=== PATIENT | male | born 1950 | race American Indian/Alaskan Native ===

== ENCOUNTER 2019-05-16 12:41 | Inpatient (IN) | payer OTHER ==
[2019-05-16] MEDS ORDERED: NACL 0.9% 500 ML 500 ML IV ONE (12:58)
--- NOTE | 2019-05-16 13:00 | Emergency Department Report ---
ED Neuro Deficit HPI - General Chief Complaint: Neuro Symptoms/Deficit Stated Complaint: LT SIDE PAIN Time Seen by Provider: 05/16/19 12:48 Source: patient, RN notes reviewed Mode of arrival: Wheelchair Limitations: Physical Limitation, Other (the patient is a poor historian) - History of Present Illness Initial Comments: This is a 69-year-old gentleman. The patient is not known to this provider previously. The patient is a rather poor historian. The patient states he has hypertension. He does not know what medication he takes for his hypertension. He does not know who his primary care doctor is. He presents to the ER with a complaint of feeling like his left leg is not working correctly. He indicates he woke up feeling like this. He indicates his last normal well time was sometime last night, before going to sleep. He denies physical pain at this time. He indicates symptoms are constant, did not radiate anywhere, he is having difficulty describing worsening or relieving factors. He indicates that he is anxious. The patient specifically denied headache, neck pain, chest pain, abdominal pain, shortness of breath, urinary symptoms, joint pain on his review of systems -: hour(s) Location: left leg Presenting Symptoms: Absent: Sudden, Severe Headache, Blurred/Loss of Vision, Facial Droop/Numbness, Unable to Speak Clearly, Altered Mental Status History of same: No Place: home Quality: weak Improves With: other Worsens With: other - Related Data Home Medications: Home Medications Medication Instructions Recorded Confirmed Last Taken amLODIPine [Norvasc] 10 mg PO DAILY 05/17/19 05/17/19 Unknown Allergies/Adverse Reactions: Allergies Allergy/AdvReac Type Severity Reaction Status Date / Time No Known Allergies Allergy Unverified 05/16/19 12:45 ED Review of Systems ROS: Stated complaint: LT SIDE PAIN Other details as noted in HPI Constitutional: denies: fever Eyes: denies: eye discharge ENT: denies: epistaxis Respiratory: denies: cough Cardiovascular: denies: chest pain Gastrointestinal: denies: abdominal pain Genitourinary: denies: dysuria Musculoskeletal: denies: back pain Skin: denies: lesions Neurological: weakness Psychiatric: anxiety ED Past Medical Hx - Past Medical History Previous Medical History?: Yes Hx Hypertension: Yes - Surgical History Past Surgical History?: No - Medications Home Medications: Home Medications Medication Instructions Recorded Confirmed Last Taken Type amLODIPine [Norvasc] 10 mg PO DAILY 05/17/19 05/17/19 Unknown History ED Neuro Physical Exam - General Limitations: Physical Limitation General appearance: alert, anxious, in distress Suspected Stroke: Yes - Head Head exam: Present: atraumatic, normocephalic - Eye Eye exam: Present: normal appearance, EOMI, other (b/l arcus senilis noted,). Absent: nystagmus - ENT ENT exam: Present: normal exam, normal orophraynx, mucous membranes moist, normal external ear exam - Neck Neck exam: Present: normal inspection, full ROM. Absent: tenderness, meningismus - Respiratory Respiratory exam: Present: normal lung sounds bilaterally. Absent: respiratory distress - Cardiovascular Cardiovascular Exam: Present: regular rate, normal rhythm, normal heart sounds. Absent: bradycardia, tachycardia, irregular rhythm, systolic murmur, diastolic murmur, rubs, gallop - GI/Abdominal GI/Abdominal exam: Present: soft. Absent: distended, tenderness, guarding, rebound, rigid, pulsatile mass - Rectal Rectal exam: Present: deferred - Extremities Exam Extremities exam: Present: normal inspection, other (2+ pulses noted in the bilateral upper, lower extremities. Compartments soft. No long bony tenderness. The pelvis is stable.). Absent: pedal edema, calf tenderness - Back Exam Back exam: Present: normal inspection. Absent: CVA tenderness (R), CVA tenderness (L), paraspinal tenderness, vertebral tenderness - Neurological Exam Neurological exam: Present: alert, oriented X3, motor sensory deficit (there is 4 out of 5 strength left leg. There is decreased sensation to light touch left leg.), other (there is no facial droop. The tongue is midline. Extraocular movements are intact bilaterally.) - NIHSS Assessment Interval: Baseline 1a. Level of Consciousness: alert/keenly responsive 1b. LOC Questions: answers both correctly 1c. LOC Commands: performs tasks correctly 2. Best Gaze: normal 3. Visual: no visual loss 4. Facial Palsy: normal symmetrical movement 5b. Motor Arm Right: no drift 5a. Motor Arm Left: drift 6a. Motor Leg Left: drift 6b. Motor Leg Right: no drift 7. Limb Ataxia: absent 8. Sensory: normal 9. Best Language: no aphasia 10. Dysarthria: normal 11. Extinction/Inattention: no abnormality Total Score: 2 Stroke Severity: Minor Stroke - Psychiatric Psychiatric exam: Present: anxious - Skin Skin exam: Present: warm, dry, intact, normal color. Absent: rash ED Course Vital Signs 05/16/19 05/16/19 05/16/19 13:06 13:30 14:00 Temperature Pulse Rate 97 H 100 H 83 Respiratory 17 18 19 Rate Blood Pressure 174/134 158/110 Blood Pressure [Left] O2 Sat by Pulse 95 99 94 Oximetry 05/16/19 05/16/19 05/16/19 14:36 15:00 15:46 Temperature Pulse Rate 74 Respiratory 19 Rate Blood Pressure 185/133 160/114 160/114 Blood Pressure [Left] O2 Sat by Pulse 96 100 Oximetry 05/16/19 05/16/19 05/16/19 16:00 16:30 17:00 Temperature Pulse Rate 70 Respiratory 15 Rate Blood Pressure 170/112 160/114 161/110 Blood Pressure [Left] O2 Sat by Pulse 96 95 97 Oximetry 05/16/19 05/16/19 05/16/19 17:20 17:30 17:42 Temperature Pulse Rate 80 78 Respiratory 15 17 Rate Blood Pressure 178/132 178/132 161/110 Blood Pressure [Left] O2 Sat by Pulse 93 96 93 Oximetry 05/16/19 05/16/19 05/16/19 17:50 18:00 18:10 Temperature Pulse Rate Respiratory Rate Blood Pressure 161/110 161/110 115/70 Blood Pressure [Left] O2 Sat by Pulse 96 96 97 Oximetry 05/16/19 05/16/19 05/16/19 18:20 18:30 18:40 Temperature Pulse Rate 83 78 Respiratory 18 16 Rate Blood Pressure 115/70 115/70 199/141 Blood Pressure [Left] O2 Sat by Pulse 97 95 96 Oximetry 05/16/19 05/16/19 05/16/19 18:50 19:00 19:10 Temperature Pulse Rate 81 78 79 Respiratory 22 20 16 Rate Blood Pressure 199/141 188/135 188/135 Blood Pressure [Left] O2 Sat by Pulse 96 94 95 Oximetry 05/16/19 05/16/19 05/16/19 19:15 19:20 19:30 Temperature 97.7 F Pulse Rate 76 79 79 Respiratory 14 16 18 Rate Blood Pressure 187/134 188/135 197/141 Blood Pressure 187/134 [Left] O2 Sat by Pulse 97 96 95 Oximetry 05/16/19 05/16/19 05/16/19 19:40 19:50 20:00 Temperature Pulse Rate 74 73 74 Respiratory 16 16 15 Rate Blood Pressure 187/134 187/134 187/134 Blood Pressure [Left] O2 Sat by Pulse 96 96 95 Oximetry 05/16/19 05/16/19 05/16/19 20:10 20:20 20:26 Temperature Pulse Rate 74 68 Respiratory 13 17 Rate Blood Pressure 176/123 176/123 Blood Pressure 174/100 [Left] O2 Sat by Pulse 95 97 Oximetry 05/16/19 05/16/19 20:30 20:40 Temperature Pulse Rate 72 68 Respiratory 11 L 19 Rate Blood Pressure 176/123 187/134 Blood Pressure [Left] O2 Sat by Pulse 96 97 Oximetry - Reevaluation(s) Reevaluation #1: 05/16/19 13:19 Differential diagnosis, including but not limited to: Stroke, AAA, anxiety Assessment and plan: 69-year-old gentleman who comes in with wake-up symptoms concerning for possible stroke, including left leg weakness, hypoesthesia, and discoordination. Last known well time's last night, he woke up with symptoms, therefore not a TPA candidate. He has no pulsatile abdominal mass, and equal pulses in the upper, lower extremities. Think aortic disease is unlikely. He does endorse some abdominal wall shaking, although he is not complaining of abdominal wall pain. He is seen in consultation with stroke neurology, Dr. Lundberg, who agrees that patient is not a TPA candidate, but does recommend a CT angiogram of the head and neck. We will also obtain CT scan of the abdomen and pelvis. Patient will be given 1 mg of Ativan empirically for presumed anxiety. Reevaluation #2: 05/16/19 17:13 CT angiogram neck negative for large vessel occlusion. Incidental nonemergent findings noted. CT scan abdomen pelvis, CT angiogram head pending interpret ation. Reevaluation #3: 05/16/19 17:28 cta head negative for large vessel occlusion Dr Enamorado accepts Reevaluation #4: 05/16/19 18:17 CT scan of the abdomen pelvis is negative for acute disease. - Lab Data Result diagrams: 05/17/19 07:20 05/17/19 07:20 Lab Results 05/16/19 05/16/1905/16/19 Range/Units 12:50 13:23 13:23 WBC 4.6 (4.5-11.0) K/mm3 RBC 4.66 (3.65-5.03) M/mm3 Hgb 14.3 (11.8-15.2) gm/dl Hct 43.0 (35.5-45.6) % MCV 92 (84-94) fl MCH 31 (28-32) pg MCHC 33 (32-34) % RDW 14.1 (13.2-15.2) % Plt Count 215 (140-440) K/mm3 Lymph % (Auto) 28.2 (13.4-35.0) % Clayton % (Auto) 7.3 (0.0-7.3) % Eos % (Auto) 2.5 (0.0-4.3) % Baso % (Auto) 0.9 (0.0-1.8) % Lymph # 1.3 (1.2-5.4) K/mm3 Clayton # 0.3 (0.0-0.8) K/mm3 Eos # 0.1 (0.0-0.4) K/mm3 Baso # 0.0 (0.0-0.1) K/mm3 Seg Neutrophils % 61.1 (40.0-70.0) % Seg Neutrophils # 2.8 (1.8-7.7) K/mm3 PT 13.3 (12.2-14.9) Sec. INR 1.04 (0.87-1.13) APTT 27.8 (24.2-36.6) Sec. Thrombin Time (15.1-19.6) Sec. Sodium (137-145) mmol/L Potassium (3.6-5.0) mmol/L Chloride (98-107) mmol/L Carbon Dioxide (22-30) mmol/L Anion Gap mmol/L BUN (9-20) mg/dL Creatinine (0.8-1.5) mg/dL Estimated GFR ml/min BUN/Creatinine Ratio % Glucose (75-100) mg/dL POC Glucose 113 H (70-105) Calcium (8.4-10.2) mg/dL Magnesium (1.7-2.3) mg/dL Troponin T (0.00-0.029) ng/mL Urine Color (Yellow) Urine Turbidity (Clear) Urine pH (5.0-7.0) Ur Specific Kendall (1.003-1.030) Urine Protein (Negative) mg/dL Urine Glucose (UA) (Negative) mg/dL Urine Ketones (Negative) mg/dL Urine Blood (Negative) Urine Nitrite (Negative) Urine Bilirubin (Negative) Urine Urobilinogen (<2.0) mg/dL Ur Leukocyte Esterase (Negative) Urine WBC (Auto) (0.0-6.0) /HPF Urine RBC (Auto) (0.0-6.0) /HPF Urine Bacteria (Auto) (Negative) /HPF Urine Mucus /HPF 05/16/19 05/16/19 05/16/19 Range/Units 13:23 13:23 13:23 WBC (4.5-11.0) K/mm3 RBC (3.65-5.03) M/mm3 Hgb (11.8-15.2) gm/dl Hct (35.5-45.6) % MCV (84-94) fl MCH (28-32) pg MCHC (32-34) % RDW (13.2-15.2) % Plt Count (140-440) K/mm3 Lymph % (Auto) (13.4-35.0) % Clayton % (Auto) (0.0-7.3) % Eos % (Auto) (0.0-4.3) % Baso % (Auto) (0.0-1.8) % Lymph # (1.2-5.4) K/mm3 Clayton # (0.0-0.8) K/mm3 Eos # (0.0-0.4) K/mm3 Baso # (0.0-0.1) K/mm3 Seg Neutrophils % (40.0-70.0) % Seg Neutrophils # (1.8-7.7) K/mm3 PT (12.2-14.9) Sec. INR (0.87-1.13) APTT (24.2-36.6) Sec. Thrombin Time 16.3 (15.1-19.6) Sec. Sodium 138 (137-145) mmol/L Potassium 3.3 L (3.6-5.0) mmol/L Chloride 102.5 (98-107) mmol/L Carbon Dioxide 23 (22-30) mmol/L Anion Gap 16 mmol/L BUN 16 (9-20) mg/dL Creatinine 1.3 (0.8-1.5) mg/dL Estimated GFR 55 ml/min BUN/Creatinine Ratio 12 % Glucose 110 H (75-100) mg/dL POC Glucose (70-105) Calcium 9.1 (8.4-10.2) mg/dL Magnesium 1.90 (1.7-2.3) mg/dL Troponin T < 0.010 (0.00-0.029) ng/mL Urine Color (Yellow) Urine Turbidity (Clear) Urine pH (5.0-7.0) Ur Specific Kendall (1.003-1.030) Urine Protein (Negative) mg/dL Urine Glucose (UA) (Negative) mg/dL Urine Ketones (Negative) mg/dL Urine Blood (Negative) Urine Nitrite (Negative) Urine Bilirubin (Negative) Urine Urobilinogen (<2.0) mg/dL Ur Leukocyte Esterase (Negative) Urine WBC (Auto) (0.0-6.0) /HPF Urine RBC (Auto) (0.0-6.0) /HPF Urine Bacteria (Auto) (Negative) /HPF Urine Mucus /HPF 05/16/19 Range/Units 14:38 WBC (4.5-11.0) K/mm3 RBC (3.65-5.03) M/mm3 Hgb (11.8-15.2) gm/dl Hct (35.5-45.6) % MCV (84-94) fl MCH (28-32) pg MCHC (32-34) % RDW (13.2-15.2) % Plt Count (140-440) K/mm3 Lymph % (Auto) (13.4-35.0) % Clayton % (Auto) (0.0-7.3) % Eos % (Auto) (0.0-4.3) % Baso % (Auto) (0.0-1.8) % Lymph # (1.2-5.4) K/mm3 Clayton # (0.0-0.8) K/mm3 Eos # (0.0-0.4) K/mm3 Baso # (0.0-0.1) K/mm3 Seg Neutrophils % (40.0-70.0) % Seg Neutrophils # (1.8-7.7) K/mm3 PT (12.2-14.9) Sec. INR (0.87-1.13) APTT (24.2-36.6) Sec. Thrombin Time (15.1-19.6) Sec. Sodium (137-145) mmol/L Potassium (3.6-5.0) mmol/L Chloride (98-107) mmol/L Carbon Dioxide (22-30) mmol/L Anion Gap mmol/L BUN (9-20) mg/dL Creatinine (0.8-1.5) mg/dL Estimated GFR ml/min BUN/Creatinine Ratio % Glucose (75-100) mg/dL POC Glucose (70-105) Calcium (8.4-10.2) mg/dL Magnesium (1.7-2.3) mg/dL Troponin T (0.00-0.029) ng/mL Urine Color Yellow (Yellow) Urine Turbidity Slightly-cloudy (Clear) Urine pH 8.0 H (5.0-7.0) Ur Specific Kendall 1.013 (1.003-1.030) Urine Protein 30 mg/dl (Negative) mg/dL Urine Glucose (UA) Neg (Negative) mg/dL Urine Ketones Neg (Negative) mg/dL Urine Blood Neg (Negative) Urine Nitrite Neg (Negative) Urine Bilirubin Neg (Negative) Urine Urobilinogen < 2.0 (<2.0) mg/dL Ur Leukocyte Esterase Neg (Negative) Urine WBC (Auto) 1.0 (0.0-6.0) /HPF Urine RBC (Auto) 1.0 (0.0-6.0) /HPF Urine Bacteria (Auto) 1+ (Negative) /HPF Urine Mucus Few /HPF - EKG Data -: EKG Interpreted by Pr EKG shows normal: sinus rhythm Rate: normal When compared to previous EKG there are: previous EKG unavailable 05/16/19 13:21 This is a normal sinus rhythm, 92 bpm, left axis deviation, left anterior fascicular block, left ventricular hypertrophy, no endorsement of chest pain, the EKG is abnormal, the EKG is not consistent with ST elevation myocardial infarction. - Radiology Data Radiology results: pending, report reviewed, image reviewed Noncontrast CT scan of the brain is negative for acute disease. xr chest negative for acute disease - Core Measures Measure Exclusions: not indicated - Thrombolytic Inclusion/Exclusion Thrombolytic Exclusion Criteria: Onset of Symptoms Unknown Critical care attestation.: If time is entered above; I have spent that time in minutes in the direct care of this critically ill patient, excluding procedure time. ED Disposition Clinical Impression: Abdominal discomfort CVA (cerebral vascular accident) Qualifiers: CVA mechanism: other Qualified Code(s): I63.89 - Other cerebral infarction Disposition: DC-09 OP ADMIT IP TO THIS HOSP Is pt being admited?: Yes Condition: Fair
[2019-05-16] MEDS ORDERED: ATIVAN ONE (13:04)
[2019-05-16] MEDS ORDERED: ATIVAN IV STA (13:13)
--- NOTE | 2019-05-16 13:25 | Cat Scan Report ---
CT head without contrast INDICATION : neuro deficits <6hrs or sx present upon awakening. TECHNIQUE: Axial imaging performed from the skull apex through the skull base without the use of con trast. All CT scans at this location are performed using CT dose reduction for ALARA by means of aut omated exposure control. COMPARISON: None FINDINGS: Parenchyma: No acute intracranial hemorrhage or parenchymal abnormality. Several bilateral basal ashleigh glia and thalamic chronic lacunar infarcts. A right frontal lobe white matter chronic lacunar infarct . Moderate bilateral periventricular white matter hypodensities. Ventricles: Ventricles are normal in size and appear symmetric. Soft tissues: Soft tissues including the orbits appear normal. Bones: No acute osseous abnormality. Sinuses: Partial opacification of ethmoid and frontal sinuses. IMPRESSION: No evidence of acute or subacute infarct or hemorrhage. Multiple chronic lacunar infarcts and moderate chronic white matter microangiopathy. Sinusitis. I gave a verbal report of the findings to Dr. Coronado in the emergency department on 05/16/2019 at 132 0 CODE STROKE ALERT Signer Name: Cody Bain MD Signed: 05/16/2019 1:20 PM Workstation Name: [id number]
[2019-05-16 13:34] LABS: Basophils % (Auto) 0.9 % (0.0-1.8); Eosinophils # (Auto) 0.1 K/mm3 (0.0-0.4); Eosinophils % (Auto) 2.5 % (0.0-4.3); Hemoglobin 14.3 gm/dl (11.8-15.2); Lymphocytes # (Auto) 1.3 K/mm3 (1.2-5.4); Lymphocytes % (Auto) 28.2 % (13.4-35.0); Mean Corpuscular HGB Conc 33 % (32-34); Mean Corpuscular Volume 92 fl (84-94); Monocytes # (Auto) 0.3 K/mm3 (0.0-0.8); Monocytes % (Auto) 7.3 % (0.0-7.3); Platelet Count 215 K/mm3 (140-440); Red Blood Count 4.66 M/mm3 (3.65-5.03); Red Cell Distribution Width 14.1 % (13.2-15.2)
[2019-05-16 13:44] LABS: INR 1.04 (0.87-1.13)
[2019-05-16 13:45] LABS: Partial Thromboplastin Time 27.8 Sec. (24.2-36.6)
[2019-05-16 13:56] LABS: BUN/Creatinine Ratio 12; Blood Urea Nitrogen 16 mg/dL (9-20); Calcium 9.1 mg/dL (8.4-10.2); Hemolysis Index 6
--- NOTE | 2019-05-16 14:03 | XRay Report ---
CHEST 1 VIEW INDICATION: cva weak. COMPARISON: None. FINDINGS: Support devices: None. Heart: Enlarged. Pulmonary vessels: Normal Lungs/Pleura: No acute air space or interstitial disease. Additional findings: Aortic tortuosity and ectasia. IMPRESSION: 1. Cardiomegaly but no CHF. 2. Atherosclerotic/hypertensive changes in the aorta. Signer Name: Cody Bain MD Signed: 05/16/2019 1:59 PM Workstation Name: [id number]
[2019-05-16] MEDS ORDERED: K-DUR PO ONE ×2 (14:18→16:52)
[2019-05-16 15:12] LABS: Bacteria,Urine 1+ /HPF (Negative); Bilirubin,Urine NEG (Negative); Blood,Urine NEG (Negative); Color,Urine Yellow (Yellow); Mucus,Urine FEW /HPF; Urobilinogen,Urine < 2.0 mg/dL (<2.0)
--- NOTE | 2019-05-16 16:54 | Emergency Department Report ---
ED Neuro Deficit HPI - General Chief Complaint: Neuro Symptoms/Deficit Stated Complaint: LT SIDE PAIN Time Seen by Provider: 05/16/19 12:48 Source: patient, RN notes reviewed Mode of arrival: Wheelchair Limitations: Physical Limitation - History of Present Illness Initial Comments: [facility] Impression: Last known well was the day before, and no TPA, and the patient might be having a muscle spasm. Left sided twitching that is noted, on examination today. CT Angio head/neck to be ordered for the left sided weakness. Concern for seizure, ativan given, also could have limb shaking TIA. Comments: Time of notification: 1247 am Time online: 1250 am Recommendations: Start antiplatelet if no obvious contraindication Stroke protocol admission/ orderset suggested with placement on stroke floor tele monitoring Bedside swallow evaluation HOB less than 30 degrees IV Fluid hydration with NS Euglycemia avoid hyperthermia, PRN acetaminophen dvt ppx Consider inpatient neurology consultation Discussed with ED MD Please call with questions CC History of Present Illness The patienet was feeling weak, and had twitching on the left side. He is having some twitching to the left side. No AMS. Diagnostic: CT head is negative. Exam: Patient is in no apparent distress. Patient appears as stated age. No obvious acute respiratory or cardiac distress. Patient is well groomed and well- nourished. NIHSS score: 1A: Level of Consciousness - Requires repeated stimulation to arouse 0 1B: Ask Month and Age - 0 Questions Right 0 1C: 'Blink Eyes' & 'Squeeze Hands' - Performs 0 Tasks 0 2: Test Horizontal Extraocular Movements - Partial Gaze Palsy: Corrects with Oculocephalic Reflex 0 3: Test Visual Arana - No Visual Loss 0 4: Test Facial Palsy - Normal symmetry 0 5A: Test Left Arm Motor Drift - Some Effort Against [place] 0 5B: Test Right Arm Motor Drift - Some Effort Against Gravity0 6A: Test Left Leg Motor Drift - Some Effort Against Van 0 6B: Test Right Leg Motor Drift - Some Effort Against Van 0 7: Test Limb Ataxia - Ataxia in 2 Limbs 0 8: Test Sensation - Complete Loss: Cannot Sense Being Touched At All 0 9: Test Language/Aphasia- Severe Aphasia: Fragmentary Expression, Inference Needed, Cannot Identify Materials 0 10: Test Dysarthria - Mute/Anarthric 0 11: Test Extinction/Inattention - Extinction to bilateral simultaneous stimulation 0 Medical Decision Making: - Extensive number of diagnosis or management options are considered above. - Extensive amount of complex data reviewed. - High risk of complication and/or morbidity or mortality are associated with differential diagnostic considerations above. - There may be Uncertain outcome and increased probability of prolonged functional impairment or high probability of severe prolonged functional impairment associated with some of these differential diagnosis. Medical Data Reviewed: 1.Data reviewed include clinical labs, radiology,Medical Tests; 2.Tests results discussed w/performing or interpreting physician; 3.Obtaining/reviewing old medical records; 4.Obtaining case history from another source; 5.Independent review of image, tracing or specimen Location: left leg History of same: No Place: home Quality: weak Improves With: other Worsens With: other - Related Data Home Medications: Home Medications Medication Instructions Recorded Confirmed Last Taken No Known Home Medications [No 05/16/19 05/16/19 Unknown Reported Home Medications] Allergies/Adverse Reactions: Allergies Allergy/AdvReac Type Severity Reaction Status Date / Time No Known Allergies Allergy Unverified 05/16/19 12:45 ED Review of Systems ROS: Stated complaint: LT SIDE PAIN Other details as noted in HPI Constitutional: denies: fever Eyes: denies: eye discharge ENT: denies: epistaxis Respiratory: denies: cough Cardiovascular: denies: chest pain Gastrointestinal: denies: abdominal pain Genitourinary: denies: dysuria Musculoskeletal: denies: back pain Skin: denies: lesions Neurological: weakness Psychiatric: anxiety ED Past Medical Hx - Past Medical History Previous Medical History?: Yes Hx Hypertension: Yes - Surgical History Past Surgical History?: No - Medications Home Medications: Home Medications Medication Instructions Recorded Confirmed Last Taken Type No Known Home Medications [No 05/16/19 05/16/19 Unknown History Reported Home Medications] ED Neuro Physical Exam - General Limitations: Physical Limitation General appearance: alert, anxious, in distress ED Course Vital Signs 05/16/19 05/16/19 05/16/19 13:06 13:30 14:00 Pulse Rate 97 H 100 H 83 Respiratory 17 18 19 Rate Blood Pressure 174/134 158/110 O2 Sat by Pulse 95 99 94 Oximetry 05/16/19 14:36 Pulse Rate Respiratory Rate Blood Pressure 185/133 O2 Sat by Pulse 96 Oximetry - Lab Data Result diagrams: 05/16/19 13:23 05/16/19 13:23 Lab Results 05/16/19 05/16/19 05/16/19 Range/Units 12:50 13:23 13:23 WBC 4.6 (4.5-11.0) K/mm3 RBC 4.66 (3.65-5.03) M/mm3 Hgb 14.3 (11.8-15.2) gm/dl Hct 43.0 (35.5-45.6) % MCV 92 (84-94) fl MCH 31 (28-32) pg MCHC 33 (32-34) % RDW 14.1 (13.2-15.2) % Plt Count 215 (140-440) K/mm3 Lymph % (Auto) 28.2 (13.4-35.0) % [place] % (Auto) 7.3 (0.0-7.3) % Eos % (Auto) 2.5 (0.0-4.3) % Baso % (Auto) 0.9 (0.0-1.8) % Lymph # 1.3 (1.2-5.4) K/mm3 [place] # 0.3 (0.0-0.8) K/mm3 Eos # 0.1 (0.0-0.4) K/mm3 Baso # 0.0 (0.0-0.1) K/mm3 Seg Neutrophils % 61.1 (40.0-70.0) % Seg Neutrophils # 2.8 (1.8-7.7) K/mm3 PT 13.3 (12.2-14.9) Sec. INR 1.04 (0.87-1.13) APTT 27.8 (24.2-36.6) Sec. Thrombin Time (15.1-19.6) Sec. Sodium (137-145) mmol/L Potassium (3.6-5.0) mmol/L Chloride (98-107) mmol/L Carbon Dioxide (22-30) mmol/L Anion Gap mmol/L BUN (9-20) mg/dL Creatinine (0.8-1.5) mg/dL Estimated GFR ml/min BUN/Creatinine Ratio % Glucose (75-100) mg/dL POC Glucose 113 H (70-105) Calcium (8.4-10.2) mg/dL Magnesium (1.7-2.3) mg/dL Troponin T (0.00-0.029) ng/mL Urine Color (Yellow) Urine Turbidity (Clear) Urine pH (5.0-7.0) Ur Specific [place] (1.003-1.030) Urine Protein (Negative) mg/dL Urine Glucose (UA) (Negative) mg/dL Urine Ketones (Negative) mg/dL Urine Blood (Negative) Urine Nitrite (Negative) Urine Bilirubin (Negative) Urine Urobilinogen (<2.0) mg/dL Ur Leukocyte Esterase (Negative) Urine WBC (Auto) (0.0-6.0) /HPF Urine RBC (Auto) (0.0-6.0) /HPF Urine Bacteria (Auto) (Negative) /HPF Urine Mucus /HPF 05/16/19 05/16/19 05/16/19 Range/Units 13:23 13:23 13:23 WBC (4.5-11.0) K/mm3 RBC (3.65-5.03) M/mm3 Hgb (11.8-15.2) gm/dl Hct (35.5-45.6) % MCV (84-94) fl MCH (28-32) pg MCHC (32-34) % RDW (13.2-15.2) % Plt Count (140-440) K/mm3 Lymph % (Auto) (13.4-35.0) % [place] % (Auto) (0.0-7.3) % Eos % (Auto) (0.0-4.3) % Baso % (Auto) (0.0-1.8) % Lymph # (1.2-5.4) K/mm3 [place] # (0.0-0.8) K/mm3 Eos # (0.0-0.4) K/mm3 Baso # (0.0-0.1) K/mm3 Seg Neutrophils % (40.0-70.0) % Seg Neutrophils # (1.8-7.7) K/mm3 PT (12.2-14.9) Sec. INR (0.87-1.13) APTT (24.2-36.6) Sec. Thrombin Time 16.3 (15.1-19.6) Sec. Sodium 138 (137-145) mmol/L Potassium 3.3 L (3.6-5.0) mmol/L Chloride 102.5 (98-107) mmol/L Carbon Dioxide 23 (22-30) mmol/L Anion Gap 16 mmol/L BUN 16 (9-20) mg/dL Creatinine 1.3 (0.8-1.5) mg/dL Estimated GFR 55 ml/min BUN/Creatinine Ratio 12 % Glucose 110 H (75-100) mg/dL POC Glucose (70-105) Calcium 9.1 (8.4-10.2) mg/dL Magnesium 1.90 (1.7-2.3) mg/dL Troponin T < 0.010 (0.00-0.029) ng/mL Urine Color (Yellow) Urine Turbidity (Clear) Urine pH (5.0-7.0) Ur Specific [place] (1.003-1.030) Urine Protein (Negative) mg/dL Urine Glucose (UA) (Negative) mg/dL Urine Ketones (Negative) mg/dL Urine Blood (Negative) Urine Nitrite (Negative) Urine Bilirubin (Negative) Urine Urobilinogen (<2.0) mg/dL Ur Leukocyte Esterase (Negative) Urine WBC (Auto) (0.0-6.0) /HPF Urine RBC (Auto) (0.0-6.0) /HPF Urine Bacteria (Auto) (Negative) /HPF Urine Mucus /HPF 05/16/19 Range/Units 14:38 WBC (4.5-11.0) K/mm3 RBC (3.65-5.03) M/mm3 Hgb (11.8-15.2) gm/dl Hct (35.5-45.6) % MCV (84-94) fl MCH (28-32) pg MCHC (32-34) % RDW (13.2-15.2) % Plt Count (140-440) K/mm3 Lymph % (Auto) (13.4-35.0) % [place] % (Auto) (0.0-7.3) % Eos % (Auto) (0.0-4.3) % Baso % (Auto) (0.0-1.8) % Lymph # (1.2-5.4) K/mm3 [place] # (0.0-0.8) K/mm3 Eos # (0.0-0.4) K/mm3 Baso # (0.0-0.1) K/mm3 Seg Neutrophils % (40.0-70.0) % Seg Neutrophils # (1.8-7.7) K/mm3 PT (12.2-14.9) Sec. INR (0.87-1.13) APTT (24.2-36.6) Sec. Thrombin Time (15.1-19.6) Sec. Sodium (137-145) mmol/L Potassium (3.6-5.0) mmol/L Chloride (98-107) mmol/L Carbon Dioxide (22-30) mmol/L Anion Gap mmol/L BUN (9-20) mg/dL Creatinine (0.8-1.5) mg/dL Estimated GFR ml/min BUN/Creatinine Ratio % Glucose (75-100) mg/dL POC Glucose (70-105) Calcium (8.4-10.2) mg/dL Magnesium (1.7-2.3) mg/dL Troponin T (0.00-0.029) ng/mL Urine Color Yellow (Yellow) Urine Turbidity Slightly-cloudy (Clear) Urine pH 8.0 H (5.0-7.0) Ur Specific [place] 1.013 (1.003-1.030) Urine Protein 30 mg/dl (Negative) mg/dL Urine Glucose (UA) Neg (Negative) mg/dL Urine Ketones Neg (Negative) mg/dL Urine Blood Neg (Negative) Urine Nitrite Neg (Negative) Urine Bilirubin Neg (Negative) Urine Urobilinogen < 2.0 (<2.0) mg/dL Ur Leukocyte Esterase Neg (Negative) Urine WBC (Auto) 1.0 (0.0-6.0) /HPF Urine RBC (Auto) 1.0 (0.0-6.0) /HPF Urine Bacteria (Auto) 1+ (Negative) /HPF Urine Mucus Few /HPF Critical care attestation.: If time is entered above; I have spent that time in minutes in the direct care of this critically ill patient, excluding procedure time. ED Disposition Disposition: [id number] OP ADMIT IP TO THIS HOSP Condition: Fair Referrals: ABIMEAL MOSQUERA MD [Primary Care Provider] - 3-5 Days
--- NOTE | 2019-05-16 17:12 | Cat Scan Report ---
CTA neck with intravenous contrast material CLINICAL HISTORY: CVA TECHNIQUE: Following acquisition of a timing bolus 2.5 mm thick contiguous axial scans were obtained from aortic arch to the skull base during rapid bolus intravenous contrast infusion. In addition to evaluation o f axial source images multiplanar reconstructions were produced and reviewed for this report. Three-d imensional reconstructions were produced utilizing an independent workstation. These were also review ed for this report. FINDINGS: There is dilatation of the ascending aorta which measures about 4.3 cm in diameter. The descending ao rta is also large in size measuring about 3.7 cm in diameter. No additional abnormalities are seen at the origins of the great vessels. Common carotid arteries, carotid bifurcations and cervical portions of the internal carotid arteries all have a normal appearance. There is no indication atherosclerotic disease at the carotid bifurcati ons or elsewhere along the course of the common or cervical carotid arteries. Of hemodynamically sign ificant stenosis. The right vertebral artery is dominant. An atretic left vertebral artery originates directly from the aortic arch between the origin of the left common carotid artery and left subclavian artery. Both ve rtebral arteries reach the basilar artery origin. The basilar artery is diminutive in caliber. This m ay be related to the presence of origin of the left posterior cerebral artery. The degree of stenosis, if any, is determined utilizing NASCET like criteria. In this case there is no indication of hemodynamically significant stenosis at the carotid bifurcations or elsewhere. Evaluation of the nonvascular soft tissue structures reveal no abnormality. There is no indication of cervical lymphadenopathy. No abnormalities are seen along the course of the airway. Visualized porti ons of the parotid glands and the submandibular salivary glands have a normal appearance. Thyroid gla nd has a normal appearance. Evaluation of the lung apices reveals no evidence of lung nodule or infil trate. Evaluation of the cervical spine is remarkable for advanced cervical spondylosis at multiple levels. Multifocal neuroforaminal stenosis is evident. There is no indication of central canal stenosis.. IMPRESSION: 1. No indication of hemodynamically significant stenosis or large vessel occlusion is identified on C TA neck. Contrast dose report: Information not available. All CT examinations performed at this facility utilize modulated dose reduction, iterative reconstruc tion or weight-based dosing, as appropriate, to obtain a radiation dose which is as low as can reason ably be achieved. Signer Name: Abraham Gibbs MD Signed: 05/16/2019 5:07 PM Workstation Name: [id number]
--- NOTE | 2019-05-16 17:20 | Cat Scan Report ---
CTA head with intravenous contrast CLINICAL HISTORY: CVA TECHNIQUE: 0.625 mm thick contiguous axial scans were obtained from the skull base to the skull vertex during ra pid bolus administration of intravenous contrast material. Multiplanar reconstructions were produced in the coronal and sagittal planes. In addition 3 plane MIP instructions were produced and reviewed f or this report. The axial source images and reconstructed images were reviewed for this report. All CT scans at this location are performed using CT dose reduction for ALARA by means of automated e xposure control. FINDINGS: The caliber of the intracranial vessels is normal throughout. There is no indication of intracranial stenosis or large vessel occlusion. There is no indication of vasculitis. There is no evidence of aneurysm or other vascular malformation. Incidental note is made of a diminutive basilar artery. This appears to be related to a large left P- comm versus origin of the left P-comm. The termination of the basilar artery may be at the leve l of the superior cerebellar arteries. This is considered a normal anatomical variation. Also noted i s diminutive A1 segment of the right anterior cerebral artery. This is also a normal anatomical varia tion. IMPRESSION: 1. No indication of intracranial stenosis or large vessel occlusion. CONTRAST DOSE REPORT: Information not available at this time. Signer Name: Abraham Gibbs MD Signed: 05/16/2019 5:15 PM Workstation Name: [id number]
[2019-05-16] MEDS ORDERED: BABY ASPIRIN PO ONE (17:29)
--- NOTE | 2019-05-16 18:10 | Cat Scan Report ---
CT abdomen pelvis wo con INDICATION: Abdominal pain diffusely. TECHNIQUE: All CT scans at this location are performed using the following dose modulation technique: Automated exposure control. CONTRAST: None. COMPARISON: None available. CT abdomen: Atherosclerotic ectasia involves the thoracic aorta greater than the abdominal aorta. Evaluation the parenchymal organs demonstrates low density liver lesions which all appear to be benig n cysts. The right kidney contains a 3 mm nonobstructing stone. The remaining parenchymal organs are unremarkable. Negative for abdominal mass, fluid collection or inflammation. The bowel is not dilated or thickened. CT PELVIS: The prostate gland is prominently enlarged. Negative for pelvic mass, fluid or inflammatio n. A normal appendix is identified. IMPRESSION: 1. Benign-appearing hepatic cyst. 2. Nonobstructing right renal stone. 3. Prominent prostate enlargement. Signer Name: Ash Rubio MD Signed: 05/16/2019 6:06 PM Workstation Name: [id number]
[2019-05-16] MEDS ORDERED: BABY ASPIRIN ONE (19:24)
[2019-05-16] MEDS ORDERED: TYLENOL PO PRN (22:31)
[2019-05-16] MEDS ORDERED: ZOFRAN IV PRN (22:31)
[2019-05-16] MEDS ORDERED: DILAUDID IV PRN (22:31)
[2019-05-16] MEDS ORDERED: SODIUM CHLORIDE FLUSH SYRINGE 10 ML IV PRN (22:31)
[2019-05-16] MEDS ORDERED: PERCOCET 5/325 PO PRN (22:31)
[2019-05-16] MEDS ORDERED: SODIUM CHLORIDE FLUSH SYRINGE 10 ML INJ PRN ×2 (22:34→22:36)
--- NOTE | 2019-05-16 22:38 | History and Physical Report ---
History of Present Illness Date of examination: 05/16/19 Date of admission: 05/16/19 17:29 Chief complaint: LLE weakness since AM History of present illness: 69-year-old gentleman presents to the ER with a complaint of LLE weakness. He indicates he woke up feeling like this. He indicates his last normal well time was sometime last night, before going to sleep. He denies physical pain at this time. He indicates symptoms are constant, did not radiate anywhere, he is having difficulty describing worsening or relieving factors. He indicates that he is anxious. The patient specifically denied headache, neck pain, chest pain, abdominal pain, shortness of breath, urinary symptoms, joint pain on his review of systems Past Medical History Previous Medical History?: Yes HTN Surgical History Past Surgical History?: No Family History HTN Social History No smoking or Alcohol Medications Home Medications: Home Medications Medication Instructions Recorded Confirmed Last Taken Type No Known Home Medications [No 05/16/19 05/16/19 Unknown History Reported Home Medications] Review of Systems ROS: Stated complaint: LT SIDE PAIN Other details as noted in HPI Constitutional: denies: fever Eyes: denies: eye discharge ENT: denies: epistaxis Respiratory: denies: cough Cardiovascular: denies: chest pain Gastrointestinal: denies: abdominal pain Genitourinary: denies: dysuria Musculoskeletal: denies: back pain Skin: denies: lesions Neurological: weakness Psychiatric: anxiety Medications and Allergies Allergies Allergy/AdvReac Type Severity Reaction Status Date / Time No Known Allergies Allergy Unverified 05/16/19 12:45 Home Medications Medication Instructions Recorded Confirmed Last Taken Type No Known Home Medications [No 05/16/19 05/16/19 Unknown History Reported Home Medications] Exam - Constitutional Vitals: Temp Pulse Resp BP Pulse Ox 97.7 F 76 14 174/100 97 05/16/19 19:15 05/16/19 21:15 05/16/19 19:15 05/16/19 20:26 05/16/19 19:15 General appearance: Present: no acute distress, well-nourished - EENT Eyes: Present: PERRL ENT: hearing intact, clear oral mucosa - Neck Neck: Present: supple, normal ROM - Respiratory Respiratory effort: normal Respiratory: bilateral: CTA - Cardiovascular Heart rate: 78 Rhythm: regular Heart Sounds: Present: S1 & S2. Absent: rub, click - Extremities Extremities: no ischemia, pulses intact, pulses symmetrical, No edema, abnormal (LE 3/5 power) Peripheral Pulses: within normal limits - Abdominal General gastrointestinal: Present: soft, non-tender, non-distended, normal bowel sounds Male genitourinary: Present: normal - Integumentary Integumentary: Present: clear, warm, dry - Musculoskeletal Musculoskeletal: gait normal, strength equal bilaterally - Psychiatric Psychiatric: appropriate mood/affect, intact judgment & insight - Neurologic Neurologic: CNII-XII intact, focal deficits (LLE weakness 3/5 power) Results - Labs CBC & Chem 7: 05/16/19 13:23 05/16/19 13:23 Labs: Laboratory Last Values WBC 4.6 K/mm3 (4.5-11.0) 05/16/19 13:23 RBC 4.66 M/mm3 (3.65-5.03) 05/16/19 13:23 Hgb 14.3 gm/dl (11.8-15.2) 05/16/19 13:23 Hct 43.0 % (35.5-45.6) 05/16/19 13:23 MCV 92 fl (84-94) 05/16/19 13:23 MCH 31 pg (28-32) 05/16/19 13:23 MCHC 33 % (32-34) 05/16/19 13:23 RDW 14.1 % (13.2-15.2) 05/16/19 13:23 Plt Count 215 K/mm3 (140-440) 05/16/19 13:23 Lymph % (Auto) 28.2 % (13.4-35.0) 05/16/19 13:23 [place] % (Auto) 7.3 % (0.0-7.3) 05/16/19 13:23 Eos % (Auto) 2.5 % (0.0-4.3) 05/16/19 13:23 Baso % (Auto) 0.9 % (0.0-1.8) 05/16/19 13:23 Lymph # 1.3 K/mm3 (1.2-5.4) 05/16/19 13:23 [place] # 0.3 K/mm3 (0.0-0.8) 05/16/19 13:23 Eos # 0.1 K/mm3 (0.0-0.4) 05/16/19 13:23 Baso # 0.0 K/mm3 (0.0-0.1) 05/16/19 13:23 Seg Neutrophils % 61.1 % (40.0-70.0) 05/16/19 13:23 Seg Neutrophils # 2.8 K/mm3 (1.8-7.7) 05/16/19 13:23 PT 13.3 Sec. (12.2-14.9) 05/16/19 13:23 INR 1.04 (0.87-1.13) 05/16/19 13:23 APTT 27.8 Sec. (24.2-36.6) 05/16/19 13:23 16.3 Sec. (15.1-19.6) 05/16/19 13:23 Sodium 138 mmol/L (137-145) 05/16/19 13:23 Potassium 3.3 mmol/L (3.6-5.0) L 05/16/19 13:23 Chloride 102.5 mmol/L (98-107) 05/16/19 13:23 Carbon Dioxide 23 mmol/L (22-30) 05/16/19 13:23 16 mmol/L 05/16/19 13:23 BUN 16 mg/dL (9-20) 05/16/19 13:23 1.3 mg/dL (0.8-1.5) 05/16/19 13:23 Estimated GFR 55 ml/min 05/16/19 13:23 12 % 05/16/19 13:23 Glucose 110 mg/dL (75-100) H 05/16/19 13:23 POC Glucose 113 (70-105) H 05/16/19 12:50 Calcium 9.1 mg/dL (8.4-10.2) 05/16/19 13:23 Magnesium 1.90 mg/dL (1.7-2.3) 05/16/19 13:23 < 0.010 ng/mL (0.00-0.029) 05/16/19 13:23 Yellow (Yellow) 05/16/19 14:38 Slightly-cloudy (Clear) 05/16/19 14:38 8.0 (5.0-7.0) H 05/16/19 14:38 Ur Specific [place] 1.013 (1.003-1.030) 05/16/19 14:38 30 mg/dl mg/dL (Negative) 05/16/19 14:38 Neg mg/dL (Negative) 05/16/19 14:38 Neg mg/dL (Negative) 05/16/19 14:38 Neg (Negative) 05/16/19 14:38 Neg (Negative) 05/16/19 14:38 Neg (Negative) 05/16/19 14:38 < 2.0 mg/dL (<2.0) 05/16/19 14:38 Ur Leukocyte Esterase Neg (Negative) 05/16/19 14:38 1.0 /HPF (0.0-6.0) 05/16/19 14:38 1.0 /HPF (0.0-6.0) 05/16/19 14:38 1+ /HPF (Negative) 05/16/19 14:38 Few /HPF 05/16/19 14:38 - Imaging and Cardiology EKG: report reviewed CT Scan - head: report reviewed Imaging and Cardiology: EKG Data EKG Interpreted by Me EKG shows normal: sinus rhythm Rate: normal When compared to previous EKG there are: previous EKG unavaila This is a normal sinus rhythm, 92 bpm, left axis deviation, left anterior fascicular block, left ventricular hypertrophy, ed - Assessment and Plan Advance Directives: Yes (Full code) VTE prophylaxis?: Chemical Plan of care discussed with patient/family: Yes - Patient Problems (1) Acute CVA (cerebrovascular accident) Current Visit: Yes Status: Acute Plan to address problem: Involving LLE Not a candidate for TPA Thrombolytic Inclusion/Exclusion Thrombolytic Exclusion Criteria: Onset of Symptoms Unknown Stroke work up initiated MRI/MRA echo and CDS ordered (2) HTN (hypertension) Current Visit: Yes Status: Chronic Qualifiers: Hypertension type: essential hypertension Qualified Code(s): I10 - Essalexx barajas (primary) hypertension Plan to address problem: Cont antihypertensives (3) Hypokalemia Current Visit: Yes Status: Acute Plan to address problem: Supplemented (4) DVT prophylaxis Current Visit: Yes Status: Acute Plan to address problem: On Lovenox and GI prophylaxis
[2019-05-17] MEDS: PEPCID PO SCH ×3 (00:13→21:55)
[2019-05-17] MEDS: D5NS 1,000 ML IV SCH (00:14)
[2019-05-17] MEDS: APRESOLINE IV PRN (01:55)
[2019-05-17 07:44] LABS: Basophils % (Auto) 0.7 % (0.0-1.8); Eosinophils # (Auto) 0.1 K/mm3 (0.0-0.4); Eosinophils % (Auto) 1.8 % (0.0-4.3); Hematocrit 41.5 % (35.5-45.6); Lymphocytes # (Auto) 1.7 K/mm3 (1.2-5.4); Lymphocytes % (Auto) 34.6 % (13.4-35.0); Mean Corpuscular HGB Conc 34 % (32-34); Mean Corpuscular Volume 92 fl (84-94); Monocytes # (Auto) 0.5 K/mm3 (0.0-0.8); Monocytes % (Auto) 10.1 % (0.0-7.3); Platelet Count 202 K/mm3 (140-440); Red Blood Count 4.52 M/mm3 (3.65-5.03)
[2019-05-17 08:11] LABS: Alanine Aminotransferase 8 units/L (7-56); Albumin 3.6 g/dL (3.9-5); BUN/Creatinine Ratio 12; Blood Urea Nitrogen 16 mg/dL (9-20); Hemolysis Index 7; LDL Cholesterol,Direct 151 mg/dL (50-130)
[2019-05-17 08:24] LABS: Chol/HDL Ratio 3.71 %; HDL Cholesterol 57 mg/dL (40-59)
--- NOTE | 2019-05-17 10:08 | Vascular Lab Report ---
BILATERAL CAROTID DOPPLER ULTRASOUND INDICATION : stroke TECHNIQUE: Grayscale and color Doppler imaging performed through the neck. COMPARISON: None FINDINGS: Right: There is minimal partially calcified plaque in the proximal ICA. Peak systolic velocity in t he CCA is 54 cm/s with end-diastolic velocity of 16 cm/s. Peak systolic velocity in the proximal ICA is 48 cm/s with end-diastolic velocity of 15 cm/s. ICA to CCA ratio is less than 2. There is antegrad e flow in the ECA and the vertebral artery. Left: There is mild soft plaque in the carotid bulb. Peak systolic velocity in the CCA is 50 cm/s wit h end-diastolic velocity of 17 cm/s. Peak systolic velocity in the proximal ICA is 47 cm/s with end-d iastolic velocity of 23 cm/s. ICA to CCA ratio is less than 2. There is antegrade flow in the ECA an d the vertebral artery. IMPRESSION: No hemodynamically significant stenosis by NASCET criteria. Signer Name: Frank Stokes Jr, MD Signed: 05/17/2019 10:04 AM Workstation Name: [id number]
[2019-05-17] MEDS: NORVASC PO SCH (11:48)
[2019-05-17] MEDS: COZAAR PO SCH (11:48)
[2019-05-17] MEDS: LOPRESSOR PO SCH ×2 (11:48→21:55)
[2019-05-17] MEDS: SODIUM CHLORIDE FLUSH SYRINGE 10 ML IV SCH ×2 (11:49→21:56)
--- NOTE | 2019-05-17 12:08 | Magnetic Resonance Report ---
MRI BRAIN WITHOUT CONTRAST INDICATION / CLINICAL INFORMATION: Cerebrovascular accident, left leg weakness.. TECHNIQUE: Multiplanar, multisequence MR images of the brain were obtained. COMPARISON: None available. FINDINGS: BRAIN / INTRACRANIAL CONTENTS: There is extensive cerebral white matter disease most consistent with microvascular angiopathy. There are old lacunar infarcts involving the deep cerebral white matter and thalami. Milder chronic white matter changes are seen within the cerebellum. The diffusion imaging r eveals no clear evidence of acute infarction. There is mild cerebral atrophy with associated prominence of the ventricular system. No extra-axial f luid collections or significant mass effect is identified. CRANIOCERVICAL JUNCTION: No significant abnormality. VASCULAR FLOW-VOIDS: There is small caliber of the visualized distal left vertebral artery which may be developmental. Otherwise, the visualized vessels demonstrate signal voids. The MR a head will be d ictated separately. ORBITS: No significant abnormality of visualized orbits. SINUSES / MASTOIDS: There is near complete opacification of the right frontal sinus at. Scattered inf lammatory changes are noted within the ethmoid and inferior right maxillary sinuses at. There is mini mal mucosal thickening posteriorly within the right sphenoid sinus. The mastoid air cells are pneumat ized. ADDITIONAL FINDINGS: The posterior spondylosis at the visualized C3-4 level on the sagittal imaging w hich mildly deform the ventral spinal cord. IMPRESSION: 1. There is extensive microvascular angiopathy as detailed above without evidence of acute infarction . Signer Name: Curt Colindres MD Signed: 05/17/2019 12:04 PM Workstation Name: [id number]
--- NOTE | 2019-05-17 12:22 | Magnetic Resonance Report ---
MR MRA/MRV head wo con INDICATION: stroke; 69-year-old male TECHNIQUE: 3-D time of flight. NASCET type criteria used to evaluate stenoses. Motion artifact COMPARISON: CTA - 05/16/2019 FINDINGS: INTERNAL CAROTID ARTERIES: No significant narrowing appreciated. VERTEBROBASILAR SYSTEM: No significant narrowing appreciated. Right vertebral artery appears to be do minant. DISTAL BRANCHES: Distal branches of the anterior, middle, and posterior cerebral arteries are fairly symmetric in appearance and number. It might be difficult to reliably evaluate for small branch steno ses because of motion. Note, the posterior communicating artery on the left largely feeds both assistant production editor ior cerebral arteries. Note, the A1 segment on the right is hypoplastic. A majority of blood flow to the anterior cerebral circulation is via the left internal carotid artery. ANEURYSM: None identified. There is partial opacification of the right frontal sinus and anterior ethmoids, ipsilaterally. IMPRESSION: No significant narrowing appreciated on this limited MRA of the brain. Signer Name: Jhon Urena MD, III Signed: 05/17/2019 12:18 PM Workstation Name: [id number]
--- NOTE | 2019-05-17 19:41 | Progress Note ---
Assessment and Plan - Patient Problems (1) Acute CVA (cerebrovascular accident) Current Visit: Yes Status: Acute Plan to address problem: Patient did not have acute CVA did have multiple lacunar infarcts and vascular disease. Explained to patient we need to be more aggressive with his blood pressure control and compliance. at bedside they understand hospital course thus far. (2) Hypokalemia Current Visit: Yes Status: Resolved (3) HTN (hypertension) Current Visit: Yes Status: Chronic Qualifiers: Hypertension type: essential hypertension Qualified Code(s): I10 - Essential (primary) hypertension Plan to address problem: At present suboptimally controlled. We'll be more aggressive over the next 24 hours. (4) Hyperlipidemia Current Visit: Yes Status: Acute Plan to address problem: We'll treat however does not appear to be secondary to CVA. LDL 157. History Interval history: Patient 69-year-old that presents with left upper extremity weakness consistent with CVA. Patient had CT scan head which showed multiple small lacunar infarcts and white matter disease. Patient at this time states he feels stronger at bedside. Symptoms that he had previously has resolved. MRI currently pending. Highly suspect microvascular disease. Symptoms as resolved on physical exam. Hospitalist Physical - Constitutional Vitals: Temp Pulse Resp BP Pulse Ox 97.8 F 75 18 141/95 98 05/17/19 17:14 05/17/19 17:14 05/17/19 17:14 05/17/19 17:14 05/17/19 17:14 General appearance: Present: no acute distress, well-nourished - EENT Eyes: Present: PERRL, EOM intact. Absent: scleral icterus, conjunctival injection, exopthalmos ENT: hearing intact, clear oral mucosa, dentition normal, hearing decreased, thrush, no poor dentition - Neck Neck: Present: supple, normal ROM. Absent: enlarged thyroid - Respiratory Respiratory: bilateral: CTA - Cardiovascular Rhythm: irregularly irregular - Extremities Extremities: no ischemia, pulses intact, pulses symmetrical, No edema, normal temperature, normal color Peripheral Pulses: within normal limits - Abdominal General gastrointestinal: deferred, distended, normal bowel sounds, no hepatomegaly, no splenomegaly - Integumentary Integumentary: Present: clear, warm, dry - Psychiatric Psychiatric: appropriate mood/affect, intact judgment & insight - Neurologic Neurologic: CNII-XII intact, focal deficits, moves all extremities Results - Labs CBC & Chem 7: 05/17/19 07:20 05/17/19 07:20 Labs: Laboratory Last Values WBC 5.1 K/mm3 (4.5-11.0) 05/17/19 07:20 RBC 4.52 M/mm3 (3.65-5.03) 05/17/19 07:20 Hgb 14.0 gm/dl (11.8-15.2) 05/17/19 07:20 Hct 41.5 % (35.5-45.6) 05/17/19 07:20 MCV 92 fl (84-94) 05/17/19 07:20 MCH 31 pg (28-32) 05/17/19 07:20 MCHC 34 % (32-34) 05/17/19 07:20 RDW 14.0 % (13.2-15.2) 05/17/19 07:20 Plt Count 202 K/mm3 (140-440) 05/17/19 07:20 Lymph % (Auto) 34.6 % (13.4-35.0) 05/17/19 07:20 Placer % (Auto) 10.1 % (0.0-7.3) H 05/17/19 07:20 Eos % (Auto) 1.8 % (0.0-4.3) 05/17/19 07:20 Baso % (Auto) 0.7 % (0.0-1.8) 05/17/19 07:20 Lymph # 1.7 K/mm3 (1.2-5.4) 05/17/19 07:20 Placer # 0.5 K/mm3 (0.0-0.8) 05/17/19 07:20 Eos # 0.1 K/mm3 (0.0-0.4) 05/17/19 07:20 Baso # 0.0 K/mm3 (0.0-0.1) 05/17/19 07:20 Seg Neutrophils % 52.8 % (40.0-70.0) 05/17/19 07:20 Seg Neutrophils # 2.7 K/mm3 (1.8-7.7) 05/17/19 07:20 PT 13.3 Sec. (12.2-14.9) 05/16/19 13:23 INR 1.04 (0.87-1.13) 05/16/19 13:23 APTT 27.8 Sec. (24.2-36.6) 05/16/19 13:23 16.3 Sec. (15.1-19.6) 05/16/19 13:23 Sodium 141 mmol/L (137-145) 05/17/19 07:20 Potassium 3.5 mmol/L (3.6-5.0) L 05/17/19 07:20 Chloride 106.0 mmol/L (98-107) 05/17/19 07:20 Carbon Dioxide 23 mmol/L (22-30) 05/17/19 07:20 16 mmol/L 05/17/19 07:20 BUN 16 mg/dL (9-20) 05/17/19 07:20 1.3 mg/dL (0.8-1.5) 05/17/19 07:20 Estimated GFR > 60 ml/min 05/17/19 07:20 12 % 05/17/19 07:20 Glucose 116 mg/dL (75-100) H 05/17/19 07:20 POC Glucose 113 (70-105) H 05/16/19 12:50 5.6 % (4-6) 05/16/19 23:05 Calcium 9.0 mg/dL (8.4-10.2) 05/17/19 07:20 Magnesium 1.90 mg/dL (1.7-2.3) 05/16/19 13:23 0.30 mg/dL (0.1-1.2) 05/17/19 07:20 AST 14 units/L (5-40) 05/17/19 07:20 ALT 8 units/L (7-56) 05/17/19 07:20 64 units/L (35-129) 05/17/19 07:20 < 0.010 ng/mL (0.00-0.029) 05/16/19 13:23 7.4 g/dL (6.3-8.2) 05/17/19 07:20 3.6 g/dL (3.9-5) L 05/17/19 07:20 0.9 % 05/17/19 07:20 Triglycerides 59 mg/dL (2-149) 05/17/19 07:20 Cholesterol 212 mg/dL (50-199) H 05/17/19 07:20 151 mg/dL (50-130) H 05/17/19 07:20 57 mg/dL (40-59) 05/17/19 07:20 3.71 % 05/17/19 07:20 Yellow (Yellow) 05/16/19 14:38 Slightly-cloudy (Clear) 05/16/19 14:38 8.0 (5.0-7.0) H 05/16/19 14:38 Ur Specific Harmony 1.013 (1.003-1.030) 05/16/19 14:38 30 mg/dl mg/dL (Negative) 05/16/19 14:38 Neg mg/dL (Negative) 05/16/19 14:38 Neg mg/dL (Negative) 05/16/19 14:38 Neg (Negative) 05/16/19 14:38 Neg (Negative) 05/16/19 14:38 Neg (Negative) 05/16/19 14:38 < 2.0 mg/dL (<2.0) 05/16/19 14:38 Ur Leukocyte Esterase Neg (Negative) 05/16/19 14:38 1.0 /HPF (0.0-6.0) 05/16/19 14:38 1.0 /HPF (0.0-6.0) 05/16/19 14:38 1+ /HPF (Negative) 05/16/19 14:38 Few /HPF 05/16/19 14:38 Active Medications - Current Medications Current Medications: Generic Name Dose Route Start Last Admin Trade Name Freq PRN Reason Stop Dose Admin Acetaminophen 650 mg 05/16/19 22:31 Tylenol PO Q4H PRN Pain MILD(1-3)/Fever >100.5/CRUZ Amlodipine Besylate 10 mg 05/17/19 10:00 05/17/19 11:48 Norvasc PO 10 mg QDAY EDGAR Administration Atorvastatin Calcium 40 mg 05/17/19 22:00 Lipitor PO QHS EDGAR Enoxaparin Sodium 40 mg 05/17/19 22:00 Lovenox SUB-Q QDAY@2200 EDGAR Famotidine 20 mg 05/16/19 23:00 05/17/19 11:48 Pepcid PO 20 mg BID EDGAR Administration Hydralazine HCl 10 mg 05/17/19 01:04 05/17/19 01:55 Apresoline IV 10 mg Q4HR PRN Administration Blood Pressure Hydromorphone HCl 0.5 mg 05/16/19 22:31 Dilaudid IV Q3H PRN Pain , Severe (7-10) Dextrose/Sodium Chloride 1,000 mls @ 75 mls/hr 05/16/19 23:00 05/17/19 00:14 D5ns IV 75 mls/hr DIRECT EDGAR Administration Losartan Potassium 100 mg 05/17/19 10:00 05/17/19 11:48 Cozaar PO 100 mg QDAY EDGAR Administration Metoprolol Tartrate 25 mg 05/17/19 10:00 05/17/19 11:48 Lopressor PO 25 mg BID EDGAR Administration Ondansetron HCl 4 mg 05/16/19 22:31 Zofran IV Q8H PRN Nausea And Vomiting Oxycodone/Acetaminophen 1 tab 05/16/19 22:31 Percocet 5/325 PO Q6H PRN Pain, Moderate (4-6) Sodium Chloride 10 ml 05/17/19 10:00 05/17/19 11:49 Sodium Chloride Flush Syringe 10 Ml IV 10 ml BID EDGAR Administration Sodium Chloride 10 ml 05/16/19 22:31 Sodium Chloride Flush Syringe 10 Ml IV PRN PRN LINE FLUSH
[2019-05-17] MEDS ORDERED: LOVENOX SUB-Q SCH (22:00)
[2019-05-18] MEDS: APRESOLINE IV PRN ×2 (00:23→06:08)
[2019-05-18] MEDS: D5NS 1,000 ML IV SCH (06:00)
[2019-05-18] MEDS: COZAAR PO SCH (09:13)
[2019-05-18] MEDS: SODIUM CHLORIDE FLUSH SYRINGE 10 ML IV SCH (09:14)
[2019-05-18] MEDS: LOPRESSOR PO SCH (09:14)
[2019-05-18] MEDS: PEPCID PO SCH (09:14)
[2019-05-18] MEDS: NORVASC PO SCH (09:14)
[2019-05-18] MEDS ORDERED: NORVASC PO SCH (13:00)
[2019-05-18 14:14] VITALS: BP 131/92
--- NOTE | 2019-05-18 18:08 | Discharge Summary ---
Providers - Providers Date of Admission: 05/16/19 17:29 Date of discharge: 05/18/19 Attending physician: TIANA HARVEY 05/16/19 12:57 Consult to Physician [CONS] Urgent Comment: DR SOFÍA YOUNG W/DR DENSON @1319 Consulting Provider: IRA DENSON Physician Instructions: Reason For Exam: left sided weak [facility] Condition: Good Pertinent studies: MRI negative for acute CVA. CT scan was consistent with multiple small lacunar infarcts consistent with white matter disease. Hospital course: Patient presented initially with left upper extremity weakness uncontrolled hypertension hyperlipidemia thought to possibly have a CVA. Patient's CT scan was remarkable for small lacunar infarcts and white matter disease and a questionable acute infarct. In less than 24 hours after patient's stay his left upper extremity weakness resolved. Patient had follow-up MRI which was negative for acute stroke. Patient did have a have hypertensive urgency with blood pressures as high as 226/120. After it was found the patient did not have a CVA his blood pressure was then treated more aggressively over the next 2448 hrs. His last blood pressure was 131/89. Patient had been noncompliant with his medications for a long time. We expressed to the and patient the importance of compliance stroke prevention and development of dementia. She was discharged in stable condition. Vicodin etiology of left hand numbness and weakness was uncontrolled hypertension. Disposition: - TO HOME OR SELFCARE - Discharge Diagnoses (1) Acute CVA (cerebrovascular accident) Status: Ruled-out Comment: Patient ruled out for acute CVA. Did have multi- infarct disease as mentioned previously. Hospital course. (2) Hypokalemia Status: Resolved (3) HTN (hypertension) Status: Chronic Qualifiers: Hypertension type: essential hypertension Qualified Code(s): I10 - Essential (primary) hypertension Comment: Much better control with addition of amlodipine 10 mg losartan 100 mg and metoprolol 25 twice a day. (4) Hyperlipidemia Status: Acute Comment: Aggressive statin therapy and antiplatelet therapy with aspirin and statin. Core Measure Documentation - Palliative Care Palliative Care/ Comfort Measures: Not Applicable - Core Measures Any of the following diagnoses?: none Exam - Constitutional Vitals: Temp Pulse Resp BP Pulse Ox 97.5 F L 74 18 131/92 96 05/18/19 08:17 05/18/19 14:12 05/18/19 08:17 05/18/19 14:12 05/18/19 12:51 General appearance: Present: no acute distress, well-nourished - EENT Eyes: Present: PERRL ENT: hearing intact, clear oral mucosa - Neck Neck: Present: supple, normal ROM - Respiratory Respiratory effort: normal Respiratory: bilateral: CTA - Cardiovascular Heart Sounds: Present: S1 & S2. Absent: rub, click - Extremities Extremities: pulses symmetrical, No edema Peripheral Pulses: within normal limits - Abdominal General gastrointestinal: Present: soft, non-tender, non-distended, normal bowel sounds Male genitourinary: Present: normal - Integumentary Integumentary: Present: clear, warm, dry - Musculoskeletal Musculoskeletal: gait normal, strength equal bilaterally - Psychiatric Psychiatric: appropriate mood/affect, intact judgment & insight - Neurologic Neurologic: CNII-XII intact, moves all extremities Plan Activity: no restrictions, no driving until cleared by PCP Diet: low fat, low cholesterol, low salt Special Instructions: no heavy lifting Follow up with: ABIMAEL MOSQUERA MD [Primary Care Provider] - 3-5 Days Prescriptions: Losartan [Cozaar] 100 mg PO QDAY #30 tablet Metoprolol [Lopressor TAB] 25 mg PO BID #60 tablet amLODIPine [Norvasc] 10 mg PO QDAY #30 tablet
== END 2019-05-18 20:00 | disposition home or self-care (01) | DRG 305 ==
LOC: ED 12:41 → 4A 17:29
PROVIDERS: ADMIT Internal Medicine; ATTEND Internal Medicine
DX: I16.0 Hypertensive urgency (principal); E87.6 Hypokalemia; I10 Essential (primary) hypertension; F41.9 Anxiety disorder, unspecified; E78.5 Hyperlipidemia, unspecified; M62.81 Muscle weakness (generalized)
CPT/HCPCS: 36415; 70450; 70496; 70498; 70544; 70551; 71045; 74176; 80048; 80053; 80061; 81001; 82962; 83036; 83735; 84484; 85025; 85610; 85670; 85730; 93005; 93010; 93306; 93880; 96374; 96375; G0378; A9270-GY; J0360; J1650; J2060; J7040; J7042; Q9967

== ENCOUNTER 2019-05-27 14:38 | Emergency (ER) | payer SELFPAY ==
[2019-05-27 14:49] VITALS: BP 127/95
[2019-05-27 15:28] LABS: Basophils % (Auto) 0.9 % (0.0-1.8); Eosinophils # (Auto) 0.2 K/mm3 (0.0-0.4); Eosinophils % (Auto) 3.9 % (0.0-4.3); Hemoglobin 14.6 gm/dl (11.8-15.2); Lymphocytes # (Auto) 1.3 K/mm3 (1.2-5.4); Lymphocytes % (Auto) 29.7 % (13.4-35.0); Mean Corpuscular HGB Conc 34 % (32-34); Mean Corpuscular Hemoglobin 31 pg (28-32); Mean Corpuscular Volume 92 fl (84-94); Monocytes # (Auto) 0.4 K/mm3 (0.0-0.8); Monocytes % (Auto) 9.7 % (0.0-7.3); Platelet Count 240 K/mm3 (140-440); Red Blood Count 4.69 M/mm3 (3.65-5.03); Red Cell Distribution Width 13.6 % (13.2-15.2)
[2019-05-27 15:51] LABS: Alanine Aminotransferase 12 units/L (7-56); BUN/Creatinine Ratio 10; Blood Urea Nitrogen 14 mg/dL (9-20); Calcium 9.4 mg/dL (8.4-10.2); Hemolysis Index 18
--- NOTE | 2019-05-27 18:58 | Emergency Department Report ---
ED General Adult HPI - General Chief complaint: Neuro Symptoms/Deficit Stated complaint: NUMBNESS ON (L) LEG Time Seen by Provider: 05/27/19 18:36 Source: patient Mode of arrival: Ambulatory Limitations: No Limitations - History of Present Illness Initial comments: Patient presents to the emergency department with a chief complaint of numbness over his left bower that started approximately 2 weeks ago. Patient denies any injury or any new activities but does endorse being admitted 2 weeks ago for a stroke workup. At that time the patient was started on Norvasc, Lopressor, Cozaar. Patient denies any chest pain, shortness breath, slurred speech, w eakness. -: Gradual Severity scale (0 -10): 0 Improves with: none Worsens with: none Associated Symptoms: denies other symptoms Treatments Prior to Arrival: none - Related Data Home Medications Medication Instructions Recorded Confirmed Last Taken amLODIPine [Norvasc] 10 mg PO DAILY 05/17/19 05/17/19 Unknown Previous Rx's Medication Instructions Recorded Last Taken Type Aspirin EC 81 mg PO QDAY #30 tablet. 05/18/19 Unknown Rx Losartan [Cozaar] 100 mg PO QDAY #30 tablet 05/18/19 Unknown Rx Metoprolol [Lopressor TAB] 25 mg PO BID #60 tablet 05/18/19 Unknown Rx Simvastatin 20 mg PO DAILY #30 tablet 05/18/19 Unknown Rx amLODIPine [Norvasc] 10 mg PO QDAY tablet 05/18/19 Unknown Rx amLODIPine [Norvasc] 10 mg PO QDAY #30 tablet 05/18/19 Unknown Rx Allergies Allergy/AdvReac Type Severity Reaction Status Date / Time No Known Allergies Allergy Unverified 05/16/19 12:45 ED Review of Systems ROS: Stated complaint: NUMBNESS ON (L) LEG Other details as noted in HPI Comment: All other systems reviewed and negative Constitutional: denies: chills, fever Eyes: denies: eye pain, eye discharge, vision change ENT: denies: ear pain, throat pain Respiratory: denies: cough, shortness of breath, wheezing Cardiovascular: denies: chest pain, palpitations Endocrine: no symptoms reported Gastrointestinal: denies: abdominal pain, nausea, diarrhea Genitourinary: denies: urgency, dysuria Musculoskeletal: denies: back pain, joint swelling, arthralgia Skin: denies: rash, lesions Neurological: denies: headache, weakness, paresthesias Psychiatric: denies: anxiety, depression Hematological/Lymphatic: denies: easy bleeding, easy bruising ED Past Medical Hx - Past Medical History Hx Hypertension: Yes Hx Congestive Heart Failure: No Hx Diabetes: No Hx Asthma: No Hx COPD: No - Social History Smoking Status: Never Smoker Substance Use Type: None - Medications Home Medications: Home Medications Medication Instructions Recorded Confirmed Last Taken Type amLODIPine [Norvasc] 10 mg PO DAILY 05/17/19 05/17/19 Unknown History Aspirin EC 81 mg PO QDAY #30 tablet.dr 05/18/19 Unknown Rx Losartan [Cozaar] 100 mg PO QDAY #30 tablet 05/18/19 Unknown Rx Metoprolol [Lopressor TAB] 25 mg PO BID #60 tablet 05/18/19 Unknown Rx Simvastatin 20 mg PO DAILY #30 tablet 05/18/19 Unknown Rx amLODIPine [Norvasc] 10 mg PO QDAY tablet 05/18/19 Unknown Rx amLODIPine [Norvasc] 10 mg PO QDAY #30 tablet 05/18/19 Unknown Rx ED Physical Exam - General Limitations: No Limitations General appearance: alert, in no apparent distress - Head Head exam: Present: atraumatic, normocephalic - Eye Eye exam: Present: normal appearance, PERRL, EOMI - ENT ENT exam: Present: mucous membranes moist - Neck Neck exam: Present: normal inspection - Respiratory Respiratory exam: Present: normal lung sounds bilaterally. Absent: respiratory distress - Cardiovascular Cardiovascular Exam: Present: regular rate, normal rhythm. Absent: systolic murmur, diastolic murmur, rubs, gallop - GI/Abdominal GI/Abdominal exam: Present: soft, normal bowel sounds - Rectal Rectal exam: Present: deferred - Extremities Exam Extremities exam: Present: normal inspection - Back Exam Back exam: Present: normal inspection - Neurological Exam Neurological exam: Present: alert, oriented X3, CN II-XII intact, other (good 2 point sensation of LLE). Absent: motor sensory deficit - Psychiatric Psychiatric exam: Present: normal affect, normal mood - Skin Skin exam: Present: warm, dry, intact, normal color. Absent: rash ED Course Vital Signs 05/27/19 05/27/19 14:48 15:00 Temperature 98.1 F 98.1 F Pulse Rate 91 H 91 H Respiratory 18 16 Rate Blood Pressure 127/95 127/95 [Left] O2 Sat by Pulse 97 96 Oximetry ED Medical Decision Making - Lab Data Result diagrams: 05/27/19 15:18 05/27/19 15:18 Lab Results 05/27/19 05/27/19 Range/Units 15:18 15:18 WBC 4.5 (4.5-11.0) K/mm3 RBC 4.69 (3.65-5.03) M/mm3 Hgb 14.6 (11.8-15.2) gm/dl Hct 43.0 (35.5-45.6) % MCV 92 (84-94) fl MCH 31 (28-32) pg MCHC 34 (32-34) % RDW 13.6 (13.2-15.2) % Plt Count 240 (140-440) K/mm3 Lymph % (Auto) 29.7 (13.4-35.0) % [place] % (Auto) 9.7 H (0.0-7.3) % Eos % (Auto) 3.9 (0.0-4.3) % Baso % (Auto) 0.9 (0.0-1.8) % Lymph # 1.3 (1.2-5.4) K/mm3 [place] # 0.4 (0.0-0.8) K/mm3 Eos # 0.2 (0.0-0.4) K/mm3 Baso # 0.0 (0.0-0.1) K/mm3 Seg Neutrophils % 55.8 (40.0-70.0) % Seg Neutrophils # 2.5 (1.8-7.7) K/mm3 Sodium 136 L (137-145) mmol/L Potassium 3.5 L (3.6-5.0) mmol/L Chloride 97.9 L (98-107) mmol/L Carbon Dioxide 28 (22-30) mmol/L Anion Gap 14 mmol/L BUN 14 (9-20) mg/dL Creatinine 1.4 (0.8-1.5) mg/dL Estimated GFR > 60 ml/min BUN/Creatinine Ratio 10 % Glucose 114 H (75-100) mg/dL Calcium 9.4 (8.4-10.2) mg/dL Total Bilirubin 0.30 (0.1-1.2) mg/dL AST 16 (5-40) units/L ALT 12 (7-56) units/L Alkaline Phosphatase 66 (35-129) units/L Total Protein 7.9 (6.3-8.2) g/dL Albumin 4.0 (3.9-5) g/dL Albumin/Globulin Ratio 1.0 % - Medical Decision Making discussed plan of care and results with patient Critical care attestation.: If time is entered above; I have spent that time in minutes in the direct care of this critically ill patient, excluding procedure time. ED Disposition Clinical Impression: Paresthesia Disposition: DC-01 TO HOME OR SELFCARE Is pt being admited?: No Does the pt Need Aspirin: No Condition: Stable Instructions: Paresthesia (ED) Additional Instructions: return if worse Referrals: ABIMAEL MOSQUERA MD [Primary Care Provider] - 3-5 Days [facility] [Provider Group] - 3-5 Days [facility] [Provider Group] - 3-5 Days [facility] [Outside] - 3-5 Days [facility] [Provider Group] - 3-5 Days Time of Disposition: 18:57
== END 2019-05-27 19:08 | disposition home or self-care (01) ==
LOC: ED 14:38
DX: R20.2 Paresthesia of skin (principal); R20.0 Anesthesia of skin; I10 Essential (primary) hypertension
CPT/HCPCS: 36415; 80053; 85025

== ENCOUNTER 2019-08-05 13:06 | Emergency (ER) | payer SELFPAY ==
[2019-08-05] MEDS ORDERED: ASPIRIN 325 MG TAB PO ONE (14:03)
[2019-08-05 14:45] LABS: Basophils % (Auto) 0.8 % (0.0-1.8); Eosinophils # (Auto) 0.2 K/mm3 (0.0-0.4); Eosinophils % (Auto) 4.7 % (0.0-4.3); Hematocrit 44.5 % (35.5-45.6); Hemoglobin 14.6 gm/dl (11.8-15.2); Lymphocytes # (Auto) 1.6 K/mm3 (1.2-5.4); Lymphocytes % (Auto) 35.6 % (13.4-35.0); Mean Corpuscular HGB Conc 33 % (32-34); Mean Corpuscular Volume 93 fl (84-94); Monocytes # (Auto) 0.5 K/mm3 (0.0-0.8); Monocytes % (Auto) 10.5 % (0.0-7.3); Platelet Count 215 K/mm3 (140-440); Red Blood Count 4.81 M/mm3 (3.65-5.03)
--- NOTE | 2019-08-05 14:57 | XRay Report ---
CHEST 1 VIEW INDICATION: Chest Pain. Shortness of breath. COMPARISON: 05/16/2019 FINDINGS: Frontal chest radiograph, 2 images, demonstrate normal cardiomediastinal silhouette/heart s ize, allowing for aortic uncoiling. Clear lungs. Mild thoracic spondylosis. IMPRESSION: No acute chest process, as described. Signer Name: Carrol Miguel Signed: 08/05/2019 2:53 PM Workstation Name: [id number]
[2019-08-05 15:05] LABS: BUN/Creatinine Ratio 8; Blood Urea Nitrogen 11 mg/dL (9-20); Calcium 9.1 mg/dL (8.4-10.2); Hemolysis Index 8
[2019-08-05] MEDS ORDERED: amLODIPine 5 MG TAB PO ONE (16:34)
--- NOTE | 2019-08-05 16:38 | Emergency Department Report ---
ED General Adult HPI - General Chief complaint: High BP Stated complaint: HBP Time Seen by Provider: 08/05/19 15:14 Source: patient Mode of arrival: Ambulatory Limitations: No Limitations - History of Present Illness Initial comments: 69-year-old male who lives alone and is brought by a friend who was concerned about his elevated blood pressure. His only complaint is generalized malaise. He has not been short of breath. He denies chest pain. He denies any urinary symptoms and is otherwise without complaint. He is a poor historian. On review of his medication bottles it is apparent that he is a patient of Dr. Wylie. He is apparently out of his losartan and amlodipine. -: Gradual Associated Symptoms: denies other symptoms, other (malaise) - Related Data Home Medications Medication Instructions Recorded Confirmed Last Taken amLODIPine [Norvasc] 10 mg PO DAILY 05/17/19 05/17/19 Unknown Previous Rx's Medication Instructions Recorded Last Taken Type Aspirin EC [Halfprin EC] 81 mg PO QDAY #30 tablet. 05/18/19 Unknown Rx Losartan [Cozaar] 100 mg PO QDAY #30 tablet 05/18/19 Unknown Rx Metoprolol [Lopressor TAB] 25 mg PO BID #60 tablet 05/18/19 Unknown Rx Simvastatin 20 mg PO DAILY #30 tablet 05/18/19 Unknown Rx amLODIPine [Norvasc] 10 mg PO QDAY tablet 05/18/19 Unknown Rx amLODIPine [Norvasc] 10 mg PO QDAY #30 tablet 05/18/19 Unknown Rx Losartan [Cozaar] 50 mg PO QDAY #30 tablet 08/05/19 Unknown Rx amLODIPine [Norvasc] 5 mg PO DAILY #30 tab 08/05/19 Unknown Rx Allergies Allergy/AdvReac Type Severity Reaction Status Date / Time No Known Allergies Allergy Unverified 05/16/19 12:45 ED Review of Systems ROS: Stated complaint: HBP Other details as noted in HPI Constitutional: denies: chills, fever Eyes: denies: eye pain, eye discharge, vision change ENT: denies: ear pain, throat pain Respiratory: denies: cough, shortness of breath, wheezing Cardiovascular: denies: chest pain, palpitations Endocrine: no symptoms reported Gastrointestinal: denies: abdominal pain, nausea, diarrhea Genitourinary: denies: urgency, dysuria Musculoskeletal: denies: back pain, joint swelling, arthralgia Skin: denies: rash, lesions Neurological: denies: headache, weakness, paresthesias Psychiatric: denies: anxiety, depression Hematological/Lymphatic: denies: easy bleeding, easy bruising ED Past Medical Hx - Past Medical History Previous Medical History?: Yes Hx Hypertension: Yes Hx Congestive Heart Failure: No Hx Diabetes: No Hx Asthma: No Hx COPD: No - Surgical History Past Surgical History?: No - Social History Smoking Status: Never Smoker Substance Use Type: None - Medications Home Medications: Home Medications Medication Instructions Recorded Confirmed Last Taken Type amLODIPine [Norvasc] 10 mg PO DAILY 05/17/19 05/17/19 Unknown History Aspirin EC [Halfprin EC] 81 mg PO QDAY #30 tablet.dr 05/18/19 Unknown Rx Losartan [Cozaar] 100 mg PO QDAY #30 tablet 05/18/19 Unknown Rx Metoprolol [Lopressor TAB] 25 mg PO BID #60 tablet 05/18/19 Unknown Rx Simvastatin 20 mg PO DAILY #30 tablet 05/18/19 Unknown Rx amLODIPine [Norvasc] 10 mg PO QDAY tablet 05/18/19 Unknown Rx amLODIPine [Norvasc] 10 mg PO QDAY #30 tablet 05/18/19 Unknown Rx Losartan [Cozaar] 50 mg PO QDAY #30 tablet 08/05/19 Unknown Rx amLODIPine [Norvasc] 5 mg PO DAILY #30 tab 08/05/19 Unknown Rx ED Physical Exam - General Limitations: No Limitations General appearance: alert, in no apparent distress - Head Head exam: Present: atraumatic, normocephalic - Eye Eye exam: Present: normal appearance. Absent: scleral icterus - ENT ENT exam: Present: mucous membranes moist - Neck Neck exam: Present: normal inspection - Respiratory Respiratory exam: Present: normal lung sounds bilaterally. Absent: respiratory distress - Cardiovascular Cardiovascular Exam: Present: regular rate, normal rhythm. Absent: systolic murmur, diastolic murmur, rubs, gallop - GI/Abdominal GI/Abdominal exam: Present: soft, normal bowel sounds. Absent: distended, tenderness, guarding, rebound, rigid - Rectal Rectal exam: Present: deferred - Extremities Exam Extremities exam: Present: normal inspection - Back Exam Back exam: Present: normal inspection - Neurological Exam Neurological exam: Present: alert, oriented X3, CN II-XII intact. Absent: motor sensory deficit - Psychiatric Psychiatric exam: Present: normal affect, normal mood - Skin Skin exam: Present: warm, dry, intact, normal color. Absent: rash ED Course Vital Signs 08/05/19 08/05/19 14:00 16:15 Temperature 98.5 F Pulse Rate 93 H 72 Respiratory 16 Rate Blood Pressure 169/112 Blood Pressure 174/118 [Left] O2 Sat by Pulse 93 Oximetry - Reevaluation(s) Reevaluation #1: The patient was given antihypertensive medication. He is appropriate for outpatient management. He will be referred back to Dr. Wylie. 08/05/19 16:44 ED Medical Decision Making - Lab Data Result diagrams: 08/05/19 14:18 08/05/19 14:18 Laboratory Results - last 24 hr 08/05/19 08/05/19 08/05/19 14:18 14:18 15:27 WBC 4.4 L RBC 4.81 Hgb 14.6 Hct 44.5 MCV 93 MCH 30 MCHC 33 RDW 14.0 Plt Count 215 Lymph % (Auto) 35.6 H [place] % (Auto) 10.5 H Eos % (Auto) 4.7 H Baso % (Auto) 0.8 Lymph # 1.6 [place] # 0.5 Eos # 0.2 Baso # 0.0 Seg Neutrophils % 48.4 Seg Neutrophils # 2.1 Sodium 137 Potassium 3.8 Chloride 101.2 Carbon Dioxide 24 Anion Gap 16 BUN 11 Creatinine 1.3 Estimated GFR > 60 BUN/Creatinine Ratio 8 Glucose 107 H Calcium 9.1 Troponin T < 0.010 < 0.010 - EKG Data -: EKG Interpreted by [place] EKG shows normal: sinus rhythm, axis (left axis deviation), intervals, QRS complexes (consistent with LVH), ST-T waves Rate: normal - EKG Data Interpretation: no acute changes - Radiology Data Radiology results: report reviewed, image reviewed NAF Critical care attestation.: If time is entered above; I have spent that time in minutes in the direct care of this critically ill patient, excluding procedure time. ED Disposition Clinical Impression: Poorly-controlled hypertension Disposition: DC-01 TO HOME OR SELFCARE Is pt being admited?: No Does the pt Need Aspirin: No Condition: Stable Instructions: Hypertension (ED) Additional Instructions: Monitor your blood pressure at least once a day. Follow-up with your primary care physician who is Dr. Wylie. Return any acute change or problem. Continue your other medication. Prescriptions: Losartan [Cozaar] 50 mg PO QDAY #30 tablet amLODIPine [Norvasc] 5 mg PO DAILY #30 tab Referrals: KATI WYLIE MD [Staff Physician] - 2-3 Days Time of Disposition: 16:50
[2019-08-05 18:51] VITALS: BP 151/108
== END 2019-08-05 18:47 | disposition home or self-care (01) ==
LOC: ED 13:06
DX: R53.81 Other malaise (principal); I10 Essential (primary) hypertension; Z79.899 Other long term (current) drug therapy
CPT/HCPCS: 36415; 71045; 80048; 84484; 85025; 93005; 93010; 96374

== ENCOUNTER 2019-08-08 14:45 | Emergency (ER) | payer SELFPAY ==
--- NOTE | 2019-08-08 15:12 | Event Note ---
ED Screening Note Date of service: 08/08/19 Time: 15:08 ED Screening Note: This is a 69 y.o. M. that presents to the ER with weakness upon awaking today. PMH of HTN Patient states he took his blood pressure medicine today and his blood pressure will not go down. Reports feeling week and not like him self. Denies fever, chills, n/v, abdominal pain, headache, chest pain, or palpitations. This initial assessment/diagnostic orders/clinical plan/treatment(s) is/are subject to change based on patients health status, clinical progression and re- assessment by fellow clinical providers in the ED. Further treatment and workup at subsequent clinical providers discretion. Patient/guardian urged not to elope from the ED as their condition may be serious if not clinically assessed and managed. Initial orders include: Labs
[2019-08-08 15:27] LABS: Basophils % (Auto) 0.8 % (0.0-1.8); Eosinophils # (Auto) 0.1 K/mm3 (0.0-0.4); Eosinophils % (Auto) 2.1 % (0.0-4.3); Hematocrit 42.3 % (35.5-45.6); Hemoglobin 14.5 gm/dl (11.8-15.2); Lymphocytes # (Auto) 1.4 K/mm3 (1.2-5.4); Lymphocytes % (Auto) 31.5 % (13.4-35.0); Mean Corpuscular HGB Conc 34 % (32-34); Mean Corpuscular Volume 91 fl (84-94); Monocytes # (Auto) 0.4 K/mm3 (0.0-0.8); Monocytes % (Auto) 9.5 % (0.0-7.3); Platelet Count 212 K/mm3 (140-440); Red Blood Count 4.63 M/mm3 (3.65-5.03); Red Cell Distribution Width 14.2 % (13.2-15.2)
[2019-08-08 15:54] LABS: Alanine Aminotransferase 8 units/L (7-56); Albumin 3.9 g/dL (3.9-5); BUN/Creatinine Ratio 8; Blood Urea Nitrogen 10 mg/dL (9-20); Hemolysis Index 15
--- NOTE | 2019-08-08 18:10 | Emergency Department Report ---
ED General Adult HPI - General Chief complaint: High BP Stated complaint: HBP Time Seen by Provider: 08/08/19 15:08 Source: patient Mode of arrival: Ambulatory Limitations: No Limitations - History of Present Illness Initial comments: Patient is a 69-year-old male who presents to the emergency room with complaints of hypertension. He states that he just has generalized fatigue and generalized weakness for the last few days. pt states that he takes amlodipine 5 mg and losartan 50 mg daily but his blood pressure still been elevated. he denies any headache, vision changes, numbness, unilateral weakness, chest pain, shortness of breath, any other symptoms. He denies any other past medical history or allergies medications. - Related Data Home Medications Medication Instructions Recorded Confirmed Last Taken amLODIPine [Norvasc] 10 mg PO DAILY 05/17/19 05/17/19 Unknown Previous Rx's Medication Instructions Recorded Last Taken Type Aspirin EC [Halfprin EC] 81 mg PO QDAY #30 tablet. 05/18/19 Unknown Rx Losartan [Cozaar] 100 mg PO QDAY #30 tablet 05/18/19 Unknown Rx Metoprolol [Lopressor TAB] 25 mg PO BID #60 tablet 05/18/19 Unknown Rx Simvastatin 20 mg PO DAILY #30 tablet 05/18/19 Unknown Rx amLODIPine [Norvasc] 10 mg PO QDAY tablet 05/18/19 Unknown Rx amLODIPine [Norvasc] 10 mg PO QDAY #30 tablet 05/18/19 Unknown Rx Losartan [Cozaar] 50 mg PO QDAY #30 tablet 08/05/19 Unknown Rx amLODIPine [Norvasc] 5 mg PO DAILY #30 tab 08/05/19 Unknown Rx amLODIPine [Norvasc] 10 mg PO DAILY #30 tab 08/08/19 Unknown Rx Allergies Allergy/AdvReac Type Severity Reaction Status Date / Time No Known Allergies Allergy Unverified 05/16/19 12:45 ED Review of Systems ROS: Stated complaint: HBP Other details as noted in HPI Comment: All other systems reviewed and negative ED Past Medical Hx - Past Medical History Previous Medical History?: Yes Hx Hypertension: Yes Hx Congestive Heart Failure: No Hx Diabetes: No Hx Asthma: No Hx COPD: No - Surgical History Past Surgical History?: No - Social History Smoking Status: Never Smoker Substance Use Type: None - Medications Home Medications: Home Medications Medication Instructions Recorded Confirmed Last Taken Type amLODIPine [Norvasc] 10 mg PO DAILY 05/17/19 05/17/19 Unknown History Aspirin EC [Halfprin EC] 81 mg PO QDAY #30 tablet. 05/18/19 Unknown Rx Losartan [Cozaar] 100 mg PO QDAY #30 tablet 05/18/19 Unknown Rx Metoprolol [Lopressor TAB] 25 mg PO BID #60 tablet 05/18/19 Unknown Rx Simvastatin 20 mg PO DAILY #30 tablet 05/18/19 Unknown Rx amLODIPine [Norvasc] 10 mg PO QDAY tablet 05/18/19 Unknown Rx amLODIPine [Norvasc] 10 mg PO QDAY #30 tablet 05/18/19 Unknown Rx Losartan [Cozaar] 50 mg PO QDAY #30 tablet 08/05/19 Unknown Rx amLODIPine [Norvasc] 5 mg PO DAILY #30 tab 08/05/19 Unknown Rx amLODIPine [Norvasc] 10 mg PO DAILY #30 tab 08/08/19 Unknown Rx ED Physical Exam - General Limitations: No Limitations General appearance: alert, in no apparent distress - Head Head exam: Present: atraumatic, normocephalic - Eye Eye exam: Present: PERRL, EOMI, other (bilateral cataracts) - ENT ENT exam: Present: mucous membranes moist - Respiratory Respiratory exam: Present: normal lung sounds bilaterally. Absent: respiratory distress, wheezes, rales, rhonchi, stridor, chest wall tenderness, accessory muscle use, decreased breath sounds, prolonged expiratory - Cardiovascular Cardiovascular Exam: Present: regular rate, normal rhythm, normal heart sounds. 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 Absent: motor sensory deficit - Psychiatric Psychiatric exam: Present: normal affect, normal mood - Skin Skin exam: Present: warm, dry, intact ED Course Vital Signs 08/08/19 08/08/19 08/08/19 15:07 18:07 18:31 Temperature 98 F 98.5 F Pulse Rate 96 H 85 87 Respiratory 20 18 Rate Blood Pressure 162/114 160/118 Blood Pressure 160/118 [Left] O2 Sat by Pulse 98 98 Oximetry 08/08/19 08/08/19 19:17 19:38 Temperature 98.4 F Pulse Rate 86 Respiratory 17 17 Rate Blood Pressure 174/117 Blood Pressure [Left] O2 Sat by Pulse 96 Oximetry ED Medical Decision Making - Lab Data Result diagrams: 08/08/19 15:15 08/08/19 15:15 Lab Results 08/08/19 08/08/19 Range/Units 15:15 15:15 WBC 4.4 L (4.5-11.0) K/mm3 RBC 4.63 (3.65-5.03) M/mm3 Hgb 14.5 (11.8-15.2) gm/dl Hct 42.3 (35.5-45.6) % MCV 91 (84-94) fl MCH 31 (28-32) pg MCHC 34 (32-34) % RDW 14.2 (13.2-15.2) % Plt Count 212 (140-440) K/mm3 Lymph % (Auto) 31.5 (13.4-35.0) % [place] % (Auto) 9.5 H (0.0-7.3) % Eos % (Auto) 2.1 (0.0-4.3) % Baso % (Auto) 0.8 (0.0-1.8) % Lymph # 1.4 (1.2-5.4) K/mm3 [place] # 0.4 (0.0-0.8) K/mm3 Eos # 0.1 (0.0-0.4) K/mm3 Baso # 0.0 (0.0-0.1) K/mm3 Seg Neutrophils % 56.1 (40.0-70.0) % Seg Neutrophils # 2.4 (1.8-7.7) K/mm3 Sodium 139 (137-145) mmol/L Potassium 3.6 (3.6-5.0) mmol/L Chloride 99.4 (98-107) mmol/L Carbon Dioxide 23 (22-30) mmol/L Anion Gap 20 mmol/L BUN 10 (9-20) mg/dL Creatinine 1.2 (0.8-1.5) mg/dL Estimated GFR > 60 ml/min BUN/Creatinine Ratio 8 % Glucose 90 (75-100) mg/dL Calcium 9.0 (8.4-10.2) mg/dL Total Bilirubin 0.50 (0.1-1.2) mg/dL AST 15 (5-40) units/L ALT 8 (7-56) units/L Alkaline Phosphatase 69 (35-129) units/L Total Protein 8.0 (6.3-8.2) g/dL Albumin 3.9 (3.9-5) g/dL Albumin/Globulin Ratio 1.0 % - EKG Data EKG shows normal: sinus rhythm, axis, intervals, QRS complexes, ST-T waves Rate: normal - EKG Data Interpretation: LVH 08/08/19 19:29 appears similar to prior - Medical Decision Making Patient is a 69-year-old male who presents to the emergency room with complaints of hypertension. He states that he just has generalized fatigue and generalized weakness for the last few days. pt states that he takes amlodipine 5 mg and losartan 50 mg daily but his blood pressure still been elevated. he denies any headache, vision changes, numbness, unilateral weakness, chest pain, shortness of breath, any other symptoms. He denies any other past medical history or allergies medications. no focal neuro deficits on exam. labs are n ormal, kidney function is normal, EKG is similar to prior. discussed pt with DR. Quan, ER attending recommended to give 5 mg of amlodipine now and to increase pts amlodipine from 5 mg daily to 10 mg. BP is 162/114, will increase pts amlodipine from 5mg daily to 10 mg daily. advised pt to please keep a blood pressure log and take your blood pressure 3 times a day. Eat a low sodium diet. please follow up your primary care doctor in the next 2-3 days. it is very important you follow up with your primary care doctor for further management and adjustments. Return to the emergency room for any new or worsening symptoms. Critical care attestation.: If time is entered above; I have spent that time in minutes in the direct care of this critically ill patient, excluding procedure time. ED Disposition Clinical Impression: Generalized weakness, Elevated blood pressure reading Fatigue Qualifiers: Fatigue type: unspecified Qualified Code(s): R53.83 - Other fatigue Disposition: DC-01 TO HOME OR SELFCARE Is pt being admited?: No Does the pt Need Aspirin: No Condition: Stable Instructions: Chronic Hypertension (ED), Fatigue (ED) Additional Instructions: Will increase your amlodipine to 10 mg daily. Please keep a blood pressure log and take your blood pressure 3 times a day. Eat a low sodium diet. please follow up your primary care doctor in the next 2-3 days. it is very important you follow up with your primary care doctor for further management and adjustments. Return to the emergency room for any new or worsening symptoms. Prescriptions: amLODIPine [Norvasc] 10 mg PO DAILY #30 tab Referrals: PRIMARY CARE, [Primary Care Provider] - 2-3 Days Time of Disposition: 19:27 Print Language: BELARUSIAN
[2019-08-08] MEDS ORDERED: amLODIPine 5 MG TAB PO ONE (18:25)
[2019-08-08 19:19] VITALS: BP 174/117
== END 2019-08-08 19:38 | disposition home or self-care (01) ==
LOC: ED 14:45
DX: I10 Essential (primary) hypertension (principal); R53.83 Other fatigue
CPT/HCPCS: 36415; 80053; 85025; 93005; 93010

== ENCOUNTER 2019-08-11 12:51 | Emergency (ER) | payer SELFPAY ==
[2019-08-11] MEDS ORDERED: METOPROLOL TARTRATE 50 MG TAB PO ONE (15:03)
[2019-08-11 15:44] VITALS: BP 140/102
--- NOTE | 2019-08-11 16:02 | Emergency Department Report ---
ED General Adult HPI - General Chief complaint: Medical Clearance Stated complaint: HBP Time Seen by Provider: 08/11/19 15:03 Source: patient Mode of arrival: Ambulatory Limitations: No Limitations - History of Present Illness Initial comments: Patient is a 69-year-old gentleman who is here stating that his blood pressure medicine is not working. This is the patient's third visit this week. Patient states that his Norvasc dose was increased to 10 mg yesterday. Patient states that he does not feel right. She denies chest pain or shortness of breath. Patient is a poor historian and is unable to give a good history of exactly how he feels but he states that he has sickness in his body. Severity scale (0 -10): 0 - Related Data Home Medications Medication Instructions Recorded Confirmed Last Taken amLODIPine [Norvasc] 10 mg PO DAILY 05/17/19 05/17/19 Unknown Previous Rx's Medication Instructions Recorded Last Taken Type Aspirin EC [Halfprin EC] 81 mg PO QDAY #30 tablet. 05/18/19 Unknown Rx Losartan [Cozaar] 100 mg PO QDAY #30 tablet 05/18/19 Unknown Rx Metoprolol [Lopressor TAB] 25 mg PO BID #60 tablet 05/18/19 Unknown Rx Simvastatin 20 mg PO DAILY #30 tablet 05/18/19 Unknown Rx amLODIPine [Norvasc] 10 mg PO QDAY tablet 05/18/19 Unknown Rx amLODIPine [Norvasc] 10 mg PO QDAY #30 tablet 05/18/19 Unknown Rx Losartan [Cozaar] 50 mg PO QDAY #30 tablet 08/05/19 Unknown Rx amLODIPine [Norvasc] 5 mg PO DAILY #30 tab 08/05/19 Unknown Rx amLODIPine [Norvasc] 10 mg PO DAILY #30 tab 08/08/19 Unknown Rx Allergies Allergy/AdvReac Type Severity Reaction Status Date / Time No Known Allergies Allergy Unverified 05/16/19 12:45 ED Review of Systems ROS: Stated complaint: HBP Other details as noted in HPI Comment: All other systems reviewed and negative ED Past Medical Hx - Past Medical History Hx Hypertension: Yes Hx Congestive Heart Failure: No Hx Diabetes: No Hx Asthma: No Hx COPD: No - Social History Smoking Status: Never Smoker - Medications Home Medications: Home Medications Medication Instructions Recorded Confirmed Last Taken Type amLODIPine [Norvasc] 10 mg PO DAILY 05/17/19 05/17/19 Unknown History Aspirin EC [Halfprin EC] 81 mg PO QDAY #30 tablet. 05/18/19 Unknown Rx Losartan [Cozaar] 100 mg PO QDAY #30 tablet 05/18/19 Unknown Rx Metoprolol [Lopressor TAB] 25 mg PO BID #60 tablet 05/18/19 Unknown Rx Simvastatin 20 mg PO DAILY #30 tablet 05/18/19 Unknown Rx amLODIPine [Norvasc] 10 mg PO QDAY tablet 05/18/19 Unknown Rx amLODIPine [Norvasc] 10 mg PO QDAY #30 tablet 05/18/19 Unknown Rx Losartan [Cozaar] 50 mg PO QDAY #30 tablet 08/05/19 Unknown Rx amLODIPine [Norvasc] 5 mg PO DAILY #30 tab 08/05/19 Unknown Rx amLODIPine [Norvasc] 10 mg PO DAILY #30 tab 08/08/19 Unknown Rx ED Physical Exam - General Limitations: No Limitations General appearance: alert, in no apparent distress - Head Head exam: Present: atraumatic, normocephalic - Eye Eye exam: Present: normal appearance - ENT ENT exam: Present: mucous membranes moist - Neck Neck exam: Present: normal inspection - Respiratory Respiratory exam: Present: normal lung sounds bilaterally. Absent: respiratory distress, wheezes, rales, rhonchi - Cardiovascular Cardiovascular Exam: Present: regular rate, normal rhythm, normal heart sounds. Absent: systolic murmur, diastolic murmur, rubs, gallop - GI/Abdominal GI/Abdominal exam: Present: soft, normal bowel sounds. Absent: distended, tenderness, guarding, rebound - Rectal Rectal exam: Present: deferred - Extremities Exam Extremities exam: Present: normal inspection - Back Exam Back exam: Present: normal inspection - Neurological Exam Neurological exam: Present: alert, oriented X3 - Psychiatric Psychiatric exam: Present: normal affect, normal mood - Skin Skin exam: Present: warm, dry, intact, normal color. Absent: rash ED Course Vital Signs 08/11/19 08/11/19 12:59 15:44 Temperature 98.1 F Pulse Rate 105 H 99 H Respiratory 16 18 Rate Blood Pressure 140/102 Blood Pressure 146/107 140/102 [Left] O2 Sat by Pulse 99 95 Oximetry ED Medical Decision Making - Medical Decision Making His laboratory studies from his last 2 visits were reviewed and showed no acute process. Patient had normal troponins normal renal function. Patient blood pressure to it. The emergency department is 146/107. His slightly tachycardic. Believe the patient does have some anxiety type symptoms. I had a long discussion with the patient guarding hypertensive urgency versus emergency and affect he should not expect his blood pressure be completely normal only a day after after having a regimen change Critical care attestation.: If time is entered above; I have spent that time in minutes in the direct care of this critically ill patient, excluding procedure time. ED Disposition Clinical Impression: Hypertensive urgency Disposition: DC-01 TO HOME OR SELFCARE Is pt being admited?: No Does the pt Need Aspirin: No Condition: Stable Instructions: Hypertension (ED) Additional Instructions: Please continue to take your blood pressure medicines as prescribed. Please have your blood pressure checked in one week. Please return to the emergency department if you have chest pain or shortness of breath or difficulty speaking or moving. Referrals: PRIMARY CARE [Primary Care Provider] - 3-5 Days Time of Disposition: 16:02
== END 2019-08-11 16:11 | disposition home or self-care (01) ==
LOC: ED 12:51
DX: I16.0 Hypertensive urgency (principal); I10 Essential (primary) hypertension; Z79.899 Other long term (current) drug therapy

== ENCOUNTER 2019-08-18 19:52 | Emergency (ER) | payer SELFPAY ==
[2019-08-18 21:07] VITALS: BP 132/95
--- NOTE | 2019-08-18 21:14 | Emergency Department Report ---
Chief Complaint: High BP Stated Complaint: BLOOD PRESSURE Time Seen by Provider: 08/18/19 21:07 - HPI History of Present Illness: 69 y/o male has been here several times for concern for HTN. Patient states he just feels that way. - Exam Vital Signs: Vital Signs 08/18/19 20:06 Temperature 97.9 F Pulse Rate 95 H Respiratory 18 Rate Blood Pressure 132/95 O2 Sat by Pulse 95 Oximetry Physical Exam: AxO times 3 Cardiac RRR no murmurs Lungs CTAB Ambulating without difficulties. stable mood MSE screening note: Focused history and physical exam performed. Due to findings the following was ordered: Patient vital are stable no complaint of chest or sob Patient referred to follow up with his PCP. ED Disposition for MSE Condition: Stable
== END 2019-08-18 22:27 | disposition home or self-care (01) ==
LOC: ED 19:52
DX: I10 Essential (primary) hypertension (principal)
CPT/HCPCS: 99282

== ENCOUNTER 2019-10-08 18:57 | Emergency (ER) | payer SELFPAY ==
--- NOTE | 2019-10-08 19:35 | Event Note ---
ED Screening Note Date of service: 10/08/19 (n) Time: 19:34 ED Screening Note: 69 y o male presents with elevated BP currently taking medication presents with elevated BP This initial assessment/diagnostic orders/clinical plan/treatment(s) is/are subject to change based on patients health status, clinical progression and re- assessment by fellow clinical providers in the ED. Further treatment and workup at subsequent clinical providers discretion. Patient/guardian urged not to elope from the ED as their condition may be serious if not clinically assessed and managed. Initial orders include: labs, ekg,xray
[2019-10-08 20:27] LABS: Basophils % (Auto) 1.3 % (0.0-1.8); Eosinophils # (Auto) 0.1 K/mm3 (0.0-0.4); Eosinophils % (Auto) 2.7 % (0.0-4.3); Hematocrit 43.9 % (35.5-45.6); Hemoglobin 14.4 gm/dl (11.8-15.2); Lymphocytes # (Auto) 1.5 K/mm3 (1.2-5.4); Lymphocytes % (Auto) 40.5 % (13.4-35.0); Mean Corpuscular HGB Conc 33 % (32-34); Mean Corpuscular Volume 93 fl (84-94); Monocytes # (Auto) 0.4 K/mm3 (0.0-0.8); Monocytes % (Auto) 10.2 % (0.0-7.3); Platelet Count 224 K/mm3 (140-440); Red Blood Count 4.72 M/mm3 (3.65-5.03); Red Cell Distribution Width 13.9 % (13.2-15.2)
[2019-10-08 20:48] LABS: BUN/Creatinine Ratio 8; Blood Urea Nitrogen 10 mg/dL (9-20); Calcium 9.2 mg/dL (8.4-10.2); Hemolysis Index 12
[2019-10-08] MEDS ORDERED: LOSARTAN 50 MG TAB PO ONE (22:17)
[2019-10-08] MEDS ORDERED: amLODIPine 5 MG TAB PO ONE (22:17)
--- NOTE | 2019-10-08 22:54 | Emergency Department Report ---
ED General Adult HPI - General Chief complaint: High BP Stated complaint: HIGH BLOOD PRESSURE Time Seen by Provider: 10/08/19 21:49 Source: patient Mode of arrival: Ambulatory Limitations: No Limitations - History of Present Illness Initial comments: 69 yo M w/ hx of HTN and multiple visits to the ER for hypertension presents to ED with elevated blood pressure. Pt reports he is out of his losartan and norvac. Currently only taking metoprolol. Pt is asymptomatic, denies headache, dizziness, chest pain, SOB, nausea or vomiting, weakness or numbness. PCP: Dr Wylie -: days(s) (5) Severity scale (0 -10): 0 Consistency: constant Improves with: none Worsens with: none Associated Symptoms: denies: chest pain, cough, fever/chills, headaches, nausea/vomiting, shortness of breath, syncope, weakness Treatments Prior to Arrival: none - Related Data Home Medications Medication Instructions Recorded Confirmed Last Taken Losartan [Cozaar] 100 mg PO QDAY 10/08/19 10/08/19 Unknown Metoprolol Tartrate 25 mg PO BID 10/08/19 10/08/19 10/08/19 10:00 Previous Rx's Medication Instructions Recorded Last Taken Type Aspirin EC [Halfprin EC] 81 mg PO QDAY #30 tablet. 05/18/19 Unknown Rx Simvastatin 20 mg PO DAILY #30 tablet 05/18/19 Unknown Rx amLODIPine 10 mg PO DAILY #30 tab 08/08/19 10/08/19 10:00 Rx Amlodipine Besylate [Norvasc] 5 mg PO QDAY #30 tablet 10/08/19 Unknown Rx Losartan [Cozaar] 50 mg PO QDAY #30 tablet 10/08/19 Unknown Rx Allergies Allergy/AdvReac Type Severity Reaction Status Date / Time No Known Allergies Allergy Unverified 05/16/19 12:45 ED Review of Systems ROS: Stated complaint: HIGH BLOOD PRESSURE Other details as noted in HPI Comment: All other systems reviewed and negative Respiratory: denies: shortness of breath Cardiovascular: denies: chest pain Gastrointestinal: denies: nausea, vomiting Neurological: denies: headache, weakness, numbness, abnormal gait, vertigo ED Past Medical Hx - Past Medical History Previous Medical History?: Yes Hx Hypertension: Yes Hx Congestive Heart Failure: No Hx Diabetes: No Hx Asthma: No Hx COPD: No - Surgical History Past Surgical History?: No - Social History Smoking Status: Never Smoker Substance Use Type: None - Medications Home Medications: Home Medications Medication Instructions Recorded Confirmed Last Taken Type Aspirin EC [Halfprin EC] 81 mg PO QDAY #30 tablet. 05/18/19 10/08/19 Unknown Rx Simvastatin 20 mg PO DAILY #30 tablet 05/18/19 10/08/19 Unknown Rx amLODIPine 10 mg PO DAILY #30 tab 08/08/19 10/08/19 10/08/19 10:00 Rx Amlodipine Besylate [Norvasc] 5 mg PO QDAY #30 tablet 10/08/19 Unknown Rx Losartan [Cozaar] 50 mg PO QDAY #30 tablet 10/08/19 Unknown Rx Losartan [Cozaar] 100 mg PO QDAY 10/08/19 10/08/19 Unknown History Metoprolol Tartrate 25 mg PO BID 10/08/19 10/08/19 10/08/19 10:00 History ED Physical Exam - General Limitations: No Limitations General appearance: alert, in no apparent distress - Head Head exam: Present: atraumatic, normocephalic - Eye Eye exam: Present: normal appearance, EOMI - ENT ENT exam: Present: mucous membranes moist - Neck Neck exam: Present: normal inspection - Respiratory Respiratory exam: Present: normal lung sounds bilaterally. Absent: respiratory distress - Cardiovascular Cardiovascular Exam: Present: regular rate, normal rhythm - GI/Abdominal GI/Abdominal exam: Present: soft. Absent: distended, tenderness - Extremities Exam Extremities exam: Present: normal inspection - Neurological Exam Neurological exam: Present: alert, oriented X3, CN II-XII intact. Absent: motor sensory deficit - Psychiatric Psychiatric exam: Present: normal affect, normal mood - Skin Skin exam: Present: warm, dry, intact, normal color ED Course Vital Signs 10/08/19 10/08/19 10/08/19 19:11 21:27 21:30 Temperature 98.4 F 97.7 F Pulse Rate 64 60 61 Respiratory 18 9 L 15 Rate Blood Pressure 184/127 173/111 Blood Pressure 173/111 [Right] O2 Sat by Pulse 98 96 98 Oximetry 10/08/19 10/08/19 10/08/19 22:00 22:24 22:30 Temperature Pulse Rate 60 62 58 L Respiratory 12 17 Rate Blood Pressure 186/122 181/118 194/122 Blood Pressure [Right] O2 Sat by Pulse 97 95 Oximetry ED Medical Decision Making - Lab Data Result diagrams: 10/08/19 20:15 10/08/19 20:15 - Medical Decision Making Pt with asymptomatic HTN. Meds given here in ED and prescriptions given. Pt is in no acute distress. Advised to f/u with his PCP. Return precautions given. - Differential Diagnosis uncontrolled HTN Critical care attestation.: If time is entered above; I have spent that time in minutes in the direct care of this critically ill patient, excluding procedure time. ED Disposition Clinical Impression: Uncontrolled hypertension Disposition: DC- TO HOME OR SELFCARE Is pt being admited?: No Condition: Stable Instructions: Hypertension (ED) Prescriptions: Losartan [Cozaar] 50 mg PO QDAY #30 tablet Amlodipine Besylate [Norvasc] 5 mg PO QDAY #30 tablet Referrals: KATI WYLIE MD [Staff Physician] - 3-5 Days ITANA HARVEY MD [Staff Physician] - 3-5 Days PRIMARY CARE, [Primary Care Provider] - 3-5 Days Time of Disposition: 22:54
[2019-10-08 22:56] VITALS: BP 194/122
== END 2019-10-08 23:20 | disposition home or self-care (01) ==
LOC: ED 18:57
DX: I10 Essential (primary) hypertension (principal); Z79.899 Other long term (current) drug therapy
CPT/HCPCS: 36415; 80048; 84484; 85025; 93005; 93010

== ENCOUNTER 2019-11-11 15:16 | Emergency (ER) | payer SELFPAY ==
--- NOTE | 2019-11-11 17:56 | Event Note ---
ED Screening Note Date of service: 11/11/19 Time: 17:53 ED Screening Note: 69 y o male presents with cc of dizziness x today and feelings of weakness PMH: HTN This initial assessment/diagnostic orders/clinical plan/treatment(s) is/are subject to change based on patients health status, clinical progression and re- assessment by fellow clinical providers in the ED. Further treatment and workup at subsequent clinical providers discretion. Patient/guardian urged not to elope from the ED as their condition may be serious if not clinically assessed and managed. Initial orders include: labs
[2019-11-11 19:46] LABS: Hemoglobin 14.9 gm/dl (11.8-15.2); Lymphocytes % (Auto) 35.2 % (13.4-35.0); Mean Corpuscular HGB Conc 34 % (32-34); Mean Corpuscular Volume 92 fl (84-94); Platelet Count 229 K/mm3 (140-440); Red Blood Count 4.79 M/mm3 (3.65-5.03); Red Cell Distribution Width 13.6 % (13.2-15.2)
[2019-11-11 19:47] LABS: Basophils % (Auto) 0.8 % (0.0-1.8); Eosinophils # (Auto) 0.1 K/mm3 (0.0-0.4); Eosinophils % (Auto) 1.6 % (0.0-4.3); Lymphocytes # (Auto) 1.9 K/mm3 (1.2-5.4); Monocytes # (Auto) 0.4 K/mm3 (0.0-0.8); Monocytes % (Auto) 7.1 % (0.0-7.3)
[2019-11-11 20:25] LABS: BUN/Creatinine Ratio 10; Blood Urea Nitrogen 12 mg/dL (9-20); Calcium 9.2 mg/dL (8.4-10.2)
[2019-11-11] MEDS ORDERED: METOPROLOL TARTRATE 50 MG TAB PO ONE (21:11)
[2019-11-11] MEDS ORDERED: MECLIZINE 25 MG TAB PO ONE (21:12)
--- NOTE | 2019-11-11 21:20 | Emergency Department Report ---
ED General Adult HPI - General Chief complaint: Dizziness Stated complaint: DIZZINESS Time Seen by Provider: 11/11/19 21:02 Source: patient Mode of arrival: Ambulatory Limitations: No Limitations - History of Present Illness Initial comments: Patient is a 69-year-old gentleman who is presenting with some intermittent dizziness this week. Patient states that he has a spinning sensation that her week ago resolved and has been off and on a random this week. He denies sinus issues. Patient believes that his losartan dose of blood pressure medicines causing the dizziness. Patient has a history of coming to the emergency department numerous times for worries about his blood pressure. The patient likely has some anxiety over doses of his medications and patient has a history of being very sensitive to certain medications. Patient denies chest pain shortness of breath or focal neurological deficits. - Related Data Home Medications Medication Instructions Recorded Confirmed Last Taken Losartan [Cozaar] 100 mg PO QDAY 10/08/19 10/08/19 Unknown Metoprolol Tartrate 25 mg PO BID 10/08/19 10/08/19 10/08/19 10:00 Previous Rx's Medication Instructions Recorded Last Taken Type Aspirin EC [Halfprin EC] 81 mg PO QDAY #30 tablet. 05/18/19 Unknown Rx Simvastatin 20 mg PO DAILY #30 tablet 05/18/19 Unknown Rx amLODIPine 10 mg PO DAILY #30 tab 08/08/19 10/08/19 10:00 Rx Amlodipine Besylate [Norvasc] 5 mg PO QDAY #30 tablet 10/08/19 Unknown Rx Losartan [Cozaar] 50 mg PO QDAY #30 tablet 10/08/19 Unknown Rx Meclizine [Antivert] 50 mg PO BID PRN #12 tablet 11/11/19 Unknown Rx Allergies Allergy/AdvReac Type Severity Reaction Status Date / Time No Known Allergies Allergy Unverified 05/16/19 12:45 ED Review of Systems ROS: Stated complaint: DIZZINESS Other details as noted in HPI Comment: All other systems reviewed and negative ED Past Medical Hx - Past Medical History Previous Medical History?: Yes Hx Hypertension: Yes Hx Congestive Heart Failure: No Hx Diabetes: No Hx Asthma: No Hx COPD: No - Surgical History Past Surgical History?: No - Social History Smoking Status: Never Smoker Substance Use Type: None - Medications Home Medications: Home Medications Medication Instructions Recorded Confirmed Last Taken Type Aspirin EC [Halfprin EC] 81 mg PO QDAY #30 tablet. 05/18/19 10/08/19 Unknown R x Simvastatin 20 mg PO DAILY #30 tablet 05/18/19 10/08/19 Unknown Rx amLODIPine 10 mg PO DAILY #30 tab 08/08/19 10/08/19 10/08/19 10:00 Rx Amlodipine Besylate [Norvasc] 5 mg PO QDAY #30 tablet 10/08/19 Unknown Rx Losartan [Cozaar] 50 mg PO QDAY #30 tablet 10/08/19 Unknown Rx Losartan [Cozaar] 100 mg PO QDAY 10/08/19 10/08/19 Unknown History Metoprolol Tartrate 25 mg PO BID 10/08/19 10/08/19 10/08/19 10:00 History Meclizine [Antivert] 50 mg PO BID PRN #12 tablet 11/11/19 Unknown Rx ED Physical Exam - General Limitations: No Limitations General appearance: alert, in no apparent distress - Head Head exam: Present: atraumatic, normocephalic - Eye Eye exam: Present: normal appearance, PERRL, EOMI - ENT ENT exam: Present: mucous membranes moist - Neck Neck exam: Present: normal inspection - Respiratory Respiratory exam: Present: normal lung sounds bilaterally. Absent: respiratory distress, wheezes, rales, rhonchi - Cardiovascular Cardiovascular Exam: Present: regular rate, normal rhythm. Absent: systolic murmur, diastolic murmur, rubs, gallop - GI/Abdominal GI/Abdominal exam: Present: soft, normal bowel sounds. Absent: distended, tenderness, guarding, rebound - Rectal Rectal exam: Present: deferred - Extremities Exam Extremities exam: Present: normal inspection - Back Exam Back exam: Present: normal inspection - Neurological Exam Neurological exam: Present: alert, oriented X3, CN II-XII intact, normal gait. Absent: motor sensory deficit - Psychiatric Psychiatric exam: Present: normal affect, normal mood - Skin Skin exam: Present: warm, dry, intact, normal color. Absent: rash ED Course Vital Signs 11/11/19 15:20 Temperature 97.4 F L Pulse Rate 107 H Respiratory 16 Rate Blood Pressure 147/110 O2 Sat by Pulse 96 Oximetry ED Medical Decision Making - Lab Data Result diagrams: 11/11/19 19:31 11/11/19 19:31 - EKG Data -: EKG Interpreted by Me EKG shows normal: sinus rhythm, axis, intervals, QRS complexes, ST-T waves Rate: normal - EKG Data Interpretation: LVH - Medical Decision Making Patient given 25 mg of his metoprolol and a bonus to the 25 that he takes at home to help with his slight bump in his blood pressure and his slight tachycardia. Patient also given Antivert. Patient has been seen by me for the same complaint several times. EKG is unchanged from previous EKGs. Patient be discharged home. Critical care attestation.: If time is entered above; I have spent that time in minutes in the direct care of this critically ill patient, excluding procedure time. ED Disposition Clinical Impression: Hypertensive urgency, Vertigo Disposition: DC-01 TO HOME OR SELFCARE Is pt being admited?: No Does the pt Need Aspirin: No Condition: Stable Instructions: Hypertension (ED) Additional Instructions: Please follow-up with your primary care physician. Please call your primary care physician tomorrow to get an appointment to see if the dosage of your medications needs to be changed. Prescriptions: Meclizine [Antivert] 50 mg PO BID PRN #12 tablet PRN Reason: dizziness Referrals: PRIMARY CARE, [Primary Care Provider] - 3-5 Days Time of Disposition: 21:18
[2019-11-11 21:58] VITALS: BP 140/104
[2019-11-12 05:20] LABS: Hemolysis Index 19
== END 2019-11-11 21:55 | disposition home or self-care (01) ==
LOC: ED 15:16
DX: I16.0 Hypertensive urgency (principal); I10 Essential (primary) hypertension; R42 Dizziness and giddiness; Z79.899 Other long term (current) drug therapy
CPT/HCPCS: 36415; 80048; 85025; 93005; 93010

== ENCOUNTER 2020-05-14 20:35 | Emergency (ER) | payer SELFPAY ==
[2020-05-14 21:57] LABS: Hematocrit 41.9 % (35.5-45.6); Hemoglobin 14.4 gm/dl (11.8-15.2); Mean Corpuscular HGB Conc 34 % (32-34); Mean Corpuscular Volume 92 fl (84-94); Platelet Count 232 K/mm3 (140-440); Red Blood Count 4.56 M/mm3 (3.65-5.03)
[2020-05-14 22:21] LABS: Alanine Aminotransferase 9 units/L (7-56); Albumin 4.2 g/dL (3.9-5); BUN/Creatinine Ratio 10; Blood Urea Nitrogen 12 mg/dL (9-20); Calcium 9.3 mg/dL (8.4-10.2); Hemolysis Index 13
[2020-05-14] MEDS ORDERED: MECLIZINE 25 MG TAB PO ONE (23:22)
--- NOTE | 2020-05-15 00:24 | Emergency Department Report ---
ED Dizziness HPI - General Chief Complaint: Dizziness Stated Complaint: DIZZINESS Time Seen by Provider: 05/14/20 22:39 Source: patient Mode of arrival: Ambulatory Limitations: No Limitations - History of Present Illness Initial Comments: 70-year-old male with history of hypertension, CVA, presents to ED with complaint of dizziness since yesterday. Patient reports it feels as if the room is spinning. States it is happening intermittently. Patient denies any fever, headache, blurred vision, vomiting or diarrhea, chest pain, shortness of breath. Patient states this happened before and he was given a medication which helped his symptoms. Patient is unsure if he was diagnosed with vertigo at that time. MD Complaint: dizziness -: days(s) (2) Description: "room spinning" History of Same: Yes History of Trauma: No Severity: mild Improves With: remaining still Worsens With: movement Associated Symptoms: denies: chest pain, cough, fever/chills, shortness of breath - Related Data Home Medications Medication Instructions Recorded Confirmed Last Taken Losartan [Cozaar] 100 mg PO QDAY 10/08/19 10/08/19 Unknown Metoprolol Tartrate 25 mg PO BID 10/08/19 10/08/19 10/08/19 10:00 Previous Rx's Medication Instructions Recorded Last Taken Type Aspirin EC [Halfprin EC] 81 mg PO QDAY #30 tablet. 05/18/19 Unknown Rx Simvastatin 20 mg PO DAILY #30 tablet 05/18/19 Unknown Rx amLODIPine 10 mg PO DAILY #30 tab 08/08/19 10/08/19 10:00 Rx Amlodipine Besylate [Norvasc] 5 mg PO QDAY #30 tablet 10/08/19 Unknown Rx Losartan [Cozaar] 50 mg PO QDAY #30 tablet 10/08/19 Unknown Rx Meclizine [Antivert] 50 mg PO BID PRN #12 tablet 11/11/19 Unknown Rx Meclizine [Antivert] 25 mg PO TID PRN #20 tablet 05/15/20 Unknown Rx Allergies Allergy/AdvReac Type Severity Reaction Status Date / Time No Known Allergies Allergy Unverified 05/16/19 12:45 ED Review of Systems ROS: Stated complaint: DIZZINESS Other details as noted in HPI Comment: All other systems reviewed and negative Constitutional: denies: chills, fever Respiratory: denies: cough, shortness of breath Cardiovascular: denies: chest pain, palpitations Gastrointestinal: denies: abdominal pain, nausea, vomiting, diarrhea Neurological: vertigo. denies: headache, weakness, numbness ED Past Medical Hx - Past Medical History Previous Medical History?: Yes Hx Hypertension: Yes Hx Congestive Heart Failure: No Hx Diabetes: No Hx Asthma: No Hx COPD: No - Surgical History Past Surgical History?: No - Social History Smoking Status: Never Smoker Substance Use Type: None - Medications Home Medications: Home Medications Medication Instructions Recorded Confirmed Last Taken Type Aspirin EC [Halfprin EC] 81 mg PO QDAY #30 tablet. 05/18/19 10/08/19 Unknown Rx Simvastatin 20 mg PO DAILY #30 tablet 05/18/19 10/08/19 Unknown Rx amLODIPine 10 mg PO DAILY #30 tab 08/08/19 10/08/19 10/08/19 10:00 Rx Amlodipine Besylate [Norvasc] 5 mg PO QDAY #30 tablet 10/08/19 Unknown Rx Losartan [Cozaar] 50 mg PO QDAY #30 tablet 10/08/19 Unknown Rx Losartan [Cozaar] 100 mg PO QDAY 10/08/19 10/08/19 Unknown History Metoprolol Tartrate 25 mg PO BID 10/08/19 10/08/19 10/08/19 10:00 History Meclizine [Antivert] 50 mg PO BID PRN #12 tablet 11/11/19 Unknown Rx Meclizine [Antivert] 25 mg PO TID PRN #20 tablet 05/15/20 Unknown Rx ED Physical Exam - General Limitations: No Limitations General appearance: alert, in no apparent distress - Head Head exam: Present: atraumatic, normocephalic - Eye Eye exam: Present: normal appearance, EOMI - ENT ENT exam: Present: mucous membranes moist - Neck Neck exam: Present: normal inspection - Respiratory Respiratory exam: Present: normal lung sounds bilaterally. Absent: respiratory distress - Cardiovascular Cardiovascular Exam: Present: regular rate, normal rhythm - GI/Abdominal GI/Abdominal exam: Present: soft. Absent: distended, tenderness - Extremities Exam Extremities exam: Present: normal inspection - Neurological Exam Neurological exam: Present: alert, oriented X3 - Psychiatric Psychiatric exam: Present: normal affect, normal mood - Skin Skin exam: Present: warm, dry, intact, normal color ED Course Vital Signs 05/14/20 05/14/20 05/14/20 21:29 21:30 23:40 Temperature 98.4 F Pulse Rate 74 Respiratory 16 Rate Blood Pressure 141/102 142/88 O2 Sat by Pulse 96 98 Oximetry 05/14/20 23:44 Temperature Pulse Rate 63 Respiratory 18 Rate Blood Pressure O2 Sat by Pulse Oximetry ED Medical Decision Making - Lab Data Result diagrams: 05/14/20 21:43 05/14/20 21:43 - EKG Data -: EKG Interpreted by Me EKG shows normal: sinus rhythm, axis, intervals, QRS complexes, ST-T waves Rate: normal - EKG Data Interpretation: no acute changes, LVH - Radiology Data Radiology results: report reviewed, image reviewed - Medical Decision Making 30-year-old male with likely benign positional vertigo. Patient has experienced the same symptoms in the past which improved with unknown medication. Tonight, vitals are normal, CT Head is negative. EKG unremarkable. Patient was given meclizine here in ED currently reports resolution of symptoms. Patient feels comfortable with discharge home at this time. Prescriptions given. Outpatient follow-up advised. - Differential Diagnosis Arrhythmia, infection, CVA, vertigo Critical care attestation.: If time is entered above; I have spent that time in minutes in the direct care of this critically ill patient, excluding procedure time. ED Disposition Clinical Impression: Vertigo Disposition: -01 TO HOME OR SELFCARE Is pt being admited?: No Condition: Stable Instructions: Vertigo (ED) Prescriptions: Meclizine [Antivert] 25 mg PO TID PRN #20 tablet PRN Reason: Vertigo Referrals: PRIMARY CARE, [Primary Care Provider] - 3-5 Days Time of Disposition: :02
--- NOTE | 2020-05-15 00:32 | Cat Scan Report ---
CT HEAD/BRAIN WO CON INDICATION / CLINICAL INFORMATION: Dizziness for 2 days. TECHNIQUE: All CT scans at this location are performed using CT dose reduction for ALARA by means of automated e xposure control. COMPARISON: 05/16/19. FINDINGS: There is mild generalized cerebral atrophy. There are moderate small vessel ischemic changes in the p eriventricular white matter, gangliocapsular regions and thalami bilaterally. There is mild generaliz ed cerebellar atrophy. No focal lesion or mass effect is seen. There is no evidence of intracranial hemorrhage or major vess el occlusion. There is opacification of the right frontal and several right ethmoid air cells. The ot her paranasal sinuses and mastoid air cells are clear. Overall no significant change has occurred since the prior exam. IMPRESSION: 1. Small vessel ischemic changes laterally are chronic and unchanged. No acute intracranial abnormali ty is identified. 2. Right frontal and ethmoid sinusitis is chronic. Signer Name: Deshawn Berman MD Signed: 05/15/2020 12:27 AM Workstation Name: [id number][id number]
[2020-05-15 01:24] VITALS: BP 148/78
== END 2020-05-15 01:05 | disposition home or self-care (01) ==
LOC: ED 20:35
DX: R42 Dizziness and giddiness (principal); I10 Essential (primary) hypertension
CPT/HCPCS: 36415; 70450; 80053; 84484; 85027; 93005; 99284

== ENCOUNTER 2020-10-24 23:19 | Emergency (ER) | payer SELFPAY ==
[2020-10-25 00:29] LABS: Basophils % (Auto) 0.6 % (0.0-1.8); Eosinophils # (Auto) 0.2 K/mm3 (0.0-0.4); Eosinophils % (Auto) 4.8 % (0.0-4.3); Hematocrit 42.2 % (35.5-45.6); Hemoglobin 14.3 gm/dl (11.8-15.2); Lymphocytes # (Auto) 1.9 K/mm3 (1.2-5.4); Lymphocytes % (Auto) 41.8 % (13.4-35.0); Mean Corpuscular HGB Conc 34 % (32-34); Mean Corpuscular Volume 92 fl (84-94); Monocytes # (Auto) 0.6 K/mm3 (0.0-0.8); Monocytes % (Auto) 13.4 % (0.0-7.3); Platelet Count 270 K/mm3 (140-440); Red Blood Count 4.59 M/mm3 (3.65-5.03); Red Cell Distribution Width 13.9 % (13.2-15.2)
[2020-10-25 00:53] LABS: BUN/Creatinine Ratio 8; Blood Urea Nitrogen 9 mg/dL (9-20)
[2020-10-25 00:59] LABS: Calcium 9.6 mg/dL (8.4-10.2); Hemolysis Index 7
[2020-10-25 01:59] LABS: Bilirubin,Urine NEG (Negative); Blood,Urine MOD (Negative); Color,Urine Yellow (Yellow); Mucus,Urine FEW /HPF; Protein,Urine <15 mg/dL mg/dL (Negative)
[2020-10-25 04:30] LABS: Alanine Aminotransferase 13 units/L (7-56); Albumin 4.1 g/dL (3.9-5)
[2020-10-25 04:41] LABS: Bilirubin,Direct < 0.2 mg/dL (0-0.2)
[2020-10-25] MEDS ORDERED: MECLIZINE 25 MG TAB PO ONE (06:42)
--- NOTE | 2020-10-25 06:44 | Emergency Department Report ---
ED Dizziness HPI - General Chief Complaint: Dizziness Stated Complaint: DIZZINESS Time Seen by Provider: 10/25/20 06:07 Source: patient Mode of arrival: Ambulatory Limitations: No Limitations - History of Present Illness Initial Comments: Patient is a 70-year-old male who complains of intermittent vague dizziness for the past 3 days, denies lightheadedness or sensation that is going to pass out. Also denies room spinning sensation. Patient denies fever, notes history of similar symptoms in the past resolved with meclizine. Patient denies head inj ury, denies headache, denies localized weakness or sensory changes. Patient denies changes in speech. Patient denies difficulty walking. - Related Data Home Medications Medication Instructions Recorded Confirmed Last Taken Losartan [Cozaar] 100 mg PO QDAY 10/08/19 10/08/19 Unknown Metoprolol Tartrate 25 mg PO BID 10/08/19 10/08/19 10/08/19 10:00 Previous Rx's Medication Instructions Recorded Last Taken Type Aspirin EC [Halfprin EC] 81 mg PO QDAY #30 tablet. 05/18/19 Unknown Rx Simvastatin 20 mg PO DAILY #30 tablet 05/18/19 Unknown Rx amLODIPine 10 mg PO DAILY #30 tab 08/08/19 10/08/19 10:00 Rx Amlodipine Besylate [Norvasc] 5 mg PO QDAY #30 tablet 10/08/19 Unknown Rx Losartan [Cozaar] 50 mg PO QDAY #30 tablet 10/08/19 Unknown Rx Meclizine [Antivert] 50 mg PO BID PRN #12 tablet 11/11/19 Unknown Rx Meclizine [Antivert] 25 mg PO TID PRN #20 tablet 05/15/20 Unknown Rx Allergies Allergy/AdvReac Type Severity Reaction Status Date / Time No Known Allergies Allergy Unverified 05/16/19 12:45 ED Review of Systems ROS: Stated complaint: DIZZINESS Other details as noted in HPI Comment: All other systems reviewed and negative ED Past Medical Hx - Past Medical History Hx Hypertension: Yes Hx Congestive Heart Failure: No Hx Diabetes: No Hx Asthma: No Hx COPD: No - Surgical History Past Surgical History?: No - Social History Smoking Status: Current Every Day Smoker Substance Use Type: Alcohol - Medications Home Medications: Home Medications Medication Instructions Recorded Confirmed Last Taken Type Aspirin EC [Halfprin EC] 81 mg PO QDAY #30 tablet. 05/18/19 10/08/19 Unknown Rx Simvastatin 20 mg PO DAILY #30 tablet 05/18/19 10/08/19 Unknown Rx amLODIPine 10 mg PO DAILY #30 tab 08/08/19 10/08/19 10/08/19 10:00 Rx Amlodipine Besylate [Norvasc] 5 mg PO QDAY #30 tablet 10/08/19 Unknown Rx Losartan [Cozaar] 50 mg PO QDAY #30 tablet 10/08/19 Unknown Rx Losartan [Cozaar] 100 mg PO QDAY 10/08/19 10/08/19 Unknown History Metoprolol Tartrate 25 mg PO BID 10/08/19 10/08/19 10/08/19 10:00 History Meclizine [Antivert] 50 mg PO BID PRN #12 tablet 11/11/19 Unknown Rx Meclizine [Antivert] 25 mg PO TID PRN #20 tablet 05/15/20 Unknown Rx ED Physical Exam - General Limitations: No Limitations General appearance: alert, in no apparent distress - Head Head exam: Present: atraumatic, normocephalic - Eye Eye exam: Present: normal appearance - ENT ENT exam: Present: mucous membranes moist - Neck Neck exam: Present: normal inspection - Respiratory Respiratory exam: Present: normal lung sounds bilaterally. Absent: respiratory distress - Cardiovascular Cardiovascular Exam: Present: regular rate, normal rhythm. Absent: systolic murmur, diastolic murmur, rubs, gallop - GI/Abdominal GI/Abdominal exam: Present: soft, normal bowel sounds - Rectal Rectal exam: Present: deferred - Extremities Exam Extremities exam: Present: normal inspection - Back Exam Back exam: Present: normal inspection - Neurological Exam Neurological exam: Present: alert, oriented X3 - Psychiatric Psychiatric exam: Present: normal affect, normal mood - Skin Skin exam: Present: warm, dry, intact, normal color. Absent: rash ED Course Vital Signs 10/24/20 10/25/20 23:34 06:45 Temperature 97.7 F Pulse Rate 77 67 Respiratory 18 16 Rate Blood Pressure 134/92 Blood Pressure 122/86 [Right] O2 Sat by Pulse 97 99 Oximetry - Reevaluation(s) Reevaluation #1: 10/25/20 06:44 Patient treated with meclizine p.o. x1 Reevaluation #2: 10/25/20 08:15 On reevaluation, patient in no acute distress. Ambulatory with steady gait, denies dizziness. Advised to follow-up with regular doctor for reevaluation and possible MRI brain. ED Medical Decision Making - Lab Data Result diagrams: 10/24/20 23:42 10/24/20 23:42 Lab Results 10/24/20 10/24/20 10/24/20 Range/Units 23:42 23:42 Unknown WBC 4.5 (4.5-11.0) K/mm3 RBC 4.59 (3.65-5.03) M/mm3 Hgb 14.3 (11.8-15.2) gm/dl Hct 42.2 (35.5-45.6) % MCV 92 (84-94) fl MCH 31 (28-32) pg MCHC 34 (32-34) % RDW 13.9 (13.2-15.2) % Plt Count 270 (140-440) K/mm3 Lymph % (Auto) 41.8 H (13.4-35.0) % [place] % (Auto) 13.4 H (0.0-7.3) % Eos % (Auto) 4.8 H (0.0-4.3) % Baso % (Auto) 0.6 (0.0-1.8) % Lymph # (Auto) 1.9 (1.2-5.4) K/mm3 [place] # (Auto) 0.6 (0.0-0.8) K/mm3 Eos # (Auto) 0.2 (0.0-0.4) K/mm3 Baso # (Auto) 0.0 (0.0-0.1) K/mm3 Seg Neutrophils % 39.4 L (40.0-70.0) % Seg Neutrophils # 1.8 (1.8-7.7) K/mm3 Sodium 136 L (137-145) mmol/L Potassium 4.3 (3.6-5.0) mmol/L Chloride 97.5 L (98-107) mmol/L Carbon Dioxide 27 (22-30) mmol/L Anion Gap 16 mmol/L BUN 9 (9-20) mg/dL Creatinine 1.0 (0.8-1.3) mg/dL Estimated GFR > 60 ml/min BUN/Creatinine Ratio 8 % Glucose 122 H (75-100) mg/dL Calcium 9.6 (8.4-10.2) mg/dL Total Bilirubin (0.1-1.2) mg/dL Direct Bilirubin (0-0.2) mg/dL Indirect Bilirubin mg/dL AST (5-40) units/L ALT (7-56) units/L Alkaline Phosphatase (35-129) units/L Troponin T (0.00-0.029) ng/mL Total Protein (6.3-8.2) g/dL Albumin (3.9-5) g/dL Albumin/Globulin Ratio % Urine Color Yellow (Yellow) Urine Turbidity Clear (Clear) Urine pH 7.0 (5.0-7.0) Ur Specific [place] 1.011 (1.003-1.030) Urine Protein <15 mg/dl (Negative) mg/dL Urine Glucose (UA) Neg (Negative) mg/dL Urine Ketones Neg (Negative) mg/dL Urine Blood Mod (Negative) Urine Nitrite Neg (Negative) Urine Bilirubin Neg (Negative) Urine Urobilinogen 2.0 (<2.0) mg/dL Ur Leukocyte Esterase Neg (Negative) Urine WBC (Auto) 4.0 (0.0-6.0) /HPF Urine RBC (Auto) 4.0 (0.0-6.0) /HPF U Epithel Cells (Auto) < 1.0 (0-13.0) /HPF Urine Mucus Few /HPF 12/17/ Range/Units 03:28 WBC (4.5-11.0) K/mm3 RBC (3.65-5.03) M/mm3 Hgb (11.8-15.2) gm/dl Hct (35.5-45.6) % MCV (84-94) fl MCH (28-32) pg MCHC (32-34) % RDW (13.2-15.2) % Plt Count (140-440) K/mm3 Lymph % (Auto) (13.4-35.0) % [place] % (Auto) (0.0-7.3) % Eos % (Auto) (0.0-4.3) % Baso % (Auto) (0.0-1.8) % Lymph # (Auto) (1.2-5.4) K/mm3 [place] # (Auto) (0.0-0.8) K/mm3 Eos # (Auto) (0.0-0.4) K/mm3 Baso # (Auto) (0.0-0.1) K/mm3 Seg Neutrophils % (40.0-70.0) % Seg Neutrophils # (1.8-7.7) K/mm3 Sodium (137-145) mmol/L Potassium (3.6-5.0) mmol/L Chloride (98-107) mmol/L Carbon Dioxide (22-30) mmol/L Anion Gap mmol/L BUN (9-20) mg/dL Creatinine (0.8-1.3) mg/dL Estimated GFR ml/min BUN/Creatinine Ratio % Glucose (75-100) mg/dL Calcium (8.4-10.2) mg/dL Total Bilirubin 0.20 (0.1-1.2) mg/dL Direct Bilirubin < 0.2 (0-0.2) mg/dL Indirect Bilirubin 0.0 mg/dL AST 20 (5-40) units/L ALT 13 (7-56) units/L Alkaline Phosphatase 95 (35-129) units/L Troponin T < 0.010 (0.00-0.029) ng/mL Total Protein 7.8 (6.3-8.2) g/dL Albumin 4.1 (3.9-5) g/dL Albumin/Globulin Ratio 1.1 % Urine Color (Yellow) Urine Turbidity (Clear) Urine pH (5.0-7.0) Ur Specific [place] (1.003-1.030) Urine Protein (Negative) mg/dL Urine Glucose (UA) (Negative) mg/dL Urine Ketones (Negative) mg/dL Urine Blood (Negative) Urine Nitrite (Negative) Urine Bilirubin (Negative) Urine Urobilinogen (<2.0) mg/dL Ur Leukocyte Esterase (Negative) Urine WBC (Auto) (0.0-6.0) /HPF Urine RBC (Auto) (0.0-6.0) /HPF U Epithel Cells (Auto) (0-13.0) /HPF Urine Mucus /HPF Vital Signs 10/24/20 10/25/20 23:34 06:45 Temperature 97.7 F Pulse Rate 77 67 Respiratory 18 16 Rate Blood Pressure 134/92 Blood Pressure 122/86 [Right] O2 Sat by Pulse 97 99 Oximetry - EKG Data EKG shows normal: sinus rhythm (Sinus rhythm at 64, no ST-T changes, normal QRS as read by me) Critical care attestation.: If time is entered above; I have spent that time in minutes in the direct care of this critically ill patient, excluding procedure time. ED Disposition Clinical Impression: Dizziness Disposition: DC-01 TO HOME OR SELFCARE Is pt being admited?: No Condition: Stable Instructions: Dizziness Additional Instructions: Follow-up with primary care doctor in 1 to 2 days for reevaluation. Please note further studies including MRI brain may be indicated for possible dysfunction of your cerebellum. Return to the emergency department for any continued or worsening symptoms. Referrals: PRIMARY CARE, [Primary Care Provider] - 3-5 Days
[2020-10-25 06:51] VITALS: BP 122/86
--- NOTE | 2020-10-25 07:11 | XRay Report ---
CHEST 1 VIEW, 10/25/2020 6:46 AM CLINICAL INFORMATION/INDICATION: Weakness. COMPARISON: Chest radiograph, 08/05/2019 FINDINGS: SUPPORT DEVICES: None. HEART: There is stable enlargement of the cardiac silhouette LUNGS/PLEURA: No focal airspace consolidation or significant pleural effusion is visualized. ADDITIONAL FINDINGS: No additional acute findings. IMPRESSION: 1. Stable enlargement of the cardiac silhouette. Signer Name: Ann Gr MD Signed: 10/25/2020 7:06 AM Workstation Name: [id number]
--- NOTE | 2020-10-25 07:37 | Cat Scan Report ---
Examination: CT of the head without contrast Clinical information: Vertigo. Comparison: CT of the head, 05/14/2020 Technical: Multiple axial CT images of the head were obtained without intravenous contrast. Sagittal and coronal reformats were obtained. All CTs at this facility utilize dose reduction techniques inc luding automated exposure control, iterative reconstruction and weight based dosing when appropriate to reduce patient radiation dose to as low as reasonable achievable. Findings: INTRACRANIAL CONTENTS: There is no CT evidence of acute intracranial hemorrhage or large territorial infarct. 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 There are con fluent regions of hypodensity within the periventricular and deep white matter. There is mild general ized parenchymal volume loss. ORBITS: The bilateral orbits and globes appear normal SKULL: No acute bony abnormality is visualized. PARANASAL SINUSES / MASTOID AIR CELLS: There is partial mucosal thickening of the ethmoid and frontal sinuses. Impression: 1. Changes associated with chronic small vessel ischemic disease and atrophy. Signer Name: Ann Gr MD Signed: 10/25/2020 7:33 AM Workstation Name: [id number]
== END 2020-10-25 08:38 | disposition home or self-care (01) ==
LOC: ED 23:19
DX: R42 Dizziness and giddiness (principal); I10 Essential (primary) hypertension; F17.200 Nicotine dependence, unspecified, uncomplicated; Z79.899 Other long term (current) drug therapy
CPT/HCPCS: 36415; 70450; 71045; 80048; 80076; 81001; 84484; 85025; 93005

== ENCOUNTER 2021-05-30 14:40 | Observation (INO) | payer OTHER ==
--- NOTE | 2021-05-30 16:11 | Event Note ---
ED Screening Note Date of service: 05/30/21 Time: 16:08 ED Screening Note: 71-year-old male patient presents to the emergency department with complaints of dizziness, generalized weakness, and myalgias status post fall 2 weeks ago. Patient states he was ambulating in his home at ground-level when he fell and hit his head on the floor. Patient is unsure if he lost consciousness. Patient was evaluated by his primary care provider today, who sent him to the emergency department for further evaluation. Patient is unsure why his primary care provider was concerned enough to send him here. Patient is unsure whether or not he is anticoagulated. Patient is a poor historian. General: Awake, appropriately interactive, no acute distress. Neck: Supple. Full range of motion intact. Cardiovascular: Normal peripheral perfusion. Pulmonary: No respiratory distress. Patient is speaking normally without use of accessory muscles. Skin: No apparent rashes or lesions. Neurological: No facial asymmetry. Speech is clear. Follows commands. Patient is alert and oriented. Musculoskeletal: Moves all four extremities spontaneously with normal range of motion. Psych: Cooperative. Appropriate mood and affect. CT head and cervical spine ordered due to head trauma in the setting of advanced age with limited ability to provide detailed history. I have greeted and performed a focused rapid initial assessment of this patient. A comprehensive ED assessment and evaluation of the patient, analysis of all test results, and completion of the medical decision-making process will be conducted by additional ED providers. This initial assessment/diagnostic orders/clinical plan/treatment(s) is/are subject to change based on patients health status, clinical progression and re-assessment. Further treatment and workup at subsequent clinical provider's discretion. Patient/guardian urged not to elope from the ED as their condition may be serious if not clinically assessed and managed.
--- NOTE | 2021-05-30 16:45 | XRay Report ---
CHEST 2 VIEWS INDICATION / CLINICAL INFORMATION: dizziness/weakness/pain all over. COMPARISON: 10/25/2020 FINDINGS: SUPPORT DEVICES: None. HEART / MEDIASTINUM: No significant change LUNGS / PLEURA: No significant pulmonary or pleural abnormality. No pneumothorax. ADDITIONAL FINDINGS: No significant additional findings. IMPRESSION: 1. No acute findings. Signer Name: Eric Chinchilla DO Signed: 05/30/2021 4:40 PM Workstation Name: [id number]
[2021-05-30 18:09] LABS: Basophils % (Auto) 0.9 % (0.0-1.8); Hematocrit 45.6 % (35.5-45.6); Hemoglobin 14.9 gm/dl (11.8-15.2); Lymphocytes # (Auto) 1.7 K/mm3 (1.2-5.4); Mean Corpuscular HGB Conc 33 % (32-34); Mean Corpuscular Volume 92 fl (84-94); Monocytes # (Auto) 0.4 K/mm3 (0.0-0.8); Monocytes % (Auto) 8.8 % (0.0-7.3); Platelet Count 283 K/mm3 (140-440); Red Blood Count 4.94 M/mm3 (3.65-5.03); Red Cell Distribution Width 13.9 % (13.2-15.2)
[2021-05-30 18:20] LABS: Alanine Aminotransferase 8 units/L (7-56); Albumin 3.9 g/dL (3.9-5); BUN/Creatinine Ratio 8; Blood Urea Nitrogen 10 mg/dL (9-20); Calcium 8.9 mg/dL (8.4-10.2); Hemolysis Index 5
--- NOTE | 2021-05-30 19:54 | Emergency Department Report ---
HPI - General Chief Complaint: Fall Time Seen by Provider: 05/30/21 18:38 - HPI HPI: 71-year-old male with history of hypertension and TIAs presents at the direction of his doctor due to 1 week of gait disturbance after a fall. The patient states that 1 week ago he lost his balance and fell, hitting the left backside of his head on the ground. He did not lose consciousness but it took an hour for him to get up. He states that since that fall he has been extremely unsteady on his feet has had a headache, and memory problems. His doctor directed him to the emergency room today. The patient does not take any blood thinners. He states that when he tries to walk he is uncoordinated and needs assistance. He denies any vision change, room spinning dizziness, sensory changes, saddle anesthesia, bowel/bladder incontinence/retention, fever/chills, neck pain/stiffness, cough, shortness of breath, chest pain, nausea/vomiting, or any other complaints. ED Past Medical Hx - Past Medical History Hx Hypertension: Yes Hx Congestive Heart Failure: No Hx Diabetes: No Hx Asthma: No Hx COPD: No - Social History Smoking Status: Current Every Day Smoker Substance Use Type: Alcohol - Medications Home Medications: Home Medications Medication Instructions Recorded Confirmed Last Taken Type Aspirin EC [Halfprin EC] 81 mg PO QDAY #30 tablet. 05/18/19 10/08/19 Unknown Rx Simvastatin 20 mg PO DAILY #30 tablet 05/18/19 10/08/19 Unknown Rx amLODIPine 10 mg PO DAILY #30 tab 08/08/19 10/08/19 10/08/19 10:00 Rx Amlodipine Besylate [Norvasc] 5 mg PO QDAY #30 tablet 10/08/19 Unknown Rx Losartan [Cozaar] 50 mg PO QDAY #30 tablet 10/08/19 Unknown Rx Losartan [Cozaar] 100 mg PO QDAY 10/08/19 10/08/19 Unknown History Metoprolol Tartrate 25 mg PO BID 10/08/19 10/08/19 10/08/19 10:00 History Meclizine [Antivert] 25 mg PO Q8H PRN #10 tablet 10/25/20 Unknown Rx Meclizine [Antivert] 50 mg PO BID PRN #12 tablet 10/25/20 Unknown Rx ED Review of Systems ROS: Stated complaint: FELL7/8, LATHARGIC/ BALANCE OFF Other details as noted in HPI Constitutional: denies: chills, fever Eyes: denies: eye pain, vision change ENT: denies: throat pain, congestion Respiratory: denies: cough, shortness of breath Cardiovascular: denies: chest pain Gastrointestinal: denies: abdominal pain, nausea, vomiting Genitourinary: other. denies: dysuria, frequency Musculoskeletal: denies: back pain, joint swelling Skin: denies: rash, pruritus Neurological: headache, weakness, abnormal gait, other (Memory difficulty). denies: numbness, paresthesias Psychiatric: denies: anxiety, depression Physical Exam - Physical Exam Vital Signs: Vital Signs 05/30/21 05/30/21 05/30/21 14:46 18:39 18:46 Temperature 98.2 F Pulse Rate 85 59 L Respiratory 18 17 14 Rate Blood Pressure 130/97 149/104 O2 Sat by Pulse 97 98 Oximetry Physical Exam: GENERAL: Frail appearing elderly male. No acute distress HEAD: Normocephalic. No obvious signs of trauma. ENT: Moist mucous membranes. EYES: Extraocular movements are intact. Pupils are equal round and reactive to light bilaterally. Bilateral cataracts NECK: Supple. Full ROM is intact. Trachea is midline. There is no midline tenderness LUNGS: Nonlabored breathing. Equal chest rise bilaterally. Clear to auscultation bilaterally. CARDIOVASCULAR: Regular rate and rhythm. No murmurs or rubs. VASCULAR: Cap refill < 2 seconds ABDOMEN: Abdomen is soft and nondistended. There is no significant tenderness, guarding or rebound. SKIN: Skin is warm and dry NEURO: Patient is awake, alert, and oriented. micro computer specialist II-XII grossly intact. There is bilateral lower extremity drift which is much worse on the right. Sensation is intact throughout. Normal strength in bilateral upper extremities. Gait examination deferred MUSCULOSKELETAL: No obvious deformities. No significant tenderness. No tenderness of the chest wall or clavicles. Normal ROM throughout. BACK/SPINE: No midline tenderness or step-offs of the C spine. There is questionable midline tenderness in the thoracic and lumbar spine without step- offs.. No costovertebral angle tenderness. ED Course Vital Signs 05/30/21 05/30/21 05/30/21 14:46 18:39 18:46 Temperature 98.2 F Pulse Rate 85 59 L Respiratory 18 17 14 Rate Blood Pressure 130/97 149/104 O2 Sat by Pulse 97 98 Oximetry ED Medical Decision Making - Lab Data Result diagrams: 05/30/21 17:42 05/30/21 17:42 Lab Results 05/30/21 05/30/21 05/30/21 Range/Units 17:42 17:42 20:00 WBC 4.3 L (4.5-11.0) K/mm3 RBC 4.94 (3.65-5.03) M/mm3 Hgb 14.9 (11.8-15.2) gm/dl Hct 45.6 (35.5-45.6) % MCV 92 (84-94) fl MCH 30 (28-32) pg MCHC 33 (32-34) % RDW 13.9 (13.2-15.2) % Plt Count 283 (140-440) K/mm3 Lymph % (Auto) 39.0 H (13.4-35.0) % [place] % (Auto) 8.8 H (0.0-7.3) % Eos % (Auto) 1.0 (0.0-4.3) % Baso % (Auto) 0.9 (0.0-1.8) % Lymph # (Auto) 1.7 (1.2-5.4) K/mm3 [place] # (Auto) 0.4 (0.0-0.8) K/mm3 Eos # (Auto) 0.0 (0.0-0.4) K/mm3 Baso # (Auto) 0.0 (0.0-0.1) K/mm3 Seg Neutrophils % 50.3 (40.0-70.0) % Seg Neutrophils # 2.1 (1.8-7.7) K/mm3 PT 14.8 (12.2-14.9) Sec. INR 1.10 (0.87-1.13) APTT 34.2 (24.2-36.6) Sec. Sodium 134 L (137-145) mmol/L Potassium 4.0 (3.6-5.0) mmol/L Chloride 99.7 (98-107) mmol/L Carbon Dioxide 24 (22-30) mmol/L Anion Gap 14 mmol/L BUN 10 (9-20) mg/dL Creatinine 1.2 (0.8-1.3) mg/dL Estimated GFR > 60 ml/min BUN/Creatinine Ratio 8 % Glucose 87 (75-100) mg/dL Calcium 8.9 (8.4-10.2) mg/dL Magnesium 2.30 (1.7-2.3) mg/dL Total Bilirubin 0.40 (0.1-1.2) mg/dL AST 17 (5-40) units/L ALT 8 (7-56) units/L Alkaline Phosphatase 85 (35-129) units/L Total Creatine Kinase 100 (55-170) units/L Troponin T < 0.010 (0.00-0.029) ng/mL Total Protein 8.2 (6.3-8.2) g/dL Albumin 3.9 (3.9-5) g/dL Albumin/Globulin Ratio 0.9 % // Range/Units 20:03 WBC (4.5-11.0) K/mm3 RBC (3.65-5.03) M/mm3 Hgb (11.8-15.2) gm/dl Hct (35.5-45.6) % MCV (84-94) fl MCH (28-32) pg MCHC (32-34) % RDW (13.2-15.2) % Plt Count (140-440) K/mm3 Lymph % (Auto) (13.4-35.0) % [place] % (Auto) (0.0-7.3) % Eos % (Auto) (0.0-4.3) % Baso % (Auto) (0.0-1.8) % Lymph # (Auto) (1.2-5.4) K/mm3 [place] # (Auto) (0.0-0.8) K/mm3 Eos # (Auto) (0.0-0.4) K/mm3 Baso # (Auto) (0.0-0.1) K/mm3 Seg Neutrophils % (40.0-70.0) % Seg Neutrophils # (1.8-7.7) K/mm3 PT (12.2-14.9) Sec. INR (0.87-1.13) APTT (24.2-36.6) Sec. Sodium (137-145) mmol/L Potassium (3.6-5.0) mmol/L Chloride (98-107) mmol/L Carbon Dioxide (22-30) mmol/L Anion Gap mmol/L BUN (9-20) mg/dL Creatinine (0.8-1.3) mg/dL Estimated GFR ml/min BUN/Creatinine Ratio % Glucose (75-100) mg/dL Calcium (8.4-10.2) mg/dL Magnesium (1.7-2.3) mg/dL Total Bilirubin (0.1-1.2) mg/dL AST (5-40) units/L ALT (7-56) units/L Alkaline Phosphatase (35-129) units/L Total Creatine Kinase (55-170) units/L Troponin T < 0.010 (0.00-0.029) ng/mL Total Protein (6.3-8.2) g/dL Albumin (3.9-5) g/dL Albumin/Globulin Ratio % - EKG Data -: EKG Interpreted by Md - EKG Data 05/30/21 23:52 Normal sinus rhythm. Left axis deviation. Left anterior fascicular block. Otherwise normal intervals. No ectopy. No significant ST segment or T wave abnormalities. - Radiology Data NONENHANCED CT SCAN OF THE HEAD: INDICATION / CLINICAL INFORMATION: 71 years Male; (+) headstrike, dizziness/weakness, FALL . TECHNIQUE: Routine CT head without contrast. All CT scans at this location are performed using CT dose reduction for ALARA by means of automated exposure control. COMPARISON: CT scan of the head from 10/25/2020 FINDINGS: BRAIN / INTRACRANIAL CONTENTS: No intracranial sequela from the trauma; no scalp hematoma; no fluid level visualized portions of the paranasal sinuses No acute hemorrhage, mass effect, midline shift, hydrocephalus, or acute, large territorial infarct. No chronic infarct or focal atrophy. Normal brain volume and ventricular/sulcal size for age. Periventricular low-attenuation areas and also focal low-attenuation white matter lesions due to small vessel disease; these remain unchanged CRANIOCERVICAL JUNCTION: No significant abnormality. ORBITS: No significant abnormality of visualized orbits. SINUSES / MASTOIDS: Opacified right anterior ethmoid air cell and right frontal sinus ADDITIONAL FINDINGS: None. IMPRESSION: No focal mass, hemorrhage, hydrocephalus, or acute, large territorial infarct. Signer Name: Bon Muse MD Signed: 05/30/2021 6:57 PM Workstation Name: [id number] Exam: CT cervical spine History: (+) headstrike, dizziness/weakness FALL; Technique: Contiguous thin cut axial images obtained through the cervical spine. Sagittal and coronal reconstructions performed by the technologist. All CT scans at this location are performed using CT dose reduction for ALARA by means of automated exposure control. Findings: No priors. There is no evidence of fracture or traumatic subluxation. Vertebral bodies are normal in height and alignment. Intervertebral disc spaces: C2-C3: Disc height loss on the left side; mild left foraminal stenoses; bulging disc C3-C4: Disc osteophyte complex extending bilaterally; bilateral foraminal stenoses C4-C5: Bulging disc; neuroforamina are normal C5-C6: Disc height loss; shallow bony spur; neuroforamina normal C6-C7: Disc height narrowed shallow disc protrusion; neuroforamina are normal C7-T1: Disc height loss; bulging disc; mild foraminal stenoses No significant degenerative change seen in the uncinate or facet joints. No significant canal stenosis or osseous foraminal narrowing. Surrounding soft tissues are grossly normal. Impression: No signs of acute bony trauma to the cervical spine. Signer Name: Bon Muse MD Signed: 05/30/2021 7:03 PM Workstation Name: [facility] CT THORACIC SPINE WITHOUT CONTRAST INDICATION / CLINICAL INFORMATION: right leg drift. TECHNIQUE: Axial CT images were obtained through the thoracic spine. Sagittal and coronal reformatted images were produced. All CT scans at this location are performed using CT dose reduction for ALARA by means of automated exposure control. COMPARISON: None available. FINDINGS: VERTEBRAE: No significant abnormality. ALIGNMENT: No significant abnormality. DISC SPACES: No significant abnormality. FACET and COSTOVERTEBRAL JOINTS: No significant abnormality. CERVICOTHORACIC JUNCTION:No significant abnormality. SPINAL CANAL: No significant abnormality. PARASPINAL SOFT TISSUES: No significant abnormality. ADDITIONAL FINDINGS: Aorta measures 3 cm LUNGS: No significant abnormality of visualized lungs. IMPRESSION: 1. No significant abnormality. Signer Name: Bon Muse MD Signed: 05/30/2021 7:58 PM Workstation Name: [facility] CT LUMBAR SPINE WITHOUT CONTRAST HISTORY: Fell down COMPARISON: None TECHNIQUE: CT images of the lumbar spine were obtained without contrast. Sagittal and coronal reformats were post-processed.All CT scans at this location are performed using CT dose reduction for ALARA by means of automated exposure control. CONTRAST: None. FINDINGS: Alignment: Normal. No traumatic subluxation. Vertebrae:No significant abnormality. No fracture. Disc Spaces: L1- L2: Midline disc bulge; neuroforamina are normal L2-L3: Bulging disc; neuroforamina are normal L3-L4: Shallow disc bulge; neuroforamina are normal L4- L5: Trace retrolisthesis; disc protrusion towards the right side; neuroforamina stenoses more on the right side L5-S1: Bulging disc; neuroforamina are normal Facet Joints:No significant abnormality. Additional Findings: None IMPRESSION: No sequela from the trauma in the lumbar spine Signer Name: Bon Muse MD Signed: 05/30/2021 7:55 PM Workstation Name: [id number] - Medical Decision Making 71-year-old male who presents with 1 week of gait disturbance after ground-level fall with head trauma. He is afebrile and with normal vital signs. Symptoms have been ongoing for 1 week. Physical exam reveals significant proximal lower extremity weakness with drift which is worse on the right side. Normal upper extremity exam. The remainder of his neurologic exam is grossly within normal l imits although gait was not observed. He has no tenderness of the cervical spine but there is questionable midline tenderness in the thoracic and lumbar regions. He has no red flag signs or symptoms. Given the patient has significant bilateral lower extremity weakness with gait disturbance and po ssible midline tenderness we will obtain CT of the head, C-spine, T-spine, and L-spine to assess for evidence of hemorrhage, fracture, or any other serious injuries to explain the patient's symptoms. We will also send a full set of labs. We will give Tylenol for the patient's headache for now. Labs have resulted and reveal no significant leukocytosis or anemia. Creatinine is within normal range and there are no significant electrolyte abnormalities. Troponin is negative At 9 PM, the patient is resting comfortably in the bed. He reports no complaints at this time. CT of the head, C-spine, T-spine, and L-spine reveal no acute abnormalities other than age associated degenerative changes. Urinalysis shows no evidence of infection. Repeat troponin is negative. Given his gait disturbance and objective lower extremity weakness on exam, he will be admitted to medicine for further work-up. All this was discussed with the patient who expressed understanding and agreement with the plan of care. At 9:30 PM I spoke with Dr. Mayo the on-call hospitalist regarding the case. He accepts the patient for admission and will assume care. Critical care attestation.: If time is entered above; I have spent that time in minutes in the direct care of this critically ill patient, excluding procedure time. ED Disposition Clinical Impression: Gait disturbance, Concussion, Lower extremity weakness Disposition: 09 OP ADMIT IP TO THIS HOSP Is pt being admited?: Yes Condition: Stable
--- NOTE | 2021-05-30 20:02 | Cat Scan Report ---
NONENHANCED CT SCAN OF THE HEAD: INDICATION / CLINICAL INFORMATION: 71 years Male; (+) headstrike, dizziness/weakness, FALL . TECHNIQUE: Routine CT head without contrast. All CT scans at this location are performed using CT dos e reduction for ALARA by means of automated exposure control. COMPARISON: CT scan of the head from 10/25/2020 FINDINGS: BRAIN / INTRACRANIAL CONTENTS: No intracranial sequela from the trauma; no scalp hematoma; no fluid l evel visualized portions of the paranasal sinuses No acute hemorrhage, mass effect, midline shift, hydrocephalus, or acute, large territorial infarct. No chronic infarct or focal atrophy. Normal brain volume and ventricular/sulcal size for age. Perive ntricular low-attenuation areas and also focal low-attenuation white matter lesions due to small vess el disease; these remain unchanged CRANIOCERVICAL JUNCTION: No significant abnormality. ORBITS: No significant abnormality of visualized orbits. SINUSES / MASTOIDS: Opacified right anterior ethmoid air cell and right frontal sinus ADDITIONAL FINDINGS: None. IMPRESSION: No focal mass, hemorrhage, hydrocephalus, or acute, large territorial infarct. Signer Name: Bon Muse MD Signed: 05/30/2021 7:57 PM Workstation Name: [id number]
--- NOTE | 2021-05-30 20:07 | Cat Scan Report ---
Exam: CT cervical spine History: (+) headstrike, dizziness/weakness FALL; Technique: Contiguous thin cut axial images obtained through the cervical spine. Sagittal and bunn l reconstructions performed by the technologist. All CT scans at this location are performed using CT dose reduction for ALARA by means of automated exposure control. Findings: No priors. There is no evidence of fracture or traumatic subluxation. Vertebral bodies are normal in height and alignment. Intervertebral disc spaces: C2-C3: Disc height loss on the left side; mild left foraminal stenoses; bulging disc C3-C4: Disc osteophyte complex extending bilaterally; bilateral foraminal stenoses C4-C5: Bulging disc; neuroforamina are normal C5-C6: Disc height loss; shallow bony spur; neuroforamina normal C6-C7: Disc height narrowed shallow disc protrusion; neuroforamina are normal C7-T1: Disc height loss; bulging disc; mild foraminal stenoses No significant degenerative change seen in the uncinate or facet joints. No significant canal stenosi s or osseous foraminal narrowing. Surrounding soft tissues are grossly normal. Impression: No signs of acute bony trauma to the cervical spine. Signer Name: Bon Muse MD Signed: 05/30/2021 8:03 PM Workstation Name: [id number]
[2021-05-30 20:41] LABS: INR 1.1 (0.87-1.13)
[2021-05-30 20:42] LABS: Partial Thromboplastin Time 34.2 Sec. (24.2-36.6)
--- NOTE | 2021-05-30 20:59 | Cat Scan Report ---
CT LUMBAR SPINE WITHOUT CONTRAST HISTORY: Fell down COMPARISON: None TECHNIQUE: CT images of the lumbar spine were obtained without contrast. Sagittal and coronal reform ats were post-processed.All CT scans at this location are performed using CT dose reduction for ALARA by means of automated exposure control. CONTRAST: None. FINDINGS: Alignment: Normal. No traumatic subluxation. Vertebrae:No significant abnormality. No fracture. Disc Spaces: L1-L2: Midline disc bulge; neuroforamina are normal L2-L3: Bulging disc; neuroforamina are normal L3-L4: Shallow disc bulge; neuroforamina are normal L4-L5: Trace retrolisthesis; disc protrusion towards the right side; neuroforamina stenoses more on t he right side L5-S1: Bulging disc; neuroforamina are normal Facet Joints:No significant abnormality. Additional Findings: None IMPRESSION: No sequela from the trauma in the lumbar spine Signer Name: Bon Muse MD Signed: 05/30/2021 8:55 PM Workstation Name: [id number]
--- NOTE | 2021-05-30 21:02 | Cat Scan Report ---
CT THORACIC SPINE WITHOUT CONTRAST INDICATION / CLINICAL INFORMATION: right leg drift. TECHNIQUE: Axial CT images were obtained through the thoracic spine. Sagittal and coronal reformatted images wer e produced. All CT scans at this location are performed using CT dose reduction for ALARA by means of automated exposure control. COMPARISON: None available. FINDINGS: VERTEBRAE: No significant abnormality. ALIGNMENT: No significant abnormality. DISC SPACES: No significant abnormality. FACET and COSTOVERTEBRAL JOINTS: No significant abnormality. CERVICOTHORACIC JUNCTION:No significant abnormality. SPINAL CANAL: No significant abnormality. PARASPINAL SOFT TISSUES: No significant abnormality. ADDITIONAL FINDINGS: Aorta measures 3 cm LUNGS: No significant abnormality of visualized lungs. IMPRESSION: 1. No significant abnormality. Signer Name: Bon Muse MD Signed: 05/30/2021 8:58 PM Workstation Name: [id number]
[2021-05-30 21:06] LABS: Bilirubin,Urine NEG (Negative); Blood,Urine NEG (Negative); Color,Urine Colorless (Yellow); Protein,Urine <15 mg/dL mg/dL (Negative); Urobilinogen,Urine < 2.0 mg/dL (<2.0)
[2021-05-30] MEDS ORDERED: ACETAMINOPHEN 325 MG TAB PO PRN ×2 (22:38)
[2021-05-30] MEDS ORDERED: PROMETHAZINE 25 MG RECT SUPP PR PRN (22:38)
[2021-05-30] MEDS ORDERED: MAGNESIUM HYDROXIDE (MOM) ORAL LIQD UDC PO PRN ×2 (22:38)
[2021-05-30] MEDS ORDERED: MORPHINE 2 MG/1 ML INJ IV PRN (22:38)
[2021-05-30] MEDS ORDERED: METOCLOPRAMIDE 10 MG TAB PO PRN (22:38)
[2021-05-30] MEDS ORDERED: MORPHINE 4 MG/1 ML INJ IV PRN (22:38)
[2021-05-30] MEDS ORDERED: ONDANSETRON 4 MG/2 ML INJ IV PRN ×2 (22:38)
--- NOTE | 2021-05-30 22:57 | History and Physical Report ---
History of Present Illness Date of examination: 05/30/21 Date of admission: 05/30/21 21:42 Chief complaint: Fall Lower extremity weakness History of present illness: 31-year-old -Chinese male with known history of hypertension and TIAs in the past presents to the emergency room today with a complaint of disturbances in gait after a fall about a week ago. He had gone to see his primary care physician who encouraged him to report to the emergency room today for further evaluation. Patient states that he was in the bathroom when he suddenly slipped and fell about a week ago and since then he has been having unsteady gait, headache and problems with his memory. Denies any loss of consciousness during the fall, denies any blurry vision, no dizziness, no nausea vomiting and no diarrhea. He however has been having progressive weakness in his lower extremities and occasionally has had some urinary incontinence. He denies any fecal incontinence. Patient denies any fever or chills, no cough or shortness of breath, no abdominal pain, no hematuria patient denies any sick contacts and no recent travel. Work-up in the emergency room today chest x-ray, cervical spine CT, CT of the head showed no acute abnormality. CT of the lumbar spine showed no significant abnormalities. Patient has been admitted with lower extremity weakness status post fall. He will also be worked up for possible CVA. Past History Past Medical History: hypertension Past Surgical History: No surgical history Social history: smoking (Current daily smoker), alcohol abuse, full code Family history: no significant family history Medications and Allergies Allergies Allergy/AdvReac Type Severity Reaction Status Date / Time No Known Allergies Allergy Unverified 05/16/19 12:45 Home Medications Medication Instructions Recorded Confirmed Last Taken Type Aspirin EC [Halfprin EC] 81 mg PO QDAY #30 tablet. 05/18/19 10/08/19 Unknown Rx Simvastatin 20 mg PO DAILY #30 tablet 05/18/19 10/08/19 Unknown Rx amLODIPine 10 mg PO DAILY #30 tab 08/08/19 10/08/19 10/08/19 10:00 Rx Amlodipine Besylate [Norvasc] 5 mg PO QDAY #30 tablet 10/08/19 Unknown Rx Losartan [Cozaar] 50 mg PO QDAY #30 tablet 10/08/19 Unknown Rx Losartan [Cozaar] 100 mg PO QDAY 10/08/19 10/08/19 Unknown History Metoprolol Tartrate 25 mg PO BID 10/08/19 10/08/19 10/08/19 10:00 History Meclizine [Antivert] 25 mg PO Q8H PRN #10 tablet 10/25/20 Unknown Rx Meclizine [Antivert] 50 mg PO BID PRN #12 tablet 10/25/20 Unknown Rx Active Meds: Active Medications Acetaminophen (Acetaminophen 325 Mg Tab) 650 mg PO Q4H PRN PRN Reason: Pain MILD(1-3)/Fever >100.5/CRUZ Acetaminophen (Acetaminophen 325 Mg Tab) 650 mg PO Q4H PRN PRN Reason: Pain, Mild (1-3) Aspirin (Aspirin 325 Mg Tab) 325 mg PO QDAY EDGAR Atorvastatin Calcium (Atorvastatin 40 Mg Tab) 40 mg PO QHS EDGAR Bisacodyl (Bisacodyl 10 Mg Rect Supp) 10 mg [place] QDAY PRN PRN Reason: Constipation Heparin Sodium (Porcine) (Heparin 5,000 Unit/1 Ml Vial) 5,000 unit SUB-Q Q8HR EDGAR Magnesium Hydroxide (Magnesium Hydroxide (Mom) Oral Liqd Udc) 30 ml PO Q4H PRN PRN Reason: Constipation Magnesium Hydroxide (Magnesium Hydroxide (Mom) Oral Liqd Udc) 30 ml PO Q4H PRN PRN Reason: Constipation Metoclopramide HCl (Metoclopramide 10 Mg Tab) 10 mg PO Q6H PRN PRN Reason: Nausea And Vomiting Morphine Sulfate (Morphine 2 Mg/1 Ml Inj) 2 mg IV Q4H PRN PRN Reason: Pain, Moderate (4-6) Morphine Sulfate (Morphine 4 Mg/1 Ml Inj) 4 mg IV Q4H PRN PRN Reason: Pain , Severe (7-10) Ondansetron HCl (Ondansetron 4 Mg/2 Ml Inj) 4 mg IV Q8H PRN PRN Reason: Nausea And Vomiting Ondansetron HCl (Ondansetron 4 Mg/2 Ml Inj) 4 mg IV Q8H PRN PRN Reason: Nausea And Vomiting Promethazine HCl (Promethazine 25 Mg Rect Supp) 25 mg [place] Q6H PRN PRN Reason: Nausea And Vomiting Sodium Chloride (Sodium Chloride 0.9% 10 Ml Flush Syringe) 10 ml IV BID EDGAR Sodium Chloride (Sodium Chloride 0.9% 10 Ml Flush Syringe) 10 ml IV PRN PRN PRN Reason: LINE FLUSH Sodium Chloride (Sodium Chloride 0.9% 10 Ml Flush Syringe) 10 ml INJ PRN PRN PRN Reason: LINE FLUSH Review of Systems Constitutional: no fever, no chills Ears, nose, mouth and throat: no nasal congestion, no sore throat Cardiovascular: no chest pain, no palpitations Respiratory: no cough, no shortness of breath Gastrointestinal: no abdominal pain, no nausea, no vomiting, no diarrhea Genitourinary Male: no dysuria, no hematuria, no flank pain, no nocturia Musculoskeletal: other (H/O Fall), no neck pain, no low back pain Integumentary: no rash, no pruritis Neurological: weakness (Lower extremities), no headaches, no confusion Psychiatric: no anxiety, no depression Endocrine: no polyphagia, no polydipsia, no polyuria, no nocturia Exam - Constitutional Vitals: Temp Pulse Resp BP Pulse Ox 98.2 F 66 22 135/92 96 05/30/21 14:46 05/30/21 22:00 05/30/21 22:00 05/30/21 21:58 05/30/21 22:00 General appearance: Present: no acute distress, mild distress, well-nourished - EENT Eyes: Present: PERRL, EOM intact. Absent: scleral icterus ENT: hearing intact, clear oral mucosa, dentition normal - Neck Neck: Present: supple, normal ROM - Respiratory Respiratory effort: normal Respiratory: bilateral: CTA - Cardiovascular Rhythm: regular Heart Sounds: Present: S1 & S2. Absent: systolic murmur, diastolic murmur, rub, click - Extremities Extremities: no ischemia, pulses intact, pulses symmetrical, No edema, normal temperature, normal color, Full ROM Peripheral Pulses: within normal limits - Abdominal General gastrointestinal: Present: soft, non-tender, non-distended, normal bowel sounds. Absent: mass - Integumentary Integumentary: Present: clear, warm, dry. Absent: rash - Musculoskeletal Musculoskeletal: strength equal bilaterally - Psychiatric Psychiatric: appropriate mood/affect, intact judgment & insight, memory intact, cooperative - Neurologic Neurologic: CNII-XII intact, no focal deficits, moves all extremities HEART Score - HEART Score Troponin: Troponin T < 0.010 ng/mL (0.00-0.029) 05/30/21 20:03 Results - Labs CBC & Chem 7: 05/30/21 17:42 05/30/21 17:42 Labs: Abnormal lab results 05/30/21 05/30/21 05/30/21 Range/Units 17:42 17:42 Unknown WBC 4.3 L (4.5-11.0) K/mm3 Lymph % (Auto) 39.0 H (13.4-35.0) % [place] % (Auto) 8.8 H (0.0-7.3) % Sodium 134 L (137-145) mmol/L Urine pH 8.0 H (5.0-7.0) Assessment and Plan - Patient Problems (1) Lower extremity weakness Current Visit: Yes Status: Acute Plan to address problem: Etiology unclear. Will rule out CVA. Patient will be scheduled for MRI of the brain, carotid Doppler and echocardiogram. He started on aspirin and daily statin. Consult placed to neurology for evaluation. We will also request a physical therapy evaluation and recommendations. (2) Fall Current Visit: Yes Status: Acute Plan to address problem: Patient placed on fall precautions. (3) HTN (hypertension) Current Visit: No Status: Chronic Plan to address problem: We will resume routine home medications and monitor vital signs closely. (4) Hyperlipidemia Current Visit: No Status: Acute Plan to address problem: Patient will be continued on statin. We will monitor lipid profile. (5) DVT prophylaxis Current Visit: No Status: Acute Plan to address problem: Patient placed on subcutaneous heparin.
[2021-05-31] MEDS ORDERED: MECLIZINE 25 MG TAB PO PRN (03:20)
[2021-05-31 04:59] LABS: Basophils % (Auto) 1.1 % (0.0-1.8); Eosinophils # (Auto) 0.1 K/mm3 (0.0-0.4); Eosinophils % (Auto) 1.8 % (0.0-4.3); Hematocrit 42.1 % (35.5-45.6); Hemoglobin 14.2 gm/dl (11.8-15.2); Lymphocytes % (Auto) 45.9 % (13.4-35.0); Mean Corpuscular HGB Conc 34 % (32-34); Mean Corpuscular Volume 93 fl (84-94); Monocytes # (Auto) 0.6 K/mm3 (0.0-0.8); Monocytes % (Auto) 13.4 % (0.0-7.3); Platelet Count 218 K/mm3 (140-440); Red Blood Count 4.55 M/mm3 (3.65-5.03); Red Cell Distribution Width 13.8 % (13.2-15.2)
[2021-05-31 05:17] LABS: INR 1.16 (0.87-1.13)
[2021-05-31 05:20] LABS: BUN/Creatinine Ratio 12; Blood Urea Nitrogen 13 mg/dL (9-20); Calcium 9.3 mg/dL (8.4-10.2); Chol/HDL Ratio 3.56 %; HDL Cholesterol 50 mg/dL (40-59); Hemolysis Index 6; LDL Cholesterol,Direct 125 mg/dL (50-130)
[2021-05-31] MEDS: HEPARIN 5,000 UNIT/1 ML VIAL SUB-Q SCH ×3 (05:32→21:20)
[2021-05-31] MEDS: METOPROLOL TARTRATE 25 MG TAB PO SCH ×2 (07:53→17:15)
[2021-05-31] MEDS: LOSARTAN 50 MG TAB PO SCH (09:53)
[2021-05-31] MEDS: ASPIRIN 325 MG TAB PO SCH (09:54)
[2021-05-31] MEDS: amLODIPine 10 MG TAB PO SCH (09:54)
--- NOTE | 2021-05-31 09:59 | Progress Note ---
Assessment and Plan Assessment and plan: Ataxia/lower extremity weakness. S/p fall Hypertension Hyperlipidemia History is TIA 05/31/2021. Cervical spine CT and CT of head showed no acute abnormalities. CT of lumbar spine showed no significant abnormalities. Continue CVA work-up and follow-up echocardiogram and MRI. Continue aspirin and Lipitor for secondary prevention. Neurology consultation pending. History Interval history: No new issues overnight. Hospitalist Physical - Constitutional Vitals: Temp Pulse Resp BP Pulse Ox 97.7 F 65 20 122/84 98 05/31/21 07:44 05/31/21 09:54 05/31/21 07:44 05/31/21 09:54 05/31/21 07:44 General appearance: Present: no acute distress, mild distress, well-nourished - EENT Eyes: Present: PERRL, EOM intact ENT: hearing intact, clear oral mucosa, dentition normal - Neck Neck: Present: supple, normal ROM - Respiratory Respiratory effort: normal Respiratory: bilateral: CTA - Cardiovascular Rhythm: regular Heart Sounds: Present: S1 & S2. Absent: gallop, rub - Extremities Extremities: no ischemia, No edema, Full ROM - Abdominal General gastrointestinal: soft, non-tender, non-distended, normal bowel sounds - Integumentary Integumentary: Present: clear, warm, dry - Neurologic Neurologic: CNII-XII intact, moves all extremities HEART Score - HEART Score Troponin: Troponin T < 0.010 ng/mL (0.00-0.029) 05/30/21 20:03 Results - Labs CBC & Chem 7: 05/31/21 04:42 05/31/21 04:42 Labs: Laboratory Last Values WBC 4.4 K/mm3 (4.5-11.0) L 05/31/21 04:42 RBC 4.55 M/mm3 (3.65-5.03) 05/31/21 04:42 Hgb 14.2 gm/dl (11.8-15.2) 05/31/21 04:42 Hct 42.1 % (35.5-45.6) 05/31/21 04:42 MCV 93 fl (84-94) 05/31/21 04:42 MCH 31 pg (28-32) 05/31/21 04:42 MCHC 34 % (32-34) 05/31/21 04:42 RDW 13.8 % (13.2-15.2) 05/31/21 04:42 Plt Count 218 K/mm3 (140-440) 05/31/21 04:42 Lymph % (Auto) 45.9 % (13.4-35.0) H 05/31/21 04:42 [place] % (Auto) 13.4 % (0.0-7.3) H 05/31/21 04:42 Eos % (Auto) 1.8 % (0.0-4.3) 05/31/21 04:42 Baso % (Auto) 1.1 % (0.0-1.8) 05/31/21 04:42 Lymph # (Auto) 2.0 K/mm3 (1.2-5.4) 05/31/21 04:42 [place] # (Auto) 0.6 K/mm3 (0.0-0.8) 05/31/21 04:42 Eos # (Auto) 0.1 K/mm3 (0.0-0.4) 05/31/21 04:42 Baso # (Auto) 0.0 K/mm3 (0.0-0.1) 05/31/21 04:42 Seg Neutrophils % 37.8 % (40.0-70.0) L 05/31/21 04:42 Seg Neutrophils # 1.7 K/mm3 (1.8-7.7) L 05/31/21 04:42 PT 15.4 Sec. (12.2-14.9) H 05/31/21 04:42 INR 1.16 (0.87-1.13) H 05/31/21 04:42 APTT 34.2 Sec. (24.2-36.6) 05/30/21 20:00 Sodium 135 mmol/L (137-145) L 05/31/21 04:42 Potassium 3.5 mmol/L (3.6-5.0) L 05/31/21 04:42 Chloride 99.4 mmol/L (98-107) 05/31/21 04:42 Carbon Dioxide 27 mmol/L (22-30) 05/31/21 04:42 Anion Gap 12 mmol/L 05/31/21 04:42 BUN 13 mg/dL (9-20) 05/31/21 04:42 Creatinine 1.1 mg/dL (0.8-1.3) 05/31/21 04:42 Estimated GFR > 60 ml/min 05/31/21 04:42 BUN/Creatinine Ratio 12 % 05/31/21 04:42 Glucose 94 mg/dL (75-100) 05/31/21 04:42 Calcium 9.3 mg/dL (8.4-10.2) 05/31/21 04:42 Magnesium 2.30 mg/dL (1.7-2.3) 05/30/21 17:42 Total Bilirubin 0.40 mg/dL (0.1-1.2) 05/30/21 17:42 AST 17 units/L (5-40) 05/30/21 17:42 ALT 8 units/L (7-56) 05/30/21 17:42 Alkaline Phosphatase 85 units/L (35-129) 05/30/21 17:42 Total Creatine Kinase 100 units/L (55-170) 05/30/21 17:42 Troponin T < 0.010 ng/mL (0.00-0.029) 05/30/21 20:03 Total Protein 8.2 g/dL (6.3-8.2) 05/30/21 17:42 Albumin 3.9 g/dL (3.9-5) 05/30/21 17:42 Albumin/Globulin Ratio 0.9 % 05/30/21 17:42 Triglycerides 66 mg/dL (2-149) 05/31/21 04:42 Cholesterol 178 mg/dL (50-199) 05/31/21 04:42 LDL Cholesterol Direct 125 mg/dL (50-130) 05/31/21 04:42 HDL Cholesterol 50 mg/dL (40-59) 05/31/21 04:42 Cholesterol/HDL Ratio 3.56 % 05/31/21 04:42 Urine Color Colorless (Yellow) 05/30/21 Unknown Urine Turbidity Clear (Clear) 05/30/21 Unknown Urine pH 8.0 (5.0-7.0) H 05/30/21 Unknown Ur Specific [place] 1.004 (1.003-1.030) 05/30/21 Unknown Urine Protein <15 mg/dl mg/dL (Negative) 05/30/21 Unknown Urine Glucose (UA) Neg mg/dL (Negative) 05/30/21 Unknown Urine Ketones Neg mg/dL (Negative) 05/30/21 Unknown Urine Blood Neg (Negative) 05/30/21 Unknown Urine Nitrite Neg (Negative) 05/30/21 Unknown Urine Bilirubin Neg (Negative) 05/30/21 Unknown Urine Urobilinogen < 2.0 mg/dL (<2.0) 05/30/21 Unknown Ur Leukocyte Esterase Neg (Negative) 05/30/21 Unknown Urine WBC (Auto) 1.0 /HPF (0.0-6.0) 05/30/21 Unknown Urine RBC (Auto) 1.0 /HPF (0.0-6.0) 05/30/21 Unknown Ma/IV: Voiding Method Urinal Active Medications - Current Medications Current Medications: Generic Name Dose Route Start Last Admin Trade Name Freq PRN Reason Stop Dose Admin Acetaminophen 650 mg 05/30/21 22:38 Acetaminophen 325 Mg Tab PO Q4H PRN Pain, Mild (1-3) Amlodipine Besylate 10 mg 05/31/21 10:00 05/31/21 09:54 Amlodipine 10 Mg Tab PO 10 mg DAILY EDGAR Administration Aspirin 325 mg 05/31/21 10:00 05/31/21 09:54 Aspirin 325 Mg Tab PO 325 mg QDAY EDGAR Administration Atorvastatin Calcium 40 mg 05/31/21 22:00 Atorvastatin 40 Mg Tab PO QHS EDGAR Bisacodyl 10 mg 05/30/21 22:38 Bisacodyl 10 Mg Rect Supp PA QDAY PRN Constipation Heparin Sodium (Porcine) 5,000 unit 05/31/21 06:00 05/31/21 05:32 Heparin 5,000 Unit/1 Ml Vial SUB-Q 5,000 unit Q8HR EDGAR Administration Losartan Potassium 50 mg 05/31/21 10:00 05/31/21 09:53 Losartan 50 Mg Tab PO 50 mg QDAY EDGAR Administration Magnesium Hydroxide 30 ml 05/30/21 22:38 Magnesium Hydroxide (Mom) Oral Liqd Udc PO Q4H PRN Constipation Meclizine HCl 25 mg 05/31/21 03:20 Meclizine 25 Mg Tab PO Q8H PRN Vertigo Metoclopramide HCl 10 mg 05/30/21 22:38 Metoclopramide 10 Mg Tab PO Q6H PRN Nausea And Vomiting Metoprolol Tartrate 25 mg 05/31/21 08:00 05/31/21 07:53 Metoprolol Tartrate 25 Mg Tab PO Not Given BID@0800,1700 EDGAR Morphine Sulfate 2 mg 05/30/21 22:38 Morphine 2 Mg/1 Ml Inj IV Q4H PRN Pain, Moderate (4-6) Morphine Sulfate 4 mg 05/30/21 22:38 Morphine 4 Mg/1 Ml Inj IV Q4H PRN Pain , Severe (7-10) Ondansetron HCl 4 mg 05/30/21 22:38 Ondansetron 4 Mg/2 Ml Inj IV Q8H PRN Nausea And Vomiting Promethazine HCl 25 mg 05/30/21 22:38 Promethazine 25 Mg Rect Supp PA Q6H PRN Nausea And Vomiting Sodium Chloride 10 ml 05/31/21 10:00 05/31/21 09:54 Sodium Chloride 0.9% 10 Ml Flush Syringe IV 10 ml BID EDGAR Administration Sodium Chloride 10 ml 05/30/21 22:38 Sodium Chloride 0.9% 10 Ml Flush Syringe IV PRN PRN LINE FLUSH
--- NOTE | 2021-05-31 10:48 | Cat Scan Report ---
CTA NECK WITH CONTRAST HISTORY: Stroke Dissection COMPARISON: None. TECHNIQUE: Routine CTA of the neck was performed. 3-D/MIP reformats were postprocessed. Percentage s tenosis is determined by direct quantitative measurements of diseased internal carotid artery diamete r compared with normal distal internal carotid artery reference segments or by criteria similar to NA SCET where applicable.All CT scans at this location are performed using CT dose reduction for ALARA b y means of automated exposure control CONTRAST: 100 ml of Omnipaque 350 FINDINGS: Aortic arch: No significant abnormality. Cervical vertebral arteries: Right vertebral artery is normal from its origin up to basilar artery; s maller left vertebral artery is originating from aorta is patent up to the intradural segment; it end s in the left PICA Common carotid arteries: No significant abnormality. Carotid bifurcations: Normal bilaterally Cervical internal carotid arteries: No significant abnormality. Additional findings: None. IMPRESSION: 1. No significant abnormality. Carotid bifurcations normal No evidence of dissection in the cervicocranial vertebral and internal carotid arteries Signer Name: Bon Muse MD Signed: 05/31/2021 10:43 AM Workstation Name: [id number]
--- NOTE | 2021-05-31 10:54 | Cat Scan Report ---
CTA HEAD WITH CONTRAST HISTORY: Stroke COMPARISON: None. TECHNIQUE: Routine non-contrast CT Head, CTA of the head and post-contrast CT Head are performed. 3-D /MIP reformats postprocessed. All CT scans at this location are performed using CT dose reduction for ALARA by means of automated exposure control CONTRAST: 100 ml of Omnipaque 350 FINDINGS: CTA Head: Intracranial vertebral arteries: Right vertebral artery is the dominant artery and continues as basil ar artery. Intradural left vertebral artery ends in the left PICA. Limited opacification of the small er left vertebral artery is seen. Basilar artery: No significant abnormality. Posterior cerebral arteries: No significant abnormality. Intracranial internal carotid arteries: No significant abnormality. Anterior cerebral arteries: Left A1 segment is the dominant artery supplying both anterior cerebral a rteries. Right A1 segment is hypoplastic but patent. Middle cerebral arteries: Horizontal segments of both arteries are normal; right middle cerebral nataly ry division is normal; minimal atherosclerotic changes in the left middle cerebral artery branches pr oximally Dural venous sinuses:Not optimally opacified. No significant abnormality. Additional findings: None. IMPRESSION: 1. No significant abnormality. Signer Name: Bon Muse MD Signed: 05/31/2021 10:49 AM Workstation Name: [id number]
--- NOTE | 2021-05-31 12:33 | Consultation ---
History of Present Illness Consult date: 05/31/21 Reason for Consult: LE Weakness Chief complaint: Dizziness and Leg Weakness History of present illness: 71 yo male with htn, TIAs, who presents s/p a mechanical fall two weeks ago who hit the back of his head and did not loose concsciousness but has noted vertigo (w/ position change), unsteadiness w/ ambulation, and a sense of weakness of both of his legs. Currently, notes that he has no vertigo when he is lying down flat in bed but triggered by sitting up or standing up. Past History Past Medical History: hypertension Past Surgical History: No surgical history Social history: smoking (Current daily smoker), alcohol abuse, full code Family history: no significant family history Medications and Allergies Allergies Allergy/AdvReac Type Severity Reaction Status Date / Time No Known Allergies Allergy Unverified 05/16/19 12:45 Home Medications Medication Instructions Recorded Confirmed Last Taken Type Aspirin EC [Halfprin EC] 81 mg PO QDAY #30 tablet. 05/18/19 10/08/19 Unknown Rx Simvastatin 20 mg PO DAILY #30 tablet 05/18/19 10/08/19 Unknown Rx amLODIPine 10 mg PO DAILY #30 tab 08/08/19 10/08/19 10/08/19 10:00 Rx Amlodipine Besylate [Norvasc] 5 mg PO QDAY #30 tablet 10/08/19 Unknown Rx Losartan [Cozaar] 50 mg PO QDAY #30 tablet 10/08/19 Unknown Rx Losartan [Cozaar] 100 mg PO QDAY 10/08/19 10/08/19 Unknown History Metoprolol Tartrate 25 mg PO BID 10/08/19 10/08/19 10/08/19 10:00 History Meclizine [Antivert] 25 mg PO Q8H PRN #10 tablet 10/25/20 Unknown Rx Meclizine [Antivert] 50 mg PO BID PRN #12 tablet 10/25/20 Unknown Rx Active Meds: Active Medications Acetaminophen (Acetaminophen 325 Mg Tab) 650 mg PO Q4H PRN PRN Reason: Pain, Mild (1-3) Amlodipine Besylate (Amlodipine 10 Mg Tab) 10 mg PO DAILY [facility] Last Admin: 05/31/21 09:54 Dose: 10 mg Documented by: Aspirin (Aspirin 325 Mg Tab) 325 mg PO QDAY [facility] Last Admin: 05/31/21 09:54 Dose: 325 mg Documented by: Atorvastatin Calcium (Atorvastatin 40 Mg Tab) 40 mg PO QHS [facility] Bisacodyl (Bisacodyl 10 Mg Rect Supp) 10 mg [place] QDAY PRN PRN Reason: Constipation Heparin Sodium (Porcine) (Heparin 5,000 Unit/1 Ml Vial) 5,000 unit SUB-Q Q8HR [facility] Last Admin: 05/31/21 05:32 Dose: 5,000 unit Documented by: Losartan Potassium (Losartan 50 Mg Tab) 50 mg PO QDAY [facility] Last Admin: 05/31/21 09:53 Dose: 50 mg Documented by: Magnesium Hydroxide (Magnesium Hydroxide (Mom) Oral Liqd Udc) 30 ml PO Q4H PRN PRN Reason: Constipation Meclizine HCl (Meclizine 25 Mg Tab) 25 mg PO Q8H PRN PRN Reason: Vertigo Metoclopramide HCl (Metoclopramide 10 Mg Tab) 10 mg PO Q6H PRN PRN Reason: Nausea And Vomiting Metoprolol Tartrate (Metoprolol Tartrate 25 Mg Tab) 25 mg PO BID@0800,1700 [facility] Last Admin: 05/31/21 07:53 Dose: Not Given Documented by: Morphine Sulfate (Morphine 2 Mg/1 Ml Inj) 2 mg IV Q4H PRN PRN Reason: Pain, Moderate (4-6) Morphine Sulfate (Morphine 4 Mg/1 Ml Inj) 4 mg IV Q4H PRN PRN Reason: Pain , Severe (7-10) Ondansetron HCl (Ondansetron 4 Mg/2 Ml Inj) 4 mg IV Q8H PRN PRN Reason: Nausea And Vomiting Promethazine HCl (Promethazine 25 Mg Rect Supp) 25 mg [place] Q6H PRN PRN Reason: Nausea And Vomiting Sodium Chloride (Sodium Chloride 0.9% 10 Ml Flush Syringe) 10 ml IV BID [facility] Last Admin: 05/31/21 09:54 Dose: 10 ml Documented by: Sodium Chloride (Sodium Chloride 0.9% 10 Ml Flush Syringe) 10 ml IV PRN PRN PRN Reason: LINE FLUSH Review of Systems All systems: negative (as per HPI;) Physical Examination - Vital Signs Vital Signs: Vital Signs Temp Pulse Resp BP Pulse Ox 98.2 F 85 18 130/97 97 05/30/21 14:46 05/30/21 14:46 05/30/21 14:46 05/30/21 14:46 05/30/21 14:46 - Physical Exam Narrative exam: Head: normocephalic; Eyes: no gaze deviation; no ptosis; ENT: normal vocalization; CVS: warm and well-perfused; Pulm: no respiratory distress; GI: appears non-distended; Ext: no cyanosis at distal extremities; Skin: no acute rash at distal extremities; Heme: no pathologic ecchymosis at distal extremities; Neuro: alert, oriented to name, age, month, year, hospital, no dysarthria, no aphasia, CN 2 - PERRL, visual watson grossly intact, CN 3, 4, 6 - EOMI, CN 5 - facial sensation symmetric to light touch, CN 7 - facial movement symmetric, CN 8 - hearing grossly intact, CN 9, 10 - uvula midline, CN 11 - shrug symmetric, CN 12 - tongue midline; Motor - at least 4+/5 in all exts; Sensory - light touch symmetric, Cerebellar - fnf /hts on the right intact; slight difficulty with LLE, Gait - deferred secondary to fall risk; NIHSS (1a.) Level of Consciousness:0 (1b.) LOC Questions:0 (1c.) LOC Commands:0 (2.) Best Gaze:0 (3.) Visual:0 (4.) Facial Palsy:0 (5a.) Motor Arm, Left:0 (5b.) Motor Arm, Right:0 (6a.) Motor Leg, Left:0 (6b.) Motor Leg, Right:0 (7.) Limb Ataxia:1 (8.) Sensory:0 (9.) Best Language:0 (10.) Dysarthria:0 (11.) Extinction and Inattention:0 NIHSS Total Score:1 Results - Laboratory Findings CBC and BMP: 05/31/21 04:42 05/31/21 04:42 Abnormal Lab Findings: Abnormal Labs 05/30/21 05/30/21 05/30/21 17:42 17:42 Unknown WBC 4.3 L Lymph % (Auto) 39.0 H [place] % (Auto) 8.8 H Seg Neutrophils % Seg Neutrophils # PT INR Sodium 134 L Potassium Urine pH 8.0 H 05/31/21 05/31/21 05/31/21 04:42 04:42 04:42 WBC 4.4 L Lymph % (Auto) 45.9 H [place] % (Auto) 13.4 H Seg Neutrophils % 37.8 L Seg Neutrophils # 1.7 L PT 15.4 H INR 1.16 H Sodium 135 L Potassium 3.5 L Urine pH Assessment and Plan 71 yo male with htn, TIAs, who presents s/p a mechanical fall two weeks ago who hit the back of his head and did not loose concsciousness but has noted vertigo (w/ position change), unsteadiness w/ ambulation, and a sense of weakness of both of his legs. Currently, notes that he has no vertigo when he is lying down flat in bed but triggered by sitting up or standing up. 1. Positional Vertigo - if mri brain w/ wo contrast and cta head/neck w/ wo contrast are unremarkable, confirm orthostatic vitals and a concern for a peripheral etiology is raised; meclizine prn. 2. HTN - aim for normotension. 3. Subacute Stroke (r/o stroke) - awaiting MR Brain; enteric-coated aspirin 325 mg po qday; statin therapy for a goal LDL of 70; normotension; pt/ot evaluation/monitoring; aim for LDL<70; confirm tsh/t4; nihss every 8 hours; if a subacute infarction is confirmed, recommend plavix 75 mg po qday x 21 days. 4. Cervical/Lumbar Stenosis - awaiting MRI results. 5. Unsteady Gait - pt/ot evaluation/monitoring. Adiel Berman MD Neurology [id number]
--- NOTE | 2021-05-31 14:07 | Electrocardiograph Report ---
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
--- NOTE | 2021-05-31 16:18 | Magnetic Resonance Report ---
MR brain wo con INDICATION / CLINICAL INFORMATION: stroke, WEAKNESS, DIZZINESS. TECHNIQUE: Multiplanar, multisequence MR images of the brain were obtained. COMPARISON: 05/31/[address] head 04/30/2000: FINDINGS: INTRACRANIAL: No restricted diffusion. No hemorrhage. Ventricular caliber is normal. No extra-axial c ollection. No mass. No herniation. . Major intracranial vascular flow voids are preserved. Confluent periventricular and centrum semiovale T2 white matter hyperintensities most consistent with sequela of chronic microvascular disease. ORBITS: No significant abnormality of visualized orbits. SINUSES / MASTOIDS: Mild mucosal thickening right maxillary sinus and ethmoid air cells. Sinus diseas e with complete loss of aeration in the right frontal sinus. ADDITIONAL FINDINGS: None. IMPRESSION: 1. No acute infarction. No acute findings. 2. Sequela of chronic microvascular disease. Signer Name: Pedro Pablo Gonzales MD Signed: 05/31/2021 4:13 PM Workstation Name: [id number]
--- NOTE | 2021-05-31 17:37 | Vascular Lab Report ---
DUPLEX DOPPLER ULTRASOUND CAROTID, BILATERAL INDICATION / CLINICAL INFORMATION: Stroke. COMPARISON: CTA neck 05/31/2021 and carotid Doppler 05/16/2019. FINDINGS: RIGHT CAROTID: No significant abnormality. - PLAQUE ESTIMATE (%): None. - CCA velocity: 52 cm/sec. - ICA peak systolic velocity: 28 cm/sec. - ICA/CCA PSV Ratio: Less than 2. Right Vertebral Artery: Antegrade flow. LEFT CAROTID: Minimal calcified plaque present within the bulb. - PLAQUE ESTIMATE (%): < 50% - CCA velocity: 48 cm/sec. - ICA peak systolic velocity: 56 cm/sec. - ICA/CCA PSV Ratio: Less than 2. Left Vertebral Artery: Antegrade flow. IMPRESSION: 1. Right Internal Carotid Artery: Normal. No stenosis. 2. Left Internal Carotid Artery: Less than 50% diameter stenosis. Velocity criteria are extrapolated from diameter data as defined by the Society of Radiologists in Ul trasound Consensus Conference, Radiology 2003; 229;340-346. NO STENOSIS (NORMAL) - Plaque = none; ICA PSV < 125 cm/sec; ICA/CCA PSV Ratio < 2.0 <50% STENOSIS - Plaque < 50%; ICA PSV < 125 cm/sec; ICA/CCA PSV Ratio < 2.0 50-69% STENOSIS - Plaque > 50%; ICA PSV = 125-230 cm/sec; ICA/CCA PSV Ratio = 2.0-4.0 >70% BUT <100% STENOSIS - Plaque > 50%; ICA PSV > 230 cm/sec; ICA/CCA PSV Ratio > 4.0 NEAR OCCLUSION - Plaque = visible lumen; ICA PSV = high/low/none; ICA/CCA PSV Ratio = variable TOTAL OCCLUSION - Plaque = no lumen; ICA PSV = none; ICA/CCA PSV Ratio = N/A Scribed by: Marlen Bishop RDMS, RVT Scribed: 05/31/2021 11:12 AM I have reviewed the images, agree with this report, and edited this report as needed. Signer Name: Rajeev Lin MD Signed: 05/31/2021 5:33 PM Workstation Name: [id number]
[2021-06-01] MEDS: HEPARIN 5,000 UNIT/1 ML VIAL SUB-Q SCH ×2 (06:06→13:12)
[2021-06-01] MEDS: METOPROLOL TARTRATE 25 MG TAB PO SCH (08:30)
[2021-06-01] MEDS: ASPIRIN 325 MG TAB PO SCH (09:46)
[2021-06-01] MEDS: LOSARTAN 50 MG TAB PO SCH (09:47)
[2021-06-01] MEDS: amLODIPine 10 MG TAB PO SCH (09:48)
--- NOTE | 2021-06-01 10:12 | Discharge Summary ---
Providers - Providers Date of Admission: 05/30/21 21:42 Date of discharge: 06/01/21 Attending physician: MALKA SANTA 05/30/21 22:38 Consult to Physician [CONS] Routine Comment: Consulting Provider: DONAVAN FLORES Physician Instructions: Reason For Exam: LOWER EXTREMITY WEAKNESS, H/OCVA 05/30/21 22:41 Consult to Dietitian/Nutrition [CONS] Routine Physician Instructions: Reason For Exam: Reason for Consult: Nutrition Recommendations Reason for Consult: Diet education Occupational Therapy Evaluate and Treat [CONS] Routine Comment: Reason For Exam: Neuro deficits Physical Therapy Evaluation and Treat [CONS] Routine Comment: Reason For Exam: Neuro deficits 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 He had gone to see his primary care physician who encouraged him to report to the emergency room for further evaluation. Work-up in the emergency room today chest x-ray, cervical spine CT, CT of the head showed no acute abnormality. CT of the lumbar spine showed no significant abnormalities. The patient was admitted with diagnosis of lower extremity weakness and fall. Neurology evaluated the patient and noted that patient currently notes that he has no vertigo when he is lying down flat in bed but triggered by sitting up or standing up. MRI and CT scan were found to be negative. Therefore, no diagnosis of CVA. Discharge diagnosis is positional vertigo. Patient will be discharged with meclizine and is to follow-up with primary care physician. Patient refused MRI of cervical and lumbar spine. Physical therapy evaluation recommends rolling walker and home health PT. Dedicated discharge time 35 minutes. Disposition: DC-01 TO HOME OR SELFCARE Final Discharge Diagnosis (Prints w/discharge instructions): Benign positional vertigo. Core Measure Documentation - Palliative Care Palliative Care/ Comfort Measures: Not Applicable - Core Measures Any of the following diagnoses?: none Exam - Constitutional Vitals: Temp Pulse Resp BP Pulse Ox 97.6 F 71 19 121/74 97 06/01/21 07:38 06/01/21 09:48 06/01/21 07:38 06/01/21 09:48 06/01/21 07:38 General appearance: Present: no acute distress, well-nourished - EENT Eyes: Present: PERRL ENT: hearing intact, clear oral mucosa - Neck Neck: Present: supple, normal ROM - Respiratory Respiratory effort: normal Respiratory: bilateral: CTA - Cardiovascular Heart Sounds: Present: S1 & S2. Absent: rub, click - Extremities Extremities: pulses symmetrical, No edema Peripheral Pulses: within normal limits - Abdominal General gastrointestinal: Present: soft, non-tender, non-distended, normal bowel sounds Male genitourinary: Present: normal - Integumentary Integumentary: Present: clear, warm, dry - Musculoskeletal Musculoskeletal: gait normal, strength equal bilaterally - Psychiatric Psychiatric: appropriate mood/affect, intact judgment & insight - Neurologic Neurologic: CNII-XII intact, moves all extremities Plan Activity: advance as tolerated Weight Bearing Status: Weight Bear as Tolerated Diet: regular Special Instructions: physical therapy Durable Medical Equipment Needed Upon Discharge: Walker-Rolling Follow up with: PRIMARY CARE,MD [Primary Care Provider] - 7 Days Prescriptions: amLODIPine 10 mg PO DAILY #30 tab Meclizine [Antivert] 25 mg PO Q8H PRN #10 tablet PRN Reason: Vertigo Losartan [Cozaar] 100 mg PO QDAY #30 Aspirin EC [Halfprin EC] 81 mg PO QDAY #30 tablet. Simvastatin 20 mg PO DAILY #30 tablet
[2021-06-01 11:40] VITALS: BP 121/91
== END 2021-06-01 17:03 | disposition home or self-care (01) ==
LOC: ED 14:40 → 4A 21:42
PROVIDERS: ADMIT Internal Medicine Geriatric Medicine; ATTEND Hospitalist
DX: S06.0X9A Concussion with loss of consciousness of unspecified duration, initial encounter (principal); M10.9 Gout, unspecified; R26.81 Unsteadiness on feet; M62.81 Muscle weakness (generalized); I10 Essential (primary) hypertension; E78.5 Hyperlipidemia, unspecified; M48.02 Spinal stenosis, cervical region; M48.061 Spinal stenosis, lumbar region without neurogenic claudication; R29.701 NIHSS score 1; Z79.82 Long term (current) use of aspirin; W19.XXXA Unspecified fall, initial encounter; Y92.89 Other specified places as the place of occurrence of the external cause; Y93.89 Activity, other specified; Y99.8 Other external cause status
CPT/HCPCS: 36415; 70450; 70496; 70498; 70551; 71046; 72125; 72128; 72131; 80048; 80053; 80061; 81001; 82550; 83735; 84484; 85025; 85610; 85730; 93005; 93306; 93880; 96372; 97162; 99285; A9270; G0378; J1644; Q9967

== ENCOUNTER 2022-04-16 18:42 | Inpatient (IN) | payer SELFPAY ==
[2022-04-16] MEDS ORDERED: SODIUM CHLORIDE 0.9% 1000 ML 1,000 ML IV ONE ×3 (19:37→22:16)
--- NOTE | 2022-04-16 19:37 | Emergency Department Report ---
HPI - General Chief Complaint: Fall Time Seen by Provider: 04/16/22 19:15 - HPI HPI: Room 23 Patient is a 72-year-old male presenting with bilateral hip pain after fall 4 days ago. Patient states 4 days ago after using the bathroom, when he attempted to stand up he fell to the ground. Patient denies loss of consciousness states he has had bilateral hip pain after the fall and was unable to get up off of the floor. Patient states he was laying on the floor for 4 days for police had to force entry to find him for a welfare check. Patient complains of bilateral hip pain. Patient states he felt dizzy and fell. Patient planes of a headache but denies nausea or vomiting. ED Past Medical Hx - Past Medical History Hx Hypertension: Yes - Surgical History Past Surgical History?: No - Social History Smoking Status: Never Smoker Substance Use Type: None (Denies illicit drug use) - Medications Home Medications: Home Medications Medication Instructions Recorded Confirmed Last Taken Type Losartan [Cozaar] 50 mg PO QDAY #30 tablet 10/08/19 05/31/21 Unknown Rx Metoprolol Tartrate 25 mg PO BID 10/08/19 05/31/21 10/08/19 10:00 History Aspirin EC [Halfprin EC] 81 mg PO QDAY #30 tablet. 06/01/21 Unknown Rx Losartan [Cozaar] 100 mg PO QDAY #30 06/01/21 Unknown Rx Meclizine [Antivert] 25 mg PO Q8H PRN #10 tablet 06/01/21 Unknown Rx Simvastatin 20 mg PO DAILY #30 tablet 06/01/21 Unknown Rx amLODIPine 10 mg PO DAILY #30 tab 06/01/21 Unknown Rx ED Review of Systems ROS: Stated complaint: WEAKNESS Other details as noted in HPI Constitutional: no symptoms reported Eyes: denies: eye pain ENT: denies: throat pain Respiratory: no symptoms reported Cardiovascular: denies: chest pain Endocrine: no symptoms reported Gastrointestinal: denies: abdominal pain Genitourinary: denies: dysuria Musculoskeletal: arthralgia Neurological: headache Physical Exam - Physical Exam Vital Signs: Vital Signs 04/16/22 04/16/22 04/16/22 18:45 19:03 19:15 Pulse Rate 102 H 104 H Respiratory 18 12 15 Rate Blood Pressure 125/95 Blood Pressure 157/104 [Left] O2 Sat by Pulse 98 92 Oximetry Physical Exam: GENERAL: The patient is well-developed well-nourished male lying on stretcher not appearing to be in acute distress. [] HEENT: Normocephalic. Atraumatic. Extraocular motions are intact. Patient has moist mucous membranes. NECK: Supple. No axial step-off. Trachea midline CHEST/LUNGS: Clear to auscultation. There is no respiratory distress noted. HEART/CARDIOVASCULAR: Regular. There is no tachycardia. There is no gallop rub or murmur. ABDOMEN: Abdomen is soft, nontender. Patient has normal bowel sounds. There is no abdominal distention. SKIN: There is no rash. There is no edema. There is no diaphoresis. NEURO: The patient is awake, alert, and oriented. The patient is cooperative. Cranial nerves II through XII grossly. The patient has normal speech. Normal sensation throughout. Patient is able to hold either upper extremity at 45 degree angle without drift. Patient makes attempts to raise left lower extremity off of stretcher is only able to do so for approximately 1 inch for less than 1 second without raising to 30 degree angle. Patient is unable to raise right foot off of stretcher MUSCULOSKELETAL: There is pain in both hips, right lower extremity appears slightly shortened and externally rotated ED Course Vital Signs 04/16/22 04/16/22 04/16/22 18:45 19:03 19:15 Pulse Rate 102 H 104 H Respiratory 18 12 15 Rate Blood Pressure 125/95 Blood Pressure 157/104 [Left] O2 Sat by Pulse 98 92 Oximetry ED Medical Decision Making - Lab Data Result diagrams: 04/16/22 20:50 04/16/22 20:50 Laboratory Tests 04/16/22 04/16/22 04/16/22 20:50 20:50 20:50 WBC 6.9 RBC 5.19 H Hgb 15.9 H Hct 47.5 H MCV 91 MCH 31 MCHC 34 RDW 13.5 Plt Count 156 Lymph % (Auto) 12.3 L Gilchrist % (Auto) 8.5 H Eos % (Auto) 0.1 Baso % (Auto) 0.6 Lymph # (Auto) 0.9 L Gilchrist # (Auto) 0.6 Eos # (Auto) 0.0 Baso # (Auto) 0.0 Seg Neutrophils % 78.5 H Seg Neutrophils # 5.5 PT 13.6 INR 0.94 Sodium 139 Potassium 4.1 Chloride 97.4 L Carbon Dioxide 20 L Anion Gap 26 BUN 37 H Creatinine 1.5 H Estimated GFR 56 BUN/Creatinine Ratio 25 Glucose 94 Calcium 8.9 Total Creatine Kinase 4534 H CK-MB (CK-2) 16.2 H CK-MB (CK-2) Rel Index 0.3 Troponin T < 0.010 TSH Free T4 04/16/22 20:50 WBC RBC Hgb Hct MCV MCH MCHC RDW Plt Count Lymph % (Auto) Gilchrist % (Auto) Eos % (Auto) Baso % (Auto) Lymph # (Auto) Gilchrist # (Auto) Eos # (Auto) Baso # (Auto) Seg Neutrophils % Seg Neutrophils # PT INR Sodium Potassium Chloride Carbon Dioxide Anion Gap BUN Creatinine Estimated GFR BUN/Creatinine Ratio Glucose Calcium Total Creatine Kinase CK-MB (CK-2) CK-MB (CK-2) Rel Index Troponin T TSH 1.910 Free T4 1.24 - EKG Data -: EKG Interpreted by Me EKG shows normal: sinus rhythm Rate: tachycardia (110 bpm) - EKG Data When compared to previous EKG there are: previous EKG unavailable Interpretation: other (No ischemic changes seen) - Radiology Data Radiology results: report reviewed (Bilateral femur x-rays, bilateral hip x-ray, bilateral tib-fib x-ray, CT head, CT cervical spine), image reviewed (Bilateral femur x-rays, bilateral hip x-ray, bilateral tib-fib x-ray, CT head, CT cervical spine) interpreted by me: Bilateral hip x-rays-no acute fracture seen, no dislocation Bilateral tib-fib x-rays-no acute fracture seen Bilateral femur x-rays-no acute fracture seen [facility] [address] [place] [address] XRay Report Signed Patient: KATHARINE BRONSON MR#: [id number] : 1950 Acct:[id number] Age/Sex: 72 / M ADM Date: 04/16/22 Loc: ED Attending Dr: Ordering Physician: ERNESTO RAMIREZ MD Date of Service: 04/16/22 Procedure(s): XR femur BILAT 2+V Accession Number(s): [id number] cc: ERNESTO RAMIREZ MD Fluoro Time In Minutes: BILATERAL FEMURS AP AND LATERAL VIEWS INDICATION / CLINICAL INFORMATION: Pain after fall COMPARISON: None available. FINDINGS: BONES / JOINT(S): No acute fracture or subluxation. Mild degenerative changes are noted at the bilateral hips. SOFT TISSUES: No significant abnormality. ADDITIONAL FINDINGS: None. IMPRESSION: No acute findings. Signer Name: Lester Hidalgo MD Signed: 04/16/2022 8:57 PM Workstation Name: [id number] Transcribed By: ADALBERTO Dictated By: Lester Hidalgo MD Electronically Authenticated By: Lester Hidalgo MD Signed Date/Time: 04/16/222056 DD/ 55 TD/TT: [address] [address] XRay Report Signed Patient: KATHARINE BRONSON MR#: [id number] : 1950 Acct:[id number] Age/Sex: 72 / M ADM Date: 04/16/22 Loc: ED Attending Dr: Ordering Physician: ERNESTO RAMIREZ MD Date of Service: 04/16/22 Procedure(s): XR tib/fib BILAT 2V Accession Number(s): [id number] cc: ERNESTO RAMIREZ MD Fluoro Time In Minutes: BILATERAL TIB-FIB AP AND LATERAL VIEWS INDICATION / CLINICAL INFORMATION: Pain after fall COMPARISON: None available. FINDINGS: BONES / JOINT(S): No acute fracture or subluxation. No significant arthritis. SOFT TISSUES: No significant abnormality. ADDITIONAL FINDINGS: None. IMPRESSION: No acute findings. Signer Name: Lester Hidalgo MD Signed: 04/16/2022 8:11 PM Workstation Name: [id number] Transcribed By: ADALBERTO Dictated By: Lester Hidalgo MD Electronically Authenticated By: Lester Hidalgo MD Signed Date/Time: 04/16/222010 DD/ 09 TD/TT: [address] [address] XRay Report Signed Patient: KATHARINE BRONSON MR#: [id number] : 1950 Acct:[id number] Age/Sex: 72 / M ADM Date: 04/16/22 Loc: ED Attending Dr: Ordering Physician: ERNESTO RAMIREZ MD Date of Service: 04/16/22 Procedure(s): XR hips BILAT 2V w/pelvis Accession Number(s): [id number] cc: ERNESTO RAMIREZ MD Fluoro Time In Minutes: BILATERAL HIPS AND PELVIS 3 VIEWS INDICATION / CLINICAL INFORMATION: Pain after fall COMPARISON: None available. FINDINGS: BONES / JOINT(S): No acute fracture or subluxation. 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 There is subjective osteopenia. SOFT TISSUES: No significant abnormality. ADDITIONAL FINDINGS: None. IMPRESSION: No acute findings. Signer Name: Lester Hidalgo MD Signed: 04/16/2022 8:15 PM Workstation Name: [id number] Transcribed By: ADALBERTO Dictated By: Lester Hidalgo MD Electronically Authenticated By: Lester Hidalgo MD Signed Date/Time: 04/16/222014 DD/ 13 TD/TT: [facility] [address] [place] [address] Cat Scan Report Signed Patient: KATHARINE BRONSON MR#: [id number] : 1950 Acct:[id number] Age/Sex: 72 / M ADM Date: 04/16/22 Loc: ED Attending Dr: Ordering Physician: ERNESTO RAMIREZ MD Date of Service: 04/16/22 Procedure(s): CT head/brain wo con Accession Number(s): [id number] cc: ERNESTO RAMIREZ MD CT BRAIN: 04/16/2022 INDICATION / CLINICAL INFORMATION: Pain after fall. COMPARISON: None available. FINDINGS: BRAIN/INTRACRANIAL STRUCTURES: Unenhanced CT images of the brain demonstrate no evidence of acute abnormality. Ventricles and sulci are prominent in size, consistent with prominent diffuse cerebral atrophy. Extensive chronic white matter hypoattenuation is present throughout the cerebral hem ispheric white matter. There is no evidence of acute large vessel territory ischemic injury. Chronic lacunar changes are present in the thalami bilaterally and left caudate head. There are no abnormal extra-axial fluid collections. EXTRACRANIAL STRUCTURES: Unremarkable. IMPRESSION: No acute abnormality. Chronic and age-related changes. All CT scans at this location are performed using dose reduction to ALARA by means of automated exposure control. Signer Name: Domingo Naranjo MD Signed: 04/16/2022 9:03 PM Workstation Name: [id number] Transcribed By: AFTAB Dictated By: Domingo Naranjo MD Electronically Authenticated By: Domingo Naranjo MD Signed Date/Time: 04/16/222102 DD/ 01 TD/TT: [facility] [address] [place] [address] Cat Scan Report Signed Patient: KATHARINE BRONSON MR#: [id number] : 1950 Acct:[id number] Age/Sex: 72 / M ADM Date: 04/16/22 Loc: ED Attending Dr: Ordering Physician: ERNESTO RAMIREZ MD Date of Service: 04/16/22 Procedure(s): CT cervical spine wo con Accession Number(s): [id number] cc: ERNESTO RAMIREZ MD CT CERVICAL SPINE: 04/16/2022 INDICATION / CLINICAL INFORMATION: Pain after fall. COMPARISON: None available. FINDINGS: CT images of the cervical spine were obtained. Images are evaluated in the axial, coronal, and sagittal planes. There is no evidence of acute abnormality. Reversal of cervical lordosis is present with the patient positioned for this exam. Degenerative disc space narrowing is present at C3-4, C5-6, C6-C7, and C7-T1 levels. . CRANIOCERVICAL JUNCTION: Unremarkable. PARASPINAL STRUCTURES: No significant abnormality. IMPRESSION: No acute abnormality. Degenerative changes. All CT scans at this location are performed using dose reduction to ALARA by means of automated exposure control. Signer Name: Domingo Naranjo MD Signed: 04/16/2022 9:08 PM Workstation Name: [id number] Transcribed By: AFTAB Dictated By: Domingo Naranjo MD Electronically Authenticated By: Domingo Naranjo MD Signed Date/Time: 04/16/222107 DD/ 04 TD/TT: - Differential Diagnosis Hip fracture, rhabdomyolysis, symptomatic anemia, dehydration Critical care attestation.: If time is entered above; I have spent that time in minutes in the direct care of this critically ill patient, excluding procedure time. ED Disposition Clinical Impression: Fall, Rhabdomyolysis, Acute kidney injury Disposition: ADMITTED INPATIENT Is pt being admited?: Yes Does the pt Need Aspirin: Yes Time of Disposition: 22:19 (Care transferred to hospitalist (Dr Mayo))
--- NOTE | 2022-04-16 20:15 | XRay Report ---
BILATERAL TIB-FIB AP AND LATERAL VIEWS INDICATION / CLINICAL INFORMATION: Pain after fall COMPARISON: None available. FINDINGS: BONES / JOINT(S): No acute fracture or subluxation. No significant arthritis. SOFT TISSUES: No significant abnormality. ADDITIONAL FINDINGS: None. IMPRESSION: No acute findings. Signer Name: Lester Hidalgo MD Signed: 04/16/2022 8:11 PM Workstation Name: [id number] In :60 Seconds
--- NOTE | 2022-04-16 20:19 | XRay Report ---
BILATERAL HIPS AND PELVIS 3 VIEWS INDICATION / CLINICAL INFORMATION: Pain after fall COMPARISON: None available. FINDINGS: BONES / JOINT(S): No acute fracture or subluxation. Osteoarthrosis changes, mild, are noted at both h ips. There is subjective osteopenia. SOFT TISSUES: No significant abnormality. ADDITIONAL FINDINGS: None. IMPRESSION: No acute findings. Signer Name: Lester Hidalgo MD Signed: 04/16/2022 8:15 PM Workstation Name: [id number]
--- NOTE | 2022-04-16 21:01 | XRay Report ---
BILATERAL FEMURS AP AND LATERAL VIEWS INDICATION / CLINICAL INFORMATION: Pain after fall COMPARISON: None available. FINDINGS: BONES / JOINT(S): No acute fracture or subluxation. Mild degenerative changes are noted at the bilate ral hips. SOFT TISSUES: No significant abnormality. ADDITIONAL FINDINGS: None. IMPRESSION: No acute findings. Signer Name: Lester Hidalgo MD Signed: 04/16/2022 8:57 PM Workstation Name: [id number]
--- NOTE | 2022-04-16 21:08 | Cat Scan Report ---
CT BRAIN: 04/16/2022 INDICATION / CLINICAL INFORMATION: Pain after fall. COMPARISON: None available. FINDINGS: BRAIN/INTRACRANIAL STRUCTURES: Unenhanced CT images of the brain demonstrate no evidence of acute abn ormality. Ventricles and sulci are prominent in size, consistent with prominent diffuse cerebral atrophy. Extensive chronic white matter hypoattenuation is present throughout the cerebral hemispheric white m atter. There is no evidence of acute large vessel territory ischemic injury. Chronic lacunar changes are pre sent in the thalami bilaterally and left caudate head. There are no abnormal extra-axial fluid collections. EXTRACRANIAL STRUCTURES: Unremarkable. IMPRESSION: No acute abnormality. Chronic and age-related changes. All CT scans at this location are performed using dose reduction to ALARA by means of automated expos ure control. Signer Name: Domingo Naranjo MD Signed: 04/16/2022 9:03 PM Workstation Name: [id number]
--- NOTE | 2022-04-16 21:12 | Cat Scan Report ---
CT CERVICAL SPINE: 04/16/2022 INDICATION / CLINICAL INFORMATION: Pain after fall. COMPARISON: None available. FINDINGS: CT images of the cervical spine were obtained. Images are evaluated in the axial, coronal, and sagitt al planes. There is no evidence of acute abnormality. Reversal of cervical lordosis is present with the patient positioned for this exam. Degenerative disc space narrowing is present at C3-4, C5-6, C6-C7, and C7-T1 levels. . CRANIOCERVICAL JUNCTION: Unremarkable. PARASPINAL STRUCTURES: No significant abnormality. IMPRESSION: No acute abnormality. Degenerative changes. All CT scans at this location are performed using dose reduction to ALARA by means of automated expos ure control. Signer Name: Domingo Naranjo MD Signed: 04/16/2022 9:08 PM Workstation Name: [id number]
[2022-04-16 21:13] LABS: Basophils % (Auto) 0.6 % (0.0-1.8); Eosinophils % (Auto) 0.1 % (0.0-4.3); Hematocrit 47.5 % (35.5-45.6); Hemoglobin 15.9 gm/dl (11.8-15.2); Lymphocytes # (Auto) 0.9 K/mm3 (1.2-5.4); Lymphocytes % (Auto) 12.3 % (13.4-35.0); Mean Corpuscular HGB Conc 34 % (32-34); Mean Corpuscular Volume 91 fl (84-94); Monocytes # (Auto) 0.6 K/mm3 (0.0-0.8); Monocytes % (Auto) 8.5 % (0.0-7.3); Platelet Count 156 K/mm3 (140-440); Red Blood Count 5.19 M/mm3 (3.65-5.03); Red Cell Distribution Width 13.5 % (13.2-15.2)
[2022-04-16 21:22] LABS: INR 0.94 (0.87-1.13)
[2022-04-16 21:38] LABS: Free T4 (Free Thyroxine) 1.24 ng/dL (0.76-1.46)
[2022-04-16 21:40] LABS: Creatine Kinase MB 16.2 ng/mL (0.0-4.0)
[2022-04-16 21:41] LABS: BUN/Creatinine Ratio 25; Blood Urea Nitrogen 37 mg/dL (9-20); Calcium 8.9 mg/dL (8.4-10.2); Hemolysis Index 31
[2022-04-16] MEDS ORDERED: ASPIRIN 325 MG TAB PO ONE (22:20)
[2022-04-16] MEDS ORDERED: MORPHINE 2 MG/1 ML INJ IV PRN (23:27)
[2022-04-16] MEDS ORDERED: MORPHINE 4 MG/1 ML INJ IV PRN (23:27)
[2022-04-16] MEDS ORDERED: MAGNESIUM HYDROXIDE (MOM) ORAL LIQD UDC PO PRN (23:27)
[2022-04-16] MEDS ORDERED: ONDANSETRON 4 MG/2 ML INJ IV PRN (23:27)
--- NOTE | 2022-04-16 23:45 | History and Physical Report ---
History of Present Illness Date of examination: 04/16/22 Date of admission: 04/16/2022 Chief complaint: Hip Pain History of present illness: 72-year-old -[place]ian male with known history of hypertension and who lives by himself presents to the emergency room today complaining of bilateral hip pain after having a fall about 4 days ago. Patient states he was about to use to use the bathroom when he fell when about to stand up.. He was subsequently unable to get up from the floor. He denies any loss of consciousness, no head injury. The police had to force open the door after a welfare check. Work-up in the emergency room today, chest x-ray was unremarkable. X-ray of the hip and pelvis, tibia and fibula, x-ray of the femur were unremarkable. CT of the cervical spine was also unremarkable. Labs however revealed elevated BUN and creatinine, creatinine kinase of 4534 Patient is being admitted for rhabdomyolysis acute kidney injury. Past History Past Medical History: hypertension Past Surgical History: No surgical history Social history: Lives alone Family history: no significant family history Medications and Allergies Allergies Allergy/AdvReac Type Severity Reaction Status Date / Time No Known Allergies Allergy Unverified 05/16/19 12:45 Home Medications Medication Instructions Recorded Confirmed Last Taken Type Losartan [Cozaar] 50 mg PO QDAY #30 tablet 10/08/19 05/31/21 Unknown Rx Metoprolol Tartrate 25 mg PO BID 10/08/19 05/31/21 10/08/19 10:00 History Aspirin EC [Halfprin EC] 81 mg PO QDAY #30 tablet. 06/01/21 Unknown Rx Losartan [Cozaar] 100 mg PO QDAY #30 06/01/21 Unknown Rx Meclizine [Antivert] 25 mg PO Q8H PRN #10 tablet 06/01/21 Unknown Rx Simvastatin 20 mg PO DAILY #30 tablet 06/01/21 Unknown Rx amLODIPine 10 mg PO DAILY #30 tab 06/01/21 Unknown Rx Active Meds: Active Medications Acetaminophen (Acetaminophen 325 Mg Tab) 650 mg PO Q4H PRN PRN Reason: Pain MILD(1-3)/Fever >100.5/CRUZ Heparin Sodium (Porcine) (Heparin 5,000 Unit/1 Ml Vial) 5,000 unit SUB-Q Q8HR EDGAR Sodium Chloride (Nacl 0.9% 1000 Ml) 1,000 mls @ 250 mls/hr IV ONCE ONE Stop: 04/17/22 02:15 Sodium Chloride (Nacl 0.9% 1000 Ml) 1,000 mls @ 150 mls/hr IV DIRECT EDGAR Magnesium Hydroxide (Magnesium Hydroxide (Mom) Oral Liqd Udc) 30 ml PO Q4H PRN PRN Reason: Constipation Morphine Sulfate (Morphine 2 Mg/1 Ml Inj) 2 mg IV Q4H PRN PRN Reason: Pain, Moderate (4-6) Morphine Sulfate (Morphine 4 Mg/1 Ml Inj) 4 mg IV Q4H PRN PRN Reason: Pain , Severe (7-10) Ondansetron HCl (Ondansetron 4 Mg/2 Ml Inj) 4 mg IV Q8H PRN PRN Reason: Nausea And Vomiting Sodium Chloride (Sodium Chloride 0.9% 10 Ml Flush Syringe) 10 ml IV BID EDGAR Sodium Chloride (Sodium Chloride 0.9% 10 Ml Flush Syringe) 10 ml IV PRN PRN PRN Reason: LINE FLUSH Review of Systems Constitutional: no fever, no chills Ears, nose, mouth and throat: no nasal congestion, no sore throat Cardiovascular: no chest pain, no palpitations Respiratory: no cough, no shortness of breath Gastrointestinal: no nausea, no vomiting, no diarrhea Genitourinary Male: no dysuria, no hematuria, no nocturia Musculoskeletal: low back pain, no neck pain Integumentary: no rash, no pruritis Neurological: no headaches, no confusion Psychiatric: no anxiety, no depression Endocrine: no polyphagia, no polydipsia, no polyuria, no nocturia Exam - Constitutional Vitals: Temp Pulse Resp BP Pulse Ox 105 H 21 138/90 100 04/16/22 23:15 04/16/22 23:15 04/16/22 23:01 04/16/22 23:15 General appearance: Present: no acute distress, well-nourished, other (Dry oral mucosa) - EENT Eyes: Present: PERRL, EOM intact. Absent: scleral icterus ENT: hearing intact, clear oral mucosa, dentition normal - Neck Neck: Present: supple, normal ROM - Respiratory Respiratory effort: normal Respiratory: bilateral: CTA - Cardiovascular Rhythm: regular Heart Sounds: Present: S1 & S2. Absent: gallop, systolic murmur, diastolic murmur, rub, click - Extremities Extremities: no ischemia, pulses intact, pulses symmetrical, No edema, normal temperature, normal color, Full ROM Peripheral Pulses: within normal limits - Abdominal General gastrointestinal: Present: soft, non-tender, non-distended, normal bowel sounds. Absent: mass - Integumentary Integumentary: Present: clear, warm, dry, decreased turgor - Musculoskeletal Musculoskeletal: strength equal bilaterally - Psychiatric Psychiatric: appropriate mood/affect, intact judgment & insight, memory intact, cooperative - Neurologic Neurologic: CNII-XII intact, no focal deficits, moves all extremities HEART Score - HEART Score Troponin: Troponin T < 0.010 ng/mL (0.00-0.029) 04/16/22 20:50 Results - Labs CBC & Chem 7: 04/16/22 20:50 04/16/22 20:50 Labs: Abnormal lab results 04/16/22 04/16/22 Range/Units 20:50 20:50 RBC 5.19 H (3.65-5.03) M/mm3 Hgb 15.9 H (11.8-15.2) gm/dl Hct 47.5 H (35.5-45.6) % Lymph % (Auto) 12.3 L (13.4-35.0) % [place] % (Auto) 8.5 H (0.0-7.3) % Lymph # (Auto) 0.9 L (1.2-5.4) K/mm3 Seg Neutrophils % 78.5 H (40.0-70.0) % Chloride 97.4 L (98-107) mmol/L Carbon Dioxide 20 L (22-30) mmol/L BUN 37 H (9-20) mg/dL Creatinine 1.5 H (0.8-1.3) mg/dL Total Creatine Kinase 4534 H (55-170) units/L CK-MB (CK-2) 16.2 H (0.0-4.0) ng/mL Assessment and Plan Assessment: 1. Rhabdomyolysis 2. POP 3. Hypertension 4. History of fall Plan: 1. Patient admitted and placed on IV fluid 2. Will monitor chemistry. 3. Consult will be placed to nephrology if needed 4. We will resume routine home medications once reconciled. 5. We will place on fall precautions 6. We will also request PT/OT evaluation. 7. Patient may require case management evaluation of living conditions. DVT prophylaxis: Subcutaneous heparin CODE STATUS: Full code
[2022-04-17] MEDS: SODIUM CHLORIDE 0.9% 1000 ML 1,000 ML IV SCH ×2 (05:40→13:02)
[2022-04-17] MEDS: HEPARIN 5,000 UNIT/1 ML VIAL SUB-Q SCH ×3 (05:41→21:17)
[2022-04-17 08:39] LABS: Basophils % (Auto) 0.2 % (0.0-1.8); Hematocrit 45.9 % (35.5-45.6); Hemoglobin 14.7 gm/dl (11.8-15.2); Lymphocytes # (Auto) 1.1 K/mm3 (1.2-5.4); Lymphocytes % (Auto) 20.4 % (13.4-35.0); Mean Corpuscular HGB Conc 32 % (32-34); Mean Corpuscular Volume 92 fl (84-94); Monocytes # (Auto) 0.6 K/mm3 (0.0-0.8); Monocytes % (Auto) 11.8 % (0.0-7.3); Platelet Count 136 K/mm3 (140-440); Red Blood Count 4.99 M/mm3 (3.65-5.03); Red Cell Distribution Width 13.7 % (13.2-15.2)
[2022-04-17 09:02] LABS: BUN/Creatinine Ratio 24; Blood Urea Nitrogen 31 mg/dL (9-20); Calcium 8.1 mg/dL (8.4-10.2); Hemolysis Index 24
--- NOTE | 2022-04-17 10:37 | Progress Note ---
Assessment and Plan Assessment and plan: 72-year-old -Prydein[place] male with known history of hypertension and who lives by himself presents to the emergency room today complaining of bilateral hip pain after having a fall about 4 days ago [employer]. 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 He was subsequently unable to get up from the floor. He denies any loss of consciousness, no head injury. The police had to force open the door after a welfare check. Work-up in the emergency room revealed chest x-ray that was unremarkable. X-ray of the hip and pelvis, tibia and fibula, x-ray of the femur were unremarkable. CT of the cervical spine was also unremarkable. Labs however revealed elevated BUN and creatinine, creatinine kinase of 4534 Acute kidney injury secondary to vasomotor nephropathy/dehydration Rhabdomyolysis Hypertension History of a fall 04/17/2022. Creatinine has improved but the CK remains about the same in the 4500 range. Continue IV fluid hydration. PT evaluation pending History Interval history: No new issues overnight Hospitalist Physical - Constitutional Vitals: Temp Pulse Resp BP Pulse Ox 98 H 16 120/83 98 04/17/22 02:01 04/17/22 02:01 04/17/22 02:01 04/17/22 07:52 General appearance: Present: no acute distress, well-nourished, other (Dry oral mucosa) - EENT Eyes: Present: PERRL, EOM intact ENT: hearing intact, clear oral mucosa, dentition normal - Neck Neck: Present: supple, normal ROM - Respiratory Respiratory effort: normal Respiratory: bilateral: CTA - Cardiovascular Rhythm: regular Heart Sounds: Present: S1 & S2. Absent: gallop, rub - Extremities Extremities: no ischemia, No edema, Full ROM - Abdominal General gastrointestinal: soft, non-tender, non-distended, normal bowel sounds - Integumentary Integumentary: Present: clear, warm, dry - Neurologic Neurologic: CNII-XII intact, moves all extremities HEART Score - HEART Score Troponin: Troponin T < 0.010 ng/mL (0.00-0.029) 04/16/22 20:50 Results - Labs CBC & Chem 7: 04/17/22 07:08 04/17/22 07:08 Labs: Laboratory Last Values WBC 5.5 K/mm3 (4.5-11.0) 04/17/22 07:08 RBC 4.99 M/mm3 (3.65-5.03) 04/17/22 07:08 Hgb 14.7 gm/dl (11.8-15.2) 04/17/22 07:08 Hct 45.9 % (35.5-45.6) H 04/17/22 07:08 MCV 92 fl (84-94) 04/17/22 07:08 MCH 30 pg (28-32) 04/17/22 07:08 MCHC 32 % (32-34) 04/17/22 07:08 RDW 13.7 % (13.2-15.2) 04/17/22 07:08 Plt Count 136 K/mm3 (140-440) L 04/17/22 07:08 Lymph % (Auto) 20.4 % (13.4-35.0) 04/17/22 07:08 [place] % (Auto) 11.8 % (0.0-7.3) H 04/17/22 07:08 Eos % (Auto) 0.0 % (0.0-4.3) 04/17/22 07:08 Baso % (Auto) 0.2 % (0.0-1.8) 04/17/22 07:08 Lymph # (Auto) 1.1 K/mm3 (1.2-5.4) L 04/17/22 07:08 [place] # (Auto) 0.6 K/mm3 (0.0-0.8) 04/17/22 07:08 Eos # (Auto) 0.0 K/mm3 (0.0-0.4) 04/17/22 07:08 Baso # (Auto) 0.0 K/mm3 (0.0-0.1) 04/17/22 07:08 Seg Neutrophils % 67.6 % (40.0-70.0) 04/17/22 07:08 Seg Neutrophils # 3.7 K/mm3 (1.8-7.7) 04/17/22 07:08 PT 13.6 Sec. (12.2-14.9) 04/16/22 20:50 INR 0.94 (0.87-1.13) 04/16/22 20:50 Sodium 141 mmol/L (137-145) 04/17/22 07:08 Potassium 3.9 mmol/L (3.6-5.0) 04/17/22 07:08 Chloride 105.0 mmol/L (98-107) 04/17/22 07:08 Carbon Dioxide 22 mmol/L (22-30) 04/17/22 07:08 Anion Gap 18 mmol/L 04/17/22 07:08 BUN 31 mg/dL (9-20) H 04/17/22 07:08 Creatinine 1.3 mg/dL (0.8-1.3) 04/17/22 07:08 Estimated GFR > 60 ml/min 04/17/22 07:08 BUN/Creatinine Ratio 24 % 04/17/22 07:08 Glucose 79 mg/dL (75-100) 04/17/22 07:08 Calcium 8.1 mg/dL (8.4-10.2) L 04/17/22 07:08 Total Creatine Kinase 4539 units/L (55-170) H 04/17/22 09:32 CK-MB (CK-2) 16.2 ng/mL (0.0-4.0) H 04/16/22 20:50 CK-MB (CK-2) Rel Index 0.3 (0-4) 04/16/22 20:50 Troponin T < 0.010 ng/mL (0.00-0.029) 04/16/22 20:50 TSH 1.910 mlU/mL (0.270-4.200) 04/16/22 20:50 Free T4 1.24 ng/dL (0.76-1.46) 04/16/22 20:50 Ma/IV: Voiding Method Urinal Active Medications - Current Medications Current Medications: Generic Name Dose Route Start Last Admin Trade Name Freq PRN Reason Stop Dose Admin Acetaminophen 650 mg 04/16/22 23:27 Acetaminophen 325 Mg Tab PO Q4H PRN Pain MILD(1-3)/Fever >100.5/CRUZ Heparin Sodium (Porcine) 5,000 unit 04/17/22 06:00 04/17/22 05:41 Heparin 5,000 Unit/1 Ml Vial SUB-Q 5,000 unit Q8HR EDGAR Administration Sodium Chloride 1,000 mls @ 150 mls/hr 04/16/22 23:30 04/17/22 05:40 Nacl 0.9% 1000 Ml IV 150 mls/hr DIRECT EDGAR Administration Magnesium Hydroxide 30 ml 04/16/22 23:27 Magnesium Hydroxide (Mom) Oral Liqd Udc PO Q4H PRN Constipation Morphine Sulfate 2 mg 04/16/22 23:27 Morphine 2 Mg/1 Ml Inj IV Q4H PRN Pain, Moderate (4-6) Morphine Sulfate 4 mg 04/16/22 23:27 Morphine 4 Mg/1 Ml Inj IV Q4H PRN Pain , Severe (7-10) Ondansetron HCl 4 mg 04/16/22 23:27 Ondansetron 4 Mg/2 Ml Inj IV Q8H PRN Nausea And Vomiting Sodium Chloride 10 ml 04/17/22 10:00 Sodium Chloride 0.9% 10 Ml Flush Syringe IV BID EDGAR Sodium Chloride 10 ml 04/16/22 23:27 Sodium Chloride 0.9% 10 Ml Flush Syringe IV PRN PRN LINE FLUSH
--- NOTE | 2022-04-17 12:13 | Electrocardiograph Report ---
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
--- NOTE | 2022-04-17 13:07 | Consultation ---
History of Present Illness - History of Present Illness Thank you for the consultation ! Patient was evaluated today, My assessment and plan are as follows Acute kidney injury, renal function appears to be improving patient creatinine was 1.5 yesterday which has come down to 1.3 earlier records from May 2021 shows that his creatinine was around 1.1, renal prognosis appears to be good #Mild rhabdomyolysis resulting from fall, continue to hydrate and monitor clinically, CPK stable around 4000 range #Blood pressure appears to be fairly normal #Low-grade metabolic acidosis with hydration it has improved #Patient clinically appears to be volume depleted, encourage oral hydration, Overall doing better from renal standpoint maintain hydration close follow-up on renal function If you have any question in regards to this patient renal care please feel free to contact me at [phone] Author: Tal Murphy M.D. [facility], [address] [place] [address] Tel; [phone] [facility] Source of information: From patient History of present illness 32-year-old male who has been admitted here after he fell on the ground and has had bilateral hip pain, upon admission has been noted to have a creatinine of 1.5 which usually is around 1.1 bicarbonate was around 20, patient is a very poor historian but denies using any nonsteroidal drug in the outpatient setting, he denies having any sore throat, difficulty voiding, any history of blood in the urine fever or chills. Most information was obtained from patient's current chart as he is extremely poor historian old records were also reviewed Past medical history: Hypertension Current allergies: Reviewed from the current chart Social history: Reviewed from the current chart Family history: Reviewed from the current chart Review of system: Positive for recent fall and some pain which is improving All other review of systems negative Physical examination Vitals: Reviewed General: No acute distress HEENT: Oral mucosa moist no pallor or icterus Neck: Supple without any JVD thyromegaly or nodular mass Chest: Clear to auscultation Heart: Regular rate and rhythm S1-S2 heard no S3-S4 Abdomen: Soft nontender, bowel sounds present no renal bruit no suprapubic masses no CVA tenderness noted Extremity: Minimal edema dry skin no peripheral cyanosis Endocrine: Thyroid not enlarged Psychiatric: No agitation and aggression noted Musculoskeletal: No joint effusion noted Labs and x-rays: Reviewed from this admission Past History Past Medical History: hypertension Past Surgical History: No surgical history Social history: Lives alone Family history: no significant family history Medications and Allergies Allergies Allergy/AdvReac Type Severity Reaction Status Date / Time No Known Allergies Allergy Unverified 05/16/19 12:45 Home Medications Medication Instructions Recorded Confirmed Last Taken Type Losartan [Cozaar] 50 mg PO QDAY #30 tablet 10/08/19 05/31/21 Unknown Rx Metoprolol Tartrate 25 mg PO BID 10/08/19 05/31/21 10/08/19 10:00 History Aspirin EC [Halfprin EC] 81 mg PO QDAY #30 tablet. 06/01/21 04/17/22 04/15/22 08:45 Rx Losartan [Cozaar] 100 mg PO QDAY #30 06/01/21 04/17/22 04/15/22 09:00 Rx Meclizine [Antivert] 25 mg PO Q8H PRN #10 tablet 06/01/21 04/17/22 04/14/22 20:00 Rx Simvastatin 20 mg PO DAILY #30 tablet 06/01/21 04/17/22 04/15/22 09:00 Rx amLODIPine 10 mg PO DAILY #30 tab 06/01/21 04/17/22 04/15/22 09:00 Rx Active Meds: Active Medications Acetaminophen (Acetaminophen 325 Mg Tab) 650 mg PO Q4H PRN PRN Reason: Pain MILD(1-3)/Fever >100.5/CRUZ Heparin Sodium (Porcine) (Heparin 5,000 Unit/1 Ml Vial) 5,000 unit SUB-Q Q8HR EDGAR Last Admin: 04/17/22 13:03 Dose: 5,000 unit Sodium Chloride (Nacl 0.9% 1000 Ml) 1,000 mls @ 150 mls/hr IV DIRECT EDGAR Last Admin: 04/17/22 13:02 Dose: 150 mls/hr Magnesium Hydroxide (Magnesium Hydroxide (Mom) Oral Liqd Udc) 30 ml PO Q4H PRN PRN Reason: Constipation Morphine Sulfate (Morphine 2 Mg/1 Ml Inj) 2 mg IV Q4H PRN PRN Reason: Pain, Moderate (4-6) Morphine Sulfate (Morphine 4 Mg/1 Ml Inj) 4 mg IV Q4H PRN PRN Reason: Pain , Severe (7-10) Ondansetron HCl (Ondansetron 4 Mg/2 Ml Inj) 4 mg IV Q8H PRN PRN Reason: Nausea And Vomiting Sodium Chloride (Sodium Chloride 0.9% 10 Ml Flush Syringe) 10 ml IV BID EDGAR Last Admin: 04/17/22 13:01 Dose: 10 ml Sodium Chloride (Sodium Chloride 0.9% 10 Ml Flush Syringe) 10 ml IV PRN PRN PRN Reason: LINE FLUSH Exam - Vital Signs Vital signs: Vital Signs Pulse Resp BP Pulse Ox 102 H 18 157/104 98 04/16/22 18:45 04/16/22 18:45 04/16/22 18:45 04/16/22 18:45 Results - Lab Results 04/17/22 07:08 04/17/22 07:08 Most recent lab results Calcium 8.1 mg/dL (8.4-10.2) L 04/17/22 07:08
[2022-04-18] MEDS: SODIUM CHLORIDE 0.9% 1000 ML 1,000 ML IV SCH ×4 (01:07→22:16)
[2022-04-18] MEDS: HEPARIN 5,000 UNIT/1 ML VIAL SUB-Q SCH ×3 (06:38→22:15)
--- NOTE | 2022-04-18 10:17 | Progress Note ---
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 He was subsequently unable to get up from the floor. He denies any loss of consciousness, no head injury. The police had to force open the door after a welfare check. Work-up in the emergency room revealed chest x-ray that was unremarkable. X-ray of the hip and pelvis, tibia and fibula, x-ray of the femur were unremarkable. CT of the cervical spine was also unremarkable. Labs however revealed elevated BUN and creatinine, creatinine kinase of 4534 Acute kidney injury secondary to vasomotor nephropathy/dehydration Rhabdomyolysis Hypertension History of a fall 04/17/2022. Creatinine has improved but the CK remains about the same in the 4500 range. Continue IV fluid hydration. PT evaluation pending 04/18/2022. Creatinine and CK levels have improved. Continue IV fluid hydration. Nephrology consultation pending. Physical therapy recommends subacute rehab. History Interval history: No new issues overnight Hospitalist Physical - Constitutional Vitals: Temp Pulse Resp BP Pulse Ox 99.9 F H 85 20 119/81 99 04/18/22 05:29 04/18/22 05:29 04/18/22 05:29 04/18/22 05:29 04/18/22 05:29 General appearance: Present: no acute distress, well-nourished, other (Dry oral mucosa) - EENT Eyes: Present: PERRL, EOM intact ENT: hearing intact, clear oral mucosa, dentition normal - Neck Neck: Present: supple, normal ROM - Respiratory Respiratory effort: normal Respiratory: bilateral: CTA - Cardiovascular Rhythm: regular Heart Sounds: Present: S1 & S2. Absent: gallop, rub - Extremities Extremities: no ischemia, No edema, Full ROM - Abdominal General gastrointestinal: soft, non-tender, non-distended, normal bowel sounds - Integumentary Integumentary: Present: clear, warm, dry - Neurologic Neurologic: CNII-XII intact, moves all extremities HEART Score - HEART Score Troponin: Troponin T < 0.010 ng/mL (0.00-0.029) 04/16/22 20:50 Results - Labs CBC & Chem 7: 04/17/22 07:08 04/17/22 07:08 Labs: Laboratory Last Values WBC 5.5 K/mm3 (4.5-11.0) 04/17/22 07:08 RBC 4.99 M/mm3 (3.65-5.03) 04/17/22 07:08 Hgb 14.7 gm/dl (11.8-15.2) 04/17/22 07:08 Hct 45.9 % (35.5-45.6) H 04/17/22 07:08 MCV 92 fl (84-94) 04/17/22 07:08 MCH 30 pg (28-32) 04/17/22 07:08 MCHC 32 % (32-34) 04/17/22 07:08 RDW 13.7 % (13.2-15.2) 04/17/22 07:08 Plt Count 136 K/mm3 (140-440) L 04/17/22 07:08 Lymph % (Auto) 20.4 % (13.4-35.0) 04/17/22 07:08 [place] % (Auto) 11.8 % (0.0-7.3) H 04/17/22 07:08 Eos % (Auto) 0.0 % (0.0-4.3) 04/17/22 07:08 Baso % (Auto) 0.2 % (0.0-1.8) 04/17/22 07:08 Lymph # (Auto) 1.1 K/mm3 (1.2-5.4) L 04/17/22 07:08 [place] # (Auto) 0.6 K/mm3 (0.0-0.8) 04/17/22 07:08 Eos # (Auto) 0.0 K/mm3 (0.0-0.4) 04/17/22 07:08 Baso # (Auto) 0.0 K/mm3 (0.0-0.1) 04/17/22 07:08 Seg Neutrophils % 67.6 % (40.0-70.0) 04/17/22 07:08 Seg Neutrophils # 3.7 K/mm3 (1.8-7.7) 04/17/22 07:08 PT 13.6 Sec. (12.2-14.9) 04/16/22 20:50 INR 0.94 (0.87-1.13) 04/16/22 20:50 Sodium 141 mmol/L (137-145) 04/17/22 07:08 Potassium 3.9 mmol/L (3.6-5.0) 04/17/22 07:08 Chloride 105.0 mmol/L (98-107) 04/17/22 07:08 Carbon Dioxide 22 mmol/L (22-30) 04/17/22 07:08 Anion Gap 18 mmol/L 04/17/22 07:08 BUN 31 mg/dL (9-20) H 04/17/22 07:08 Creatinine 1.3 mg/dL (0.8-1.3) 04/17/22 07:08 Estimated GFR > 60 ml/min 04/17/22 07:08 BUN/Creatinine Ratio 24 % 04/17/22 07:08 Glucose 79 mg/dL (75-100) 04/17/22 07:08 Calcium 8.1 mg/dL (8.4-10.2) L 04/17/22 07:08 Total Creatine Kinase 2467 units/L (55-170) H 04/18/22 06:25 CK-MB (CK-2) 16.2 ng/mL (0.0-4.0) H 04/16/22 20:50 CK-MB (CK-2) Rel Index 0.3 (0-4) 04/16/22 20:50 Troponin T < 0.010 ng/mL (0.00-0.029) 04/16/22 20:50 TSH 1.910 mlU/mL (0.270-4.200) 04/16/22 20:50 Free T4 1.24 ng/dL (0.76-1.46) 04/16/22 20:50 Ma/IV: Voiding Method Incontinent Active Medications - Current Medications Current Medications: Generic Name Dose Route Start Last Admin Trade Name Freq PRN Reason Stop Dose Admin Acetaminophen 650 mg 04/16/22 23:27 Acetaminophen 325 Mg Tab PO Q4H PRN Pain MILD(1-3)/Fever >100.5/CRUZ Heparin Sodium (Porcine) 5,000 unit 04/17/22 06:00 04/18/22 06:38 Heparin 5,000 Unit/1 Ml Vial SUB-Q 5,000 unit Q8HR EDGAR Administration Sodium Chloride 1,000 mls @ 150 mls/hr 04/16/22 23:30 04/18/22 08:24 Nacl 0.9% 1000 Ml IV 150 mls/hr DIRECT EDGAR Administration Magnesium Hydroxide 30 ml 04/16/22 23:27 Magnesium Hydroxide (Mom) Oral Liqd Udc PO Q4H PRN Constipation Morphine Sulfate 2 mg 04/16/22 23:27 Morphine 2 Mg/1 Ml Inj IV Q4H PRN Pain, Moderate (4-6) Morphine Sulfate 4 mg 04/16/22 23:27 Morphine 4 Mg/1 Ml Inj IV Q4H PRN Pain , Severe (7-10) Ondansetron HCl 4 mg 04/16/22 23:27 Ondansetron 4 Mg/2 Ml Inj IV Q8H PRN Nausea And Vomiting Sodium Chloride 10 ml 04/17/22 10:00 04/17/22 21:18 Sodium Chloride 0.9% 10 Ml Flush Syringe IV 10 ml BID EDGAR Administration Sodium Chloride 10 ml 04/16/22 23:27 Sodium Chloride 0.9% 10 Ml Flush Syringe IV PRN PRN LINE FLUSH
--- NOTE | 2022-04-18 10:25 | Progress Note ---
Subjective Interval history: Assessment and plan #Acute kidney injury with low-grade rhabdomyolysis current creatinine is 1.3 acidosis has been corrected maintain hydration follow-up on serial CKs, no evidence to suggest rhabdomyolysis induced renal injury, CPK is trending down to 2467, thyroid profile is normal, Will continue to follow periodically, I have given him my card to make an appointment follow-up in the office upon discharge if there are any renal related issues in regards to this patient please feel free to reach out without any hesitation at [phone] We'll continue to follow and make recommendation for renal standpoint. Progress note by: Tal Murphy MD [address] [place] [id number] Tele [phone] [email or web address] Patient was seen today for follow-up of multiple renal related issues No complaints of any chest pain pressure or shortness of breath Interdisciplinary notes that also reviewed Events of 24 hours vitals labs intake output medications were reviewed Past medical history: Reviewed Family history: Reviewed Social history: Reviewed Allergies: Reviewed Physical examination: Vitals: Reviewed HEENT: No pallor or icterus oral mucosa moist Neck: Supple no JVD no thyromegaly Chest: Bilateral clear to auscultation anteriorly Heart: Regular rate and rhythm S1-S2 heard no S3-S4 Abdomen: Soft nontender no voluntary guarding rigidity rebound Extremity: Dry skin less than 1+ peripheral edema Psychiatric: No evidence of agitation and aggression noted Dermatology: No petechial rashes Labs and x-rays: Reviewed from today Objective - Vital Signs Vital signs: Vital Signs - 12hr 04/17/22 04/18/22 04/18/22 22:34 01:00 05:29 Temperature 99.8 F H 99.9 F H Pulse Rate 91 H 85 Respiratory 19 20 Rate Blood Pressure 109/85 119/81 O2 Sat by Pulse 98 98 99 Oximetry - Lab 04/17/22 07:08 04/17/22 07:08 Most recent lab results Calcium 8.1 mg/dL (8.4-10.2) L 04/17/22 07:08 Medications & Allergies - Medications Allergies/Adverse Reactions: Allergies No Known Allergies Allergy (Unverified 05/16/19 12:45) Home Medications: Home Medications Medication Instructions Recorded Confirmed Last Taken Type Losartan [Cozaar] 50 mg PO QDAY #30 tablet 10/08/19 05/31/21 Unknown Rx Metoprolol Tartrate 25 mg PO BID 10/08/19 05/31/21 10/08/19 10:00 History Aspirin EC [Halfprin EC] 81 mg PO QDAY #30 tablet. 06/01/21 04/17/22 04/15/22 08:45 Rx Losartan [Cozaar] 100 mg PO QDAY #30 06/01/21 04/17/22 04/15/22 09:00 Rx Meclizine [Antivert] 25 mg PO Q8H PRN #10 tablet 06/01/21 04/17/22 04/14/22 20:00 Rx Simvastatin 20 mg PO DAILY #30 tablet 06/01/21 04/17/22 04/15/22 09:00 Rx amLODIPine 10 mg PO DAILY #30 tab 06/01/21 04/17/22 04/15/22 09:00 Rx Active Medications: Generic Name Dose Route Start Last Admin Trade Name Freq PRN Reason Stop Dose Admin Acetaminophen 650 mg 04/16/22 23:27 Acetaminophen 325 Mg Tab PO Q4H PRN Pain MILD(1-3)/Fever >100.5/CRUZ Heparin Sodium (Porcine) 5,000 unit 04/17/22 06:00 04/18/22 06:38 Heparin 5,000 Unit/1 Ml Vial SUB-Q 5,000 unit Q8HR EDGAR Administration Sodium Chloride 1,000 mls @ 150 mls/hr 04/16/22 23:30 04/18/22 08:24 Nacl 0.9% 1000 Ml IV 150 mls/hr DIRECT EDGAR Administration Magnesium Hydroxide 30 ml 04/16/22 23:27 Magnesium Hydroxide (Mom) Oral Liqd Udc PO Q4H PRN Constipation Morphine Sulfate 2 mg 04/16/22 23:27 Morphine 2 Mg/1 Ml Inj IV Q4H PRN Pain, Moderate (4-6) Morphine Sulfate 4 mg 04/16/22 23:27 Morphine 4 Mg/1 Ml Inj IV Q4H PRN Pain , Severe (7-10) Ondansetron HCl 4 mg 04/16/22 23:27 Ondansetron 4 Mg/2 Ml Inj IV Q8H PRN Nausea And Vomiting Sodium Chloride 10 ml 04/17/22 10:00 04/17/22 21:18 Sodium Chloride 0.9% 10 Ml Flush Syringe IV 10 ml BID EDGAR Administration Sodium Chloride 10 ml 04/16/22 23:27 Sodium Chloride 0.9% 10 Ml Flush Syringe IV PRN PRN LINE FLUSH
[2022-04-18 11:32] LABS: Basophils % (Auto) 0.5 % (0.0-1.8); Eosinophils % (Auto) 0.1 % (0.0-4.3); Hematocrit 36.9 % (35.5-45.6); Hemoglobin 12.5 gm/dl (11.8-15.2); Lymphocytes # (Auto) 1.2 K/mm3 (1.2-5.4); Lymphocytes % (Auto) 27.2 % (13.4-35.0); Mean Corpuscular HGB Conc 34 % (32-34); Mean Corpuscular Volume 91 fl (84-94); Monocytes # (Auto) 0.6 K/mm3 (0.0-0.8); Platelet Count 115 K/mm3 (140-440); Red Blood Count 4.06 M/mm3 (3.65-5.03); Red Cell Distribution Width 13.7 % (13.2-15.2)
[2022-04-18 12:50] LABS: BUN/Creatinine Ratio 15; Blood Urea Nitrogen 15 mg/dL (9-20); Hemolysis Index 6
[2022-04-19] MEDS: HEPARIN 5,000 UNIT/1 ML VIAL SUB-Q SCH ×3 (05:26→21:49)
[2022-04-19] MEDS: SODIUM CHLORIDE 0.9% 1000 ML 1,000 ML IV SCH ×3 (05:27→20:28)
[2022-04-19] MEDS: ACETAMINOPHEN 325 MG TAB PO PRN (06:16)
[2022-04-19 07:30] LABS: Basophils % (Auto) 0.2 % (0.0-1.8); Eosinophils % (Auto) 0.4 % (0.0-4.3); Hematocrit 36.9 % (35.5-45.6); Hemoglobin 12.5 gm/dl (11.8-15.2); Lymphocytes # (Auto) 1.5 K/mm3 (1.2-5.4); Lymphocytes % (Auto) 31.3 % (13.4-35.0); Mean Corpuscular HGB Conc 34 % (32-34); Mean Corpuscular Volume 91 fl (84-94); Monocytes # (Auto) 0.5 K/mm3 (0.0-0.8); Monocytes % (Auto) 11.1 % (0.0-7.3); Platelet Count 116 K/mm3 (140-440); Red Blood Count 4.07 M/mm3 (3.65-5.03); Red Cell Distribution Width 13.5 % (13.2-15.2)
[2022-04-19 07:50] LABS: Blood Urea Nitrogen 7 mg/dL (9-20); Calcium 7.5 mg/dL (8.4-10.2); Hemolysis Index 11
[2022-04-19 07:55] LABS: BUN/Creatinine Ratio 10
--- NOTE | 2022-04-19 10:49 | Progress Note ---
Subjective Interval history: Assessment and plan #Acute kidney injury with low-grade rhabdomyolysis current creatinine is 1.3 acidosis has been corrected maintain hydration follow-up on serial CKs, no evidence to suggest rhabdomyolysis induced renal injury, CPK is trending down to 2467, thyroid profile is normal, As of today creatinine improved further to 0.7 potassium 3.3 bicarbonate is corrected hemoglobin normal Will continue to follow periodically, I have given him my card to make an appointment follow-up in the office upon discharge If there are any renal related issues in regards to this patient please feel free to reach out without any hesitation at [phone] We'll continue to follow and make recommendation for renal standpoint. Progress note by: Tal Murpyh MD [address] [place] [address] Tele [phone] [email or web address] Patient was seen today for follow-up of multiple renal related issues No complaints of any chest pain pressure or shortness of breath Interdisciplinary notes that also reviewed Events of 24 hours vitals labs intake output medications were reviewed Past medical history: Reviewed Family history: Reviewed Social history: Reviewed Allergies: Reviewed Physical examination: Vitals: Reviewed HEENT: No pallor or icterus oral mucosa moist Neck: Supple no JVD no thyromegaly Chest: Bilateral clear to auscultation anteriorly Heart: Regular rate and rhythm S1-S2 heard no S3-S4 Abdomen: Soft nontender no voluntary guarding rigidity rebound Extremity: Dry skin less than 1+ peripheral edema Psychiatric: No evidence of agitation and aggression noted Dermatology: No petechial rashes Labs and x-rays: Reviewed from today Objective - Vital Signs Vital signs: Vital Signs - 12hr 04/19/22 04/19/22 04/19/22 01:00 03:44 08:21 Temperature 100.5 F H Pulse Rate 75 Respiratory 18 Rate Blood Pressure 144/88 O2 Sat by Pulse 98 99 98 Oximetry - Lab 04/19/22 05:31 04/19/22 05:31 Most recent lab results Calcium 7.5 mg/dL (8.4-10.2) L 04/19/22 05:31 Medications & Allergies - Medications Allergies/Adverse Reactions: Allergies No Known Allergies Allergy (Unverified 05/16/19 12:45) Home Medications: Home Medications Medication Instructions Recorded Confirmed Last Taken Type Losartan [Cozaar] 50 mg PO QDAY #30 tablet 10/08/19 05/31/21 Unknown Rx Metoprolol Tartrate 25 mg PO BID 10/08/19 05/31/21 10/08/19 10:00 History Aspirin EC [Halfprin EC] 81 mg PO QDAY #30 tablet. 06/01/21 04/17/22 04/15/22 08:45 Rx Losartan [Cozaar] 100 mg PO QDAY #30 06/01/21 04/17/22 04/15/22 09:00 Rx Meclizine [Antivert] 25 mg PO Q8H PRN #10 tablet 06/01/21 04/17/22 04/14/22 20:00 Rx Simvastatin 20 mg PO DAILY #30 tablet 06/01/21 04/17/22 04/15/22 09:00 Rx amLODIPine 10 mg PO DAILY #30 tab 06/01/21 04/17/22 04/15/22 09:00 Rx Active Medications: Generic Name Dose Route Start Last Admin Trade Name Freq PRN Reason Stop Dose Admin Acetaminophen 650 mg 04/16/22 23:27 04/19/22 06:16 Acetaminophen 325 Mg Tab PO 650 mg Q4H PRN Administration Pain MILD(1-3)/Fever >100.5/CRUZ Heparin Sodium (Porcine) 5,000 unit 04/17/22 06:00 04/19/22 05:26 Heparin 5,000 Unit/1 Ml Vial SUB-Q 5,000 unit Q8HR EDGAR Administration Sodium Chloride 1,000 mls @ 150 mls/hr 04/16/22 23:30 04/19/22 05:27 Nacl 0.9% 1000 Ml IV 150 mls/hr DIRECT EDGAR Administration Magnesium Hydroxide 30 ml 04/16/22 23:27 Magnesium Hydroxide (Mom) Oral Liqd Udc PO Q4H PRN Constipation Morphine Sulfate 2 mg 04/16/22 23:27 Morphine 2 Mg/1 Ml Inj IV Q4H PRN Pain, Moderate (4-6) Morphine Sulfate 4 mg 04/16/22 23:27 Morphine 4 Mg/1 Ml Inj IV Q4H PRN Pain , Severe (7-10) Ondansetron HCl 4 mg 04/16/22 23:27 Ondansetron 4 Mg/2 Ml Inj IV Q8H PRN Nausea And Vomiting Sodium Chloride 10 ml 04/17/22 10:00 04/18/22 22:18 Sodium Chloride 0.9% 10 Ml Flush Syringe IV 10 ml BID EDGAR Administration Sodium Chloride 10 ml 04/16/22 23:27 Sodium Chloride 0.9% 10 Ml Flush Syringe IV PRN PRN LINE FLUSH
--- NOTE | 2022-04-19 11:23 | Progress Note ---
Assessment and Plan Assessment and plan: 72-year-old -Green[place] male with known history of hypertension and who lives by himself presents to the emergency room today complaining of bilateral hip pain after having a fall about 4 days ago [employer]. 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 He was subsequently unable to get up from the floor. He denies any loss of consciousness, no head injury. The police had to force open the door after a welfare check. Work-up in the emergency room revealed chest x-ray that was unremarkable. X-ray of the hip and pelvis, tibia and fibula, x-ray of the femur were unremarkable. CT of the cervical spine was also unremarkable. Labs however revealed elevated BUN and creatinine, creatinine kinase of 4534 Acute kidney injury secondary to vasomotor nephropathy/dehydration Rhabdomyolysis Hypertension History of a fall 04/17/2022. Creatinine has improved but the CK remains about the same in the 4500 range. Continue IV fluid hydration. PT evaluation pending 04/18/2022. Creatinine and CK levels have improved. Continue IV fluid hydration. Nephrology consultation pending. Physical therapy recommends subacute rehab. 04/19/2022. CK in the 1200s. Continue IV fluid hydration. Nephrology following. Await subacute rehab placement. History Interval history: No new issues overnight Hospitalist Physical - Constitutional Vitals: Temp Pulse Resp BP Pulse Ox 100.5 F H 75 18 144/88 98 04/19/22 03:44 04/19/22 03:44 04/19/22 03:44 04/19/22 03:44 04/19/22 08:21 General appearance: Present: no acute distress, well-nourished, other (Dry oral mucosa) - EENT Eyes: Present: PERRL, EOM intact ENT: hearing intact, clear oral mucosa, dentition normal - Neck Neck: Present: supple, normal ROM - Respiratory Respiratory effort: normal Respiratory: bilateral: CTA - Cardiovascular Rhythm: regular Heart Sounds: Present: S1 & S2. Absent: gallop, rub - Extremities Extremities: no ischemia, No edema, Full ROM - Abdominal General gastrointestinal: soft, non-tender, non-distended, normal bowel sounds - Integumentary Integumentary: Present: clear, warm, dry - Neurologic Neurologic: CNII-XII intact, moves all extremities HEART Score - HEART Score Troponin: Troponin T < 0.010 ng/mL (0.00-0.029) 04/16/22 20:50 Results - Labs CBC & Chem 7: 04/19/22 05:31 04/19/22 05:31 Labs: Laboratory Last Values WBC 4.7 K/mm3 (4.5-11.0) 04/19/22 05:31 RBC 4.07 M/mm3 (3.65-5.03) 04/19/22 05:31 Hgb 12.5 gm/dl (11.8-15.2) 04/19/22 05:31 Hct 36.9 % (35.5-45.6) 04/19/22 05:31 MCV 91 fl (84-94) 04/19/22 05:31 MCH 31 pg (28-32) 04/19/22 05:31 MCHC 34 % (32-34) 04/19/22 05:31 RDW 13.5 % (13.2-15.2) 04/19/22 05:31 Plt Count 116 K/mm3 (140-440) L 04/19/22 05:31 Lymph % (Auto) 31.3 % (13.4-35.0) 04/19/22 05:31 Ector % (Auto) 11.1 % (0.0-7.3) H 04/19/22 05:31 Eos % (Auto) 0.4 % (0.0-4.3) 04/19/22 05:31 Baso % (Auto) 0.2 % (0.0-1.8) 04/19/22 05:31 Lymph # (Auto) 1.5 K/mm3 (1.2-5.4) 04/19/22 05:31 Ector # (Auto) 0.5 K/mm3 (0.0-0.8) 04/19/22 05:31 Eos # (Auto) 0.0 K/mm3 (0.0-0.4) 04/19/22 05:31 Baso # (Auto) 0.0 K/mm3 (0.0-0.1) 04/19/22 05:31 Seg Neutrophils % 57.0 % (40.0-70.0) 04/19/22 05:31 Seg Neutrophils # 2.7 K/mm3 (1.8-7.7) 04/19/22 05:31 PT 13.6 Sec. (12.2-14.9) 04/16/22 20:50 INR 0.94 (0.87-1.13) 04/16/22 20:50 Sodium 140 mmol/L (137-145) 04/19/22 05:31 Potassium 3.3 mmol/L (3.6-5.0) L 04/19/22 05:31 Chloride 106.8 mmol/L (98-107) 04/19/22 05:31 Carbon Dioxide 25 mmol/L (22-30) 04/19/22 05:31 Anion Gap 12 mmol/L 04/19/22 05:31 BUN 7 mg/dL (9-20) L 04/19/22 05:31 Creatinine 0.7 mg/dL (0.8-1.3) L 04/19/22 05:31 Estimated GFR > 60 ml/min 04/19/22 05:31 BUN/Creatinine Ratio 10 % 04/19/22 05:31 Glucose 81 mg/dL (75-100) 04/19/22 05:31 Calcium 7.5 mg/dL (8.4-10.2) L 04/19/22 05:31 Total Creatine Kinase 1221 units/L (55-170) H 04/19/22 05:31 CK-MB (CK-2) 16.2 ng/mL (0.0-4.0) H 04/16/22 20:50 CK-MB (CK-2) Rel Index 0.3 (0-4) 04/16/22 20:50 Troponin T < 0.010 ng/mL (0.00-0.029) 04/16/22 20:50 TSH 1.910 mlU/mL (0.270-4.200) 04/16/22 20:50 Free T4 1.24 ng/dL (0.76-1.46) 04/16/22 20:50 Ma/IV: Voiding Method Condom Catheter Active Medications - Current Medications Current Medications: Generic Name Dose Route Start Last Admin Trade Name Freq PRN Reason Stop Dose Admin Acetaminophen 650 mg 04/16/22 23:27 04/19/22 06:16 Acetaminophen 325 Mg Tab PO 650 mg Q4H PRN Administration Pain MILD(1-3)/Fever >100.5/CRUZ Heparin Sodium (Porcine) 5,000 unit 04/17/22 06:00 04/19/22 05:26 Heparin 5,000 Unit/1 Ml Vial SUB-Q 5,000 unit Q8HR EDGAR Administration Sodium Chloride 1,000 mls @ 150 mls/hr 04/16/22 23:30 04/19/22 05:27 Nacl 0.9% 1000 Ml IV 150 mls/hr DIRECT EDGAR Administration Magnesium Hydroxide 30 ml 04/16/22 23:27 Magnesium Hydroxide (Mom) Oral Liqd Udc PO Q4H PRN Constipation Morphine Sulfate 2 mg 04/16/22 23:27 Morphine 2 Mg/1 Ml Inj IV Q4H PRN Pain, Moderate (4-6) Morphine Sulfate 4 mg 04/16/22 23:27 Morphine 4 Mg/1 Ml Inj IV Q4H PRN Pain , Severe (7-10) Ondansetron HCl 4 mg 04/16/22 23:27 Ondansetron 4 Mg/2 Ml Inj IV Q8H PRN Nausea And Vomiting Sodium Chloride 10 ml 04/17/22 10:00 04/18/22 22:18 Sodium Chloride 0.9% 10 Ml Flush Syringe IV 10 ml BID EDGAR Administration Sodium Chloride 10 ml 04/16/22 23:27 Sodium Chloride 0.9% 10 Ml Flush Syringe IV PRN PRN LINE FLUSH
[2022-04-20] MEDS: HEPARIN 5,000 UNIT/1 ML VIAL SUB-Q SCH ×3 (06:19→22:17)
[2022-04-20 06:26] LABS: Basophils % (Auto) 0.3 % (0.0-1.8); Eosinophils % (Auto) 0.4 % (0.0-4.3); Hematocrit 37.3 % (35.5-45.6); Hemoglobin 12.6 gm/dl (11.8-15.2); Lymphocytes # (Auto) 1.5 K/mm3 (1.2-5.4); Lymphocytes % (Auto) 26.8 % (13.4-35.0); Mean Corpuscular HGB Conc 34 % (32-34); Mean Corpuscular Volume 90 fl (84-94); Monocytes # (Auto) 0.6 K/mm3 (0.0-0.8); Platelet Count 137 K/mm3 (140-440); Red Blood Count 4.12 M/mm3 (3.65-5.03); Red Cell Distribution Width 13.5 % (13.2-15.2)
[2022-04-20 06:47] LABS: BUN/Creatinine Ratio 8; Blood Urea Nitrogen 6 mg/dL (9-20); Calcium 7.7 mg/dL (8.4-10.2); Hemolysis Index 8
--- NOTE | 2022-04-20 07:44 | Progress Note ---
Subjective Interval history: Assessment and plan #Acute kidney injury with low-grade rhabdomyolysis current creatinine is 1.3 acidosis has been corrected maintain hydration follow-up on serial CKs, no evidence to suggest rhabdomyolysis induced renal injury, CPK is trending down to 2467, thyroid profile is normal, #Hypokalemia Discontinue IV fluid, give potassium supplementation as well as spironolactone, Will continue to follow periodically, I have given him my card to make an appointment follow-up in the office upon discharge If there are any renal related issues in regards to this patient please feel free to reach out without any hesitation at [phone] We'll continue to follow and make recommendation for renal standpoint. Progress note by: Tal Murphy MD [address] [place] [address] Tele [phone] [email or web address] Patient was seen today for follow-up of multiple renal related issues Interdisciplinary notes that also reviewed Events of 24 hours vitals labs intake output medications were reviewed Past medical history: Reviewed Family history: Reviewed Social history: Reviewed Allergies: Reviewed Physical examination: Vitals: Reviewed HEENT: No pallor or icterus oral mucosa moist Neck: Supple no JVD no thyromegaly Chest: Bilateral clear to auscultation anteriorly Heart: Regular rate and rhythm S1-S2 heard no S3-S4 Abdomen: Soft nontender no voluntary guarding rigidity rebound Extremity: Dry skin less than 1+ peripheral edema Psychiatric: No evidence of agitation and aggression noted Dermatology: No petechial rashes Labs and x-rays: Reviewed from today Objective - Vital Signs Vital signs: Vital Signs - 12hr 04/19/22 04/19/22 04/20/22 20:53 22:32 05:28 Temperature 99.7 F H 98.3 F Pulse Rate 91 H 97 H Respiratory 20 20 Rate Blood Pressure 142/93 139/93 O2 Sat by Pulse 97 99 95 Oximetry - Lab 04/20/22 05:56 04/20/22 05:56 Most recent lab results Calcium 7.7 mg/dL (8.4-10.2) L 04/20/22 05:56 Medications & Allergies - Medications Allergies/Adverse Reactions: Allergies No Known Allergies Allergy (Unverified 05/16/19 12:45) Home Medications: Home Medications Medication Instructions Recorded Confirmed Last Taken Type Losartan [Cozaar] 50 mg PO QDAY #30 tablet 10/08/19 05/31/21 Unknown Rx Metoprolol Tartrate 25 mg PO BID 10/08/19 05/31/21 10/08/19 10:00 History Aspirin EC [Halfprin EC] 81 mg PO QDAY #30 tablet. 06/01/21 04/17/22 04/15/22 08:45 Rx Losartan [Cozaar] 100 mg PO QDAY #30 06/01/21 04/17/22 04/15/22 09:00 Rx Meclizine [Antivert] 25 mg PO Q8H PRN #10 tablet 06/01/21 04/17/22 04/14/22 20:00 Rx Simvastatin 20 mg PO DAILY #30 tablet 06/01/21 04/17/22 04/15/22 09:00 Rx amLODIPine 10 mg PO DAILY #30 tab 06/01/21 04/17/22 04/15/22 09:00 Rx Active Medications: Generic Name Dose Route Start Last Admin Trade Name Freq PRN Reason Stop Dose Admin Acetaminophen 650 mg 04/16/22 23:27 04/19/22 06:16 Acetaminophen 325 Mg Tab PO 650 mg Q4H PRN Administration Pain MILD(1-3)/Fever >100.5/CRUZ Heparin Sodium (Porcine) 5,000 unit 04/17/22 06:00 04/20/22 06:19 Heparin 5,000 Unit/1 Ml Vial SUB-Q 5,000 unit Q8HR EDGAR Administration Sodium Chloride 1,000 mls @ 150 mls/hr 04/16/22 23:30 04/19/22 20:28 Nacl 0.9% 1000 Ml IV 150 mls/hr DIRECT EDGAR Administration Magnesium Hydroxide 30 ml 04/16/22 23:27 Magnesium Hydroxide (Mom) Oral Liqd Udc PO Q4H PRN Constipation Morphine Sulfate 2 mg 04/16/22 23:27 Morphine 2 Mg/1 Ml Inj IV Q4H PRN Pain, Moderate (4-6) Morphine Sulfate 4 mg 04/16/22 23:27 Morphine 4 Mg/1 Ml Inj IV Q4H PRN Pain , Severe (7-10) Ondansetron HCl 4 mg 04/16/22 23:27 Ondansetron 4 Mg/2 Ml Inj IV Q8H PRN Nausea And Vomiting Sodium Chloride 10 ml 04/17/22 10:00 04/19/22 21:50 Sodium Chloride 0.9% 10 Ml Flush Syringe IV 10 ml BID EDGAR Administration Sodium Chloride 10 ml 04/16/22 23:27 Sodium Chloride 0.9% 10 Ml Flush Syringe IV PRN PRN LINE FLUSH
[2022-04-20] MEDS ORDERED: POTASSIUM CHLORIDE ER 20 MEQ TAB PO SCH (08:00)
[2022-04-20] MEDS: SPIRONOLACTONE 25 MG TAB PO SCH (10:43)
[2022-04-21] MEDS: HEPARIN 5,000 UNIT/1 ML VIAL SUB-Q SCH ×3 (05:29→21:48)
--- NOTE | 2022-04-21 09:29 | Progress Note ---
Assessment and Plan Assessment and plan: 72-year-old -[place] male with known history of hypertension and who lives by himself presents to the emergency room today complaining of bilateral hip pain after having a fall about 4 days ago [employer]. 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 He was subsequently unable to get up from the floor. He denies any loss of consciousness, no head injury. The police had to force open the door after a welfare check. Work-up in the emergency room revealed chest x-ray that was unremarkable. X-ray of the hip and pelvis, tibia and fibula, x-ray of the femur were unremarkable. CT of the cervical spine was also unremarkable. Labs however revealed elevated BUN and creatinine, creatinine kinase of 4534 Acute kidney injury secondary to vasomotor nephropathy/dehydration Rhabdomyolysis Hypokalemia Hypertension History of a fall 04/17/2022. Creatinine has improved but the CK remains about the same in the 4500 range. Continue IV fluid hydration. PT evaluation pending 04/18/2022. Creatinine and CK levels have improved. Continue IV fluid hyd ration. Nephrology consultation pending. Physical therapy recommends subacute rehab. 04/19/2022. CK in the 1200s. Continue IV fluid hydration. Nephrology following. Await subacute rehab placement. 04/20/2022. Continue IV fluid hydration. Await subacute rehab placement. Will discuss with case management in a.m. 04/21/2022. Replete potassium. Will discuss with case management acute rehab placement. Follow-up CK levels. Continue IV fluid hydration History Interval history: No new issues overnight Hospitalist Physical - Constitutional Vitals: Temp Pulse Resp BP Pulse Ox 99.4 F 90 20 124/99 99 04/21/22 05:39 04/21/22 05:39 04/21/22 05:39 04/21/22 05:39 04/21/22 05:39 General appearance: Present: no acute distress, well-nourished, other (Dry oral mucosa) - EENT Eyes: Present: PERRL, EOM intact ENT: hearing intact, clear oral mucosa, dentition normal - Neck Neck: Present: supple, normal ROM - Respiratory Respiratory effort: normal Respiratory: bilateral: CTA - Cardiovascular Rhythm: regular Heart Sounds: Present: S1 & S2. Absent: gallop, rub - Extremities Extremities: no ischemia, No edema, Full ROM - Abdominal General gastrointestinal: soft, non-tender, non-distended, normal bowel sounds - Integumentary Integumentary: Present: clear, warm, dry - Neurologic Neurologic: CNII-XII intact, moves all extremities HEART Score - HEART Score Troponin: Troponin T < 0.010 ng/mL (0.00-0.029) 04/16/22 20:50 Results - Labs CBC & Chem 7: 04/20/22 05:56 04/20/22 05:56 Labs: Laboratory Last Values WBC 5.6 K/mm3 (4.5-11.0) 04/20/22 05:56 RBC 4.12 M/mm3 (3.65-5.03) 04/20/22 05:56 Hgb 12.6 gm/dl (11.8-15.2) 04/20/22 05:56 Hct 37.3 % (35.5-45.6) 04/20/22 05:56 MCV 90 fl (84-94) 04/20/22 05:56 MCH 31 pg (28-32) 04/20/22 05:56 MCHC 34 % (32-34) 04/20/22 05:56 RDW 13.5 % (13.2-15.2) 04/20/22 05:56 Plt Count 137 K/mm3 (140-440) L 04/20/22 05:56 Lymph % (Auto) 26.8 % (13.4-35.0) 04/20/22 05:56 Hitchcock % (Auto) 10.0 % (0.0-7.3) H 04/20/22 05:56 Eos % (Auto) 0.4 % (0.0-4.3) 04/20/22 05:56 Baso % (Auto) 0.3 % (0.0-1.8) 04/20/22 05:56 Lymph # (Auto) 1.5 K/mm3 (1.2-5.4) 04/20/22 05:56 Hitchcock # (Auto) 0.6 K/mm3 (0.0-0.8) 04/20/22 05:56 Eos # (Auto) 0.0 K/mm3 (0.0-0.4) 04/20/22 05:56 Baso # (Auto) 0.0 K/mm3 (0.0-0.1) 04/20/22 05:56 Seg Neutrophils % 62.5 % (40.0-70.0) 04/20/22 05:56 Seg Neutrophils # 3.5 K/mm3 (1.8-7.7) 04/20/22 05:56 PT 13.6 Sec. (12.2-14.9) 04/16/22 20:50 INR 0.94 (0.87-1.13) 04/16/22 20:50 Sodium 135 mmol/L (137-145) L 04/20/22 05:56 Potassium 3.1 mmol/L (3.6-5.0) L 04/20/22 05:56 Chloride 101.4 mmol/L (98-107) 04/20/22 05:56 Carbon Dioxide 25 mmol/L (22-30) 04/20/22 05:56 Anion Gap 12 mmol/L 04/20/22 05:56 BUN 6 mg/dL (9-20) L 04/20/22 05:56 Creatinine 0.8 mg/dL (0.8-1.3) 04/20/22 05:56 Estimated GFR > 60 ml/min 04/20/22 05:56 BUN/Creatinine Ratio 8 % 04/20/22 05:56 Glucose 88 mg/dL (75-100) 04/20/22 05:56 Calcium 7.7 mg/dL (8.4-10.2) L 04/20/22 05:56 Total Creatine Kinase 1221 units/L (55-170) H 04/19/22 05:31 CK-MB (CK-2) 16.2 ng/mL (0.0-4.0) H 04/16/22 20:50 CK-MB (CK-2) Rel Index 0.3 (0-4) 04/16/22 20:50 Troponin T < 0.010 ng/mL (0.00-0.029) 04/16/22 20:50 TSH 1.910 mlU/mL (0.270-4.200) 04/16/22 20:50 Free T4 1.24 ng/dL (0.76-1.46) 04/16/22 20:50 Ma/IV: Voiding Method Condom Catheter Active Medications - Current Medications Current Medications: Generic Name Dose Route Start Last Admin Trade Name Freq PRN Reason Stop Dose Admin Acetaminophen 650 mg 04/16/22 23:27 04/19/22 06:16 Acetaminophen 325 Mg Tab PO 650 mg Q4H PRN Administration Pain MILD(1-3)/Fever >100.5/CRUZ Heparin Sodium (Porcine) 5,000 unit 04/17/22 06:00 04/21/22 05:29 Heparin 5,000 Unit/1 Ml Vial SUB-Q 5,000 unit Q8HR EDGAR Administration Magnesium Hydroxide 30 ml 04/16/22 23:27 Magnesium Hydroxide (Mom) Oral Liqd Udc PO Q4H PRN Constipation Morphine Sulfate 2 mg 04/16/22 23:27 Morphine 2 Mg/1 Ml Inj IV Q4H PRN Pain, Moderate (4-6) Morphine Sulfate 4 mg 04/16/22 23:27 Morphine 4 Mg/1 Ml Inj IV Q4H PRN Pain , Severe (7-10) Ondansetron HCl 4 mg 04/16/22 23:27 Ondansetron 4 Mg/2 Ml Inj IV Q8H PRN Nausea And Vomiting Sodium Chloride 10 ml 04/17/22 10:00 04/20/22 22:18 Sodium Chloride 0.9% 10 Ml Flush Syringe IV 10 ml BID EDGAR Administration Sodium Chloride 10 ml 04/16/22 23:27 Sodium Chloride 0.9% 10 Ml Flush Syringe IV PRN PRN LINE FLUSH Spironolactone 25 mg 04/20/22 10:00 04/20/22 10:43 Spironolactone 25 Mg Tab PO 25 mg QDAY EDGAR Administration
--- NOTE | 2022-04-21 09:38 | Progress Note ---
Assessment and Plan Impression: * Acute kidney injury secondary to prerenal azotemia due to volume depletion * Rhabdomyolysis * Hypokalemia * Hypertension Plan: * Renal function is stable - continue conservative management * Patient w/ worsening hypoK despite KCl 40meq yesterday. Note order for KCl 40meq x 1 dose. Will order an additional dose this afternoon * Will check Mg - replete prn * Dose medications for renal function * Avoid potential nephrotoxins Subjective Date of service: 04/21/22 Interval history: Patient has no complaints today Objective - Vital Signs Vital signs: Vital Signs - 12hr 04/20/22 04/21/22 04/21/22 22:50 01:00 05:39 Temperature 99.4 F 99.4 F Pulse Rate 100 H 90 Respiratory 20 20 Rate Blood Pressure 126/87 124/99 [Left] O2 Sat by Pulse 95 95 99 Oximetry - General Appearance General appearance: well-developed, well-nourished EENT: ATNC Respiratory: Present: Clear to Ascultation Cardiology: regular, S1S2 Gastrointestinal: normal Integumentary: no rash, warm and dry Psychiatric: cooperative - Lab 04/20/22 05:56 04/20/22 05:56 Most recent lab results Calcium 7.7 mg/dL (8.4-10.2) L 04/20/22 05:56 Medications & Allergies - Medications Allergies/Adverse Reactions: Allergies No Known Allergies Allergy (Unverified 05/16/19 12:45) Home Medications: Home Medications Medication Instructions Recorded Confirmed Last Taken Type RX: Losartan [Cozaar] 50 mg PO QDAY #30 tablet 10/08/19 05/31/21 Unknown Rx RX: Metoprolol Tartrate 25 mg PO BID 10/08/19 05/31/21 10/08/19 10:00 History RX: Aspirin EC [Halfprin EC] 81 mg PO QDAY #30 tablet. 06/01/21 04/17/22 04/15/22 08:45 Rx RX: Losartan [Cozaar] 100 mg PO QDAY #30 06/01/21 04/17/22 04/15/22 09:00 Rx RX: Meclizine [Antivert] 25 mg PO Q8H PRN #10 tablet 06/01/21 04/17/22 04/14/22 20:00 Rx RX: Simvastatin 20 mg PO DAILY #30 tablet 06/01/21 04/17/22 04/15/22 09:00 Rx RX: amLODIPine 10 mg PO DAILY #30 tab 06/01/21 04/17/22 04/15/22 09:00 Rx Active Medications: Generic Name Dose Route Start Last Admin Trade Name Freq PRN Reason Stop Dose Admin Acetaminophen 650 mg 04/16/22 23:27 04/19/22 06:16 Acetaminophen 325 Mg Tab PO 650 mg Q4H PRN Administration Pain MILD(1-3)/Fever >100.5/CRUZ Heparin Sodium (Porcine) 5,000 unit 04/17/22 06:00 04/21/22 05:29 Heparin 5,000 Unit/1 Ml Vial SUB-Q 5,000 unit Q8HR EDGAR Administration Magnesium Hydroxide 30 ml 04/16/22 23:27 Magnesium Hydroxide (Mom) Oral Liqd Udc PO Q4H PRN Constipation Morphine Sulfate 2 mg 04/16/22 23:27 Morphine 2 Mg/1 Ml Inj IV Q4H PRN Pain, Moderate (4-6) Morphine Sulfate 4 mg 04/16/22 23:27 Morphine 4 Mg/1 Ml Inj IV Q4H PRN Pain , Severe (7-10) Ondansetron HCl 4 mg 04/16/22 23:27 Ondansetron 4 Mg/2 Ml Inj IV Q8H PRN Nausea And Vomiting Potassium Chloride 40 meq 04/21/22 10:00 Potassium Chloride Er 20 Meq Tab PO 04/21/22 14:00 ONCE@1000 EDGAR Sodium Chloride 10 ml 04/17/22 10:00 04/20/22 22:18 Sodium Chloride 0.9% 10 Ml Flush Syringe IV 10 ml BID EDGAR Administration Sodium Chloride 10 ml 04/16/22 23:27 Sodium Chloride 0.9% 10 Ml Flush Syringe IV PRN PRN LINE FLUSH Spironolactone 25 mg 04/20/22 10:00 04/20/22 10:43 Spironolactone 25 Mg Tab PO 25 mg QDAY EDGAR Administration
[2022-04-21] MEDS ORDERED: POTASSIUM CHLORIDE ER 20 MEQ TAB PO SCH (10:00)
[2022-04-21] MEDS ORDERED: POTASSIUM CHLORIDE ER 20 MEQ TAB PO NR ×2 (10:00→12:00)
[2022-04-21] MEDS: SPIRONOLACTONE 25 MG TAB PO SCH (11:54)
[2022-04-21] MEDS: ACETAMINOPHEN 325 MG TAB PO PRN (18:41)
[2022-04-22] MEDS: HEPARIN 5,000 UNIT/1 ML VIAL SUB-Q SCH ×3 (05:41→21:08)
[2022-04-22 07:22] LABS: Basophils % (Auto) 0.3 % (0.0-1.8); Eosinophils # (Auto) 0.1 K/mm3 (0.0-0.4); Eosinophils % (Auto) 0.6 % (0.0-4.3); Hematocrit 36.8 % (35.5-45.6); Hemoglobin 12.5 gm/dl (11.8-15.2); Lymphocytes # (Auto) 1.3 K/mm3 (1.2-5.4); Lymphocytes % (Auto) 13.1 % (13.4-35.0); Mean Corpuscular HGB Conc 34 % (32-34); Mean Corpuscular Volume 90 fl (84-94); Monocytes % (Auto) 10.3 % (0.0-7.3); Platelet Count 201 K/mm3 (140-440); Red Blood Count 4.08 M/mm3 (3.65-5.03); Red Cell Distribution Width 13.4 % (13.2-15.2)
[2022-04-22 07:42] LABS: BUN/Creatinine Ratio 12; Blood Urea Nitrogen 11 mg/dL (9-20); Calcium 8.1 mg/dL (8.4-10.2); Hemolysis Index 4
--- NOTE | 2022-04-22 08:41 | Progress Note ---
Assessment and Plan Impression: * Acute kidney injury secondary to prerenal azotemia due to volume depletion * Rhabdomyolysis * Hypokalemia * Hypertension Plan: * Renal function is stable - continue conservative management * K wnl - replete prn * Dose medications for renal function * Avoid potential nephrotoxins * Will follow peripherally * Discharge planning in progress. Note PT recommendation for [facility]. However, lack of insurance barrier to placement. Subjective Date of service: 04/22/22 Interval history: Patient has no complaints today. He denies SOB. Objective - Vital Signs Vital signs: Vital Signs - 12hr 04/21/22 04/21/22 04/22/22 20:58 21:00 01:00 Temperature 98.3 F 97.6 F Pulse Rate 99 H 72 Respiratory 18 16 Rate Blood Pressure 122/84 123/32 O2 Sat by Pulse 99 87 94 Oximetry 04/22/22 04:16 Temperature 100.4 F H Pulse Rate 90 Respiratory 18 Rate Blood Pressure 141/93 O2 Sat by Pulse 98 Oximetry - General Appearance General appearance: well-developed, well-nourished EENT: ATNC Respiratory: Present: Decreased Breath Sounds Cardiology: regular, S1S2 Gastrointestinal: normal, no tenderness, no distended Integumentary: warm and dry Neurologic: alert and oriented x3 Psychiatric: cooperative - Lab 04/22/22 06:56 04/22/22 06:56 Most recent lab results Calcium 8.1 mg/dL (8.4-10.2) L 04/22/22 06:56 Magnesium 1.80 mg/dL (1.7-2.3) 04/21/22 10:53 Medications & Allergies - Medications Allergies/Adverse Reactions: Allergies No Known Allergies Allergy (Unverified 05/16/19 12:45) Home Medications: Home Medications Medication Instructions Recorded Confirmed Last Taken Type Metoprolol Tartrate 25 mg PO BID 10/08/19 04/21/22 10/08/19 10:00 History Aspirin EC [Halfprin EC] 81 mg PO QDAY #30 tablet. 06/01/21 04/17/22 04/15/22 08:45 Rx Losartan [Cozaar] 100 mg PO QDAY #30 06/01/21 04/17/22 04/15/22 09:00 Rx Meclizine [Antivert] 25 mg PO Q8H PRN #10 tablet 06/01/21 04/17/22 04/14/22 20:00 Rx Simvastatin 20 mg PO DAILY #30 tablet 06/01/21 04/17/22 04/15/22 09:00 Rx amLODIPine 10 mg PO DAILY #30 tab 06/01/21 04/17/22 04/15/22 09:00 Rx Active Medications: Generic Name Dose Route Start Last Admin Trade Name Freq PRN Reason Stop Dose Admin Acetaminophen 650 mg 04/16/22 23:27 04/21/22 18:41 Acetaminophen 325 Mg Tab PO 650 mg Q4H PRN Administration Pain MILD(1-3)/Fever >100.5/CRUZ Heparin Sodium (Porcine) 5,000 unit 04/17/22 06:00 04/22/22 05:41 Heparin 5,000 Unit/1 Ml Vial SUB-Q 5,000 unit Q8HR EDGAR Administration Magnesium Hydroxide 30 ml 04/16/22 23:27 Magnesium Hydroxide (Mom) Oral Liqd Udc PO Q4H PRN Constipation Morphine Sulfate 2 mg 04/16/22 23:27 Morphine 2 Mg/1 Ml Inj IV Q4H PRN Pain, Moderate (4-6) Morphine Sulfate 4 mg 04/16/22 23:27 Morphine 4 Mg/1 Ml Inj IV Q4H PRN Pain , Severe (7-10) Ondansetron HCl 4 mg 04/16/22 23:27 Ondansetron 4 Mg/2 Ml Inj IV Q8H PRN Nausea And Vomiting Sodium Chloride 10 ml 04/17/22 10:00 04/21/22 21:49 Sodium Chloride 0.9% 10 Ml Flush Syringe IV 10 ml BID EDGAR Administration Sodium Chloride 10 ml 04/16/22 23:27 Sodium Chloride 0.9% 10 Ml Flush Syringe IV PRN PRN LINE FLUSH Spironolactone 25 mg 04/20/22 10:00 04/21/22 11:54 Spironolactone 25 Mg Tab PO 25 mg QDAY EDGAR Administration
[2022-04-22] MEDS: SPIRONOLACTONE 25 MG TAB PO SCH (10:14)
[2022-04-22] MEDS ORDERED: VANCOMYCIN 1,000 MG in SODIUM CHLORIDE 0.9% 500 ML 500 ML IV ONE (10:23)
[2022-04-22] MEDS ORDERED: VANCOMYCIN PHARMACY TO DOSE IV SCH (11:00)
[2022-04-22] MEDS ORDERED: VANCOMYCIN/NS 1 GM/250 ML 1 GM/250 ML BAG IV SCH (11:00)
[2022-04-22] MEDS: CEFEPIME/NS 1 GM/100 ML 1 GM/100 ML BAG IV SCH ×2 (15:00→20:44)
--- NOTE | 2022-04-22 15:45 | Vascular Lab Report ---
DUPLEX DOPPLER LOWER EXTREMITY VEINS, BILATERAL INDICATION / CLINICAL INFORMATION: Evaluate for possible DVT. TECHNIQUE: Duplex doppler imaging was performed through the veins of both lower extremities using christiano ous compression and other maneuvers. COMPARISON: None available. FINDINGS: RIGHT COMMON FEMORAL VEIN: Negative. RIGHT FEMORAL VEIN: Negative. RIGHT POPLITEAL VEIN: Negative. RIGHT CALF VEINS: Negative. LEFT COMMON FEMORAL VEIN: Negative. LEFT FEMORAL VEIN: Negative. LEFT POPLITEAL VEIN: Negative. LEFT CALF VEINS: Negative. ADDITIONAL FINDINGS: Small left popliteal cyst. IMPRESSION: 1. No sonographic evidence for DVT in either lower extremity. Signer Name: Jony Rojas MD Signed: 04/22/2022 3:41 PM Workstation Name: [id number]
[2022-04-22] MEDS: VANCOMYCIN/NS 1 GM/250 ML 1 GM/250 ML BAG IV SCH (17:00)
--- NOTE | 2022-04-22 17:21 | Progress Note ---
Assessment and Plan Assessment and plan: 72-year-old -[place] male with known history of hypertension and who lives by himself presents to the emergency room today complaining of bilateral hip pain after having a fall about 4 days ago [employer]. 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 He was subsequently unable to get up from the floor. He denies any loss of consciousness, no head injury. The police had to force open the door after a welfare check. Work-up in the emergency room revealed chest x-ray that was unremarkable. X-ray of the hip and pelvis, tibia and fibula, x-ray of the femur were unremarkable. CT of the cervical spine was also unremarkable. Labs however revealed elevated BUN and creatinine, creatinine kinase of 4534 #Acute kidney injury secondary to vasomotor nephropathy/dehydrationresolved #Rhabdomyolysisresolved #Hypokalemiaresolved #Hypertension #Ground-level fall #Fever #Acute hypoxic respiratory failure #Hypocalcemia #Elevated D-dimer 04/17/2022. Creatinine has improved but the CK remains about the same in the 4500 range. Continue IV fluid hydration. PT evaluation pending 04/18/2022. Creatinine and CK levels have improved. Continue IV fluid hydration. Nephrology consultation pending. Physical therapy recommends [facility]. 04/19/2022. CK in the 1200s. Continue IV fluid hydration. Nephrology following. Await subacute rehab placement. 04/20/2022. Continue IV fluid hydration. Await subacute rehab placement. Will discuss with case management in a.m. 04/21/2022. Replete potassium. Will discuss with case management acute rehab placement. Follow-up CK levels. Continue IV fluid hydration 04/22/2022: Patient successfully weaned off of supplemental oxygen. Ordered blood cultures and starting vancomycin and Rocephin for fever of 102.3. Patient had elevated D-dimer of 1189 with unremarkable procalcitonin. Pending coronavirus PCR and CT angio chest to rule out possible pulmonary embolism. Physical therapy recommending subacute rehab. Continue to monitor. #Advanced care planning -Disease education conducted, care plan discussed, diagnoses discussed, prognosis discussed, and patient acknowledges understanding with care plan -Time: +30 min Disposition Plan: Continue medical management Total Time Spent with Patient (Minutes): 45 minutes History Interval history: No acute events overnight. Hospitalist Physical - Constitutional Vitals: Temp Pulse Resp BP Pulse Ox 98.3 F 99 H 18 103/73 99 04/22/22 11:06 04/22/22 11:06 04/22/22 11:06 04/22/22 11:06 04/22/22 11:06 General appearance: Present: no acute distress, well-nourished, other (Generalized weakness) - EENT Eyes: Present: PERRL, EOM intact ENT: hearing intact, clear oral mucosa, dentition normal - Neck Neck: Present: supple, normal ROM - Respiratory Respiratory effort: normal Respiratory: bilateral: diminished - Cardiovascular Rhythm: regular Heart Sounds: Present: S1 & S2 - Extremities Extremities: no ischemia, pulses intact, pulses symmetrical, No edema, normal temperature, normal color Peripheral Pulses: within normal limits - Abdominal General gastrointestinal: soft, non-tender, non-distended, normal bowel sounds - Integumentary Integumentary: Present: clear, warm, dry - Psychiatric Psychiatric: appropriate mood/affect, cooperative HEART Score - HEART Score Troponin: Troponin T < 0.010 ng/mL (0.00-0.029) 04/16/22 20:50 Results - Labs CBC & Chem 7: 04/22/22 06:56 04/22/22 06:56 Labs: Laboratory Last Values WBC 9.7 K/mm3 (4.5-11.0) 04/22/22 06:56 RBC 4.08 M/mm3 (3.65-5.03) 04/22/22 06:56 Hgb 12.5 gm/dl (11.8-15.2) 04/22/22 06:56 Hct 36.8 % (35.5-45.6) 04/22/22 06:56 MCV 90 fl (84-94) 04/22/22 06:56 MCH 31 pg (28-32) 04/22/22 06:56 MCHC 34 % (32-34) 04/22/22 06:56 RDW 13.4 % (13.2-15.2) 04/22/22 06:56 Plt Count 201 K/mm3 (140-440) 04/22/22 06:56 Lymph % (Auto) 13.1 % (13.4-35.0) L 04/22/22 06:56 [place] % (Auto) 10.3 % (0.0-7.3) H 04/22/22 06:56 Eos % (Auto) 0.6 % (0.0-4.3) 04/22/22 06:56 Baso % (Auto) 0.3 % (0.0-1.8) 04/22/22 06:56 Lymph # (Auto) 1.3 K/mm3 (1.2-5.4) 04/22/22 06:56 [place] # (Auto) 1.0 K/mm3 (0.0-0.8) H 04/22/22 06:56 Eos # (Auto) 0.1 K/mm3 (0.0-0.4) 04/22/22 06:56 Baso # (Auto) 0.0 K/mm3 (0.0-0.1) 04/22/22 06:56 Seg Neutrophils % 75.7 % (40.0-70.0) H 04/22/22 06:56 Seg Neutrophils # 7.4 K/mm3 (1.8-7.7) 04/22/22 06:56 PT 13.6 Sec. (12.2-14.9) 04/16/22 20:50 INR 0.94 (0.87-1.13) 04/16/22 20:50 D-Dimer 1188.69 ng/mlDDU (0-234) H 04/22/22 08:25 Sodium 134 mmol/L (137-145) L 04/22/22 06:56 Potassium 3.8 mmol/L (3.6-5.0) D 04/22/22 06:56 Chloride 101.1 mmol/L (98-107) 04/22/22 06:56 Carbon Dioxide 24 mmol/L (22-30) 04/22/22 06:56 Anion Gap 13 mmol/L 04/22/22 06:56 BUN 11 mg/dL (9-20) 04/22/22 06:56 Creatinine 0.9 mg/dL (0.8-1.3) 04/22/22 06:56 Estimated GFR > 60 ml/min 04/22/22 06:56 BUN/Creatinine Ratio 12 % 04/22/22 06:56 Glucose 84 mg/dL (75-100) 04/22/22 06:56 Calcium 8.1 mg/dL (8.4-10.2) L 04/22/22 06:56 Magnesium 1.80 mg/dL (1.7-2.3) 04/21/22 10:53 Total Creatine Kinase 1221 units/L (55-170) H 04/19/22 05:31 CK-MB (CK-2) 16.2 ng/mL (0.0-4.0) H 04/16/22 20:50 CK-MB (CK-2) Rel Index 0.3 (0-4) 04/16/22 20:50 Troponin T < 0.010 ng/mL (0.00-0.029) 04/16/22 20:50 Procalcitonin 0.40 ng/mL (<0.15) 04/22/22 11:01 TSH 1.910 mlU/mL (0.270-4.200) 04/16/22 20:50 Free T4 1.24 ng/dL (0.76-1.46) 04/16/22 20:50 Microbiology: Microbiology 04/22/22 11:01 Peripheral/Venous Blood Culture - Preliminary Culture in Progress 04/22/22 11:01 Peripheral/Venous Blood Culture - Preliminary Culture in Progress Ma/IV: Voiding Method Condom Catheter Active Medications - Current Medications Current Medications: Generic Name Dose Route Start Last Admin Trade Name Freq PRN Reason Stop Dose Admin Acetaminophen 650 mg 04/16/22 23:27 04/21/22 18:41 Acetaminophen 325 Mg Tab PO 650 mg Q4H PRN Administration Pain MILD(1-3)/Fever >100.5/CRUZ Heparin Sodium (Porcine) 5,000 unit 04/17/22 06:00 04/22/22 14:00 Heparin 5,000 Unit/1 Ml Vial SUB-Q 5,000 unit Q8HR EDGAR Administration Cefepime HCl 1 gm in 100 mls @ 200 mls/hr 04/22/22 12:00 04/22/22 15:00 Cefepime/Ns 1 Gm/100 Ml IV 200 mls/hr Q8H EDGAR Administration Protocol Vancomycin HCl 1 gm in 250 mls @ 167.007 mls/hr 04/22/22 17:00 04/22/22 17:00 Vancomycin/Ns 1 Gm/250 Ml IV 167.007 mls/hr Q12H EDGAR Administration Magnesium Hydroxide 30 ml 04/16/22 23:27 Magnesium Hydroxide (Mom) Oral Liqd Udc PO Q4H PRN Constipation Morphine Sulfate 2 mg 04/16/22 23:27 Morphine 2 Mg/1 Ml Inj IV Q4H PRN Pain, Moderate (4-6) Morphine Sulfate 4 mg 04/16/22 23:27 Morphine 4 Mg/1 Ml Inj IV Q4H PRN Pain , Severe (7-10) Ondansetron HCl 4 mg 04/16/22 23:27 Ondansetron 4 Mg/2 Ml Inj IV Q8H PRN Nausea And Vomiting Sodium Chloride 10 ml 04/17/22 10:00 04/22/22 10:14 Sodium Chloride 0.9% 10 Ml Flush Syringe IV 10 ml BID EDGAR Administration Sodium Chloride 10 ml 04/16/22 23:27 Sodium Chloride 0.9% 10 Ml Flush Syringe IV PRN PRN LINE FLUSH Spironolactone 25 mg 04/20/22 10:00 04/22/22 10:14 Spironolactone 25 Mg Tab PO 25 mg QDAY EDGAR Administration
[2022-04-23] MEDS: CEFEPIME/NS 1 GM/100 ML 1 GM/100 ML BAG IV SCH ×3 (03:41→20:40)
[2022-04-23] MEDS: VANCOMYCIN/NS 1 GM/250 ML 1 GM/250 ML BAG IV SCH ×2 (04:35→19:40)
[2022-04-23] MEDS: HEPARIN 5,000 UNIT/1 ML VIAL SUB-Q SCH ×3 (05:30→22:41)
--- NOTE | 2022-04-23 09:30 | Cat Scan Report ---
CTA CHEST WITH CONTRAST INDICATION / CLINICAL INFORMATION: Assess for possible pulmonary embolism. TECHNIQUE: Axial CT images were obtained through the chest after injection of 100 cc of Omnipaque 350 IV contrast. 3 plane MIP and/or 3D reconstructions were produced. All CT scans at this location are performed using CT dose reduction for ALARA by means of automated exposure control. COMPARISON: None available. FINDINGS: PULMONARY EMBOLUS: Contrast bolus timing is slightly limited with poor opacification of the distal sm all pulmonary arteries. Having said that, no pulmonary arterial filling defect is detected. There is certainly no large central pulmonary embolus. THORACIC AORTA: The thoracic aorta is diffusely dilated and ectatic with mild to moderate atheroscler otic change. The ascending aorta is dilated up to 4.98 cm on axial image 72, series 2. No dissection. HEART: Mild cardiomegaly. CORONARY ARTERY CALCIFICATION: Absent -- None. MEDIASTINUM / UGO: No significant abnormality. PLEURA: No pleural effusion. No pneumothorax. LUNGS: No acute air space or interstitial disease. No suspicious pulmonary lesion is detected. ADDITIONAL FINDINGS: None. UPPER ABDOMEN: Scattered liver cysts are noted. Nothing acute. SKELETAL STRUCTURES: Osteopenia. Mild thoracic spondylosis. No fracture or suspicious bony lesion. IMPRESSION: 1. Slightly limited exam but no pulmonary embolus is detected, see above. 2. Mild cardiomegaly. 3. Diffusely dilated and ectatic thoracic aorta. The ascending aorta is dilated up to 4.98 cm. Follow -up is recommended. Signer Name: Frank Stokes Jr, MD Signed: 04/23/2022 9:25 AM Workstation Name: [id number]
[2022-04-23] MEDS: SPIRONOLACTONE 25 MG TAB PO SCH (11:07)
--- NOTE | 2022-04-23 14:46 | Progress Note ---
Assessment and Plan Assessment and plan: 72-year-old -Tristanian male with known history of hypertension and who lives by himself presents to the emergency room today complaining of bilateral hip pain after having a fall about 4 days ago [employer]. 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 He was subsequently unable to get up from the floor. He denies any loss of consciousness, no head injury. The police had to force open the door after a welfare check. Work-up in the emergency room revealed chest x-ray that was unremarkable. X-ray of the hip and pelvis, tibia and fibula, x-ray of the femur were unremarkable. CT of the cervical spine was also unremarkable. Labs however revealed elevated BUN and creatinine, creatinine kinase of 4534 #Acute kidney injury secondary to vasomotor nephropathy/dehydrationresolved #Rhabdomyolysisresolved #Hypokalemiaresolved #Hypertension #Ground-level fall #Fever #Acute hypoxic respiratory failureresolved #Hypocalcemia #Elevated D-dimer 04/17/2022. Creatinine has improved but the CK remains about the same in the 4500 range. Continue IV fluid hydration. PT evaluation pending 04/18/2022. Creatinine and CK levels have improved. Continue IV fluid hydration. Nephrology consultation pending. Physical therapy recommends subacute rehab. 04/19/2022. CK in the 1200s. Continue IV fluid hydration. Nephrology susan hinds. Await subacute rehab placement. 04/20/2022. Continue IV fluid hydration. Await subacute rehab placement. Will discuss with case management in a.m. 04/21/2022. Replete potassium. Will discuss with case management acute rehab placement. Follow-up CK levels. Continue IV fluid hydration 04/22/2022: Patient successfully weaned off of supplemental oxygen. Ordered blood cultures and starting vancomycin and Rocephin for fever of 102.3. Patient had elevated D-dimer of 1189 with unremarkable procalcitonin. Pending coronavirus PCR and CT angio chest to rule out possible pulmonary embolism. Physical therapy recommending subacute rehab. Continue to monitor. 04/23/2022: Patient has remained afebrile in the setting of vancomycin and Rocephin. Current blood cultures are NGTD x24 hours. If unremarkable after 48 hours, antibiotics will be discontinued. CT angio chest and bilateral lower extremity venous Dopplers are unremarkable for pulmonary embolism or DVT, respectively. Currently pending coronavirus PCR. Detailed discussion with case management about discharge planning given the fact that the patient does not appear to be putting an effort with regards to physical therapy. If patient remains afebrile and blood cultures are unremarkable, discharge can be anticipated within 48 hours. #Advanced care planning -Disease education conducted, care plan discussed, diagnoses discussed, prognosis discussed, and patient acknowledges understanding with care plan -Time: +30 min #Discharge planning - Patient is pending coronavirus PCR and placement for dispo. - Case management has been made aware. Disposition Plan: Continue medical management Total Time Spent with Patient (Minutes): 45 minutes History Interval history: No acute events overnight. Hospitalist Physical - Constitutional Vitals: Temp Pulse Resp BP Pulse Ox 99.8 F H 90 18 136/97 99 04/23/22 11:52 04/23/22 11:52 04/23/22 11:52 04/23/22 11:52 04/23/22 11:52 General appearance: Present: no acute distress, well-nourished, other (Generalized weakness) - EENT Eyes: Present: PERRL, EOM intact ENT: hearing intact, clear oral mucosa, dentition normal - Neck Neck: Present: supple, normal ROM - Respiratory Respiratory effort: normal Respiratory: bilateral: diminished - Cardiovascular Rhythm: regular Heart Sounds: Present: S1 & S2 - Extremities Extremities: no ischemia, pulses intact, pulses symmetrical, No edema, normal temperature, normal color Peripheral Pulses: within normal limits - Abdominal General gastrointestinal: soft, non-tender, non-distended, normal bowel sounds - Integumentary Integumentary: Present: clear, warm, dry - Psychiatric Psychiatric: appropriate mood/affect, cooperative - Neurologic Neurologic: CNII-XII intact, other (Significant weakness) - Allied Health Allied health notes reviewed: nursing HEART Score - HEART Score Troponin: Troponin T < 0.010 ng/mL (0.00-0.029) 04/16/22 20:50 Results - Labs CBC & Chem 7: 04/22/22 06:56 04/22/22 06:56 Labs: Laboratory Last Values WBC 9.7 K/mm3 (4.5-11.0) 04/22/22 06:56 RBC 4.08 M/mm3 (3.65-5.03) 04/22/22 06:56 Hgb 12.5 gm/dl (11.8-15.2) 04/22/22 06:56 Hct 36.8 % (35.5-45.6) 04/22/22 06:56 MCV 90 fl (84-94) 04/22/22 06:56 MCH 31 pg (28-32) 04/22/22 06:56 MCHC 34 % (32-34) 04/22/22 06:56 RDW 13.4 % (13.2-15.2) 04/22/22 06:56 Plt Count 201 K/mm3 (140-440) 04/22/22 06:56 Lymph % (Auto) 13.1 % (13.4-35.0) L 04/22/22 06:56 [place] % (Auto) 10.3 % (0.0-7.3) H 04/22/22 06:56 Eos % (Auto) 0.6 % (0.0-4.3) 04/22/22 06:56 Baso % (Auto) 0.3 % (0.0-1.8) 04/22/22 06:56 Lymph # (Auto) 1.3 K/mm3 (1.2-5.4) 04/22/22 06:56 [place] # (Auto) 1.0 K/mm3 (0.0-0.8) H 04/22/22 06:56 Eos # (Auto) 0.1 K/mm3 (0.0-0.4) 04/22/22 06:56 Baso # (Auto) 0.0 K/mm3 (0.0-0.1) 04/22/22 06:56 Seg Neutrophils % 75.7 % (40.0-70.0) H 04/22/22 06:56 Seg Neutrophils # 7.4 K/mm3 (1.8-7.7) 04/22/22 06:56 PT 13.6 Sec. (12.2-14.9) 04/16/22 20:50 INR 0.94 (0.87-1.13) 04/16/22 20:50 D-Dimer 1188.69 ng/mlDDU (0-234) H 04/22/22 08:25 Sodium 134 mmol/L (137-145) L 04/22/22 06:56 Potassium 3.8 mmol/L (3.6-5.0) D 04/22/22 06:56 Chloride 101.1 mmol/L (98-107) 04/22/22 06:56 Carbon Dioxide 24 mmol/L (22-30) 04/22/22 06:56 Anion Gap 13 mmol/L 04/22/22 06:56 BUN 11 mg/dL (9-20) 04/22/22 06:56 Creatinine 0.9 mg/dL (0.8-1.3) 04/22/22 06:56 Estimated GFR > 60 ml/min 04/22/22 06:56 BUN/Creatinine Ratio 12 % 04/22/22 06:56 Glucose 84 mg/dL (75-100) 04/22/22 06:56 Calcium 8.1 mg/dL (8.4-10.2) L 04/22/22 06:56 Magnesium 1.80 mg/dL (1.7-2.3) 04/21/22 10:53 Total Creatine Kinase 1221 units/L (55-170) H 04/19/22 05:31 CK-MB (CK-2) 16.2 ng/mL (0.0-4.0) H 04/16/22 20:50 CK-MB (CK-2) Rel Index 0.3 (0-4) 04/16/22 20:50 Troponin T < 0.010 ng/mL (0.00-0.029) 04/16/22 20:50 Procalcitonin 0.40 ng/mL (<0.15) 04/22/22 11:01 TSH 1.910 mlU/mL (0.270-4.200) 04/16/22 20:50 Free T4 1.24 ng/dL (0.76-1.46) 04/16/22 20:50 Coronavirus (PCR) Positive (Negative) A 04/23/22 Unknown Microbiology: Microbiology 04/22/22 11:01 Peripheral/Venous Blood Culture - Preliminary Culture in Progress 04/22/22 11:01 Peripheral/Venous Blood Culture - Preliminary Culture in Progress Ma/IV: Voiding Method Condom Catheter Active Medications - Current Medications Current Medications: Generic Name Dose Route Start Last Admin Trade Name Freq PRN Reason Stop Dose Admin Acetaminophen 650 mg 04/16/22 23:27 04/21/22 18:41 Acetaminophen 325 Mg Tab PO 650 mg Q4H PRN Administration Pain MILD(1-3)/Fever >100.5/RCUZ Heparin Sodium (Porcine) 5,000 unit 04/17/22 06:00 04/23/22 05:30 Heparin 5,000 Unit/1 Ml Vial SUB-Q 5,000 unit Q8HR EDGAR Administration Cefepime HCl 1 gm in 100 mls @ 200 mls/hr 04/22/22 12:00 04/23/22 03:41 Cefepime/Ns 1 Gm/100 Ml IV 200 mls/hr Q8H EDGAR Administration Protocol Vancomycin HCl 1 gm in 250 mls @ 167.007 mls/hr 04/22/22 17:00 04/23/22 04:35 Vancomycin/Ns 1 Gm/250 Ml IV 167.007 mls/hr Q12H EDGAR Administration Magnesium Hydroxide 30 ml 04/16/22 23:27 Magnesium Hydroxide (Mom) Oral Liqd Udc PO Q4H PRN Constipation Morphine Sulfate 2 mg 04/16/22 23:27 Morphine 2 Mg/1 Ml Inj IV Q4H PRN Pain, Moderate (4-6) Morphine Sulfate 4 mg 04/16/22 23:27 Morphine 4 Mg/1 Ml Inj IV Q4H PRN Pain , Severe (7-10) Ondansetron HCl 4 mg 04/16/22 23:27 Ondansetron 4 Mg/2 Ml Inj IV Q8H PRN Nausea And Vomiting Sodium Chloride 10 ml 04/17/22 10:00 04/22/22 21:07 Sodium Chloride 0.9% 10 Ml Flush Syringe IV 10 ml BID EDGAR Administration Sodium Chloride 10 ml 04/16/22 23:27 Sodium Chloride 0.9% 10 Ml Flush Syringe IV PRN PRN LINE FLUSH Spironolactone 25 mg 04/20/22 10:00 04/23/22 11:07 Spironolactone 25 Mg Tab PO Not Given QDAY EDGAR
[2022-04-24] MEDS: CEFEPIME/NS 1 GM/100 ML 1 GM/100 ML BAG IV SCH ×3 (04:49→21:45)
[2022-04-24] MEDS: HEPARIN 5,000 UNIT/1 ML VIAL SUB-Q SCH ×3 (05:40→22:08)
[2022-04-24] MEDS: VANCOMYCIN/NS 1 GM/250 ML 1 GM/250 ML BAG IV SCH ×2 (05:40→16:01)
[2022-04-24] MEDS: SPIRONOLACTONE 25 MG TAB PO SCH (09:22)
--- NOTE | 2022-04-24 16:46 | Progress Note ---
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 He was subsequently unable to get up from the floor. He denies any loss of consciousness, no head injury. The police had to force open the door after a welfare check. Work-up in the emergency room revealed chest x-ray that was unremarkable. X-ray of the hip and pelvis, tibia and fibula, x-ray of the femur were unremarkable. CT of the cervical spine was also unremarkable. Labs however revealed elevated BUN and creatinine, creatinine kinase of 4534 #Acute kidney injury secondary to vasomotor nephropathy/dehydrationresolved #Rhabdomyolysisresolved #Hypokalemiaresolved #Hypertension #Ground-level fall #Fever- resolved #Acute hypoxic respiratory failureresolved #Hypocalcemia #Elevated D-dimer #COVID-19 infection 04/17/2022. Creatinine has improved but the CK remains about the same in the 4500 range. Continue IV fluid hydration. PT evaluation pending 04/18/2022. Creatinine and CK levels have improved. Continue IV fluid hydration. Nephrology consultation pending. Physical therapy recommends subacute rehab. 04/19/2022. CK in the 1200s. Continue IV fluid hydration. Nephrology following. Await subacute rehab placement. 04/20/2022. Continue IV fluid hydration. Await subacute rehab placement. Will discuss with case management in a.m. 04/21/2022. Replete potassium. Will discuss with case management acute rehab placement. Follow-up CK levels. Continue IV fluid hydration 04/22/2022: Patient successfully weaned off of supplemental oxygen. Ordered blood cultures and starting vancomycin and Rocephin for fever of 102.3. Patient had elevated D-dimer of 1189 with unremarkable procalcitonin. Pending coronavirus PCR and CT angio chest to rule out possible pulmonary embolism. Physical therapy recommending subacute rehab. Continue to monitor. 04/23/2022: Patient has remained afebrile in the setting of vancomycin and Rocephin. Current blood cultures are NGTD x24 hours. If unremarkable after 48 hours, antibiotics will be discontinued. CT angio chest and bilateral lower extremity venous Dopplers are unremarkable for pulmonary embolism or DVT, respectively. Currently pending coronavirus PCR. Detailed discussion with case management about discharge planning given the fact that the patient does not appear to be putting an effort with regards to physical therapy. If patient remains afebrile and blood cultures are unremarkable, discharge can be anticipated within 48 hours. 04/24/2022. Patient found to be COVID-19 positive. Patient will be discharging home tomorrow with loved ones. #Advanced care planning -Disease education conducted, care plan discussed, diagnoses discussed, prognosis discussed, and patient acknowledges understanding with care plan -Time: +30 min #Discharge planning - Patient is discharging home tomorrow. - Case management has been made aware. Disposition Plan: Pending discharge tomorrow Total Time Spent with Patient (Minutes): 45 min History Interval history: No acute events overnight. Hospitalist Physical - Constitutional Vitals: Temp Pulse Resp BP Pulse Ox 98.4 F 91 H 16 132/88 100 04/23/22 23:31 04/23/22 23:31 04/24/22 01:00 04/23/22 23:31 04/24/22 07:25 General appearance: Present: no acute distress, well-nourished, other (Gene ralized weakness) - EENT Eyes: Present: PERRL, EOM intact ENT: hearing intact, clear oral mucosa, dentition normal - Neck Neck: Present: supple, normal ROM - Respiratory Respiratory effort: normal Respiratory: bilateral: CTA - Cardiovascular Rhythm: regular Heart Sounds: Present: S1 & S2 - Extremities Extremities: no ischemia, pulses intact, pulses symmetrical, No edema, normal temperature, normal color Peripheral Pulses: within normal limits - Abdominal General gastrointestinal: soft, non-tender, non-distended, normal bowel sounds - Integumentary Integumentary: Present: clear, warm, dry - Psychiatric Psychiatric: appropriate mood/affect, cooperative - Neurologic Neurologic: CNII-XII intact - Allied Health Allied health notes reviewed: nursing HEART Score - HEART Score Troponin: Troponin T < 0.010 ng/mL (0.00-0.029) 04/16/22 20:50 Results - Labs CBC & Chem 7: 04/22/22 06:56 04/22/22 06:56 Labs: Laboratory Last Values WBC 9.7 K/mm3 (4.5-11.0) 04/22/22 06:56 RBC 4.08 M/mm3 (3.65-5.03) 04/22/22 06:56 Hgb 12.5 gm/dl (11.8-15.2) 04/22/22 06:56 Hct 36.8 % (35.5-45.6) 04/22/22 06:56 MCV 90 fl (84-94) 04/22/22 06:56 MCH 31 pg (28-32) 04/22/22 06:56 MCHC 34 % (32-34) 04/22/22 06:56 RDW 13.4 % (13.2-15.2) 04/22/22 06:56 Plt Count 201 K/mm3 (140-440) 04/22/22 06:56 Lymph % (Auto) 13.1 % (13.4-35.0) L 04/22/22 06:56 [place] % (Auto) 10.3 % (0.0-7.3) H 04/22/22 06:56 Eos % (Auto) 0.6 % (0.0-4.3) 04/22/22 06:56 Baso % (Auto) 0.3 % (0.0-1.8) 04/22/22 06:56 Lymph # (Auto) 1.3 K/mm3 (1.2-5.4) 04/22/22 06:56 [place] # (Auto) 1.0 K/mm3 (0.0-0.8) H 04/22/22 06:56 Eos # (Auto) 0.1 K/mm3 (0.0-0.4) 04/22/22 06:56 Baso # (Auto) 0.0 K/mm3 (0.0-0.1) 04/22/22 06:56 Seg Neutrophils % 75.7 % (40.0-70.0) H 04/22/22 06:56 Seg Neutrophils # 7.4 K/mm3 (1.8-7.7) 04/22/22 06:56 PT 13.6 Sec. (12.2-14.9) 04/16/22 20:50 INR 0.94 (0.87-1.13) 04/16/22 20:50 D-Dimer 1188.69 ng/mlDDU (0-234) H 04/22/22 08:25 Sodium 134 mmol/L (137-145) L 04/22/22 06:56 Potassium 3.8 mmol/L (3.6-5.0) D 04/22/22 06:56 Chloride 101.1 mmol/L (98-107) 04/22/22 06:56 Carbon Dioxide 24 mmol/L (22-30) 04/22/22 06:56 Anion Gap 13 mmol/L 04/22/22 06:56 BUN 11 mg/dL (9-20) 04/22/22 06:56 Creatinine 0.9 mg/dL (0.8-1.3) 04/22/22 06:56 Estimated GFR > 60 ml/min 04/22/22 06:56 BUN/Creatinine Ratio 12 % 04/22/22 06:56 Glucose 84 mg/dL (75-100) 04/22/22 06:56 Calcium 8.1 mg/dL (8.4-10.2) L 04/22/22 06:56 Magnesium 1.80 mg/dL (1.7-2.3) 04/21/22 10:53 Total Creatine Kinase 1221 units/L (55-170) H 04/19/22 05:31 CK-MB (CK-2) 16.2 ng/mL (0.0-4.0) H 04/16/22 20:50 CK-MB (CK-2) Rel Index 0.3 (0-4) 04/16/22 20:50 Troponin T < 0.010 ng/mL (0.00-0.029) 04/16/22 20:50 Procalcitonin 0.40 ng/mL (<0.15) 04/22/22 11:01 TSH 1.910 mlU/mL (0.270-4.200) 04/16/22 20:50 Free T4 1.24 ng/dL (0.76-1.46) 04/16/22 20:50 Coronavirus (PCR) Positive (Negative) A 04/23/22 Unknown Microbiology: Microbiology 04/22/22 11:01 Peripheral/Venous Blood Culture - Preliminary NO GROWTH AFTER 48 HOURS 04/22/22 11:01 Peripheral/Venous Blood Culture - Preliminary NO GROWTH AFTER 48 HOURS Ma/IV: Voiding Method Condom Catheter Active Medications - Current Medications Current Medications: Generic Name Dose Route Start Last Admin Trade Name Freq PRN Reason Stop Dose Admin Acetaminophen 650 mg 04/16/22 23:27 04/21/22 18:41 Acetaminophen 325 Mg Tab PO 650 mg Q4H PRN Administration Pain MILD(1-3)/Fever >100.5/CRUZ Heparin Sodium (Porcine) 5,000 unit 04/17/22 06:00 04/24/22 13:19 Heparin 5,000 Unit/1 Ml Vial SUB-Q 5,000 unit Q8HR EDGAR Administration Cefepime HCl 1 gm in 100 mls @ 200 mls/hr 04/22/22 12:00 04/24/22 11:12 Cefepime/Ns 1 Gm/100 Ml IV 200 mls/hr Q8H EDGAR Administration Protocol Vancomycin HCl 1 gm in 250 mls @ 167.007 mls/hr 04/22/22 17:00 04/24/22 16:01 Vancomycin/Ns 1 Gm/250 Ml IV 167.007 mls/hr Q12H EDGAR Administration Magnesium Hydroxide 30 ml 04/16/22 23:27 Magnesium Hydroxide (Mom) Oral Liqd Udc PO Q4H PRN Constipation Morphine Sulfate 2 mg 04/16/22 23:27 Morphine 2 Mg/1 Ml Inj IV Q4H PRN Pain, Moderate (4-6) Morphine Sulfate 4 mg 04/16/22 23:27 Morphine 4 Mg/1 Ml Inj IV Q4H PRN Pain , Severe (7-10) Ondansetron HCl 4 mg 04/16/22 23:27 Ondansetron 4 Mg/2 Ml Inj IV Q8H PRN Nausea And Vomiting Sodium Chloride 10 ml 04/17/22 10:00 04/24/22 09:23 Sodium Chloride 0.9% 10 Ml Flush Syringe IV 10 ml BID EDGAR Administration Sodium Chloride 10 ml 04/16/22 23:27 Sodium Chloride 0.9% 10 Ml Flush Syringe IV PRN PRN LINE FLUSH Spironolactone 25 mg 04/20/22 10:00 04/24/22 09:22 Spironolactone 25 Mg Tab PO 25 mg QDAY EDGAR Administration Nutrition/Malnutrition Assess - Dietary Evaluation Nutrition/Malnutrition Findings: Nutrition Notes Start: 04/24/22 15:41 Freq: Status: Active Protocol: Document 04/24/22 15:41 SHWETHA (Rec: 04/24/22 16:08 SHWETHA [id number]) Nutrition Notes Need for Assessment generated from: LOS Initial or Follow up Assessment Current Diagnosis Hypertension Other Pertinent Diagnosis Ground-Level Fall, Fever. Current Diet Cardiac Diet (since B 04/17). Labs/Tests 04/24: Na 134, Ca 8.1. Pertinent Medications 04/24: Nutritionally unremarkable. 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 Weight Status Appropriate Subjective/Other Information RD consult for LOS assessment. Pt's PO intake of meals has been Good (75-100%), according to ADL notes. Pt is on Room Air, O2 saturation @ 100%, according to Physical Assessment History notes. Pt has missing teeth, according to Physical Assessment History notes. Pt presents sacral skin tear, according to Physical Assessment History notes and admission documents. I will prescribe dietary supplements to support wound healing processes. Plans for discharge home or SNF, since Pt lives alone, on 04/25, according to Progress notes. Percent of energy/protein needs met: Prescribed Cardiac Diet provides for energy/protein needs (2,230 Kcal/85 g) during LOS; additionally, Dietary Supplements will support wound healing processes with 700 Kcal and 40 g of protein. Burn Absent Trauma Absent GI Symptoms None Food Allergy No Skin Integrity/Comment Sacrum skin tear. 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 Etiology Ground-Level Fall. As Evidenced by Signs and Symptoms Pt presents sacral skin tear, according to Physical Assessment History notes and admission documents. Is patient on ventilator? No Is Patient Ambulatory and/or Out of Bed No REE-([facility]-confined to bed) [phone] Calculation Used for Recommendations [facility] Additional Notes Protein: 1-1.2 g/Kg ABW; 69-83 g/day. Fluids: 1 ml/Kcal, or as per MD. Nutrition Intervention Change Diet Order: Continue Cardiac Diet. Add Supplement/Snack (indicate name/kcal Start 8 fl oz Ensure Enlive; /protein ) BID. Provides kCal: 700 Provides Protein (gm) 40 Goal #1 Support, through dietary supplementation, wound healing processes during LOS. Goal #2 Adjust the dietary intervention to better serve Pt's needs and clinical conditions during LOS. Follow-Up By: 05/01/22 Additional Comments Continue monitoring food tolerance, %PO intake of meals , and BM.
[2022-04-24 23:50] LABS: Basophils % (Auto) 0.6 % (0.0-1.8); Eosinophils # (Auto) 0.1 K/mm3 (0.0-0.4); Eosinophils % (Auto) 1.3 % (0.0-4.3); Hematocrit 37.1 % (35.5-45.6); Hemoglobin 12.3 gm/dl (11.8-15.2); Lymphocytes # (Auto) 1.2 K/mm3 (1.2-5.4); Lymphocytes % (Auto) 19.7 % (13.4-35.0); Mean Corpuscular HGB Conc 33 % (32-34); Mean Corpuscular Volume 91 fl (84-94); Monocytes % (Auto) 15.6 % (0.0-7.3); Platelet Count 321 K/mm3 (140-440); Red Cell Distribution Width 13.8 % (13.2-15.2)
[2022-04-25 00:02] LABS: BUN/Creatinine Ratio 11; Blood Urea Nitrogen 9 mg/dL (9-20); Calcium 8.1 mg/dL (8.4-10.2); Hemolysis Index 2
[2022-04-25] MEDS: CEFEPIME/NS 1 GM/100 ML 1 GM/100 ML BAG IV SCH (04:17)
[2022-04-25] MEDS: VANCOMYCIN/NS 1 GM/250 ML 1 GM/250 ML BAG IV SCH (05:20)
[2022-04-25] MEDS: HEPARIN 5,000 UNIT/1 ML VIAL SUB-Q SCH ×3 (06:09→22:53)
[2022-04-25] MEDS: SPIRONOLACTONE 25 MG TAB PO SCH (09:05)
--- NOTE | 2022-04-25 10:23 | Discharge Summary ---
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 Procedures: None. Hospital course: Patient is a 72-year-old male with past medical history of hypertension who presented in the ED with complaints of bilateral hip pain after experiencing a ground-level fall approximately 4 days prior to presentation where he was unable to get up from the floor. The patient was found at home (lives alone) after welfare check was called by family friends. In the ED, the patient was found to be hemodynamically stable with unremarkable imaging of his hip, pelvis, tibia, fibula, and femurs. Patient underwent CT cervical spine was also found to be unremarkable. Patient did have labs that were remarkable for creatinine of 1.5 (baseline unknown) and creatine kinase of 4534. Patient was medically managed with IV diuresis and monitoring of his electrolytes. The patient also developed acute hypoxic respiratory failure and fevers that were found to be secondary to COVID-19 infection. The patient has since been weaned to room air. The patient is hemodynamically stable. The patient is medically clear for discharge. Disposition: 01 HOME / SELF CARE / HOMELESS Final Discharge Diagnosis (Prints w/discharge instructions): Acute kidney injury secondary to vasomotor nephropathy/dehydration, rhabdomyolysis, hypokalemia, hypertension, ground-level fall, fever, acute hypoxic respiratory failure, hypocalcemia, elevated D-dimer, COVID-19 pneumonia. Time spent for discharge: 45 min Core Measure Documentation - Palliative Care Palliative Care/ Comfort Measures: Not Applicable - Core Measures Any of the following diagnoses?: none Exam - Constitutional Vitals: Temp Pulse Resp BP Pulse Ox 97.9 F 82 20 134/89 97 04/25/22 06:48 04/25/22 06:48 04/25/22 06:48 04/25/22 06:48 04/25/22 06:54 General appearance: Present: no acute distress, well-nourished - EENT Eyes: Present: PERRL, EOM intact ENT: hearing intact, clear oral mucosa, dentition normal - Neck Neck: Present: supple, normal ROM - Respiratory Respiratory effort: normal Respiratory: bilateral: diminished - Cardiovascular Rhythm: regular Heart Sounds: Present: S1 & S2 - Extremities Extremities: no ischemia, pulses intact, pulses symmetrical, No edema, normal temperature, normal color Peripheral Pulses: within normal limits - Abdominal General gastrointestinal: Present: soft, non-tender, non-distended, normal bowel sounds Male genitourinary: Present: deferred - Rectal Rectal Exam: deferred - Integumentary Integumentary: Present: clear, warm, dry - Musculoskeletal Musculoskeletal: generalized weakness - Psychiatric Psychiatric: appropriate mood/affect, memory intact, cooperative - Neurologic Neurologic: CNII-XII intact, moves all extremities - Allied Health Allied health notes reviewed: nursing Plan Activity: advance as tolerated Diet: low salt Additional Instructions: Patient is a 72-year-old male with past medical history of hypertension who presented in the ED with complaints of bilateral hip pain after experiencing a ground-level fall approximately 4 days prior to presentation where he was unable to get up from the floor. The patient was found at home (lives alone) after welfare check was called by family friends. In the ED, the patient was found to be hemodynamically stable with unremarkable imaging of his hip, pelvis, tibia, fibula, and femurs. Patient underwent CT cervical spine was also found to be unremarkable. Patient did have labs that were remarkable for creatinine of 1.5 (baseline unknown) and creatine kinase of 4534. Patient was medically managed with IV diuresis and monitoring of his electrolytes. The patient also developed acute hypoxic respiratory failure and fevers that were found to be secondary to COVID-19 infection. The patient has since been weaned to room air. The patient is hemodynamically stable. The patient is medically clear for discharge. Care Plan Goals: Patient is medically clear for discharge. Assessment: Patient is a 72-year-old male with past medical history of hypertension who presented in the ED with complaints of bilateral hip pain after experiencing a ground-level fall approximately 4 days prior to presentation where he was unable to get up from the floor. The patient was found at home (lives alone) after welfare check was called by family friends. In the ED, the patient was found to be hemodynamically stable with unremarkable imaging of his hip, pelvis, tibia, fibula, and femurs. Patient underwent CT cervical spine was also found to be unremarkable. Patient did have labs that were remarkable for creatinine of 1.5 (baseline unknown) and creatine kinase of 4534. Patient was medically managed with IV diuresis and monitoring of his electrolytes. The patient also developed acute hypoxic respiratory failure and fevers that were found to be secondary to COVID-19 infection. The patient has since been weaned to room air. The patient is hemodynamically stable. The patient is medically clear for discharge. Follow up with: PRIMARY CAREMD [Primary Care Provider] - 3-5 Days RADHA PUENTE MD [Staff Physician] - 14 Days Prescriptions: amLODIPine 10 mg PO DAILY #30 tab Losartan [Cozaar] 100 mg PO QDAY #30 tab Aspirin EC [Halfprin EC] 81 mg PO QDAY #30 tablet. Simvastatin 20 mg PO DAILY #30 tablet
[2022-04-26] MEDS: HEPARIN 5,000 UNIT/1 ML VIAL SUB-Q SCH ×3 (05:23→21:27)
--- NOTE | 2022-04-26 07:56 | Progress Note ---
Assessment and Plan Assessment and plan: 72-year-old -Mexican male with known history of hypertension and who lives by himself presents to the emergency room today complaining of bilateral hip pain after having a fall about 4 days ago [employer]. 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 He was subsequently unable to get up from the floor. He denies any loss of consciousness, no head injury. The police had to force open the door after a welfare check. Work-up in the emergency room revealed chest x-ray that was unremarkable. X-ray of the hip and pelvis, tibia and fibula, x-ray of the femur were unremarkable. CT of the cervical spine was also unremarkable. Labs however revealed elevated BUN and creatinine, creatinine kinase of 4534 #Acute kidney injury secondary to vasomotor nephropathy/dehydrationresolved #Rhabdomyolysisresolved #Hypokalemiaresolved #Hypertension #Ground-level fall #Fever- resolved #Acute hypoxic respiratory failureresolved #Hypocalcemia #Elevated D-dimer #COVID-19 infection 04/17/2022. Creatinine has improved but the CK remains about the same in the 4500 range. Continue IV fluid hydration. PT evaluation pending 04/18/2022. Creatinine and CK levels have improved. Continue IV fluid hydration. Nephrology consultation pending. Physical therapy recommends subacute rehab. 04/19/2022. CK in the 1200s. Continue IV fluid hydration. Nephrology following. Await subacute rehab placement. 04/20/2022. Continue IV fluid hydration. Await subacute rehab placement. Will discuss with case management in a.m. 04/21/2022. Replete potassium. Will discuss with case management acute rehab placement. Follow-up CK levels. Continue IV fluid hydration 04/22/2022: Patient successfully weaned off of supplemental oxygen. Ordered blood cultures and starting vancomycin and Rocephin for fever of 102.3. Patient had elevated D-dimer of 1189 with unremarkable procalcitonin. Pending coronavirus PCR and CT angio chest to rule out possible pulmonary embolism. Physical therapy recommending subacute rehab. Continue to monitor. 04/23/2022: Patient has remained afebrile in the setting of vancomycin and Rocephin. Current blood cultures are NGTD x24 hours. If unremarkable after 48 hours, antibiotics will be discontinued. CT angio chest and bilateral lower extremity venous Dopplers are unremarkable for pulmonary embolism or DVT, respectively. Currently pending coronavirus PCR. Detailed discussion with case management about discharge planning given the fact that the patient does not appear to be putting an effort with regards to physical therapy. If patient remains afebrile and blood cultures are unremarkable, discharge can be anticipated within 48 hours. 04/24/2022. Patient found to be COVID-19 positive. Patient will be discharging home tomorrow with loved ones. 04/26/2022: Pending permanent placement since the patient was abandoned by his community despite them stating they would pick him up on 04/25/2022. #Advanced care planning -Disease education conducted, care plan discussed, diagnoses discussed, prognosis discussed, and patient acknowledges understanding with care plan -Time: +30 min #Discharge planning - Patient is pending determination of disposition/placement. - Case management has been made aware. Disposition Plan: Pending placement Total Time Spent with Patient (Minutes): 30 min History Interval history: The patient was not picked up yesterday by his community at the last minute despite numerous conversations with Case Management and Social Work where they had stated that they would. Hospitalist Physical - Constitutional Vitals: Temp Pulse Resp BP Pulse Ox 98.4 F 100 H 18 139/94 96 04/26/22 05:15 04/26/22 05:15 04/26/22 05:15 04/26/22 05:15 04/26/22 05:15 General appearance: Present: no acute distress, well-nourished - EENT Eyes: Present: PERRL, EOM intact ENT: hearing intact, clear oral mucosa, dentition normal - Neck Neck: Present: supple, normal ROM - Respiratory Respiratory effort: normal Respiratory: bilateral: diminished - Cardiovascular Rhythm: regular Heart Sounds: Present: S1 & S2 - Extremities Extremities: no ischemia, pulses intact, pulses symmetrical, No edema, normal temperature, normal color Peripheral Pulses: within normal limits - Abdominal General gastrointestinal: soft, non-tender, non-distended, normal bowel sounds - Integumentary Integumentary: Present: clear, warm, dry - Psychiatric Psychiatric: appropriate mood/affect, cooperative - Neurologic Neurologic: CNII-XII intact, other (generalized weakness) - Allied Health Allied health notes reviewed: nursing HEART Score - HEART Score Troponin: Troponin T < 0.010 ng/mL (0.00-0.029) 04/16/22 20:50 Results - Labs CBC & Chem 7: 04/24/22 22:56 04/24/22 22:56 Labs: Laboratory Last Values WBC 6.2 K/mm3 (4.5-11.0) 04/24/22 22:56 RBC 4.10 M/mm3 (3.65-5.03) 04/24/22 22:56 Hgb 12.3 gm/dl (11.8-15.2) 04/24/22 22:56 Hct 37.1 % (35.5-45.6) 04/24/22 22:56 MCV 91 fl (84-94) 04/24/22 22:56 MCH 30 pg (28-32) 04/24/22 22:56 MCHC 33 % (32-34) 04/24/22 22:56 RDW 13.8 % (13.2-15.2) 04/24/22 22:56 Plt Count 321 K/mm3 (140-440) 04/24/22 22:56 Lymph % (Auto) 19.7 % (13.4-35.0) 04/24/22 22:56 Hill % (Auto) 15.6 % (0.0-7.3) H 04/24/22 22:56 Eos % (Auto) 1.3 % (0.0-4.3) 04/24/22 22:56 Baso % (Auto) 0.6 % (0.0-1.8) 04/24/22 22:56 Lymph # (Auto) 1.2 K/mm3 (1.2-5.4) 04/24/22 22:56 Hill # (Auto) 1.0 K/mm3 (0.0-0.8) H 04/24/22 22:56 Eos # (Auto) 0.1 K/mm3 (0.0-0.4) 04/24/22 22:56 Baso # (Auto) 0.0 K/mm3 (0.0-0.1) 04/24/22 22:56 Seg Neutrophils % 62.8 % (40.0-70.0) 04/24/22 22:56 Seg Neutrophils # 3.9 K/mm3 (1.8-7.7) 04/24/22 22:56 PT 13.6 Sec. (12.2-14.9) 04/16/22 20:50 INR 0.94 (0.87-1.13) 04/16/22 20:50 D-Dimer 1188.69 ng/mlDDU (0-234) H 04/22/22 08:25 Sodium 134 mmol/L (137-145) L 04/24/22 22:56 Potassium 3.8 mmol/L (3.6-5.0) 04/24/22 22:56 Chloride 96.7 mmol/L (98-107) L 04/24/22 22:56 Carbon Dioxide 25 mmol/L (22-30) 04/24/22 22:56 Anion Gap 16 mmol/L 04/24/22 22:56 BUN 9 mg/dL (9-20) 04/24/22 22:56 Creatinine 0.8 mg/dL (0.8-1.3) 04/24/22 22:56 Estimated GFR > 60 ml/min 04/24/22 22:56 BUN/Creatinine Ratio 11 % 04/24/22 22:56 Glucose 96 mg/dL (75-100) 04/24/22 22:56 Calcium 8.1 mg/dL (8.4-10.2) L 04/24/22 22:56 Magnesium 1.80 mg/dL (1.7-2.3) 04/21/22 10:53 Total Creatine Kinase 1221 units/L (55-170) H 04/19/22 05:31 CK-MB (CK-2) 16.2 ng/mL (0.0-4.0) H 04/16/22 20:50 CK-MB (CK-2) Rel Index 0.3 (0-4) 04/16/22 20:50 Troponin T < 0.010 ng/mL (0.00-0.029) 04/16/22 20:50 Procalcitonin 0.40 ng/mL (<0.15) 04/22/22 11:01 TSH 1.910 mlU/mL (0.270-4.200) 04/16/22 20:50 Free T4 1.24 ng/dL (0.76-1.46) 04/16/22 20:50 Coronavirus (PCR) Positive (Negative) A 04/23/22 Unknown Microbiology: Microbiology 04/22/22 11:01 Peripheral/Venous Blood Culture - Preliminary NO GROWTH AFTER 72 HOURS 04/22/22 11:01 Peripheral/Venous Blood Culture - Preliminary NO GROWTH AFTER 72 HOURS Ma/IV: Voiding Method Condom Catheter Active Medications - Current Medications Current Medications: Generic Name Dose Route Start Last Admin Trade Name Freq PRN Reason Stop Dose Admin Acetaminophen 650 mg 04/16/22 23:27 04/21/22 18:41 Acetaminophen 325 Mg Tab PO 650 mg Q4H PRN Administration Pain MILD(1-3)/Fever >100.5/CRUZ Heparin Sodium (Porcine) 5,000 unit 04/17/22 06:00 04/26/22 05:23 Heparin 5,000 Unit/1 Ml Vial SUB-Q 5,000 unit Q8HR EDGAR Administration Losartan Potassium 100 mg 04/26/22 10:00 Losartan 50 Mg Tab PO QDAY EDGAR Magnesium Hydroxide 30 ml 04/16/22 23:27 Magnesium Hydroxide (Mom) Oral Liqd Udc PO Q4H PRN Constipation Morphine Sulfate 2 mg 04/16/22 23:27 Morphine 2 Mg/1 Ml Inj IV Q4H PRN Pain, Moderate (4-6) Morphine Sulfate 4 mg 04/16/22 23:27 Morphine 4 Mg/1 Ml Inj IV Q4H PRN Pain , Severe (7-10) Ondansetron HCl 4 mg 04/16/22 23:27 Ondansetron 4 Mg/2 Ml Inj IV Q8H PRN Nausea And Vomiting Sodium Chloride 10 ml 04/17/22 10:00 04/25/22 22:53 Sodium Chloride 0.9% 10 Ml Flush Syringe IV 10 ml BID EDGAR Administration Sodium Chloride 10 ml 04/16/22 23:27 Sodium Chloride 0.9% 10 Ml Flush Syringe IV PRN PRN LINE FLUSH Spironolactone 25 mg 04/20/22 10:00 04/25/22 09:05 Spironolactone 25 Mg Tab PO 25 mg QDAY EDGAR Administration Nutrition/Malnutrition Assess - Dietary Evaluation Nutrition/Malnutrition Findings: Nutrition Notes Start: 04/24/22 15:41 Freq: Status: Active Protocol: Document 04/24/22 15:41 SHWETHA (Rec: 04/24/22 16:08 SHWETHA [id number]) Nutrition Notes Need for Assessment generated from: LOS Initial or Follow up Assessment Current Diagnosis Hypertension Other Pertinent Diagnosis Ground-Level Fall, Fever. Current Diet Cardiac Diet (since B 04/17). Labs/Tests 04/24: Na 134, Ca 8.1. Pertinent Medications 04/24: Nutritionally unremarkable. Height 5 ft 6 in Weight 68.8 kg [place] Body Weight (kg) 64.54 BMI 24.5 Intake Prior to Admission Good Weight change and time frame Pt denies having loss body weight [employer]. Weight Status Appropriate Subjective/Other Information RD consult for LOS assessment. Pt's PO intake of meals has been Good (75-100%), according to ADL notes. Pt is on Room Air, O2 saturation @ 100%, according to Physical Assessment History notes. Pt has missing teeth, according to Physical Assessment History notes. Pt presents sacral skin tear, according to Physical Assessment History notes and admission documents. I will prescribe dietary supplements to support wound healing processes. Plans for discharge home or SNF, since Pt lives alone, on 04/25, according to Progress notes. Percent of energy/protein needs met: Prescribed Cardiac Diet provides for energy/protein needs (2,230 Kcal/85 g) during LOS; additionally, Dietary Supplements will support wound healing processes with 700 Kcal and 40 g of protein. Burn Absent Trauma Absent GI Symptoms None Food Allergy No Skin Integrity/Comment Sacrum skin tear. Current % PO Good (75-100%) Minimum of two criteria No Fluid Accumulation N/A Reduced Tax Director Strength N/A (non-severe) Protein-Calorie Malnutrition N\A #1 Nutrition Diagnosis Increased nutrient needs ( specify in comment below) Comments: Protein to support wound healing processes. Etiology Ground-Level Fall. As Evidenced by Signs and Symptoms Pt presents sacral skin tear, according to Physical Assessment History notes and admission documents. Is patient on ventilator? No Is Patient Ambulatory and/or Out of Bed No REE-([facility]-confined to bed) 5487.080 Calculation Used for Recommendations [facility] Additional Notes Protein: 1-1.2 g/Kg ABW; 69-83 g/day. Fluids: 1 ml/Kcal, or as per MD. Nutrition Intervention Change Diet Order: Continue Cardiac Diet. Add Supplement/Snack (indicate name/kcal Start 8 fl oz Ensure Enlive; /protein ) BID. Provides kCal: 700 Provides Protein (gm) 40 Goal #1 Support, through dietary supplementation, wound healing processes during LOS. Goal #2 Adjust the dietary intervention to better serve Pt's needs and clinical conditions during LOS. Follow-Up By: 05/01/22 Additional Comments Continue monitoring food tolerance, %PO intake of meals , and BM.
[2022-04-26] MEDS: SPIRONOLACTONE 25 MG TAB PO SCH (09:26)
[2022-04-26] MEDS: LOSARTAN 50 MG TAB PO SCH (09:26)
--- NOTE | 2022-04-26 15:40 | Progress Note ---
Assessment and Plan Assessment and plan: 72-year-old -Malian male with known history of hypertension and who lives by himself presents to the emergency room today complaining of bilateral hip pain after having a fall about 4 days ago [employer]. 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 He was subsequently unable to get up from the floor. He denies any loss of consciousness, no head injury. The police had to force open the door after a welfare check. Work-up in the emergency room revealed chest x-ray that was unremarkable. X-ray of the hip and pelvis, tibia and fibula, x-ray of the femur were unremarkable. CT of the cervical spine was also unremarkable. Labs however revealed elevated BUN and creatinine, creatinine kinase of 4534 #Acute kidney injury secondary to vasomotor nephropathy/dehydrationresolved #Rhabdomyolysisresolved #Hypokalemiaresolved #Hypertension #Ground-level fall #Fever- resolved #Acute hypoxic respiratory failureresolved #Hypocalcemia #Elevated D-dimer #COVID-19 infection- stable 04/17/2022. Creatinine has improved but the CK remains about the same in the 4500 range. Continue IV fluid hydration. PT evaluation pending 04/18/2022. Creatinine and CK levels have improved. Continue IV fluid hydration. Nephrology consultation pending. Physical therapy recommends subacute rehab. 04/19/2022. CK in the 1200s. Continue IV fluid hydration. Nephrology following. Await subacute rehab placement. 04/20/2022. Continue IV fluid hydration. Await subacute rehab placement. Will discuss with case management in a.m. 04/21/2022. Replete potassium. Will discuss with case management acute rehab placement. Follow-up CK levels. Continue IV fluid hydration 04/22/2022: Patient successfully weaned off of supplemental oxygen. Ordered blood cultures and starting vancomycin and Rocephin for fever of 102.3. Patient had elevated D-dimer of 1189 with unremarkable procalcitonin. Pending coronavirus PCR and CT angio chest to rule out possible pulmonary embolism. Physical therapy recommending subacute rehab. Continue to monitor. 04/23/2022: Patient has remained afebrile in the setting of vancomycin and Rocephin. Current blood cultures are NGTD x24 hours. If unremarkable after 48 hours, antibiotics will be discontinued. CT angio chest and bilateral lower extremity venous Dopplers are unremarkable for pulmonary embolism or DVT, respectively. Currently pending coronavirus PCR. Detailed discussion with case management about discharge planning given the fact that the patient does not appear to be putting an effort with regards to physical therapy. If patient remains afebrile and blood cultures are unremarkable, discharge can be anticipated within 48 hours. 04/24/2022. Patient found to be COVID-19 positive. Patient will be discharging home tomorrow with loved ones. 04/26/2022: Pending permanent placement since the patient was abandoned by his community despite them stating they would pick him up on 04/25/2022. 04/27/2022: Continue pending permanent placement. #Advanced care planning -Disease education conducted, care plan discussed, diagnoses discussed, prognosis discussed, and patient acknowledges understanding with care plan -Time: +30 min #Discharge planning - Patient is pending determination of disposition/placement. - Case management has been made aware. Disposition Plan: Pending placement Total Time Spent with Patient (Minutes): 30 min History Interval history: No acute events overnight. Hospitalist Physical - Constitutional Vitals: Temp Pulse Resp BP Pulse Ox 98.0 F 100 H 18 123/84 98 04/26/22 12:07 04/26/22 12:07 04/26/22 12:07 04/26/22 12:07 04/26/22 15:21 General appearance: Present: no acute distress, well-nourished - EENT Eyes: Present: PERRL, EOM intact ENT: hearing intact, clear oral mucosa, dentition normal - Neck Neck: Present: supple, normal ROM - Respiratory Respiratory effort: normal Respiratory: bilateral: diminished - Cardiovascular Rhythm: regular Heart Sounds: Present: S1 & S2 - Extremities Extremities: no ischemia, pulses intact, pulses symmetrical, No edema, normal temperature, normal color Peripheral Pulses: within normal limits - Abdominal General gastrointestinal: soft, non-tender, non-distended, normal bowel sounds - Integumentary Integumentary: Present: clear, warm, dry - Psychiatric Psychiatric: appropriate mood/affect, cooperative - Neurologic Neurologic: CNII-XII intact - Allied Health Allied health notes reviewed: nursing HEART Score - HEART Score Troponin: Troponin T < 0.010 ng/mL (0.00-0.029) 04/16/22 20:50 Results - Labs CBC & Chem 7: 04/24/22 22:56 04/24/22 22:56 Labs: Laboratory Last Values WBC 6.2 K/mm3 (4.5-11.0) 04/24/22 22:56 RBC 4.10 M/mm3 (3.65-5.03) 04/24/22 22:56 Hgb 12.3 gm/dl (11.8-15.2) 04/24/22 22:56 Hct 37.1 % (35.5-45.6) 04/24/22 22:56 MCV 91 fl (84-94) 04/24/22 22:56 MCH 30 pg (28-32) 04/24/22 22:56 MCHC 33 % (32-34) 04/24/22 22:56 RDW 13.8 % (13.2-15.2) 04/24/22 22:56 Plt Count 321 K/mm3 (140-440) 04/24/22 22:56 Lymph % (Auto) 19.7 % (13.4-35.0) 04/24/22 22:56 Bartholomew % (Auto) 15.6 % (0.0-7.3) H 04/24/22 22:56 Eos % (Auto) 1.3 % (0.0-4.3) 04/24/22 22:56 Baso % (Auto) 0.6 % (0.0-1.8) 04/24/22 22:56 Lymph # (Auto) 1.2 K/mm3 (1.2-5.4) 04/24/22 22:56 Bartholomew # (Auto) 1.0 K/mm3 (0.0-0.8) H 04/24/22 22:56 Eos # (Auto) 0.1 K/mm3 (0.0-0.4) 04/24/22 22:56 Baso # (Auto) 0.0 K/mm3 (0.0-0.1) 04/24/22 22:56 Seg Neutrophils % 62.8 % (40.0-70.0) 04/24/22 22:56 Seg Neutrophils # 3.9 K/mm3 (1.8-7.7) 04/24/22 22:56 PT 13.6 Sec. (12.2-14.9) 04/16/22 20:50 INR 0.94 (0.87-1.13) 04/16/22 20:50 D-Dimer 1188.69 ng/mlDDU (0-234) H 04/22/22 08:25 Sodium 134 mmol/L (137-145) L 04/24/22 22:56 Potassium 3.8 mmol/L (3.6-5.0) 04/24/22 22:56 Chloride 96.7 mmol/L (98-107) L 04/24/22 22:56 Carbon Dioxide 25 mmol/L (22-30) 04/24/22 22:56 Anion Gap 16 mmol/L 04/24/22 22:56 BUN 9 mg/dL (9-20) 04/24/22 22:56 Creatinine 0.8 mg/dL (0.8-1.3) 04/24/22 22:56 Estimated GFR > 60 ml/min 04/24/22 22:56 BUN/Creatinine Ratio 11 % 04/24/22 22:56 Glucose 96 mg/dL (75-100) 04/24/22 22:56 Calcium 8.1 mg/dL (8.4-10.2) L 04/24/22 22:56 Magnesium 1.80 mg/dL (1.7-2.3) 04/21/22 10:53 Total Creatine Kinase 1221 units/L (55-170) H 04/19/22 05:31 CK-MB (CK-2) 16.2 ng/mL (0.0-4.0) H 04/16/22 20:50 CK-MB (CK-2) Rel Index 0.3 (0-4) 04/16/22 20:50 Troponin T < 0.010 ng/mL (0.00-0.029) 04/16/22 20:50 Procalcitonin 0.40 ng/mL (<0.15) 04/22/22 11:01 TSH 1.910 mlU/mL (0.270-4.200) 04/16/22 20:50 Free T4 1.24 ng/dL (0.76-1.46) 04/16/22 20:50 Coronavirus (PCR) Positive (Negative) A 04/23/22 Unknown Microbiology: Microbiology 04/22/22 11:01 Peripheral/Venous Blood Culture - Preliminary NO GROWTH AFTER 4 DAYS 04/22/22 11:01 Peripheral/Venous Blood Culture - Preliminary NO GROWTH AFTER 4 DAYS Ma/IV: Voiding Method Condom Catheter Active Medications - Current Medications Current Medications: Generic Name Dose Route Start Last Admin Trade Name Freq PRN Reason Stop Dose Admin Acetaminophen 650 mg 04/16/22 23:27 04/21/22 18:41 Acetaminophen 325 Mg Tab PO 650 mg Q4H PRN Administration Pain MILD(1-3)/Fever >100.5/CRUZ Heparin Sodium (Porcine) 5,000 unit 04/17/22 06:00 04/26/22 15:16 Heparin 5,000 Unit/1 Ml Vial SUB-Q 5,000 unit Q8HR EDGAR Administration Losartan Potassium 100 mg 04/26/22 10:00 04/26/22 09:26 Losartan 50 Mg Tab PO 100 mg QDAY EDGAR Administration Magnesium Hydroxide 30 ml 04/16/22 23:27 Magnesium Hydroxide (Mom) Oral Liqd Udc PO Q4H PRN Constipation Morphine Sulfate 2 mg 04/16/22 23:27 Morphine 2 Mg/1 Ml Inj IV Q4H PRN Pain, Moderate (4-6) Morphine Sulfate 4 mg 04/16/22 23:27 Morphine 4 Mg/1 Ml Inj IV Q4H PRN Pain , Severe (7-10) Ondansetron HCl 4 mg 04/16/22 23:27 Ondansetron 4 Mg/2 Ml Inj IV Q8H PRN Nausea And Vomiting Sodium Chloride 10 ml 04/17/22 10:00 04/26/22 09:56 Sodium Chloride 0.9% 10 Ml Flush Syringe IV 10 ml BID EDGAR Administration Sodium Chloride 10 ml 04/16/22 23:27 Sodium Chloride 0.9% 10 Ml Flush Syringe IV PRN PRN LINE FLUSH Spironolactone 25 mg 04/20/22 10:00 04/26/22 09:26 Spironolactone 25 Mg Tab PO 25 mg QDAY EDGAR Administration Nutrition/Malnutrition Assess - Dietary Evaluation Nutrition/Malnutrition Findings: Nutrition Notes Start: 04/24/22 15:41 Freq: Status: Active Protocol: Document 04/24/22 15:41 SHWETHA (Rec: 04/24/22 16:08 [email or web address] [id number]) Nutrition Notes Need for Assessment generated from: LOS Initial or Follow up Assessment Current Diagnosis Hypertension Other Pertinent Diagnosis Ground-Level Fall, Fever. Current Diet Cardiac Diet (since B 04/17). Labs/Tests 04/24: Na 134, Ca 8.1. Pertinent Medications 04/24: Nutritionally unremarkable. Height 5 ft 6 in Weight 68.8 kg [place] Body Weight (kg) 64.54 BMI 24.5 Intake Prior to Admission Good Weight change and time frame Pt denies having loss body weight [employer]. Weight Status Appropriate Subjective/Other Information RD consult for LOS assessment. Pt's PO intake of meals has been Good (75-100%), according to ADL notes. Pt is on Room Air, O2 saturation @ 100%, according to Physical Assessment History notes. Pt has missing teeth, according to Physical Assessment History notes. Pt presents sacral skin tear, according to Physical Assessment History notes and admission documents. I will prescribe dietary supplements to support wound healing processes. Plans for discharge home or SNF, since Pt lives alone, on 04/25, according to Progress notes. Percent of energy/protein needs met: Prescribed Cardiac Diet provides for energy/protein needs (2,230 Kcal/85 g) during LOS; additionally, Dietary Supplements will support wound healing processes with 700 Kcal and 40 g of protein. Burn Absent Trauma Absent GI Symptoms None Food Allergy No Skin Integrity/Comment Sacrum skin tear. Current % PO Good (75-100%) Minimum of two criteria No Fluid Accumulation N/A Reduced In Home Aide Strength N/A (non-severe) Protein-Calorie Malnutrition N\A #1 Nutrition Diagnosis Increased nutrient needs ( specify in comment below) Comments: Protein to support wound healing processes. Etiology Ground-Level Fall. As Evidenced by Signs and Symptoms Pt presents sacral skin tear, according to Physical Assessment History notes and admission documents. Is patient on ventilator? No Is Patient Ambulatory and/or Out of Bed No REE-(Mckean-St. Jeor-confined to bed) 5897.080 Calculation Used for Recommendations [facility] Jeor Additional Notes Protein: 1-1.2 g/Kg ABW; 69-83 g/day. Fluids: 1 ml/Kcal, or as per MD. Nutrition Intervention Change Diet Order: Continue Cardiac Diet. Add Supplement/Snack (indicate name/kcal Start 8 fl oz Ensure Enlive; /protein ) BID. Provides kCal: 700 Provides Protein (gm) 40 Goal #1 Support, through dietary supplementation, wound healing processes during LOS. Goal #2 Adjust the dietary intervention to better serve Pt's needs and clinical conditions during LOS. Follow-Up By: 05/01/22 Additional Comments Continue monitoring food tolerance, %PO intake of meals , and BM.
[2022-04-27] MEDS: HEPARIN 5,000 UNIT/1 ML VIAL SUB-Q SCH ×3 (06:12→21:12)
[2022-04-27] MEDS: SPIRONOLACTONE 25 MG TAB PO SCH (09:27)
[2022-04-27] MEDS: LOSARTAN 50 MG TAB PO SCH (09:28)
[2022-04-28] MEDS: HEPARIN 5,000 UNIT/1 ML VIAL SUB-Q SCH ×3 (05:19→22:30)
[2022-04-28] MEDS: LOSARTAN 50 MG TAB PO SCH (09:04)
[2022-04-28] MEDS: SPIRONOLACTONE 25 MG TAB PO SCH (09:04)
[2022-04-28] MEDS: NIFEdipine XL 30 MG TAB PO SCH (09:08)
--- NOTE | 2022-04-28 11:43 | Progress Note ---
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 He was subsequently unable to get up from the floor. He denies any loss of consciousness, no head injury. The police had to force open the door after a welfare check. Work-up in the emergency room revealed chest x-ray that was unremarkable. X-ray of the hip and pelvis, tibia and fibula, x-ray of the femur were unremarkable. CT of the cervical spine was also unremarkable. Labs however revealed elevated BUN and creatinine, creatinine kinase of 4534 #Acute kidney injury secondary to vasomotor nephropathy/dehydrationresolved #Rhabdomyolysisresolved #Hypokalemiaresolved #Hypertension #Ground-level fall #Fever- resolved #Acute hypoxic respiratory failureresolved #Hypocalcemia #Elevated D-dimer #COVID-19 infection- stable 04/17/2022. Creatinine has improved but the CK remains about the same in the 4500 range. Continue IV fluid hydration. PT evaluation pending 04/18/2022. Creatinine and CK levels have improved. Continue IV fluid hydration. Nephrology consultation pending. Physical therapy recommends subacute rehab. 04/19/2022. CK in the 1200s. Continue IV fluid hydration. Nephrology following. Await subacute rehab placement. 04/20/2022. Continue IV fluid hydration. Await subacute rehab placement. Will discuss with case management in a.m. 04/21/2022. Replete potassium. Will discuss with case management acute rehab placement. Follow-up CK levels. Continue IV fluid hydration 04/22/2022: Patient successfully weaned off of supplemental oxygen. Ordered blood cultures and starting vancomycin and Rocephin for fever of 102.3. Patient had elevated D-dimer of 1189 with unremarkable procalcitonin. Pending coronavirus PCR and CT angio chest to rule out possible pulmonary embolism. Physical therapy recommending subacute rehab. Continue to monitor. 04/23/2022: Patient has remained afebrile in the setting of vancomycin and Rocephin. Current blood cultures are NGTD x24 hours. If unremarkable after 48 hours, antibiotics will be discontinued. CT angio chest and bilateral lower extremity venous Dopplers are unremarkable for pulmonary embolism or DVT, respectively. Currently pending coronavirus PCR. Detailed discussion with case management about discharge planning given the fact that the patient does not appear to be putting an effort with regards to physical therapy. If patient remains afebrile and blood cultures are unremarkable, discharge can be anticipated within 48 hours. 04/24/2022. Patient found to be COVID-19 positive. Patient will be discharging home tomorrow with loved ones. 04/26/2022: Pending permanent placement since the patient was abandoned by his community despite them stating they would pick him up on 04/25/2022. 04/27/2022: Continue pending permanent placement. 04/28/2022: Continue pending permanent placement. #Advanced care planning -Disease education conducted, care plan discussed, diagnoses discussed, prognosis discussed, and patient acknowledges understanding with care plan -Time: +30 min #Discharge planning - Patient is pending determination of disposition/placement. - Case management has been made aware. Disposition Plan: Pending placement Total Time Spent with Patient (Minutes): 30 minutes History Interval history: No acute events over night. The patient denies fevers, chills, nausea, vomiting, abdominal pain, chest pain/pressure, shortness of breath, urinary symptoms, weakness, or confusion. Hospitalist Physical - Constitutional Vitals: Temp Pulse Resp BP Pulse Ox 98.8 F 93 H 16 126/96 95 04/28/22 11:29 04/28/22 11:20 04/28/22 11:20 04/28/22 11:20 04/28/22 11:20 General appearance: Present: no acute distress, well-nourished - EENT Eyes: Present: PERRL, EOM intact ENT: hearing intact, clear oral mucosa, dentition normal - Neck Neck: Present: supple, normal ROM - Respiratory Respiratory effort: normal Respiratory: bilateral: CTA - Cardiovascular Rhythm: regular - Extremities Extremities: no ischemia, pulses intact, pulses symmetrical, No edema, normal temperature, normal color Peripheral Pulses: within normal limits - Abdominal General gastrointestinal: soft, non-tender, non-distended, normal bowel sounds - Integumentary Integumentary: Present: clear, warm, dry - Psychiatric Psychiatric: appropriate mood/affect, cooperative - Neurologic Neurologic: CNII-XII intact, other (Generalized weakness) - Allied Health Allied health notes reviewed: nursing HEART Score - HEART Score Troponin: Troponin T < 0.010 ng/mL (0.00-0.029) 04/16/22 20:50 Results - Labs CBC & Chem 7: 04/24/22 22:56 04/24/22 22:56 Labs: Laboratory Last Values WBC 6.2 K/mm3 (4.5-11.0) 04/24/22 22:56 RBC 4.10 M/mm3 (3.65-5.03) 04/24/22 22:56 Hgb 12.3 gm/dl (11.8-15.2) 04/24/22 22:56 Hct 37.1 % (35.5-45.6) 04/24/22 22:56 MCV 91 fl (84-94) 04/24/22 22:56 MCH 30 pg (28-32) 04/24/22 22:56 MCHC 33 % (32-34) 04/24/22 22:56 RDW 13.8 % (13.2-15.2) 04/24/22 22:56 Plt Count 321 K/mm3 (140-440) 04/24/22 22:56 Lymph % (Auto) 19.7 % (13.4-35.0) 04/24/22 22:56 [place] % (Auto) 15.6 % (0.0-7.3) H 04/24/22 22:56 Eos % (Auto) 1.3 % (0.0-4.3) 04/24/22 22:56 Baso % (Auto) 0.6 % (0.0-1.8) 04/24/22 22:56 Lymph # (Auto) 1.2 K/mm3 (1.2-5.4) 04/24/22 22:56 [place] # (Auto) 1.0 K/mm3 (0.0-0.8) H 04/24/22 22:56 Eos # (Auto) 0.1 K/mm3 (0.0-0.4) 04/24/22 22:56 Baso # (Auto) 0.0 K/mm3 (0.0-0.1) 04/24/22 22:56 Seg Neutrophils % 62.8 % (40.0-70.0) 04/24/22 22:56 Seg Neutrophils # 3.9 K/mm3 (1.8-7.7) 04/24/22 22:56 PT 13.6 Sec. (12.2-14.9) 04/16/22 20:50 INR 0.94 (0.87-1.13) 04/16/22 20:50 D-Dimer 1188.69 ng/mlDDU (0-234) H 04/22/22 08:25 Sodium 134 mmol/L (137-145) L 04/24/22 22:56 Potassium 3.8 mmol/L (3.6-5.0) 04/24/22 22:56 Chloride 96.7 mmol/L (98-107) L 04/24/22 22:56 Carbon Dioxide 25 mmol/L (22-30) 04/24/22 22:56 Anion Gap 16 mmol/L 04/24/22 22:56 BUN 9 mg/dL (9-20) 04/24/22 22:56 Creatinine 0.8 mg/dL (0.8-1.3) 04/24/22 22:56 Estimated GFR > 60 ml/min 04/24/22 22:56 BUN/Creatinine Ratio 11 % 04/24/22 22:56 Glucose 96 mg/dL (75-100) 04/24/22 22:56 Calcium 8.1 mg/dL (8.4-10.2) L 04/24/22 22:56 Magnesium 1.80 mg/dL (1.7-2.3) 04/21/22 10:53 Total Creatine Kinase 1221 units/L (55-170) H 04/19/22 05:31 CK-MB (CK-2) 16.2 ng/mL (0.0-4.0) H 04/16/22 20:50 CK-MB (CK-2) Rel Index 0.3 (0-4) 04/16/22 20:50 Troponin T < 0.010 ng/mL (0.00-0.029) 04/16/22 20:50 Procalcitonin 0.40 ng/mL (<0.15) 04/22/22 11:01 TSH 1.910 mlU/mL (0.270-4.200) 04/16/22 20:50 Free T4 1.24 ng/dL (0.76-1.46) 04/16/22 20:50 Coronavirus (PCR) Positive (Negative) A 04/23/22 Unknown Microbiology: Microbiology 04/22/22 11:01 Peripheral/Venous Blood Culture - Final NO GROWTH AFTER 5 DAYS 04/22/22 11:01 Peripheral/Venous Blood Culture - Final NO GROWTH AFTER 5 DAYS Ma/IV: Voiding Method Condom Catheter Active Medications - Current Medications Current Medications: Generic Name Dose Route Start Last Admin Trade Name Freq PRN Reason Stop Dose Admin Acetaminophen 650 mg 04/16/22 23:27 04/21/22 18:41 Acetaminophen 325 Mg Tab PO 650 mg Q4H PRN Administration Pain MILD(1-3)/Fever >100.5/CRUZ Heparin Sodium (Porcine) 5,000 unit 04/17/22 06:00 04/28/22 05:19 Heparin 5,000 Unit/1 Ml Vial SUB-Q 5,000 unit Q8HR EDGAR Administration Losartan Potassium 100 mg 04/26/22 10:00 04/28/22 09:04 Losartan 50 Mg Tab PO 100 mg QDAY EDGAR Administration Magnesium Hydroxide 30 ml 04/16/22 23:27 Magnesium Hydroxide (Mom) Oral Liqd Udc PO Q4H PRN Constipation Morphine Sulfate 2 mg 04/16/22 23:27 Morphine 2 Mg/1 Ml Inj IV Q4H PRN Pain, Moderate (4-6) Morphine Sulfate 4 mg 04/16/22 23:27 Morphine 4 Mg/1 Ml Inj IV Q4H PRN Pain , Severe (7-10) Nifedipine 30 mg 04/28/22 10:00 04/28/22 09:08 Nifedipine Xl 30 Mg Tab PO 30 mg QDAY EDGAR Administration Ondansetron HCl 4 mg 04/16/22 23:27 Ondansetron 4 Mg/2 Ml Inj IV Q8H PRN Nausea And Vomiting Sodium Chloride 10 ml 04/17/22 10:00 04/28/22 09:08 Sodium Chloride 0.9% 10 Ml Flush Syringe IV 10 ml BID EDGAR Administration Sodium Chloride 10 ml 04/16/22 23:27 Sodium Chloride 0.9% 10 Ml Flush Syringe IV PRN PRN LINE FLUSH Spironolactone 25 mg 04/20/22 10:00 04/28/22 09:04 Spironolactone 25 Mg Tab PO 25 mg QDAY EDGAR Administration Nutrition/Malnutrition Assess - Dietary Evaluation Nutrition/Malnutrition Findings: Nutrition Notes Start: 04/24/22 15:41 Freq: Status: Active Protocol: Document 04/24/22 15:41 SHWETHA (Rec: 04/24/22 16:08 SHWETHA [id number]) Nutrition Notes Need for Assessment generated from: LOS Initial or Follow up Assessment Current Diagnosis Hypertension Other Pertinent Diagnosis Ground-Level Fall, Fever. Current Diet Cardiac Diet (since B 04/17). Labs/Tests 04/24: Na 134, Ca 8.1. Pertinent Medications 04/24: Nutritionally unremarkable. 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 Weight Status Appropriate Subjective/Other Information RD consult for LOS assessment. Pt's PO intake of meals has been Good (75-100%), according to ADL notes. Pt is on Room Air, O2 saturation @ 100%, according to Physical Assessment History notes. Pt has missing teeth, according to Physical Assessment History notes. Pt presents sacral skin tear, according to Physical Assessment History notes and admission documents. I will prescribe dietary supplements to support wound healing processes. Plans for discharge home or SNF, since Pt lives alone, on 04/25, according to Progress notes. Percent of energy/protein needs met: Prescribed Cardiac Diet provides for energy/protein needs (2,230 Kcal/85 g) during LOS; additionally, Dietary Supplements will support wound healing processes with 700 Kcal and 40 g of protein. Burn Absent Trauma Absent GI Symptoms None Food Allergy No Skin Integrity/Comment Sacrum skin tear. 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 Etiology Ground-Level Fall. As Evidenced by Signs and Symptoms Pt presents sacral skin tear, according to Physical Assessment History notes and admission documents. Is patient on ventilator? No Is Patient Ambulatory and/or Out of Bed No REE-([place]-confined to bed) 3347.080 Calculation Used for Recommendations [place] [facility] Additional Notes Protein: 1-1.2 g/Kg ABW; 69-83 g/day. Fluids: 1 ml/Kcal, or as per MD. Nutrition Intervention Change Diet Order: Continue Cardiac Diet. Add Supplement/Snack (indicate name/kcal Start 8 fl oz Ensure Enlive; /protein ) BID. Provides kCal: 700 Provides Protein (gm) 40 Goal #1 Support, through dietary supplementation, wound healing processes during LOS. Goal #2 Adjust the dietary intervention to better serve Pt's needs and clinical conditions during LOS. Follow-Up By: 05/01/22 Additional Comments Continue monitoring food tolerance, %PO intake of meals , and BM.
[2022-04-29] MEDS: HEPARIN 5,000 UNIT/1 ML VIAL SUB-Q SCH ×3 (05:22→21:13)
[2022-04-29] MEDS: NIFEdipine XL 30 MG TAB PO SCH (09:13)
[2022-04-29] MEDS: LOSARTAN 50 MG TAB PO SCH (09:13)
[2022-04-29] MEDS: SPIRONOLACTONE 25 MG TAB PO SCH (09:13)
--- NOTE | 2022-04-29 11:17 | Progress Note ---
Assessment and Plan Assessment and plan: 72-year-old -[place] male with known history of hypertension and who lives by himself presents to the emergency room today complaining of bilateral hip pain after having a fall about 4 days ago [employer]OULE [employer]. 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 He was subsequently unable to get up from the floor. He denies any loss of consciousness, no head injury. The police had to force open the door after a welfare check. Work-up in the emergency room revealed chest x-ray that was unremarkable. X-ray of the hip and pelvis, tibia and fibula, x-ray of the femur were unremarkable. CT of the cervical spine was also unremarkable. Labs however revealed elevated BUN and creatinine, creatinine kinase of 4534 Acute kidney injury secondary to vasomotor nephropathy/dehydrationresolved Rhabdomyolysisresolved Hypokalemiaresolved Hypertension Ground-level fall Fever- resolved Acute hypoxic respiratory failureresolved Hypocalcemia Elevated D-dimer COVID-19 infection- stable 04/17/2022. Creatinine has improved but the CK remains about the same in the 4500 range. Continue IV fluid hydration. PT evaluation pending 04/18/2022. Creatinine and CK levels have improved. Continue IV fluid hydration. Nephrology consultation pending. Physical therapy recommends subacute rehab. 04/19/2022. CK in the 1200s. Continue IV fluid hydration. Nephrology following. Await subacute rehab placement. 04/20/2022. Continue IV fluid hydration. Await subacute rehab placement. Will discuss with case management in a.m. 04/21/2022. Replete potassium. Will discuss with case management acute rehab placement. Follow-up CK levels. Continue IV fluid hydration 04/22/2022: Patient successfully weaned off of supplemental oxygen. Ordered blood cultures and starting vancomycin and Rocephin for fever of 102.3. Patient had elevated D-dimer of 1189 with unremarkable procalcitonin. Pending coronavirus PCR and CT angio chest to rule out possible pulmonary embolism. Physical therapy recommending subacute rehab. Continue to monitor. 04/23/2022: Patient has remained afebrile in the setting of vancomycin and Rocephin. Current blood cultures are NGTD x24 hours. If unremarkable after 48 hours, antibiotics will be discontinued. CT angio chest and bilateral lower extremity venous Dopplers are unremarkable for pulmonary embolism or DVT, respectively. Currently pending coronavirus PCR. Detailed discussion with case management about discharge planning given the fact that the patient does not appear to be putting an effort with regards to physical therapy. If patient remains afebrile and blood cultures are unremarkable, discharge can be anticipated within 48 hours. 04/24/2022. Patient found to be COVID-19 positive. Patient will be discharging home tomorrow with loved ones. 04/26/2022: Pending permanent placement since the patient was abandoned by his community despite them stating they would pick him up on 04/25/2022. 04/27/2022: Continue pending permanent placement. 04/28/2022: Continue pending permanent placement. 04/29/2022: Patient still pending placement. Case management reports the was abandoned by his community despite them stating they would pick him up on 04/25/2022. History Interval history: No new issues overnight Hospitalist Physical - Constitutional Vitals: Temp Pulse Resp BP Pulse Ox 98.0 F 88 18 128/89 98 04/29/22 07:08 04/29/22 07:08 04/29/22 07:08 04/29/22 07:08 04/29/22 09:52 General appearance: Present: no acute distress, well-nourished - EENT Eyes: Present: PERRL, EOM intact ENT: hearing intact, clear oral mucosa, dentition normal - Neck Neck: Present: supple, normal ROM - Respiratory Respiratory effort: normal Respiratory: bilateral: CTA - Cardiovascular Rhythm: regular Heart Sounds: Present: S1 & S2. Absent: gallop, rub - Extremities Extremities: no ischemia, No edema, Full ROM - Abdominal General gastrointestinal: soft, non-tender, non-distended, normal bowel sounds - Integumentary Integumentary: Present: clear, warm, dry - Neurologic Neurologic: CNII-XII intact, moves all extremities HEART Score - HEART Score Troponin: Troponin T < 0.010 ng/mL (0.00-0.029) 04/16/22 20:50 Results - Labs CBC & Chem 7: 04/24/22 22:56 04/24/22 22:56 Labs: Laboratory Last Values WBC 6.2 K/mm3 (4.5-11.0) 04/24/22 22:56 RBC 4.10 M/mm3 (3.65-5.03) 04/24/22 22:56 Hgb 12.3 gm/dl (11.8-15.2) 04/24/22 22:56 Hct 37.1 % (35.5-45.6) 04/24/22 22:56 MCV 91 fl (84-94) 04/24/22 22:56 MCH 30 pg (28-32) 04/24/22 22:56 MCHC 33 % (32-34) 04/24/22 22:56 RDW 13.8 % (13.2-15.2) 04/24/22 22:56 Plt Count 321 K/mm3 (140-440) 04/24/22 22:56 Lymph % (Auto) 19.7 % (13.4-35.0) 04/24/22 22:56 [place] % (Auto) 15.6 % (0.0-7.3) H 04/24/22 22:56 Eos % (Auto) 1.3 % (0.0-4.3) 04/24/22 22:56 Baso % (Auto) 0.6 % (0.0-1.8) 04/24/22 22:56 Lymph # (Auto) 1.2 K/mm3 (1.2-5.4) 04/24/22 22:56 [place] # (Auto) 1.0 K/mm3 (0.0-0.8) H 04/24/22 22:56 Eos # (Auto) 0.1 K/mm3 (0.0-0.4) 04/24/22 22:56 Baso # (Auto) 0.0 K/mm3 (0.0-0.1) 04/24/22 22:56 Seg Neutrophils % 62.8 % (40.0-70.0) 04/24/22 22:56 Seg Neutrophils # 3.9 K/mm3 (1.8-7.7) 04/24/22 22:56 PT 13.6 Sec. (12.2-14.9) 04/16/22 20:50 INR 0.94 (0.87-1.13) 04/16/22 20:50 D-Dimer 1188.69 ng/mlDDU (0-234) H 04/22/22 08:25 Sodium 134 mmol/L (137-145) L 04/24/22 22:56 Potassium 3.8 mmol/L (3.6-5.0) 04/24/22 22:56 Chloride 96.7 mmol/L (98-107) L 04/24/22 22:56 Carbon Dioxide 25 mmol/L (22-30) 04/24/22 22:56 Anion Gap 16 mmol/L 04/24/22 22:56 BUN 9 mg/dL (9-20) 04/24/22 22:56 Creatinine 0.8 mg/dL (0.8-1.3) 04/24/22 22:56 Estimated GFR > 60 ml/min 04/24/22 22:56 BUN/Creatinine Ratio 11 % 04/24/22 22:56 Glucose 96 mg/dL (75-100) 04/24/22 22:56 Calcium 8.1 mg/dL (8.4-10.2) L 04/24/22 22:56 Magnesium 1.80 mg/dL (1.7-2.3) 04/21/22 10:53 Total Creatine Kinase 1221 units/L (55-170) H 04/19/22 05:31 CK-MB (CK-2) 16.2 ng/mL (0.0-4.0) H 04/16/22 20:50 CK-MB (CK-2) Rel Index 0.3 (0-4) 04/16/22 20:50 Troponin T < 0.010 ng/mL (0.00-0.029) 04/16/22 20:50 Procalcitonin 0.40 ng/mL (<0.15) 04/22/22 11:01 TSH 1.910 mlU/mL (0.270-4.200) 04/16/22 20:50 Free T4 1.24 ng/dL (0.76-1.46) 04/16/22 20:50 Coronavirus (PCR) Positive (Negative) A 04/23/22 Unknown Ma/IV: Voiding Method Condom Catheter Active Medications - Current Medications Current Medications: Generic Name Dose Route Start Last Admin Trade Name Freq PRN Reason Stop Dose Admin Acetaminophen 650 mg 04/16/22 23:27 04/21/22 18:41 Acetaminophen 325 Mg Tab PO 650 mg Q4H PRN Administration Pain MILD(1-3)/Fever >100.5/CRUZ Heparin Sodium (Porcine) 5,000 unit 04/17/22 06:00 04/29/22 05:22 Heparin 5,000 Unit/1 Ml Vial SUB-Q 5,000 unit Q8HR EDGAR Administration Losartan Potassium 100 mg 04/26/22 10:00 04/29/22 09:13 Losartan 50 Mg Tab PO 100 mg QDAY EDGAR Administration Magnesium Hydroxide 30 ml 04/16/22 23:27 Magnesium Hydroxide (Mom) Oral Liqd Udc PO Q4H PRN Constipation Morphine Sulfate 2 mg 04/16/22 23:27 Morphine 2 Mg/1 Ml Inj IV Q4H PRN Pain, Moderate (4-6) Morphine Sulfate 4 mg 04/16/22 23:27 Morphine 4 Mg/1 Ml Inj IV Q4H PRN Pain , Severe (7-10) Nifedipine 30 mg 04/28/22 10:00 04/29/22 09:13 Nifedipine Xl 30 Mg Tab PO 30 mg QDAY EDGAR Administration Ondansetron HCl 4 mg 04/16/22 23:27 Ondansetron 4 Mg/2 Ml Inj IV Q8H PRN Nausea And Vomiting Sodium Chloride 10 ml 04/17/22 10:00 04/29/22 09:14 Sodium Chloride 0.9% 10 Ml Flush Syringe IV 10 ml BID EDGAR Administration Sodium Chloride 10 ml 04/16/22 23:27 Sodium Chloride 0.9% 10 Ml Flush Syringe IV PRN PRN LINE FLUSH Spironolactone 25 mg 04/20/22 10:00 04/29/22 09:13 Spironolactone 25 Mg Tab PO 25 mg QDAY EDGAR Administration Nutrition/Malnutrition Assess - Dietary Evaluation Nutrition/Malnutrition Findings: Nutrition Notes Start: 04/24/22 15:41 Freq: Status: Active Protocol: Document 04/24/22 15:41 SHWETHA (Rec: 04/24/22 16:08 [email or web address] [id number]) Nutrition Notes Need for Assessment generated from: LOS Initial or Follow up Assessment Current Diagnosis Hypertension Other Pertinent Diagnosis Ground-Level Fall, Fever. Current Diet Cardiac Diet (since B 04/17). Labs/Tests 04/24: Na 134, Ca 8.1. Pertinent Medications 04/24: Nutritionally unremarkable. Height 5 ft 6 in Weight 68.8 kg [place] Body Weight (kg) 64.54 BMI 24.5 Intake Prior to Admission Good Weight change and time frame Pt denies having loss body weight [employer]. Weight Status Appropriate Subjective/Other Information RD consult for LOS assessment. Pt's PO intake of meals has been Good (75-100%), according to ADL notes. Pt is on Room Air, O2 saturation @ 100%, according to Physical Assessment History notes. Pt has missing teeth, according to Physical Assessment History notes. Pt presents sacral skin tear, according to Physical Assessment History notes and admission documents. I will prescribe dietary supplements to support wound healing processes. Plans for discharge home or SNF, since Pt lives alone, on 04/25, according to Progress notes. Percent of energy/protein needs met: Prescribed Cardiac Diet provides for energy/protein needs (2,230 Kcal/85 g) during LOS; additionally, Dietary Supplements will support wound healing processes with 700 Kcal and 40 g of protein. Burn Absent Trauma Absent GI Symptoms None Food Allergy No Skin Integrity/Comment Sacrum skin tear. 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 Etiology Ground-Level Fall. As Evidenced by Signs and Symptoms Pt presents sacral skin tear, according to Physical Assessment History notes and admission documents. Is patient on ventilator? No Is Patient Ambulatory and/or Out of Bed No REE-([place]-confined to bed) 1657.080 Calculation Used for Recommendations [facility] Additional Notes Protein: 1-1.2 g/Kg ABW; 69-83 g/day. Fluids: 1 ml/Kcal, or as per MD. Nutrition Intervention Change Diet Order: Continue Cardiac Diet. Add Supplement/Snack (indicate name/kcal Start 8 fl oz Ensure Enlive; /protein ) BID. Provides kCal: 700 Provides Protein (gm) 40 Goal #1 Support, through dietary supplementation, wound healing processes during LOS. Goal #2 Adjust the dietary intervention to better serve Pt's needs and clinical conditions during LOS. Follow-Up By: 05/01/22 Additional Comments Continue monitoring food tolerance, %PO intake of meals , and BM.
[2022-04-30] MEDS: HEPARIN 5,000 UNIT/1 ML VIAL SUB-Q SCH ×3 (05:08→22:11)
[2022-04-30] MEDS: SPIRONOLACTONE 25 MG TAB PO SCH (09:01)
[2022-04-30] MEDS: LOSARTAN 50 MG TAB PO SCH (09:01)
[2022-04-30] MEDS: NIFEdipine XL 30 MG TAB PO SCH (09:01)
[2022-05-01] MEDS: HEPARIN 5,000 UNIT/1 ML VIAL SUB-Q SCH ×3 (05:13→22:15)
[2022-05-01] MEDS: NIFEdipine XL 30 MG TAB PO SCH (09:09)
[2022-05-01] MEDS: SPIRONOLACTONE 25 MG TAB PO SCH (09:09)
[2022-05-01] MEDS: LOSARTAN 50 MG TAB PO SCH (09:09)
--- NOTE | 2022-05-01 11:19 | Progress Note ---
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 He was subsequently unable to get up from the floor. He denies any loss of consciousness, no head injury. The police had to force open the door after a welfare check. Work-up in the emergency room revealed chest x-ray that was unremarkable. X-ray of the hip and pelvis, tibia and fibula, x-ray of the femur were unremarkable. CT of the cervical spine was also unremarkable. Labs however revealed elevated BUN and creatinine, creatinine kinase of 4534 Acute kidney injury secondary to vasomotor nephropathy/dehydrationresolved Rhabdomyolysisresolved Hypokalemiaresolved Hypertension Ground-level fall Fever- resolved Acute hypoxic respiratory failureresolved Hypocalcemia Elevated D-dimer COVID-19 infection- stable 04/17/2022. Creatinine has improved but the CK remains about the same in the 4500 range. Continue IV fluid hydration. PT evaluation pending 04/18/2022. Creatinine and CK levels have improved. Continue IV fluid hydration. Nephrology consultation pending. Physical therapy recommends subacute rehab. 04/19/2022. CK in the 1200s. Continue IV fluid hydration. Nephrology following. Await subacute rehab placement. 04/20/2022. Continue IV fluid hydration. Await subacute rehab placement. Will discuss with case management in a.m. 04/21/2022. Replete potassium. Will discuss with case management acute rehab placement. Follow-up CK levels. Continue IV fluid hydration 04/22/2022: Patient successfully weaned off of supplemental oxygen. Ordered blood cultures and starting vancomycin and Rocephin for fever of 102.3. Patient had elevated D-dimer of 1189 with unremarkable procalcitonin. Pending coronavirus PCR and CT angio chest to rule out possible pulmonary embolism. Physical therapy recommending subacute rehab. Continue to monitor. 04/23/2022: Patient has remained afebrile in the setting of vancomycin and Rocephin. Current blood cultures are NGTD x24 hours. If unremarkable after 48 hours, antibiotics will be discontinued. CT angio chest and bilateral lower extremity venous Dopplers are unremarkable for pulmonary embolism or DVT, respectively. Currently pending coronavirus PCR. Detailed discussion with case management about discharge planning given the fact that the patient does not appear to be putting an effort with regards to physical therapy. If patient remains afebrile and blood cultures are unremarkable, discharge can be anticipated within 48 hours. 04/24/2022. Patient found to be COVID-19 positive. Patient will be discharging home tomorrow with loved ones. 04/26/2022: Pending permanent placement since the patient was abandoned by his community despite them stating they would pick him up on 04/25/2022. 04/27/2022: Continue pending permanent placement. 04/28/2022: Continue pending permanent placement. 04/29/2022: Patient still pending placement. Case management reports the was abandoned by his community despite them stating they would pick him up on 04/25/2022. 04/30/2022. Awaiting placement 05/01/2022. Awaiting placement. History Interval history: No new issues overnight Hospitalist Physical - Constitutional Vitals: Temp Pulse Resp BP Pulse Ox 97.7 F 101 H 20 130/88 96 05/01/22 09:17 05/01/22 09:17 05/01/22 09:17 05/01/22 09:17 05/01/22 09:17 General appearance: Present: no acute distress, well-nourished - EENT Eyes: Present: PERRL, EOM intact ENT: hearing intact, clear oral mucosa, dentition normal - Neck Neck: Present: supple, normal ROM - Respiratory Respiratory effort: normal Respiratory: bilateral: CTA - Cardiovascular Rhythm: regular Heart Sounds: Present: S1 & S2. Absent: gallop, rub - Extremities Extremities: no ischemia, No edema, Full ROM - Abdominal General gastrointestinal: soft, non-tender, non-distended, normal bowel sounds - Integumentary Integumentary: Present: clear, warm, dry - Neurologic Neurologic: CNII-XII intact, moves all extremities HEART Score - HEART Score Troponin: Troponin T < 0.010 ng/mL (0.00-0.029) 04/16/22 20:50 Results - Labs CBC & Chem 7: 04/24/22 22:56 04/24/22 22:56 Labs: Laboratory Last Values WBC 6.2 K/mm3 (4.5-11.0) 04/24/22 22:56 RBC 4.10 M/mm3 (3.65-5.03) 04/24/22 22:56 Hgb 12.3 gm/dl (11.8-15.2) 04/24/22 22:56 Hct 37.1 % (35.5-45.6) 04/24/22 22:56 MCV 91 fl (84-94) 04/24/22 22:56 MCH 30 pg (28-32) 04/24/22 22:56 MCHC 33 % (32-34) 04/24/22 22:56 RDW 13.8 % (13.2-15.2) 04/24/22 22:56 Plt Count 321 K/mm3 (140-440) 04/24/22 22:56 Lymph % (Auto) 19.7 % (13.4-35.0) 04/24/22 22:56 Benzie % (Auto) 15.6 % (0.0-7.3) H 04/24/22 22:56 Eos % (Auto) 1.3 % (0.0-4.3) 04/24/22 22:56 Baso % (Auto) 0.6 % (0.0-1.8) 04/24/22 22:56 Lymph # (Auto) 1.2 K/mm3 (1.2-5.4) 04/24/22 22:56 Benzie # (Auto) 1.0 K/mm3 (0.0-0.8) H 04/24/22 22:56 Eos # (Auto) 0.1 K/mm3 (0.0-0.4) 04/24/22 22:56 Baso # (Auto) 0.0 K/mm3 (0.0-0.1) 04/24/22 22:56 Seg Neutrophils % 62.8 % (40.0-70.0) 04/24/22 22:56 Seg Neutrophils # 3.9 K/mm3 (1.8-7.7) 04/24/22 22:56 PT 13.6 Sec. (12.2-14.9) 04/16/22 20:50 INR 0.94 (0.87-1.13) 04/16/22 20:50 D-Dimer 1188.69 ng/mlDDU (0-234) H 04/22/22 08:25 Sodium 134 mmol/L (137-145) L 04/24/22 22:56 Potassium 3.8 mmol/L (3.6-5.0) 04/24/22 22:56 Chloride 96.7 mmol/L (98-107) L 04/24/22 22:56 Carbon Dioxide 25 mmol/L (22-30) 04/24/22 22:56 Anion Gap 16 mmol/L 04/24/22 22:56 BUN 9 mg/dL (9-20) 04/24/22 22:56 Creatinine 0.8 mg/dL (0.8-1.3) 04/24/22 22:56 Estimated GFR > 60 ml/min 04/24/22 22:56 BUN/Creatinine Ratio 11 % 04/24/22 22:56 Glucose 96 mg/dL (75-100) 04/24/22 22:56 Calcium 8.1 mg/dL (8.4-10.2) L 04/24/22 22:56 Magnesium 1.80 mg/dL (1.7-2.3) 04/21/22 10:53 Total Creatine Kinase 1221 units/L (55-170) H 04/19/22 05:31 CK-MB (CK-2) 16.2 ng/mL (0.0-4.0) H 04/16/22 20:50 CK-MB (CK-2) Rel Index 0.3 (0-4) 04/16/22 20:50 Troponin T < 0.010 ng/mL (0.00-0.029) 04/16/22 20:50 Procalcitonin 0.40 ng/mL (<0.15) 04/22/22 11:01 TSH 1.910 mlU/mL (0.270-4.200) 04/16/22 20:50 Free T4 1.24 ng/dL (0.76-1.46) 04/16/22 20:50 Coronavirus (PCR) Positive (Negative) A 04/23/22 Unknown SARS-CoV-2 (PCR) Positive (Negative) A 04/29/22 12:30 Ma/IV: Voiding Method Condom Catheter Active Medications - Current Medications Current Medications: Generic Name Dose Route Start Last Admin Trade Name Freq PRN Reason Stop Dose Admin Acetaminophen 650 mg 04/16/22 23:27 04/21/22 18:41 Acetaminophen 325 Mg Tab PO 650 mg Q4H PRN Administration Pain MILD(1-3)/Fever >100.5/CRUZ Heparin Sodium (Porcine) 5,000 unit 04/17/22 06:00 05/01/22 05:13 Heparin 5,000 Unit/1 Ml Vial SUB-Q 5,000 unit Q8HR EDGAR Administration Losartan Potassium 100 mg 04/26/22 10:00 05/01/22 09:09 Losartan 50 Mg Tab PO 100 mg QDAY EDGAR Administration Magnesium Hydroxide 30 ml 04/16/22 23:27 Magnesium Hydroxide (Mom) Oral Liqd Udc PO Q4H PRN Constipation Morphine Sulfate 2 mg 04/16/22 23:27 Morphine 2 Mg/1 Ml Inj IV Q4H PRN Pain, Moderate (4-6) Morphine Sulfate 4 mg 04/16/22 23:27 Morphine 4 Mg/1 Ml Inj IV Q4H PRN Pain , Severe (7-10) Nifedipine 30 mg 04/28/22 10:00 05/01/22 09:09 Nifedipine Xl 30 Mg Tab PO 30 mg QDAY EDGAR Administration Ondansetron HCl 4 mg 04/16/22 23:27 Ondansetron 4 Mg/2 Ml Inj IV Q8H PRN Nausea And Vomiting Sodium Chloride 10 ml 04/17/22 10:00 05/01/22 09:10 Sodium Chloride 0.9% 10 Ml Flush Syringe IV 10 ml BID EDGAR Administration Sodium Chloride 10 ml 04/16/22 23:27 Sodium Chloride 0.9% 10 Ml Flush Syringe IV PRN PRN LINE FLUSH Spironolactone 25 mg 04/20/22 10:00 05/01/22 09:09 Spironolactone 25 Mg Tab PO 25 mg QDAY EDGAR Administration Nutrition/Malnutrition Assess - Dietary Evaluation Nutrition/Malnutrition Findings: Nutrition Notes Start: 04/24/22 15:41 Freq: Status: Active Protocol: Document 04/24/22 15:41 SHWETHA (Rec: 04/24/22 16:08 SHWETHA [id number]) Nutrition Notes Need for Assessment generated from: LOS Initial or Follow up Assessment Current Diagnosis Hypertension Other Pertinent Diagnosis Ground-Level Fall, Fever. Current Diet Cardiac Diet (since B 04/17). Labs/Tests 04/24: Na 134, Ca 8.1. Pertinent Medications 04/24: Nutritionally unremarkable. 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 Weight Status Appropriate Subjective/Other Information RD consult for LOS assessment. Pt's PO intake of meals has been Good (75-100%), according to ADL notes. Pt is on Room Air, O2 saturation @ 100%, according to Physical Assessment History notes. Pt has missing teeth, according to Physical Assessment History notes. Pt presents sacral skin tear, according to Physical Assessment History notes and admission documents. I will prescribe dietary supplements to support wound healing processes. Plans for discharge home or SNF, since Pt lives alone, on 04/25, according to Progress notes. Percent of energy/protein needs met: Prescribed Cardiac Diet provides for energy/protein needs (2,230 Kcal/85 g) during LOS; additionally, Dietary Supplements will support wound healing processes with 700 Kcal and 40 g of protein. Burn Absent Trauma Absent GI Symptoms None Food Allergy No Skin Integrity/Comment Sacrum skin tear. 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 Etiology Ground-Level Fall. As Evidenced by Signs and Symptoms Pt presents sacral skin tear, according to Physical Assessment History notes and admission documents. Is patient on ventilator? No Is Patient Ambulatory and/or Out of Bed No REE-([place]-St. Jeor-confined to bed) 4186.084 Calculation Used for Recommendations [place]-St Jeor Additional Notes Protein: 1-1.2 g/Kg ABW; 69-83 g/day. Fluids: 1 ml/Kcal, or as per MD. Nutrition Intervention Change Diet Order: Continue Cardiac Diet. Add Supplement/Snack (indicate name/kcal Start 8 fl oz Ensure Enlive; /protein ) BID. Provides kCal: 700 Provides Protein (gm) 40 Goal #1 Support, through dietary supplementation, wound healing processes during LOS. Goal #2 Adjust the dietary intervention to better serve Pt's needs and clinical conditions during LOS. Follow-Up By: 05/01/22 Additional Comments Continue monitoring food tolerance, %PO intake of meals , and BM.
[2022-05-02] MEDS: HEPARIN 5,000 UNIT/1 ML VIAL SUB-Q SCH ×3 (05:21→21:33)
[2022-05-02] MEDS: SPIRONOLACTONE 25 MG TAB PO SCH (09:07)
[2022-05-02] MEDS: NIFEdipine XL 30 MG TAB PO SCH (09:07)
[2022-05-02] MEDS: LOSARTAN 50 MG TAB PO SCH (09:07)
--- NOTE | 2022-05-02 10:49 | Progress Note ---
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 He was subsequently unable to get up from the floor. He denies any loss of consciousness, no head injury. The police had to force open the door after a welfare check. Work-up in the emergency room revealed chest x-ray that was unremarkable. X-ray of the hip and pelvis, tibia and fibula, x-ray of the femur were unremarkable. CT of the cervical spine was also unremarkable. Labs however revealed elevated BUN and creatinine, creatinine kinase of 4534 Acute kidney injury secondary to vasomotor nephropathy/dehydrationresolved Rhabdomyolysisresolved Hypokalemiaresolved Hypertension Ground-level fall Fever- resolved Acute hypoxic respiratory failureresolved Hypocalcemia Elevated D-dimer COVID-19 infection- stable 04/17/2022. Creatinine has improved but the CK remains about the same in the 4500 range. Continue IV fluid hydration. PT evaluation pending 04/18/2022. Creatinine and CK levels have improved. Continue IV fluid hydration. Nephrology consultation pending. Physical therapy recommends subacute rehab. 04/19/2022. CK in the 1200s. Continue IV fluid hydration. Nephrology following. Await subacute rehab placement. 04/20/2022. Continue IV fluid hydration. Await subacute rehab placement. Will discuss with case management in a.m. 04/21/2022. Replete potassium. Will discuss with case management acute rehab placement. Follow-up CK levels. Continue IV fluid hydration 04/22/2022: Patient successfully weaned off of supplemental oxygen. Ordered blood cultures and starting vancomycin and Rocephin for fever of 102.3. Patient had elevated D-dimer of 1189 with unremarkable procalcitonin. Pending coronavirus PCR and CT angio chest to rule out possible pulmonary embolism. Physical therapy recommending subacute rehab. Continue to monitor. 04/23/2022: Patient has remained afebrile in the setting of vancomycin and Rocephin. Current blood cultures are NGTD x24 hours. If unremarkable after 48 hours, antibiotics will be discontinued. CT angio chest and bilateral lower extremity venous Dopplers are unremarkable for pulmonary embolism or DVT, respectively. Currently pending coronavirus PCR. Detailed discussion with case management about discharge planning given the fact that the patient does not appear to be putting an effort with regards to physical therapy. If patient remains afebrile and blood cultures are unremarkable, discharge can be anticipated within 48 hours. 04/24/2022. Patient found to be COVID-19 positive. Patient will be discharging home tomorrow with loved ones. 04/26/2022: Pending permanent placement since the patient was abandoned by his community despite them stating they would pick him up on 04/25/2022. 04/27/2022: Continue pending permanent placement. 04/28/2022: Continue pending permanent placement. 04/29/2022: Patient still pending placement. Case management reports the was abandoned by his community despite them stating they would pick him up on 04/25/2022. 04/30/2022. Awaiting placement 05/01/2022. Awaiting placement. 05/02/2022. Patient is still awaiting placement. I had a long discussion with case management with regards to discharge planning History Interval history: No new issues overnight Hospitalist Physical - Constitutional Vitals: Temp Pulse Resp BP Pulse Ox 97.7 F 87 20 100/71 97 05/01/22 09:17 05/01/22 21:14 05/01/22 22:00 05/01/22 21:14 05/01/22 22:00 General appearance: Present: no acute distress, well-nourished - EENT Eyes: Present: PERRL, EOM intact ENT: hearing intact, clear oral mucosa, dentition normal - Neck Neck: Present: supple, normal ROM - Respiratory Respiratory effort: normal Respiratory: bilateral: CTA - Cardiovascular Rhythm: regular Heart Sounds: Present: S1 & S2. Absent: gallop, rub - Extremities Extremities: no ischemia, No edema, Full ROM - Abdominal General gastrointestinal: soft, non-tender, non-distended, normal bowel sounds - Integumentary Integumentary: Present: clear, warm, dry - Neurologic Neurologic: CNII-XII intact, moves all extremities HEART Score - HEART Score Troponin: Troponin T < 0.010 ng/mL (0.00-0.029) 04/16/22 20:50 Results - Labs CBC & Chem 7: 04/24/22 22:56 04/24/22 22:56 Labs: Laboratory Last Values WBC 6.2 K/mm3 (4.5-11.0) 04/24/22 22:56 RBC 4.10 M/mm3 (3.65-5.03) 04/24/22 22:56 Hgb 12.3 gm/dl (11.8-15.2) 04/24/22 22:56 Hct 37.1 % (35.5-45.6) 04/24/22 22:56 MCV 91 fl (84-94) 04/24/22 22:56 MCH 30 pg (28-32) 04/24/22 22:56 MCHC 33 % (32-34) 04/24/22 22:56 RDW 13.8 % (13.2-15.2) 04/24/22 22:56 Plt Count 321 K/mm3 (140-440) 04/24/22 22:56 Lymph % (Auto) 19.7 % (13.4-35.0) 04/24/22 22:56 Garrett % (Auto) 15.6 % (0.0-7.3) H 04/24/22 22:56 Eos % (Auto) 1.3 % (0.0-4.3) 04/24/22 22:56 Baso % (Auto) 0.6 % (0.0-1.8) 04/24/22 22:56 Lymph # (Auto) 1.2 K/mm3 (1.2-5.4) 04/24/22 22:56 Garrett # (Auto) 1.0 K/mm3 (0.0-0.8) H 04/24/22 22:56 Eos # (Auto) 0.1 K/mm3 (0.0-0.4) 04/24/22 22:56 Baso # (Auto) 0.0 K/mm3 (0.0-0.1) 04/24/22 22:56 Seg Neutrophils % 62.8 % (40.0-70.0) 04/24/22 22:56 Seg Neutrophils # 3.9 K/mm3 (1.8-7.7) 04/24/22 22:56 PT 13.6 Sec. (12.2-14.9) 04/16/22 20:50 INR 0.94 (0.87-1.13) 04/16/22 20:50 D-Dimer 1188.69 ng/mlDDU (0-234) H 04/22/22 08:25 Sodium 134 mmol/L (137-145) L 04/24/22 22:56 Potassium 3.8 mmol/L (3.6-5.0) 04/24/22 22:56 Chloride 96.7 mmol/L (98-107) L 04/24/22 22:56 Carbon Dioxide 25 mmol/L (22-30) 04/24/22 22:56 Anion Gap 16 mmol/L 04/24/22 22:56 BUN 9 mg/dL (9-20) 04/24/22 22:56 Creatinine 0.8 mg/dL (0.8-1.3) 04/24/22 22:56 Estimated GFR > 60 ml/min 04/24/22 22:56 BUN/Creatinine Ratio 11 % 04/24/22 22:56 Glucose 96 mg/dL (75-100) 04/24/22 22:56 Calcium 8.1 mg/dL (8.4-10.2) L 04/24/22 22:56 Magnesium 1.80 mg/dL (1.7-2.3) 04/21/22 10:53 Total Creatine Kinase 1221 units/L (55-170) H 04/19/22 05:31 CK-MB (CK-2) 16.2 ng/mL (0.0-4.0) H 04/16/22 20:50 CK-MB (CK-2) Rel Index 0.3 (0-4) 04/16/22 20:50 Troponin T < 0.010 ng/mL (0.00-0.029) 04/16/22 20:50 Procalcitonin 0.40 ng/mL (<0.15) 04/22/22 11:01 TSH 1.910 mlU/mL (0.270-4.200) 04/16/22 20:50 Free T4 1.24 ng/dL (0.76-1.46) 04/16/22 20:50 Coronavirus (PCR) Positive (Negative) A 04/23/22 Unknown SARS-CoV-2 (PCR) Positive (Negative) A 04/29/22 12:30 Ma/IV: Voiding Method Condom Catheter Active Medications - Current Medications Current Medications: Generic Name Dose Route Start Last Admin Trade Name Freq PRN Reason Stop Dose Admin Acetaminophen 650 mg 04/16/22 23:27 04/21/22 18:41 Acetaminophen 325 Mg Tab PO 650 mg Q4H PRN Administration Pain MILD(1-3)/Fever >100.5/CRUZ Heparin Sodium (Porcine) 5,000 unit 04/17/22 06:00 05/02/22 05:21 Heparin 5,000 Unit/1 Ml Vial SUB-Q 5,000 unit Q8HR EDGAR Administration Losartan Potassium 100 mg 04/26/22 10:00 05/02/22 09:07 Losartan 50 Mg Tab PO 100 mg QDAY EDGAR Administration Magnesium Hydroxide 30 ml 04/16/22 23:27 Magnesium Hydroxide (Mom) Oral Liqd Udc PO Q4H PRN Constipation Morphine Sulfate 2 mg 04/16/22 23:27 Morphine 2 Mg/1 Ml Inj IV Q4H PRN Pain, Moderate (4-6) Morphine Sulfate 4 mg 04/16/22 23:27 Morphine 4 Mg/1 Ml Inj IV Q4H PRN Pain , Severe (7-10) Nifedipine 30 mg 04/28/22 10:00 05/02/22 09:07 Nifedipine Xl 30 Mg Tab PO 30 mg QDAY EDGAR Administration Ondansetron HCl 4 mg 04/16/22 23:27 Ondansetron 4 Mg/2 Ml Inj IV Q8H PRN Nausea And Vomiting Sodium Chloride 10 ml 04/17/22 10:00 05/02/22 09:08 Sodium Chloride 0.9% 10 Ml Flush Syringe IV 10 ml BID EDGAR Administration Sodium Chloride 10 ml 04/16/22 23:27 Sodium Chloride 0.9% 10 Ml Flush Syringe IV PRN PRN LINE FLUSH Spironolactone 25 mg 04/20/22 10:00 05/02/22 09:07 Spironolactone 25 Mg Tab PO 25 mg QDAY EDGAR Administration Nutrition/Malnutrition Assess - Dietary Evaluation Nutrition/Malnutrition Findings: Nutrition Notes Start: 04/24/22 15:41 Freq: Status: Active Protocol: Document 05/01/22 14:50 SHWETHA (Rec: 05/01/22 15:14 SHWETHA [id number]) Nutrition Notes Initial or Follow up Reassessment Current Diagnosis Hypertension Other Pertinent Diagnosis Ground-Level Fall, Hypocalcemia, Elevated D-dimer , COVID-19. Current Diet Cardiac -Chopped Meats- Diet + D Suppl (since B 04/17). Labs/Tests 05/01: N/A. Pertinent Medications 05/01: Nutritionally unremarkable. Height 5 ft 6 in Weight 70.4 kg [place] Body Weight (kg) 64.54 BMI 25.0 Weight change and time frame 1.6 Kg body weight gain in 1 week reported. Weight Status Appropriate Subjective/Other Information RD consult for routine F/U on dietary advancement. Pt's PO intake has been Poor ( 25%), according to ADL notes; however, Dietary Supplements have been helping Pt to compensate for poor PO intake of meals. I will increment ONS to the prescription. Pt is on Room Air, O2 saturation @ 97%, according to Physical Assessment History notes. Pt has missing teeth, according to Physical Assessment History notes. I will modify to Chopped Meats to facilitate PO intake and processing of meals. Pt found to be COVID-19 positive on 04/24, according to Progress notes. Pt clinically cleared, awaiting for placement, according to Progress notes. Percent of energy/protein needs met: Prescribed Cardiac -Chopped Meats- Diet provides for energy/protein needs (2,230 Kcal/85 g) during LOS; additionally, Dietary Supplements will support wound healing processes with 1,050 Kcal and 60 g of protein. Burn Absent Trauma Absent GI Symptoms None Food Allergy No Skin Integrity/Comment Sacrum skin tear. 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 As Evidenced by Signs and Symptoms Pt's PO intake has been Poor ( 25%), according to ADL notes. #2 Nutrition Diagnosis Inadequate protein-energy intake Etiology Uncertain. As Evidenced by Signs and Symptoms Pt's PO intake has been Poor ( 25%), according to ADL notes. #1 Nutrition Diagnosis Increased nutrient needs ( specify in comment below) Comments: Protein to support wound healing processes. Diagnosis Progress(for reassessment Continues documentation) Is patient on ventilator? No Is Patient Ambulatory and/or Out of Bed No REE-(Person-St. Jeor-confined to bed) 9636.268 Calculation Used for Recommendations Person-St Patino Additional Notes Protein: 1-1.2 g/Kg ABW; 69-83 g/day. Fluids: 1 ml/Kcal, or as per MD. Nutrition Intervention Change Diet Order: Continue Cardiac -Chopped Meats- Diet. Add Supplement/Snack (indicate name/kcal Increase 8 fl oz Ensure Enlive /protein ) ; to TID. Provides kCal: 1,050 Provides Protein (gm) 60 Goal #1 Support, through dietary supplementation, wound healing processes during LOS. Goal #2 Compensate, through dietary supplementation, for possible poor or insufficient PO intake of meals during LOS. Goal #3 Facilitate PO intake of meals with elemental, textural, or mechanical modification during LOS. Goal #4 Adjust the dietary intervention to better serve Pt's needs and clinical conditions during LOS. Follow-Up By: 05/08/22 Additional Comments Continue monitoring food tolerance, %PO intake of meals and ONS, and BM.
[2022-05-02] MEDS: ACETAMINOPHEN 325 MG TAB PO PRN (20:18)
[2022-05-03] MEDS: HEPARIN 5,000 UNIT/1 ML VIAL SUB-Q SCH ×4 (06:30→22:54)
[2022-05-03 07:58] LABS: Hematocrit 37.5 % (35.5-45.6); Hemoglobin 12.7 gm/dl (11.8-15.2); Mean Corpuscular HGB Conc 34 % (32-34); Mean Corpuscular Volume 91 fl (84-94); Platelet Count 486 K/mm3 (140-440); Red Blood Count 4.13 M/mm3 (3.65-5.03); Red Cell Distribution Width 14.2 % (13.2-15.2)
[2022-05-03 08:03] LABS: BUN/Creatinine Ratio 17; Blood Urea Nitrogen 19 mg/dL (9-20); Hemolysis Index 4
[2022-05-03 08:19] LABS: Basophils % (Auto) 0.7 % (0.0-1.8); Eosinophils # (Auto) 0.1 K/mm3 (0.0-0.4); Eosinophils % (Auto) 2.5 % (0.0-4.3); Lymphocytes # (Auto) 1.7 K/mm3 (1.2-5.4); Lymphocytes % (Auto) 43.4 % (13.4-35.0); Monocytes # (Auto) 0.5 K/mm3 (0.0-0.8); Monocytes % (Auto) 11.4 % (0.0-7.3)
[2022-05-03] MEDS: SPIRONOLACTONE 25 MG TAB PO SCH (09:48)
[2022-05-03] MEDS: LOSARTAN 50 MG TAB PO SCH (09:48)
[2022-05-03] MEDS: NIFEdipine XL 30 MG TAB PO SCH (09:48)
--- NOTE | 2022-05-03 10:20 | Progress Note ---
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 He was subsequently unable to get up from the floor. He denies any loss of consciousness, no head injury. The police had to force open the door after a welfare check. Work-up in the emergency room revealed chest x-ray that was unremarkable. X-ray of the hip and pelvis, tibia and fibula, x-ray of the femur were unremarkable. CT of the cervical spine was also unremarkable. Labs however revealed elevated BUN and creatinine, creatinine kinase of 4534 Acute kidney injury secondary to vasomotor nephropathy/dehydrationresolved Rhabdomyolysisresolved Hypokalemiaresolved Hypertension Ground-level fall Fever- resolved Acute hypoxic respiratory failureresolved Hypocalcemia Elevated D-dimer COVID-19 infection- stable 04/17/2022. Creatinine has improved but the CK remains about the same in the 4500 range. Continue IV fluid hydration. PT evaluation pending 04/18/2022. Creatinine and CK levels have improved. Continue IV fluid hydration. Nephrology consultation pending. Physical therapy recommends subacute rehab. 04/19/2022. CK in the 1200s. Continue IV fluid hydration. Nephrology following. Await subacute rehab placement. 04/20/2022. Continue IV fluid hydration. Await subacute rehab placement. Will discuss with case management in a.m. 04/21/2022. Replete potassium. Will discuss with case management acute rehab placement. Follow-up CK levels. Continue IV fluid hydration 04/22/2022: Patient successfully weaned off of supplemental oxygen. Ordered blood cultures and starting vancomycin and Rocephin for fever of 102.3. Patient had elevated D-dimer of 1189 with unremarkable procalcitonin. Pending coronavirus PCR and CT angio chest to rule out possible pulmonary embolism. Physical therapy recommending subacute rehab. Continue to monitor. 04/23/2022: Patient has remained afebrile in the setting of vancomycin and Rocephin. Current blood cultures are NGTD x24 hours. If unremarkable after 48 hours, antibiotics will be discontinued. CT angio chest and bilateral lower extremity venous Dopplers are unremarkable for pulmonary embolism or DVT, respectively. Currently pending coronavirus PCR. Detailed discussion with case management about discharge planning given the fact that the patient does not appear to be putting an effort with regards to physical therapy. If patient remains afebrile and blood cultures are unremarkable, discharge can be anticipated within 48 hours. 04/24/2022. Patient found to be COVID-19 positive. Patient will be discharging home tomorrow with loved ones. 04/26/2022: Pending permanent placement since the patient was abandoned by his community despite them stating they would pick him up on 04/25/2022. 04/27/2022: Continue pending permanent placement. 04/28/2022: Continue pending permanent placement. 04/29/2022: Patient still pending placement. Case management reports the was abandoned by his community despite them stating they would pick him up on 04/25/2022. 04/30/2022. Awaiting placement 05/01/2022. Awaiting placement. 05/02/2022. Patient is still awaiting placement. I had a long discussion with case management with regards to discharge planning 05/03/2022. Patient resting comfortably. Still awaiting for placement for discharge History Interval history: No new issues overnight Hospitalist Physical - Constitutional Vitals: Temp Pulse Resp BP Pulse Ox 97.7 F 87 18 107/80 97 05/02/22 15:02 05/03/22 06:24 05/03/22 06:24 05/03/22 06:24 05/03/22 06:24 General appearance: Present: no acute distress, well-nourished - EENT Eyes: Present: PERRL, EOM intact ENT: hearing intact, clear oral mucosa, dentition normal - Neck Neck: Present: supple, normal ROM - Respiratory Respiratory effort: normal Respiratory: bilateral: CTA - Cardiovascular Rhythm: regular Heart Sounds: Present: S1 & S2. Absent: gallop, rub - Extremities Extremities: no ischemia, No edema, Full ROM - Abdominal General gastrointestinal: soft, non-tender, non-distended, normal bowel sounds - Integumentary Integumentary: Present: clear, warm, dry - Neurologic Neurologic: CNII-XII intact, moves all extremities HEART Score - HEART Score Troponin: Troponin T < 0.010 ng/mL (0.00-0.029) 04/16/22 20:50 Results - Labs CBC & Chem 7: 05/03/22 07:22 05/03/22 07:22 Labs: Laboratory Last Values WBC 4.1 K/mm3 (4.5-11.0) L 05/03/22 07: RBC 4.13 M/mm3 (3.65-5.03) 05/03/22 07: Hgb 12.7 gm/dl (11.8-15.2) 05/03/22 07:22 Hct 37.5 % (35.5-45.6) 05/03/22 07: MCV 91 fl (84-94) 05/03/22 07: MCH 31 pg (28-32) 05/03/22 07: MCHC 34 % (32-34) 05/03/22 07: RDW 14.2 % (13.2-15.2) 05/03/22 07:22 Plt Count 486 K/mm3 (140-440) H 05/03/22 07:22 Lymph % (Auto) 43.4 % (13.4-35.0) H 05/03/22 07:22 [place] % (Auto) 11.4 % (0.0-7.3) H 05/03/22 07: Eos % (Auto) 2.5 % (0.0-4.3) 05/03/22 07: Baso % (Auto) 0.7 % (0.0-1.8) 05/03/22 07: Lymph # (Auto) 1.7 K/mm3 (1.2-5.4) 05/03/22 07:22 [place] # (Auto) 0.5 K/mm3 (0.0-0.8) 05/03/22 07:22 Eos # (Auto) 0.1 K/mm3 (0.0-0.4) 05/03/22 07: Baso # (Auto) 0.0 K/mm3 (0.0-0.1) 05/03/22 07: Seg Neutrophils % 42.0 % (40.0-70.0) 05/03/22 07: Seg Neutrophils # 1.7 K/mm3 (1.8-7.7) L 05/03/22 07:22 PT 13.6 Sec. (12.2-14.9) 04/16/22 20:50 INR 0.94 (0.87-1.13) 04/16/22 20:50 D-Dimer 1188.69 ng/mlDDU (0-234) H 04/22/22 08:25 Sodium 137 mmol/L (137-145) 05/03/22 07:22 Potassium 4.3 mmol/L (3.6-5.0) 05/03/22 07:22 Chloride 103.0 mmol/L (98-107) 05/03/22 07:22 Carbon Dioxide 24 mmol/L (22-30) 05/03/22 07:22 Anion Gap 14 mmol/L 05/03/22 07:22 BUN 19 mg/dL (9-20) 05/03/22 07:22 Creatinine 1.1 mg/dL (0.8-1.3) 05/03/22 07:22 Estimated GFR > 60 ml/min 05/03/22 07:22 BUN/Creatinine Ratio 17 % 05/03/22 07:22 Glucose 84 mg/dL (75-100) 05/03/22 07:22 Calcium 9.0 mg/dL (8.4-10.2) 05/03/22 07:22 Magnesium 1.80 mg/dL (1.7-2.3) 04/21/22 10:53 Total Creatine Kinase 1221 units/L (55-170) H 04/19/22 05:31 CK-MB (CK-2) 16.2 ng/mL (0.0-4.0) H 04/16/22 20:50 CK-MB (CK-2) Rel Index 0.3 (0-4) 04/16/22 20:50 Troponin T < 0.010 ng/mL (0.00-0.029) 04/16/22 20:50 Procalcitonin 0.40 ng/mL (<0.15) 04/22/22 11:01 TSH 1.910 mlU/mL (0.270-4.200) 04/16/22 20:50 Free T4 1.24 ng/dL (0.76-1.46) 04/16/22 20:50 Coronavirus (PCR) Positive (Negative) A 05/02/22 10:20 SARS-CoV-2 (PCR) Positive (Negative) A 04/29/22 12:30 Ma/IV: Voiding Method Condom Catheter Active Medications - Current Medications Current Medications: Generic Name Dose Route Start Last Admin Trade Name Freq PRN Reason Stop Dose Admin Acetaminophen 650 mg 04/16/22 23:27 05/02/22 20:18 Acetaminophen 325 Mg Tab PO 650 mg Q4H PRN Administration Pain MILD(1-3)/Fever >100.5/CRUZ Heparin Sodium (Porcine) 5,000 unit 04/17/22 06:00 05/03/22 06:30 Heparin 5,000 Unit/1 Ml Vial SUB-Q 5,000 unit Q8HR EDGAR Administration Losartan Potassium 100 mg 04/26/22 10:00 05/03/22 09:48 Losartan 50 Mg Tab PO 100 mg QDAY EDGAR Administration Magnesium Hydroxide 30 ml 04/16/22 23:27 Magnesium Hydroxide (Mom) Oral Liqd Udc PO Q4H PRN Constipation Morphine Sulfate 2 mg 04/16/22 23:27 Morphine 2 Mg/1 Ml Inj IV Q4H PRN Pain, Moderate (4-6) Morphine Sulfate 4 mg 04/16/22 23:27 Morphine 4 Mg/1 Ml Inj IV Q4H PRN Pain , Severe (7-10) Nifedipine 30 mg 04/28/22 10:00 05/03/22 09:48 Nifedipine Xl 30 Mg Tab PO 30 mg QDAY EDGAR Administration Ondansetron HCl 4 mg 04/16/22 23:27 Ondansetron 4 Mg/2 Ml Inj IV Q8H PRN Nausea And Vomiting Sodium Chloride 10 ml 04/17/22 10:00 05/03/22 09:49 Sodium Chloride 0.9% 10 Ml Flush Syringe IV 10 ml BID EDGAR Administration Sodium Chloride 10 ml 04/16/22 23:27 Sodium Chloride 0.9% 10 Ml Flush Syringe IV PRN PRN LINE FLUSH Spironolactone 25 mg 04/20/22 10:00 05/03/22 09:48 Spironolactone 25 Mg Tab PO 25 mg QDAY EDGAR Administration Nutrition/Malnutrition Assess - Dietary Evaluation Nutrition/Malnutrition Findings: Nutrition Notes Start: 04/24/22 15:41 Freq: Status: Active Protocol: Document 05/01/22 14:50 SHWETHA (Rec: 05/01/22 15:14 SHWETHA [id number]) Nutrition Notes Initial or Follow up Reassessment Current Diagnosis Hypertension Other Pertinent Diagnosis Ground-Level Fall, Hypocalcemia, Elevated D-dimer , COVID-19. Current Diet Cardiac -Chopped Meats- Diet + D Suppl (since B 04/17). Labs/Tests 05/01: N/A. Pertinent Medications 05/01: Nutritionally unremarkable. Height 5 ft 6 in Weight 70.4 kg [place] Body Weight (kg) 64.54 BMI 25.0 Weight change and time frame 1.6 Kg body weight gain in 1 week reported. Weight Status Appropriate Subjective/Other Information RD consult for routine F/U on dietary advancement. Pt's PO intake has been Poor ( 25%), according to ADL notes; however, Dietary Supplements have been helping Pt to compensate for poor PO intake of meals. I will increment ONS to the prescription. Pt is on Room Air, O2 saturation @ 97%, according to Physical Assessment History notes. Pt has missing teeth, according to Physical Assessment History notes. I will modify to Chopped Meats to facilitate PO intake and processing of meals. Pt found to be COVID-19 positive on 04/24, according to Progress notes. Pt clinically cleared, awaiting for placement, according to Progress notes. Percent of energy/protein needs met: Prescribed Cardiac -Chopped Meats- Diet provides for energy/protein needs (2,230 Kcal/85 g) during LOS; additionally, Dietary Supplements will support wound healing processes with 1,050 Kcal and 60 g of protein. Burn Absent Trauma Absent GI Symptoms None Food Allergy No Skin Integrity/Comment Sacrum skin tear. 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 As Evidenced by Signs and Symptoms Pt's PO intake has been Poor ( 25%), according to ADL notes. #2 Nutrition Diagnosis Inadequate protein-energy intake Etiology Uncertain. As Evidenced by Signs and Symptoms Pt's PO intake has been Poor ( 25%), according to ADL notes. #1 Nutrition Diagnosis Increased nutrient needs ( specify in comment below) Comments: Protein to support wound healing processes. Diagnosis Progress(for reassessment Continues documentation) Is patient on ventilator? No Is Patient Ambulatory and/or Out of Bed No REE-([place]-confined to bed) [phone] Calculation Used for Recommendations [place] Additional Notes Protein: 1-1.2 g/Kg ABW; 69-83 g/day. Fluids: 1 ml/Kcal, or as per MD. Nutrition Intervention Change Diet Order: Continue Cardiac -Chopped Meats- Diet. Add Supplement/Snack (indicate name/kcal Increase 8 fl oz Ensure Enlive /protein ) ; to TID. Provides kCal: 1,050 Provides Protein (gm) 60 Goal #1 Support, through dietary supplementation, wound healing processes during LOS. Goal #2 Compensate, through dietary supplementation, for possible poor or insufficient PO intake of meals during LOS. Goal #3 Facilitate PO intake of meals with elemental, textural, or mechanical modification during LOS. Goal #4 Adjust the dietary intervention to better serve Pt's needs and clinical conditions during LOS. Follow-Up By: 05/08/22 Additional Comments Continue monitoring food tolerance, %PO intake of meals and ONS, and BM.
[2022-05-04] MEDS: HEPARIN 5,000 UNIT/1 ML VIAL SUB-Q SCH ×3 (05:57→22:03)
--- NOTE | 2022-05-04 09:27 | Progress Note ---
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 He was subsequently unable to get up from the floor. He denies any loss of consciousness, no head injury. The police had to force open the door after a welfare check. Work-up in the emergency room revealed chest x-ray that was unremarkable. X-ray of the hip and pelvis, tibia and fibula, x-ray of the femur were unremarkable. CT of the cervical spine was also unremarkable. Labs however revealed elevated BUN and creatinine, creatinine kinase of 4534 Acute kidney injury secondary to vasomotor nephropathy/dehydrationresolved Rhabdomyolysisresolved Hypokalemiaresolved Hypertension Ground-level fall Fever- resolved Acute hypoxic respiratory failureresolved Hypocalcemia Elevated D-dimer COVID-19 infection- stable 04/17/2022. Creatinine has improved but the CK remains about the same in the 4500 range. Continue IV fluid hydration. PT evaluation pending 04/18/2022. Creatinine and CK levels have improved. Continue IV fluid hydration. Nephrology consultation pending. Physical therapy recommends subacute rehab. 04/19/2022. CK in the 1200s. Continue IV fluid hydration. Nephrology following. Await subacute rehab placement. 04/20/2022. Continue IV fluid hydration. Await subacute rehab placement. Will discuss with case management in a.m. 04/21/2022. Replete potassium. Will discuss with case management acute rehab placement. Follow-up CK levels. Continue IV fluid hydration 04/22/2022: Patient successfully weaned off of supplemental oxygen. Ordered blood cultures and starting vancomycin and Rocephin for fever of 102.3. Patient had elevated D-dimer of 1189 with unremarkable procalcitonin. Pending coronavirus PCR and CT angio chest to rule out possible pulmonary embolism. Physical therapy recommending subacute rehab. Continue to monitor. 04/23/2022: Patient has remained afebrile in the setting of vancomycin and Rocephin. Current blood cultures are NGTD x24 hours. If unremarkable after 48 hours, antibiotics will be discontinued. CT angio chest and bilateral lower extremity venous Dopplers are unremarkable for pulmonary embolism or DVT, respectively. Currently pending coronavirus PCR. Detailed discussion with case management about discharge planning given the fact that the patient does not appear to be putting an effort with regards to physical therapy. If patient remains afebrile and blood cultures are unremarkable, discharge can be anticipated within 48 hours. 04/24/2022. Patient found to be COVID-19 positive. Patient will be discharging home tomorrow with loved ones. 04/26/2022: Pending permanent placement since the patient was abandoned by his community despite them stating they would pick him up on 04/25/2022. 04/27/2022: Continue pending permanent placement. 04/28/2022: Continue pending permanent placement. 04/29/2022: Patient still pending placement. Case management reports the was abandoned by his community despite them stating they would pick him up on 04/25/2022. 04/30/2022. Awaiting placement 05/01/2022. Awaiting placement. 05/02/2022. Patient is still awaiting placement. I had a long discussion with case management with regards to discharge planning 05/03/2022. Patient resting comfortably. Still awaiting for placement for discharge 05/04/2022. No new issues overnight. Patient still awaiting placement. History Interval history: No new issues overnight Hospitalist Physical - Constitutional Vitals: Temp Pulse Resp BP Pulse Ox 98.6 F 85 20 97/73 96 05/04/22 00:02 05/04/22 00:02 05/04/22 00:02 05/04/22 00:02 05/04/22 00:02 General appearance: Present: no acute distress, well-nourished - EENT Eyes: Present: PERRL, EOM intact ENT: hearing intact, clear oral mucosa, dentition normal - Neck Neck: Present: supple, normal ROM - Respiratory Respiratory effort: normal Respiratory: bilateral: CTA - Cardiovascular Rhythm: regular Heart Sounds: Present: S1 & S2. Absent: gallop, rub - Extremities Extremities: no ischemia, No edema, Full ROM - Abdominal General gastrointestinal: soft, non-tender, non-distended, normal bowel sounds - Integumentary Integumentary: Present: clear, warm, dry - Neurologic Neurologic: CNII-XII intact, moves all extremities HEART Score - HEART Score Troponin: Troponin T < 0.010 ng/mL (0.00-0.029) 04/16/22 20:50 Results - Labs CBC & Chem 7: 05/03/22 07:22 05/03/22 07:22 Labs: Laboratory Last Values WBC 4.1 K/mm3 (4.5-11.0) L 05/03/22 07: RBC 4.13 M/mm3 (3.65-5.03) 05/03/22 07:22 Hgb 12.7 gm/dl (11.8-15.2) 05/03/22 07: Hct 37.5 % (35.5-45.6) 05/03/22 07: MCV 91 fl (84-94) 05/03/22 07: MCH 31 pg (28-32) 05/03/22 07: MCHC 34 % (32-34) 05/03/22 07: RDW 14.2 % (13.2-15.2) 05/03/22 07: Plt Count 486 K/mm3 (140-440) H 05/03/22 07:22 Lymph % (Auto) 43.4 % (13.4-35.0) H 05/03/22 07: [place] % (Auto) 11.4 % (0.0-7.3) H 05/03/22 07: Eos % (Auto) 2.5 % (0.0-4.3) 05/03/22 07: Baso % (Auto) 0.7 % (0.0-1.8) 05/03/22 07: Lymph # (Auto) 1.7 K/mm3 (1.2-5.4) 05/03/22 07:22 [place] # (Auto) 0.5 K/mm3 (0.0-0.8) 05/03/22 07: Eos # (Auto) 0.1 K/mm3 (0.0-0.4) 05/03/22 07:22 Baso # (Auto) 0.0 K/mm3 (0.0-0.1) 05/03/22 07: Seg Neutrophils % 42.0 % (40.0-70.0) 05/03/22 07:22 Seg Neutrophils # 1.7 K/mm3 (1.8-7.7) L 05/03/22 07:22 PT 13.6 Sec. (12.2-14.9) 04/16/22 20:50 INR 0.94 (0.87-1.13) 04/16/22 20:50 D-Dimer 1188.69 ng/mlDDU (0-234) H 04/22/22 08:25 Sodium 137 mmol/L (137-145) 05/03/22 07:22 Potassium 4.3 mmol/L (3.6-5.0) 05/03/22 07:22 Chloride 103.0 mmol/L (98-107) 05/03/22 07:22 Carbon Dioxide 24 mmol/L (22-30) 05/03/22 07:22 Anion Gap 14 mmol/L 05/03/22 07:22 BUN 19 mg/dL (9-20) 05/03/22 07:22 Creatinine 1.1 mg/dL (0.8-1.3) 05/03/22 07:22 Estimated GFR > 60 ml/min 05/03/22 07:22 BUN/Creatinine Ratio 17 % 05/03/22 07:22 Glucose 84 mg/dL (75-100) 05/03/22 07:22 POC Glucose 122 mg/dL (70-105) H 05/03/22 16:14 Calcium 9.0 mg/dL (8.4-10.2) 05/03/22 07:22 Magnesium 1.80 mg/dL (1.7-2.3) 04/21/22 10:53 Total Creatine Kinase 1221 units/L (55-170) H 04/19/22 05:31 CK-MB (CK-2) 16.2 ng/mL (0.0-4.0) H 04/16/22 20:50 CK-MB (CK-2) Rel Index 0.3 (0-4) 04/16/22 20:50 Troponin T < 0.010 ng/mL (0.00-0.029) 04/16/22 20:50 Procalcitonin 0.40 ng/mL (<0.15) 04/22/22 11:01 TSH 1.910 mlU/mL (0.270-4.200) 04/16/22 20:50 Free T4 1.24 ng/dL (0.76-1.46) 04/16/22 20:50 Coronavirus (PCR) Positive (Negative) A 05/02/22 10:20 SARS-CoV-2 (PCR) Positive (Negative) A 04/29/22 12:30 Ma/IV: Voiding Method Condom Catheter Active Medications - Current Medications Current Medications: Generic Name Dose Route Start Last Admin Trade Name Freq PRN Reason Stop Dose Admin Acetaminophen 650 mg 04/16/22 23:27 05/02/22 20:18 Acetaminophen 325 Mg Tab PO 650 mg Q4H PRN Administration Pain MILD(1-3)/Fever >100.5/CRUZ Heparin Sodium (Porcine) 5,000 unit 04/17/22 06:00 05/04/22 05:57 Heparin 5,000 Unit/1 Ml Vial SUB-Q 5,000 unit Q8HR EDGAR Administration Losartan Potassium 100 mg 04/26/22 10:00 05/03/22 09:48 Losartan 50 Mg Tab PO 100 mg QDAY EDGAR Administration Magnesium Hydroxide 30 ml 04/16/22 23:27 Magnesium Hydroxide (Mom) Oral Liqd Udc PO Q4H PRN Constipation Morphine Sulfate 2 mg 04/16/22 23:27 Morphine 2 Mg/1 Ml Inj IV Q4H PRN Pain, Moderate (4-6) Morphine Sulfate 4 mg 04/16/22 23:27 Morphine 4 Mg/1 Ml Inj IV Q4H PRN Pain , Severe (7-10) Nifedipine 30 mg 04/28/22 10:00 05/03/22 09:48 Nifedipine Xl 30 Mg Tab PO 30 mg QDAY EDGAR Administration Ondansetron HCl 4 mg 04/16/22 23:27 Ondansetron 4 Mg/2 Ml Inj IV Q8H PRN Nausea And Vomiting Sodium Chloride 10 ml 04/17/22 10:00 05/03/22 22:54 Sodium Chloride 0.9% 10 Ml Flush Syringe IV 10 ml BID EDGAR Administration Sodium Chloride 10 ml 04/16/22 23:27 Sodium Chloride 0.9% 10 Ml Flush Syringe IV PRN PRN LINE FLUSH Spironolactone 25 mg 04/20/22 10:00 05/03/22 09:48 Spironolactone 25 Mg Tab PO 25 mg QDAY EDGAR Administration Nutrition/Malnutrition Assess - Dietary Evaluation Nutrition/Malnutrition Findings: Nutrition Notes Start: 04/24/22 15:41 Freq: Status: Active Protocol: Document 05/01/22 14:50 SHWETHA (Rec: 05/01/22 15:14 SHWETHA [email or web address]) Nutrition Notes Initial or Follow up Reassessment Current Diagnosis Hypertension Other Pertinent Diagnosis Ground-Level Fall, Hypocalcemia, Elevated D-dimer , COVID-19. Current Diet Cardiac -Chopped Meats- Diet + D Suppl (since B 04/17). Labs/Tests 05/01: N/A. Pertinent Medications 05/01: Nutritionally unremarkable. Height 5 ft 6 in Weight 70.4 kg [place] Body Weight (kg) 64.54 BMI 25.0 Weight change and time frame 1.6 Kg body weight gain in 1 week reported. Weight Status Appropriate Subjective/Other Information RD consult for routine F/U on dietary advancement. Pt's PO intake has been Poor ( 25%), according to ADL notes; however, Dietary Supplements have been helping Pt to compensate for poor PO intake of meals. I will increment ONS to the prescription. Pt is on Room Air, O2 saturation @ 97%, according to Physical Assessment History notes. Pt has missing teeth, according to Physical Assessment History notes. I will modify to Chopped Meats to facilitate PO intake and processing of meals. Pt found to be COVID-19 positive on 04/24, according to Progress notes. Pt clinically cleared, awaiting for placement, according to Progress notes. Percent of energy/protein needs met: Prescribed Cardiac -Chopped Meats- Diet provides for energy/protein needs (2,230 Kcal/85 g) during LOS; additionally, Dietary Supplements will support wound healing processes with 1,050 Kcal and 60 g of protein. Burn Absent Trauma Absent GI Symptoms None Food Allergy No Skin Integrity/Comment Sacrum skin tear. 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 As Evidenced by Signs and Symptoms Pt's PO intake has been Poor ( 25%), according to ADL notes. #2 Nutrition Diagnosis Inadequate protein-energy intake Etiology Uncertain. As Evidenced by Signs and Symptoms Pt's PO intake has been Poor ( 25%), according to ADL notes. #1 Nutrition Diagnosis Increased nutrient needs ( specify in comment below) Comments: Protein to support wound healing processes. Diagnosis Progress(for reassessment Continues documentation) Is patient on ventilator? No Is Patient Ambulatory and/or Out of Bed No REE-([place]-confined to bed) [phone] Calculation Used for Recommendations [place] [place] Additional Notes Protein: 1-1.2 g/Kg ABW; 69-83 g/day. Fluids: 1 ml/Kcal, or as per MD. Nutrition Intervention Change Diet Order: Continue Cardiac -Chopped Meats- Diet. Add Supplement/Snack (indicate name/kcal Increase 8 fl oz Ensure Enlive /protein ) ; to TID. Provides kCal: 1,050 Provides Protein (gm) 60 Goal #1 Support, through dietary supplementation, wound healing processes during LOS. Goal #2 Compensate, through dietary supplementation, for possible poor or insufficient PO intake of meals during LOS. Goal #3 Facilitate PO intake of meals with elemental, textural, or mechanical modification during LOS. Goal #4 Adjust the dietary intervention to better serve Pt's needs and clinical conditions during LOS. Follow-Up By: 05/08/22 Additional Comments Continue monitoring food tolerance, %PO intake of meals and ONS, and BM.
[2022-05-04] MEDS: NIFEdipine XL 30 MG TAB PO SCH (10:00)
[2022-05-04] MEDS: LOSARTAN 50 MG TAB PO SCH (10:00)
[2022-05-04] MEDS: SPIRONOLACTONE 25 MG TAB PO SCH (10:00)
[2022-05-05 04:31] LABS: Hemoglobin 12.4 gm/dl (11.8-15.2); Mean Corpuscular HGB Conc 34 % (32-34); Mean Corpuscular Volume 91 fl (84-94); Platelet Count 482 K/mm3 (140-440); Red Blood Count 4.08 M/mm3 (3.65-5.03); Red Cell Distribution Width 14.3 % (13.2-15.2)
[2022-05-05 04:32] LABS: Basophils % (Auto) 0.2 % (0.0-1.8); Eosinophils # (Auto) 0.1 K/mm3 (0.0-0.4); Lymphocytes # (Auto) 2.5 K/mm3 (1.2-5.4); Lymphocytes % (Auto) 50.4 % (13.4-35.0); Mean Platelet Volume 7.1 fl (6-12); Monocytes # (Auto) 0.6 K/mm3 (0.0-0.8); Monocytes % (Auto) 11.6 % (0.0-7.3)
[2022-05-05 04:35] LABS: BUN/Creatinine Ratio 17; Blood Urea Nitrogen 19 mg/dL (9-20); Calcium 9.4 mg/dL (8.4-10.2); Hemolysis Index 19
[2022-05-05] MEDS: HEPARIN 5,000 UNIT/1 ML VIAL SUB-Q SCH ×3 (05:57→22:58)
[2022-05-05] MEDS: NIFEdipine XL 30 MG TAB PO SCH (09:55)
[2022-05-05] MEDS: LOSARTAN 50 MG TAB PO SCH (09:59)
[2022-05-05] MEDS: SPIRONOLACTONE 25 MG TAB PO SCH ×2 (09:59→17:31)
--- NOTE | 2022-05-05 10:08 | Progress Note ---
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 He was subsequently unable to get up from the floor. He denies any loss of consciousness, no head injury. The police had to force open the door after a welfare check. Work-up in the emergency room revealed chest x-ray that was unremarkable. X-ray of the hip and pelvis, tibia and fibula, x-ray of the femur were unremarkable. CT of the cervical spine was also unremarkable. Labs however revealed elevated BUN and creatinine, creatinine kinase of 4534 Acute kidney injury secondary to vasomotor nephropathy/dehydrationresolved Rhabdomyolysisresolved Hypokalemiaresolved Hypertension Ground-level fall Fever- resolved Acute hypoxic respiratory failureresolved Hypocalcemia Elevated D-dimer COVID-19 infection- stable 04/17/2022. Creatinine has improved but the CK remains about the same in the 4500 range. Continue IV fluid hydration. PT evaluation pending 04/18/2022. Creatinine and CK levels have improved. Continue IV fluid hydration. Nephrology consultation pending. Physical therapy recommends subacute rehab. 04/19/2022. CK in the 1200s. Continue IV fluid hydration. Nephrology following. Await subacute rehab placement. 04/20/2022. Continue IV fluid hydration. Await subacute rehab placement. Will discuss with case management in a.m. 04/21/2022. Replete potassium. Will discuss with case management acute rehab placement. Follow-up CK levels. Continue IV fluid hydration 04/22/2022: Patient successfully weaned off of supplemental oxygen. Ordered blood cultures and starting vancomycin and Rocephin for fever of 102.3. Patient had elevated D-dimer of 1189 with unremarkable procalcitonin. Pending coronavirus PCR and CT angio chest to rule out possible pulmonary embolism. Physical therapy recommending subacute rehab. Continue to monitor. 04/23/2022: Patient has remained afebrile in the setting of vancomycin and Rocephin. Current blood cultures are NGTD x24 hours. If unremarkable after 48 hours, antibiotics will be discontinued. CT angio chest and bilateral lower extremity venous Dopplers are unremarkable for pulmonary embolism or DVT, respectively. Currently pending coronavirus PCR. Detailed discussion with case management about discharge planning given the fact that the patient does not appear to be putting an effort with regards to physical therapy. If patient remains afebrile and blood cultures are unremarkable, discharge can be anticipated within 48 hours. 04/24/2022. Patient found to be COVID-19 positive. Patient will be discharging home tomorrow with loved ones. 04/26/2022: Pending permanent placement since the patient was abandoned by his community despite them stating they would pick him up on 04/25/2022. 04/27/2022: Continue pending permanent placement. 04/28/2022: Continue pending permanent placement. 04/29/2022: Patient still pending placement. Case management reports the was abandoned by his community despite them stating they would pick him up on 04/25/2022. 04/30/2022. Awaiting placement 05/01/2022. Awaiting placement. 05/02/2022. Patient is still awaiting placement. I had a long discussion with case management with regards to discharge planning 05/03/2022. Patient resting comfortably. Still awaiting for placement for discharge 05/04/2022. No new issues overnight. Patient still awaiting placement. 05/05/2022. No new issues overnight. Patient still awaiting placement. History Interval history: No new issues overnight Hospitalist Physical - Constitutional Vitals: Temp Pulse Resp BP Pulse Ox 98.6 F 92 H 16 101/74 96 05/04/22 22:09 05/04/22 22:10 05/05/22 07:32 05/04/22 22:09 05/05/22 07:32 General appearance: Present: no acute distress, well-nourished - EENT Eyes: Present: PERRL, EOM intact ENT: hearing intact, clear oral mucosa, dentition normal - Neck Neck: Present: supple, normal ROM - Respiratory Respiratory effort: normal Respiratory: bilateral: CTA - Cardiovascular Rhythm: regular Heart Sounds: Present: S1 & S2. Absent: gallop, rub - Extremities Extremities: no ischemia, No edema, Full ROM - Abdominal General gastrointestinal: soft, non-tender, non-distended, normal bowel sounds - Integumentary Integumentary: Present: clear, warm, dry - Neurologic Neurologic: CNII-XII intact, moves all extremities HEART Score - HEART Score Troponin: Troponin T < 0.010 ng/mL (0.00-0.029) 04/16/22 20:50 Results - Labs CBC & Chem 7: 05/05/22 04:00 05/05/22 04:00 Labs: Laboratory Last Values WBC 5.0 K/mm3 (4.5-11.0) 05/05/22 04:00 RBC 4.08 M/mm3 (3.65-5.03) 05/05/22 04:00 Hgb 12.4 gm/dl (11.8-15.2) 05/05/22 04:00 Hct 37.0 % (35.5-45.6) 05/05/22 04:00 MCV 91 fl (84-94) 05/05/22 04:00 MCH 30 pg (28-32) 05/05/22 04:00 MCHC 34 % (32-34) 05/05/22 04:00 RDW 14.3 % (13.2-15.2) 05/05/22 04:00 Plt Count 482 K/mm3 (140-440) H 05/05/22 04:00 Lymph % (Auto) 50.4 % (13.4-35.0) H 05/05/22 04:00 Woods % (Auto) 11.6 % (0.0-7.3) H 05/05/22 04:00 Eos % (Auto) 2.0 % (0.0-4.3) 05/05/22 04:00 Baso % (Auto) 0.2 % (0.0-1.8) 05/05/22 04:00 Lymph # (Auto) 2.5 K/mm3 (1.2-5.4) 05/05/22 04:00 Woods # (Auto) 0.6 K/mm3 (0.0-0.8) 05/05/22 04:00 Eos # (Auto) 0.1 K/mm3 (0.0-0.4) 05/05/22 04:00 Baso # (Auto) 0.0 K/mm3 (0.0-0.1) 05/05/22 04:00 Seg Neutrophils % 35.8 % (40.0-70.0) L 05/05/22 04:00 Seg Neutrophils # 1.8 K/mm3 (1.8-7.7) 05/05/22 04:00 PT 13.6 Sec. (12.2-14.9) 04/16/22 20:50 INR 0.94 (0.87-1.13) 04/16/22 20:50 D-Dimer 1188.69 ng/mlDDU (0-234) H 04/22/22 08:25 Sodium 134 mmol/L (137-145) L 05/05/22 04:00 Potassium 4.3 mmol/L (3.6-5.0) 05/05/22 04:00 Chloride 100.1 mmol/L (98-107) 05/05/22 04:00 Carbon Dioxide 23 mmol/L (22-30) 05/05/22 04:00 Anion Gap 15 mmol/L 05/05/22 04:00 BUN 19 mg/dL (9-20) 05/05/22 04:00 Creatinine 1.1 mg/dL (0.8-1.3) 05/05/22 04:00 Estimated GFR > 60 ml/min 05/05/22 04:00 BUN/Creatinine Ratio 17 % 05/05/22 04:00 Glucose 94 mg/dL (75-100) 05/05/22 04:00 POC Glucose 102 mg/dL (70-105) 05/04/22 11:22 Calcium 9.4 mg/dL (8.4-10.2) 05/05/22 04:00 Magnesium 1.80 mg/dL (1.7-2.3) 04/21/22 10:53 Total Creatine Kinase 1221 units/L (55-170) H 04/19/22 05:31 CK-MB (CK-2) 16.2 ng/mL (0.0-4.0) H 04/16/22 20:50 CK-MB (CK-2) Rel Index 0.3 (0-4) 04/16/22 20:50 Troponin T < 0.010 ng/mL (0.00-0.029) 04/16/22 20:50 Procalcitonin 0.40 ng/mL (<0.15) 04/22/22 11:01 TSH 1.910 mlU/mL (0.270-4.200) 04/16/22 20:50 Free T4 1.24 ng/dL (0.76-1.46) 04/16/22 20:50 Coronavirus (PCR) Positive (Negative) A 05/02/22 10:20 SARS-CoV-2 (PCR) Positive (Negative) A 04/29/22 12:30 Ma/IV: Voiding Method Condom Catheter Active Medications - Current Medications Current Medications: Generic Name Dose Route Start Last Admin Trade Name Freq PRN Reason Stop Dose Admin Acetaminophen 650 mg 04/16/22 23:27 05/02/22 20:18 Acetaminophen 325 Mg Tab PO 650 mg Q4H PRN Administration Pain MILD(1-3)/Fever >100.5/CRUZ Heparin Sodium (Porcine) 5,000 unit 04/17/22 06:00 05/05/22 05:57 Heparin 5,000 Unit/1 Ml Vial SUB-Q 5,000 unit Q8HR EDGAR Administration Losartan Potassium 100 mg 04/26/22 10:00 05/05/22 09:59 Losartan 50 Mg Tab PO Not Given QDAY EDGAR Magnesium Hydroxide 30 ml 04/16/22 23:27 Magnesium Hydroxide (Mom) Oral Liqd Udc PO Q4H PRN Constipation Morphine Sulfate 2 mg 04/16/22 23:27 Morphine 2 Mg/1 Ml Inj IV Q4H PRN Pain, Moderate (4-6) Morphine Sulfate 4 mg 04/16/22 23:27 Morphine 4 Mg/1 Ml Inj IV Q4H PRN Pain , Severe (7-10) Nifedipine 30 mg 04/28/22 10:00 05/05/22 09:55 Nifedipine Xl 30 Mg Tab PO 30 mg QDAY EDGAR Administration Ondansetron HCl 4 mg 04/16/22 23:27 Ondansetron 4 Mg/2 Ml Inj IV Q8H PRN Nausea And Vomiting Sodium Chloride 10 ml 04/17/22 10:00 05/05/22 09:56 Sodium Chloride 0.9% 10 Ml Flush Syringe IV Not Given BID EDGAR Sodium Chloride 10 ml 04/16/22 23:27 Sodium Chloride 0.9% 10 Ml Flush Syringe IV PRN PRN LINE FLUSH Spironolactone 25 mg 04/20/22 10:00 05/05/22 09:59 Spironolactone 25 Mg Tab PO Not Given QDAY EDGAR Nutrition/Malnutrition Assess - Dietary Evaluation Nutrition/Malnutrition Findings: Nutrition Notes Start: 04/24/22 15:41 Freq: Status: Active Protocol: Document 05/01/22 14:50 SHWETHA (Rec: 05/01/22 15:14 SHWETHA [id number]) Nutrition Notes Initial or Follow up Reassessment Current Diagnosis Hypertension Other Pertinent Diagnosis Ground-Level Fall, Hypocalcemia, Elevated D-dimer , COVID-19. Current Diet Cardiac -Chopped Meats- Diet + D Suppl (since B 04/17). Labs/Tests 05/01: N/A. Pertinent Medications 05/01: Nutritionally unremarkable. Height 5 ft 6 in Weight 70.4 kg [place] Body Weight (kg) 64.54 BMI 25.0 Weight change and time frame 1.6 Kg body weight gain in 1 week reported. Weight Status Appropriate Subjective/Other Information RD consult for routine F/U on dietary advancement. Pt's PO intake has been Poor ( 25%), according to ADL notes; however, Dietary Supplements have been helping Pt to compensate for poor PO intake of meals. I will increment ONS to the prescription. Pt is on Room Air, O2 saturation @ 97%, according to Physical Assessment History notes. Pt has missing teeth, according to Physical Assessment History notes. I will modify to Chopped Meats to facilitate PO intake and processing of meals. Pt found to be COVID-19 positive on 04/24, according to Progress notes. Pt clinically cleared, awaiting for placement, according to Progress notes. Percent of energy/protein needs met: Prescribed Cardiac -Chopped Meats- Diet provides for energy/protein needs (2,230 Kcal/85 g) during LOS; additionally, Dietary Supplements will support wound healing processes with 1,050 Kcal and 60 g of protein. Burn Absent Trauma Absent GI Symptoms None Food Allergy No Skin Integrity/Comment Sacrum skin tear. 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 As Evidenced by Signs and Symptoms Pt's PO intake has been Poor ( 25%), according to ADL notes. #2 Nutrition Diagnosis Inadequate protein-energy intake Etiology Uncertain. As Evidenced by Signs and Symptoms Pt's PO intake has been Poor ( 25%), according to ADL notes. #1 Nutrition Diagnosis Increased nutrient needs ( specify in comment below) Comments: Protein to support wound healing processes. Diagnosis Progress(for reassessment Continues documentation) Is patient on ventilator? No Is Patient Ambulatory and/or Out of Bed No REE-([facility]-confined to bed) [phone] Calculation Used for Recommendations [facility] Additional Notes Protein: 1-1.2 g/Kg ABW; 69-83 g/day. Fluids: 1 ml/Kcal, or as per MD. Nutrition Intervention Change Diet Order: Continue Cardiac -Chopped Meats- Diet. Add Supplement/Snack (indicate name/kcal Increase 8 fl oz Ensure Enlive /protein ) ; to TID. Provides kCal: 1,050 Provides Protein (gm) 60 Goal #1 Support, through dietary supplementation, wound healing processes during LOS. Goal #2 Compensate, through dietary supplementation, for possible poor or insufficient PO intake of meals during LOS. Goal #3 Facilitate PO intake of meals with elemental, textural, or mechanical modification during LOS. Goal #4 Adjust the dietary intervention to better serve Pt's needs and clinical conditions during LOS. Follow-Up By: 05/08/22 Additional Comments Continue monitoring food tolerance, %PO intake of meals and ONS, and BM.
[2022-05-06] MEDS: HEPARIN 5,000 UNIT/1 ML VIAL SUB-Q SCH ×3 (06:15→22:20)
--- NOTE | 2022-05-06 08:24 | Discharge Summary ---
Providers - Providers Date of Admission: 04/16/22 23:28 Date of discharge: 05/06/22 Attending physician: ANICETO CERVANTES MD 04/16/22 23:27 Consult to Physician [CONS] Routine Comment: Consulting Provider: EDITH IYER Physician Instructions: Reason For Exam: POP 04/17/22 05:04 Physical Therapy Evaluation and Treat [CONS] Routine Comment: Reason For Exam: History of fall 04/18/22 20:29 Consult to Wound/ET Nurse [CONS] Routine Reason For Exam: sacral wound 04/28/22 07:34 Occupational Therapy Evaluate and Treat [CONS] Routine Comment: Reason For Exam: weakness 05/02/22 11:31 Physical Therapy Evaluation and Treat [CONS] Stat Comment: Eval and Treat Reason For Exam: Physical Therapy Primary care physician: GLASS BEVELER Hospitalization Reason for admission: Pop ,rhabdomyolysis Condition: Stable Hospital course: 72-year-old -[place] male with known history of hypertension and who lives by himself presents to the emergency room today complaining of bilateral hip pain after having a fall about 4 days ago [employer]. 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 He was subsequently unable to get up from the floor. He denies any loss of consciousness, no head injury. The police had to force open the door after a welfare check. Work-up in the emergency room revealed chest x-ray that was unremarkable. X-ray of the hip and pelvis, tibia and fibula, x-ray of the femur were unremarkable. CT of the cervical spine was also unremarkable. Labs however revealed elevated BUN and creatinine, creatinine kinase of 4534 Acute kidney injury secondary to vasomotor nephropathy/dehydrationresolved Rhabdomyolysisresolved Hypokalemiaresolved Hypertension Ground-level fall Fever- resolved Acute hypoxic respiratory failureresolved Hypocalcemia Elevated D-dimer COVID-19 infection- stable Patient is a 72-year-old male with past medical history of hypertension who presented in the ED with complaints of bilateral hip pain after experiencing a ground-level fall approximately 4 days prior to presentation where he was unable to get up from the floor. The patient was found at home (lives alone) after welfare check was called by family friends. In the ED, the patient was found to be hemodynamically stable with unremarkable imaging of his hip, pelvis, tibia, fibula, and femurs. Patient underwent CT cervical spine was also found to be unremarkable. Patient did have labs that were remarkable for creatinine of 1.5 (baseline unknown) and creatine kinase of 4534. Patient was medically managed with IV diuresis and monitoring of his electrolytes. The patient also developed acute hypoxic respiratory failure and fevers that were found to be secondary to COVID-19 infection. The patient has since been weaned to room air. The patient is hemodynamically stable. The patient is medically clear for discharge. 04/26/2022: Pending permanent placement since the patient was abandoned by his community despite them stating they would pick him up on 04/25/2022. 04/27/2022: Continue pending permanent placement. 04/28/2022: Continue pending permanent placement. 04/29/2022: Patient still pending placement. Case management reports the was abandoned by his community despite them stating they would pick him up on 04/25/2022. 04/30/2022. Awaiting placement 05/01/2022. Awaiting placement. 05/02/2022. Patient is still awaiting placement. I had a long discussion with case management with regards to discharge planning 05/03/2022. Patient resting comfortably. Still awaiting for placement for discharge 05/04/2022. No new issues overnight. Patient still awaiting placement. 05/05/2022. No new issues overnight. Patient still awaiting placement. 05/06/2022: Placement remains an issue. D/w case management this AM re: placement at [facility]. They will call and attempt to expedite placement. Disposition: 01 HOME / SELF CARE / HOMELESS Final Discharge Diagnosis (Prints w/discharge instructions): Acute kidney injury secondary to vasomotor nephropathy/dehydration, rhabdomyolysis, hypokalemia, hypertension, ground-level fall, fever, acute hypoxic respiratory failure, hypocalcemia, elevated D-dimer, COVID-19 pneumonia. Time spent for discharge: 35 Core Measure Documentation - Palliative Care Palliative Care/ Comfort Measures: Not Applicable - Core Measures Any of the following diagnoses?: none Exam - Physical Exam Narrative exam: General appearance: Present: no acute distress, well-nourished - EENT Eyes: Present: PERRL, EOM intact ENT: hearing intact, clear oral mucosa, dentition normal - Neck Neck: Present: supple, normal ROM - Respiratory Respiratory effort: normal Respiratory: bilateral: CTA - Cardiovascular Rhythm: regular Heart Sounds: Present: S1 & S2. Absent: gallop, rub - Extremities Extremities: no ischemia, No edema, Full ROM - Abdominal General gastrointestinal: soft, non-tender, non-distended, normal bowel sounds - Integumentary Integumentary: Present: clear, warm, dry - Neurologic Neurologic: CNII-XII intact, moves all extremities - Constitutional Vitals: Temp Pulse Resp BP Pulse Ox 98.1 F 89 18 101/67 98 05/06/22 04:16 05/06/22 04:16 05/06/22 04:16 05/06/22 04:16 05/06/22 04:16 Plan Care Plan Goals: Patient is medically clear for discharge. Assessment: Patient is a 72-year-old male with past medical history of hypertension who presented in the ED with complaints of bilateral hip pain after experiencing a ground-level fall approximately 4 days prior to presentation where he was unable to get up from the floor. The patient was found at home (lives alone) after welfare check was called by family friends. In the ED, the patient was found to be hemodynamically stable with unremarkable imaging of his hip, pelvis, tibia, fibula, and femurs. Patient underwent CT cervical spine was also found to be unremarkable. Patient did have labs that were remarkable for creatinine of 1.5 (baseline unknown) and creatine kinase of 4534. Patient was medically managed with IV diuresis and monitoring of his electrolytes. The patient also developed acute hypoxic respiratory failure and fevers that were found to be secondary to COVID-19 infection. The patient has since been weaned to room air. The patient is hemodynamically stable. The patient is medically clear for discharge. Follow up with: PRIMARY MD MIRLANDE [Primary Care Provider] - 3-5 Days RADHA PUENTE MD [Staff Physician] - 14 Days Prescriptions: amLODIPine 10 mg PO DAILY #30 tab Losartan [Cozaar] 100 mg PO QDAY #30 tab Aspirin EC [Halfprin EC] 81 mg PO QDAY #30 tablet. Simvastatin 20 mg PO DAILY #30 tablet
[2022-05-06] MEDS: SPIRONOLACTONE 25 MG TAB PO SCH (11:54)
[2022-05-06] MEDS: LOSARTAN 50 MG TAB PO SCH (11:54)
[2022-05-06] MEDS: NIFEdipine XL 30 MG TAB PO SCH (11:54)
[2022-05-07] MEDS: HEPARIN 5,000 UNIT/1 ML VIAL SUB-Q SCH ×3 (05:56→22:23)
--- NOTE | 2022-05-07 07:27 | Progress Note ---
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 He was subsequently unable to get up from the floor. He denies any loss of consciousness, no head injury. The police had to force open the door after a welfare check. Work-up in the emergency room revealed chest x-ray that was unremarkable. X-ray of the hip and pelvis, tibia and fibula, x-ray of the femur were unremarkable. CT of the cervical spine was also unremarkable. Labs however revealed elevated BUN and creatinine, creatinine kinase of 4534 Acute kidney injury secondary to vasomotor nephropathy/dehydrationresolved Rhabdomyolysisresolved Hypokalemiaresolved Hypertension Ground-level fall Fever- resolved Acute hypoxic respiratory failureresolved Hypocalcemia Elevated D-dimer COVID-19 infection- stable #Advance care planning Disease education conducted, care plan discussed, diagnoses discussed, prognosis discussed, patient is full code, patient acknowledges understanding and agree with care plan, +30 minutes. Patient is a 72-year-old male with past medical history of hypertension who presented in the ED with complaints of bilateral hip pain after experiencing a ground-level fall approximately 4 days prior to presentation where he was unable to get up from the floor. The patient was found at home (lives alone) after welfare check was called by family friends. In the ED, the patient was found to be hemodynamically stable with unremarkable imaging of his hip, pelvis, tibia, fibula, and femurs. Patient underwent CT cervical spine was also found to be unremarkable. Patient did have labs that were remarkable for creatinine of 1.5 (baseline unknown) and creatine kinase of 4534. Patient was medically managed with IV diuresis and monitoring of his electrolytes. The patient also developed acute hypoxic respiratory failure and fevers that were found to be secondary to COVID-19 infection. The patient has since been weaned to room air. The patient is hemodynamically stable. The patient is medically clear for discharge. 04/26/2022: Pending permanent placement since the patient was abandoned by his community despite them stating they would pick him up on 04/25/2022. 04/27/2022: Continue pending permanent placement. 04/28/2022: Continue pending permanent placement. 04/29/2022: Patient still pending placement. Case management reports the was abandoned by his community despite them stating they would pick him up on 04/25/2022. 04/30/2022. Awaiting placement 05/01/2022. Awaiting placement. 05/02/2022. Patient is still awaiting placement. I had a long discussion with case management with regards to discharge planning 05/03/2022. Patient resting comfortably. Still awaiting for placement for discharge 05/04/2022. No new issues overnight. Patient still awaiting placement. 05/05/2022. No new issues overnight. Patient still awaiting placement. 05/06/2022: Placement remains an issue. D/w case management this AM re: placement at [facility]. They will call and attempt to expedite placement. 05/07/2022: Awaiting placement. 05/08/2022: Clinically improved. Participating on encounter. Able to ambulate, brush teeth, feed himself. awaiting placement. Will coordinate with re: [facility] placement. History Interval history: No acute complaints. Hospitalist Physical - Physical exam Narrative exam: General appearance: Present: no acute distress, well-nourished - EENT Eyes: Present: PERRL, EOM intact ENT: hearing intact, clear oral mucosa, dentition normal - Neck Neck: Present: supple, normal ROM - Respiratory Respiratory effort: normal Respiratory: bilateral: CTA - Cardiovascular Rhythm: regular Heart Sounds: Present: S1 & S2. Absent: gallop, rub - Extremities Extremities: no ischemia, No edema, Full ROM - Abdominal General gastrointestinal: soft, non-tender, non-distended, normal bowel sounds - Integumentary Integumentary: Present: clear, warm, dry - Neurologic Neurologic: CNII-XII intact, moves all extremities - Constitutional Vitals: Temp Pulse Resp BP Pulse Ox 98.1 F 89 18 104/77 98 05/07/22 04:56 05/07/22 04:56 05/07/22 04:56 05/07/22 04:56 05/07/22 04:56 General appearance: Present: no acute distress, well-nourished HEART Score - HEART Score Troponin: Troponin T < 0.010 ng/mL (0.00-0.029) 04/16/22 20:50 Results - Labs CBC & Chem 7: 05/05/22 04:00 05/05/22 04:00 Labs: Laboratory Last Values WBC 5.0 K/mm3 (4.5-11.0) 05/05/22 04:00 RBC 4.08 M/mm3 (3.65-5.03) 05/05/22 04:00 Hgb 12.4 gm/dl (11.8-15.2) 05/05/22 04:00 Hct 37.0 % (35.5-45.6) 05/05/22 04:00 MCV 91 fl (84-94) 05/05/22 04:00 MCH 30 pg (28-32) 05/05/22 04:00 MCHC 34 % (32-34) 05/05/22 04:00 RDW 14.3 % (13.2-15.2) 05/05/22 04:00 Plt Count 482 K/mm3 (140-440) H 05/05/22 04:00 Lymph % (Auto) 50.4 % (13.4-35.0) H 05/05/22 04:00 [place] % (Auto) 11.6 % (0.0-7.3) H 05/05/22 04:00 Eos % (Auto) 2.0 % (0.0-4.3) 05/05/22 04:00 Baso % (Auto) 0.2 % (0.0-1.8) 05/05/22 04:00 Lymph # (Auto) 2.5 K/mm3 (1.2-5.4) 05/05/22 04:00 [place] # (Auto) 0.6 K/mm3 (0.0-0.8) 05/05/22 04:00 Eos # (Auto) 0.1 K/mm3 (0.0-0.4) 05/05/22 04:00 Baso # (Auto) 0.0 K/mm3 (0.0-0.1) 05/05/22 04:00 Seg Neutrophils % 35.8 % (40.0-70.0) L 05/05/22 04:00 Seg Neutrophils # 1.8 K/mm3 (1.8-7.7) 05/05/22 04:00 PT 13.6 Sec. (12.2-14.9) 04/16/22 20:50 INR 0.94 (0.87-1.13) 04/16/22 20:50 D-Dimer 1188.69 ng/mlDDU (0-234) H 04/22/22 08:25 Sodium 134 mmol/L (137-145) L 05/05/22 04:00 Potassium 4.3 mmol/L (3.6-5.0) 05/05/22 04:00 Chloride 100.1 mmol/L (98-107) 05/05/22 04:00 Carbon Dioxide 23 mmol/L (22-30) 05/05/22 04:00 Anion Gap 15 mmol/L 05/05/22 04:00 BUN 19 mg/dL (9-20) 05/05/22 04:00 Creatinine 1.1 mg/dL (0.8-1.3) 05/05/22 04:00 Estimated GFR > 60 ml/min 05/05/22 04:00 BUN/Creatinine Ratio 17 % 05/05/22 04:00 Glucose 94 mg/dL (75-100) 05/05/22 04:00 POC Glucose 102 mg/dL (70-105) 05/04/22 11:22 Calcium 9.4 mg/dL (8.4-10.2) 05/05/22 04:00 Magnesium 1.80 mg/dL (1.7-2.3) 04/21/22 10:53 Total Creatine Kinase 1221 units/L (55-170) H 04/19/22 05:31 CK-MB (CK-2) 16.2 ng/mL (0.0-4.0) H 04/16/22 20:50 CK-MB (CK-2) Rel Index 0.3 (0-4) 04/16/22 20:50 Troponin T < 0.010 ng/mL (0.00-0.029) 04/16/22 20:50 Procalcitonin 0.40 ng/mL (<0.15) 04/22/22 11:01 TSH 1.910 mlU/mL (0.270-4.200) 04/16/22 20:50 Free T4 1.24 ng/dL (0.76-1.46) 04/16/22 20:50 Coronavirus (PCR) Positive (Negative) A 05/02/22 10:20 SARS-CoV-2 (PCR) Positive (Negative) A 04/29/22 12:30 Ma/IV: Voiding Method Condom Catheter Active Medications - Current Medications Current Medications: Generic Name Dose Route Start Last Admin Trade Name Freq PRN Reason Stop Dose Admin Acetaminophen 650 mg 04/16/22 23:27 05/02/22 20:18 Acetaminophen 325 Mg Tab PO 650 mg Q4H PRN Administration Pain MILD(1-3)/Fever >100.5/CRUZ Heparin Sodium (Porcine) 5,000 unit 04/17/22 06:00 05/07/22 05:56 Heparin 5,000 Unit/1 Ml Vial SUB-Q 5,000 unit Q8HR EDGAR Administration Losartan Potassium 100 mg 04/26/22 10:00 05/06/22 11:54 Losartan 50 Mg Tab PO 100 mg QDAY EDGAR Administration Magnesium Hydroxide 30 ml 04/16/22 23:27 Magnesium Hydroxide (Mom) Oral Liqd Udc PO Q4H PRN Constipation Morphine Sulfate 2 mg 04/16/22 23:27 Morphine 2 Mg/1 Ml Inj IV Q4H PRN Pain, Moderate (4-6) Morphine Sulfate 4 mg 04/16/22 23:27 Morphine 4 Mg/1 Ml Inj IV Q4H PRN Pain , Severe (7-10) Nifedipine 30 mg 04/28/22 10:00 05/06/22 11:54 Nifedipine Xl 30 Mg Tab PO 30 mg QDAY EDGAR Administration Ondansetron HCl 4 mg 04/16/22 23:27 Ondansetron 4 Mg/2 Ml Inj IV Q8H PRN Nausea And Vomiting Sodium Chloride 10 ml 04/17/22 10:00 05/06/22 22:20 Sodium Chloride 0.9% 10 Ml Flush Syringe IV 10 ml BID EDGAR Administration Sodium Chloride 10 ml 04/16/22 23:27 Sodium Chloride 0.9% 10 Ml Flush Syringe IV PRN PRN LINE FLUSH Spironolactone 25 mg 04/20/22 10:00 05/06/22 11:54 Spironolactone 25 Mg Tab PO 25 mg QDAY EDGAR Administration Nutrition/Malnutrition Assess - Dietary Evaluation Nutrition/Malnutrition Findings: Nutrition Notes Start: 04/24/22 15:41 Freq: Status: Active Protocol: Document 05/01/22 14:50 SHWETHA (Rec: 05/01/22 15:14 SHWETHA [id number]) Nutrition Notes Initial or Follow up Reassessment Current Diagnosis Hypertension Other Pertinent Diagnosis Ground-Level Fall, Hypocalcemia, Elevated D-dimer , COVID-19. Current Diet Cardiac -Chopped Meats- Diet + D Suppl (since B 04/17). Labs/Tests 05/01: N/A. Pertinent Medications 05/01: Nutritionally unremarkable. Height 5 ft 6 in Weight 70.4 kg [place] Body Weight (kg) 64.54 BMI 25.0 Weight change and time frame 1.6 Kg body weight gain in 1 week reported. Weight Status Appropriate Subjective/Other Information RD consult for routine F/U on dietary advancement. Pt's PO intake has been Poor ( 25%), according to ADL notes; however, Dietary Supplements have been helping Pt to compensate for poor PO intake of meals. I will increment ONS to the prescription. Pt is on Room Air, O2 saturation @ 97%, according to Physical Assessment History notes. Pt has missing teeth, according to Physical Assessment History notes. I will modify to Chopped Meats to facilitate PO intake and processing of meals. Pt found to be COVID-19 positive on 04/24, according to Progress notes. Pt clinically cleared, awaiting for placement, according to Progress notes. Percent of energy/protein needs met: Prescribed Cardiac -Chopped Meats- Diet provides for energy/protein needs (2,230 Kcal/85 g) during LOS; additionally, Dietary Supplements will support wound healing processes with 1,050 Kcal and 60 g of protein. Burn Absent Trauma Absent GI Symptoms None Food Allergy No Skin Integrity/Comment Sacrum skin tear. 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 As Evidenced by Signs and Symptoms Pt's PO intake has been Poor ( 25%), according to ADL notes. #2 Nutrition Diagnosis Inadequate protein-energy intake Etiology Uncertain. As Evidenced by Signs and Symptoms Pt's PO intake has been Poor ( 25%), according to ADL notes. #1 Nutrition Diagnosis Increased nutrient needs ( specify in comment below) Comments: Protein to support wound healing processes. Diagnosis Progress(for reassessment Continues documentation) Is patient on ventilator? No Is Patient Ambulatory and/or Out of Bed No REE-(MooreShanelle Patino-confined to bed) [phone] Calculation Used for Recommendations MooreNash Patino Additional Notes Protein: 1-1.2 g/Kg ABW; 69-83 g/day. Fluids: 1 ml/Kcal, or as per MD. Nutrition Intervention Change Diet Order: Continue Cardiac -Chopped Meats- Diet. Add Supplement/Snack (indicate name/kcal Increase 8 fl oz Ensure Enlive /protein ) ; to TID. Provides kCal: 1,050 Provides Protein (gm) 60 Goal #1 Support, through dietary supplementation, wound healing processes during LOS. Goal #2 Compensate, through dietary supplementation, for possible poor or insufficient PO intake of meals during LOS. Goal #3 Facilitate PO intake of meals with elemental, textural, or mechanical modification during LOS. Goal #4 Adjust the dietary intervention to better serve Pt's needs and clinical conditions during LOS. Follow-Up By: 05/08/22 Additional Comments Continue monitoring food tolerance, %PO intake of meals and ONS, and BM.
[2022-05-07] MEDS: NIFEdipine XL 30 MG TAB PO SCH (09:35)
[2022-05-07] MEDS: LOSARTAN 50 MG TAB PO SCH (09:35)
[2022-05-07] MEDS: SPIRONOLACTONE 25 MG TAB PO SCH (09:35)
[2022-05-08] MEDS: HEPARIN 5,000 UNIT/1 ML VIAL SUB-Q SCH ×3 (05:18→22:05)
--- NOTE | 2022-05-08 07:48 | Progress Note ---
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 He was subsequently unable to get up from the floor. He denies any loss of consciousness, no head injury. The police had to force open the door after a welfare check. Work-up in the emergency room revealed chest x-ray that was unremarkable. X-ray of the hip and pelvis, tibia and fibula, x-ray of the femur were unremarkable. CT of the cervical spine was also unremarkable. Labs however revealed elevated BUN and creatinine, creatinine kinase of 4534 Acute kidney injury secondary to vasomotor nephropathy/dehydrationresolved Rhabdomyolysisresolved Hypokalemiaresolved Hypertension Ground-level fall Fever- resolved Acute hypoxic respiratory failureresolved Hypocalcemia Elevated D-dimer COVID-19 infection- stable #Advance care planning Disease education conducted, care plan discussed, diagnoses discussed, prognosis discussed, patient is full code, patient acknowledges understanding and agree with care plan, +30 minutes. Patient is a 72-year-old male with past medical history of hypertension who presented in the ED with complaints of bilateral hip pain after experiencing a ground-level fall approximately 4 days prior to presentation where he was unable to get up from the floor. The patient was found at home (lives alone) after welfare check was called by family friends. In the ED, the patient was found to be hemodynamically stable with unremarkable imaging of his hip, pelvis, tibia, fibula, and femurs. Patient underwent CT cervical spine was also found to be unremarkable. Patient did have labs that were remarkable for creatinine of 1.5 (baseline unknown) and creatine kinase of 4534. Patient was medically managed with IV diuresis and monitoring of his electrolytes. The patient also developed acute hypoxic respiratory failure and fevers that were found to be secondary to COVID-19 infection. The patient has since been weaned to room air. The patient is hemodynamically stable. The patient is medically clear for discharge. 04/26/2022: Pending permanent placement since the patient was abandoned by his community despite them stating they would pick him up on 04/25/2022. 04/27/2022: Continue pending permanent placement. 04/28/2022: Continue pending permanent placement. 04/29/2022: Patient still pending placement. Case management reports the was abandoned by his community despite them stating they would pick him up on 04/25/2022. 04/30/2022. Awaiting placement 05/01/2022. Awaiting placement. 05/02/2022. Patient is still awaiting placement. I had a long discussion with case management with regards to discharge planning 05/03/2022. Patient resting comfortably. Still awaiting for placement for discharge 05/04/2022. No new issues overnight. Patient still awaiting placement. 05/05/2022. No new issues overnight. Patient still awaiting placement. 05/06/2022: Placement remains an issue. D/w case management this AM re: placement at [facility]. They will call and attempt to expedite placement. 05/07/2022: Awaiting placement. 05/08/2022: Clinically improved. Participating on encounter. Able to ambulate, brush teeth, feed himself. awaiting placement. Will coordinate with re: [facility] placement. History Interval history: No acute complaints. Diet improved. Appetite still poor but improving. Encouraged continued inc in PO intake of shakes and to try to fininsh food trays. Hospitalist Physical - Physical exam Narrative exam: General appearance: Present: no acute distress, well-nourished - EENT Eyes: Present: PERRL, EOM intact ENT: hearing intact, clear oral mucosa, dentition normal - Neck Neck: Present: supple, normal ROM - Respiratory Respiratory effort: normal Respiratory: bilateral: CTA - Cardiovascular Rhythm: regular Heart Sounds: Present: S1 & S2. Absent: gallop, rub - Extremities Extremities: no ischemia, No edema, Full ROM - Abdominal General gastrointestinal: soft, non-tender, non-distended, normal bowel sounds - Integumentary Integumentary: Present: clear, warm, dry - Neurologic Neurologic: CNII-XII intact, moves all extremities - Constitutional Vitals: Temp Pulse Resp BP Pulse Ox 97.9 F 78 18 110/79 99 05/08/22 05:39 05/08/22 05:39 05/08/22 05:39 05/08/22 05:39 05/08/22 07:02 General appearance: Present: no acute distress, well-nourished HEART Score - HEART Score Troponin: Troponin T < 0.010 ng/mL (0.00-0.029) 04/16/22 20:50 Results - Labs CBC & Chem 7: 05/05/22 04:00 05/05/22 04:00 Labs: Laboratory Last Values WBC 5.0 K/mm3 (4.5-11.0) 05/05/22 04:00 RBC 4.08 M/mm3 (3.65-5.03) 05/05/22 04:00 Hgb 12.4 gm/dl (11.8-15.2) 05/05/22 04:00 Hct 37.0 % (35.5-45.6) 05/05/22 04:00 MCV 91 fl (84-94) 05/05/22 04:00 MCH 30 pg (28-32) 05/05/22 04:00 MCHC 34 % (32-34) 05/05/22 04:00 RDW 14.3 % (13.2-15.2) 05/05/22 04:00 Plt Count 482 K/mm3 (140-440) H 05/05/22 04:00 Lymph % (Auto) 50.4 % (13.4-35.0) H 05/05/22 04:00 [place] % (Auto) 11.6 % (0.0-7.3) H 05/05/22 04:00 Eos % (Auto) 2.0 % (0.0-4.3) 05/05/22 04:00 Baso % (Auto) 0.2 % (0.0-1.8) 05/05/22 04:00 Lymph # (Auto) 2.5 K/mm3 (1.2-5.4) 05/05/22 04:00 [place] # (Auto) 0.6 K/mm3 (0.0-0.8) 05/05/22 04:00 Eos # (Auto) 0.1 K/mm3 (0.0-0.4) 05/05/22 04:00 Baso # (Auto) 0.0 K/mm3 (0.0-0.1) 05/05/22 04:00 Seg Neutrophils % 35.8 % (40.0-70.0) L 05/05/22 04:00 Seg Neutrophils # 1.8 K/mm3 (1.8-7.7) 05/05/22 04:00 PT 13.6 Sec. (12.2-14.9) 04/16/22 20:50 INR 0.94 (0.87-1.13) 04/16/22 20:50 D-Dimer 1188.69 ng/mlDDU (0-234) H 04/22/22 08:25 Sodium 134 mmol/L (137-145) L 05/05/22 04:00 Potassium 4.3 mmol/L (3.6-5.0) 05/05/22 04:00 Chloride 100.1 mmol/L (98-107) 05/05/22 04:00 Carbon Dioxide 23 mmol/L (22-30) 05/05/22 04:00 Anion Gap 15 mmol/L 05/05/22 04:00 BUN 19 mg/dL (9-20) 05/05/22 04:00 Creatinine 1.1 mg/dL (0.8-1.3) 05/05/22 04:00 Estimated GFR > 60 ml/min 05/05/22 04:00 BUN/Creatinine Ratio 17 % 05/05/22 04:00 Glucose 94 mg/dL (75-100) 05/05/22 04:00 POC Glucose 102 mg/dL (70-105) 05/04/22 11:22 Calcium 9.4 mg/dL (8.4-10.2) 05/05/22 04:00 Magnesium 1.80 mg/dL (1.7-2.3) 04/21/22 10:53 Total Creatine Kinase 1221 units/L (55-170) H 04/19/22 05:31 CK-MB (CK-2) 16.2 ng/mL (0.0-4.0) H 04/16/22 20:50 CK-MB (CK-2) Rel Index 0.3 (0-4) 04/16/22 20:50 Troponin T < 0.010 ng/mL (0.00-0.029) 04/16/22 20:50 Procalcitonin 0.40 ng/mL (<0.15) 04/22/22 11:01 TSH 1.910 mlU/mL (0.270-4.200) 04/16/22 20:50 Free T4 1.24 ng/dL (0.76-1.46) 04/16/22 20:50 Coronavirus (PCR) Positive (Negative) A 05/02/22 10:20 SARS-CoV-2 (PCR) Positive (Negative) A 04/29/22 12:30 Ma/IV: Voiding Method Condom Catheter Active Medications - Current Medications Current Medications: Generic Name Dose Route Start Last Admin Trade Name Freq PRN Reason Stop Dose Admin Acetaminophen 650 mg 04/16/22 23:27 05/02/22 20:18 Acetaminophen 325 Mg Tab PO 650 mg Q4H PRN Administration Pain MILD(1-3)/Fever >100.5/CRUZ Heparin Sodium (Porcine) 5,000 unit 04/17/22 06:00 05/08/22 05:18 Heparin 5,000 Unit/1 Ml Vial SUB-Q 5,000 unit Q8HR EDGAR Administration Losartan Potassium 100 mg 04/26/22 10:00 05/07/22 09:35 Losartan 50 Mg Tab PO 100 mg QDAY EDGAR Administration Magnesium Hydroxide 30 ml 04/16/22 23:27 Magnesium Hydroxide (Mom) Oral Liqd Udc PO Q4H PRN Constipation Morphine Sulfate 2 mg 04/16/22 23:27 Morphine 2 Mg/1 Ml Inj IV Q4H PRN Pain, Moderate (4-6) Morphine Sulfate 4 mg 04/16/22 23:27 Morphine 4 Mg/1 Ml Inj IV Q4H PRN Pain , Severe (7-10) Nifedipine 30 mg 04/28/22 10:00 05/07/22 09:35 Nifedipine Xl 30 Mg Tab PO 30 mg QDAY EDGAR Administration Ondansetron HCl 4 mg 04/16/22 23:27 Ondansetron 4 Mg/2 Ml Inj IV Q8H PRN Nausea And Vomiting Sodium Chloride 10 ml 04/17/22 10:00 05/07/22 22:25 Sodium Chloride 0.9% 10 Ml Flush Syringe IV Not Given BID EDGAR Sodium Chloride 10 ml 04/16/22 23:27 Sodium Chloride 0.9% 10 Ml Flush Syringe IV PRN PRN LINE FLUSH Spironolactone 25 mg 04/20/22 10:00 05/07/22 09:35 Spironolactone 25 Mg Tab PO 25 mg QDAY EDGAR Administration Nutrition/Malnutrition Assess - Dietary Evaluation Nutrition/Malnutrition Findings: Nutrition Notes Start: 04/24/22 15:41 Freq: Status: Active Protocol: Document 05/01/22 14:50 SHWETHA (Rec: 05/01/22 15:14 SHWETHA [id number]) Nutrition Notes Initial or Follow up Reassessment Current Diagnosis Hypertension Other Pertinent Diagnosis Ground-Level Fall, Hypocalcemia, Elevated D-dimer , COVID-19. Current Diet Cardiac -Chopped Meats- Diet + D Suppl (since B 04/17). Labs/Tests 05/01: N/A. Pertinent Medications 05/01: Nutritionally unremarkable. Height 5 ft 6 in Weight 70.4 kg [place] Body Weight (kg) 64.54 BMI 25.0 Weight change and time frame 1.6 Kg body weight gain in 1 week reported. Weight Status Appropriate Subjective/Other Information RD consult for routine F/U on dietary advancement. Pt's PO intake has been Poor ( 25%), according to ADL notes; however, Dietary Supplements have been helping Pt to compensate for poor PO intake of meals. I will increment ONS to the prescription. Pt is on Room Air, O2 saturation @ 97%, according to Physical Assessment History notes. Pt has missing teeth, according to Physical Assessment History notes. I will modify to Chopped Meats to facilitate PO intake and processing of meals. Pt found to be COVID-19 positive on 04/24, according to Progress notes. Pt clinically cleared, awaiting for placement, according to Progress notes. Percent of energy/protein needs met: Prescribed Cardiac -Chopped Meats- Diet provides for energy/protein needs (2,230 Kcal/85 g) during LOS; additionally, Dietary Supplements will support wound healing processes with 1,050 Kcal and 60 g of protein. Burn Absent Trauma Absent GI Symptoms None Food Allergy No Skin Integrity/Comment Sacrum skin tear. 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 As Evidenced by Signs and Symptoms Pt's PO intake has been Poor ( 25%), according to ADL notes. #2 Nutrition Diagnosis Inadequate protein-energy intake Etiology Uncertain. As Evidenced by Signs and Symptoms Pt's PO intake has been Poor ( 25%), according to ADL notes. #1 Nutrition Diagnosis Increased nutrient needs ( specify in comment below) Comments: Protein to support wound healing processes. Diagnosis Progress(for reassessment Continues documentation) Is patient on ventilator? No Is Patient Ambulatory and/or Out of Bed No REE-([facility]-confined to bed) [phone] Calculation Used for Recommendations [facility] Additional Notes Protein: 1-1.2 g/Kg ABW; 69-83 g/day. Fluids: 1 ml/Kcal, or as per MD. Nutrition Intervention Change Diet Order: Continue Cardiac -Chopped Meats- Diet. Add Supplement/Snack (indicate name/kcal Increase 8 fl oz Ensure Enlive /protein ) ; to TID. Provides kCal: 1,050 Provides Protein (gm) 60 Goal #1 Support, through dietary supplementation, wound healing processes during LOS. Goal #2 Compensate, through dietary supplementation, for possible poor or insufficient PO intake of meals during LOS. Goal #3 Facilitate PO intake of meals with elemental, textural, or mechanical modification during LOS. Goal #4 Adjust the dietary intervention to better serve Pt's needs and clinical conditions during LOS. Follow-Up By: 05/08/22 Additional Comments Continue monitoring food tolerance, %PO intake of meals and ONS, and BM.
[2022-05-08] MEDS: LOSARTAN 50 MG TAB PO SCH (09:05)
[2022-05-08] MEDS: NIFEdipine XL 30 MG TAB PO SCH (09:05)
[2022-05-08] MEDS: SPIRONOLACTONE 25 MG TAB PO SCH (09:05)
[2022-05-09] MEDS: HEPARIN 5,000 UNIT/1 ML VIAL SUB-Q SCH ×3 (05:50→22:03)
--- NOTE | 2022-05-09 07:37 | Progress Note ---
Assessment and Plan Assessment and plan: 72-year-old -[place] male with known history of hypertension and who lives by himself presents to the emergency room today complaining of bilateral hip pain after having a fall about 4 days ago [employer]. 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 He was subsequently unable to get up from the floor. He denies any loss of consciousness, no head injury. The police had to force open the door after a welfare check. Work-up in the emergency room revealed chest x-ray that was unremarkable. X-ray of the hip and pelvis, tibia and fibula, x-ray of the femur were unremarkable. CT of the cervical spine was also unremarkable. Labs however revealed elevated BUN and creatinine, creatinine kinase of 4534 Acute kidney injury secondary to vasomotor nephropathy/dehydrationresolved Rhabdomyolysisresolved Hypokalemiaresolved Hypertension Ground-level fall Fever- resolved Acute hypoxic respiratory failureresolved Hypocalcemia Elevated D-dimer COVID-19 infection- stable #Advance care planning Disease education conducted, care plan discussed, diagnoses discussed, prognosis discussed, patient is full code, patient acknowledges understanding and agree with care plan, +30 minutes. Patient is a 72-year-old male with past medical history of hypertension who presented in the ED with complaints of bilateral hip pain after experiencing a ground-level fall approximately 4 days prior to presentation where he was unable to get up from the floor. The patient was found at home (lives alone) after welfare check was called by family friends. In the ED, the patient was found to be hemodynamically stable with unremarkable imaging of his hip, pelvis, tibia, fibula, and femurs. Patient underwent CT cervical spine was also found to be unremarkable. Patient did have labs that were remarkable for creatinine of 1.5 (baseline unknown) and creatine kinase of 4534. Patient was medically managed with IV diuresis and monitoring of his electrolytes. The patient also developed acute hypoxic respiratory failure and fevers that were found to be secondary to COVID-19 infection. The patient has since been weaned to room air. The patient is hemodynamically stable. The patient is medically clear for discharge. 04/26/2022: Pending permanent placement since the patient was abandoned by his community despite them stating they would pick him up on 04/25/2022. 04/27/2022: Continue pending permanent placement. 04/28/2022: Continue pending permanent placement. 04/29/2022: Patient still pending placement. Case management reports the was abandoned by his community despite them stating they would pick him up on 04/25/2022. 04/30/2022. Awaiting placement 05/01/2022. Awaiting placement. 05/02/2022. Patient is still awaiting placement. I had a long discussion with case management with regards to discharge planning 05/03/2022. Patient resting comfortably. Still awaiting for placement for discharge 05/04/2022. No new issues overnight. Patient still awaiting placement. 05/05/2022. No new issues overnight. Patient still awaiting placement. 05/06/2022: Placement remains an issue. D/w case management this AM re: placement at [facility]. They will call and attempt to expedite placement. 05/07/2022: Awaiting placement. 05/08/2022: Clinically improved. Participating on encounter. Able to ambulate but more alert and able to brush teeth, feed himself. awaiting placement. Will coordinate with CM re: [facility] placement. 05/09/2022: Clinially improved. Some weakness with ambulation but improving. Inc po intake. Will continue to work with Sw/CM for placement. Hospitalist Physical - Physical exam Narrative exam: General appearance: Present: no acute distress, well-nourished - EENT Eyes: Present: PERRL, EOM intact ENT: hearing intact, clear oral mucosa, dentition normal - Neck Neck: Present: supple, normal ROM - Respiratory Respiratory effort: normal Respiratory: bilateral: CTA - Cardiovascular Rhythm: regular Heart Sounds: Present: S1 & S2. Absent: gallop, rub - Extremities Extremities: no ischemia, No edema, Full ROM - Abdominal General gastrointestinal: soft, non-tender, non-distended, normal bowel sounds - Integumentary Integumentary: Present: clear, warm, dry - Neurologic Neurologic: CNII-XII intact, moves all extremities - Constitutional Vitals: Temp Pulse Resp BP Pulse Ox 98.2 F 100 H 20 119/83 99 05/09/22 05:28 05/09/22 05:28 05/09/22 05:28 05/09/22 05:28 05/09/22 05:28 General appearance: Present: no acute distress, well-nourished HEART Score - HEART Score Troponin: Troponin T < 0.010 ng/mL (0.00-0.029) 04/16/22 20:50 Results - Labs CBC & Chem 7: 05/05/22 04:00 05/05/22 04:00 Labs: Laboratory Last Values WBC 5.0 K/mm3 (4.5-11.0) 05/05/22 04:00 RBC 4.08 M/mm3 (3.65-5.03) 05/05/22 04:00 Hgb 12.4 gm/dl (11.8-15.2) 05/05/22 04:00 Hct 37.0 % (35.5-45.6) 05/05/22 04:00 MCV 91 fl (84-94) 05/05/22 04:00 MCH 30 pg (28-32) 05/05/22 04:00 MCHC 34 % (32-34) 05/05/22 04:00 RDW 14.3 % (13.2-15.2) 05/05/22 04:00 Plt Count 482 K/mm3 (140-440) H 05/05/22 04:00 Lymph % (Auto) 50.4 % (13.4-35.0) H 05/05/22 04:00 Christian % (Auto) 11.6 % (0.0-7.3) H 05/05/22 04:00 Eos % (Auto) 2.0 % (0.0-4.3) 05/05/22 04:00 Baso % (Auto) 0.2 % (0.0-1.8) 05/05/22 04:00 Lymph # (Auto) 2.5 K/mm3 (1.2-5.4) 05/05/22 04:00 Christian # (Auto) 0.6 K/mm3 (0.0-0.8) 05/05/22 04:00 Eos # (Auto) 0.1 K/mm3 (0.0-0.4) 05/05/22 04:00 Baso # (Auto) 0.0 K/mm3 (0.0-0.1) 05/05/22 04:00 Seg Neutrophils % 35.8 % (40.0-70.0) L 05/05/22 04:00 Seg Neutrophils # 1.8 K/mm3 (1.8-7.7) 05/05/22 04:00 PT 13.6 Sec. (12.2-14.9) 04/16/22 20:50 INR 0.94 (0.87-1.13) 04/16/22 20:50 D-Dimer 1188.69 ng/mlDDU (0-234) H 04/22/22 08:25 Sodium 134 mmol/L (137-145) L 05/05/22 04:00 Potassium 4.3 mmol/L (3.6-5.0) 05/05/22 04:00 Chloride 100.1 mmol/L (98-107) 05/05/22 04:00 Carbon Dioxide 23 mmol/L (22-30) 05/05/22 04:00 Anion Gap 15 mmol/L 05/05/22 04:00 BUN 19 mg/dL (9-20) 05/05/22 04:00 Creatinine 1.1 mg/dL (0.8-1.3) 05/05/22 04:00 Estimated GFR > 60 ml/min 05/05/22 04:00 BUN/Creatinine Ratio 17 % 05/05/22 04:00 Glucose 94 mg/dL (75-100) 05/05/22 04:00 POC Glucose 102 mg/dL (70-105) 05/04/22 11:22 Calcium 9.4 mg/dL (8.4-10.2) 05/05/22 04:00 Magnesium 1.80 mg/dL (1.7-2.3) 04/21/22 10:53 Total Creatine Kinase 1221 units/L (55-170) H 04/19/22 05:31 CK-MB (CK-2) 16.2 ng/mL (0.0-4.0) H 04/16/22 20:50 CK-MB (CK-2) Rel Index 0.3 (0-4) 04/16/22 20:50 Troponin T < 0.010 ng/mL (0.00-0.029) 04/16/22 20:50 Procalcitonin 0.40 ng/mL (<0.15) 04/22/22 11:01 TSH 1.910 mlU/mL (0.270-4.200) 04/16/22 20:50 Free T4 1.24 ng/dL (0.76-1.46) 04/16/22 20:50 Coronavirus (PCR) Positive (Negative) A 05/02/22 10:20 SARS-CoV-2 (PCR) Positive (Negative) A 04/29/22 12:30 Ma/IV: Voiding Method Urinal Active Medications - Current Medications Current Medications: Generic Name Dose Route Start Last Admin Trade Name Freq PRN Reason Stop Dose Admin Acetaminophen 650 mg 04/16/22 23:27 05/02/22 20:18 Acetaminophen 325 Mg Tab PO 650 mg Q4H PRN Administration Pain MILD(1-3)/Fever >100.5/CRUZ Heparin Sodium (Porcine) 5,000 unit 04/17/22 06:00 05/09/22 05:50 Heparin 5,000 Unit/1 Ml Vial SUB-Q 5,000 unit Q8HR EDGAR Administration Losartan Potassium 100 mg 04/26/22 10:00 05/08/22 09:05 Losartan 50 Mg Tab PO 100 mg QDAY EDGAR Administration Magnesium Hydroxide 30 ml 04/16/22 23:27 Magnesium Hydroxide (Mom) Oral Liqd Udc PO Q4H PRN Constipation Morphine Sulfate 2 mg 04/16/22 23:27 Morphine 2 Mg/1 Ml Inj IV Q4H PRN Pain, Moderate (4-6) Morphine Sulfate 4 mg 04/16/22 23:27 Morphine 4 Mg/1 Ml Inj IV Q4H PRN Pain , Severe (7-10) Nifedipine 30 mg 04/28/22 10:00 05/08/22 09:05 Nifedipine Xl 30 Mg Tab PO 30 mg QDAY EDGAR Administration Ondansetron HCl 4 mg 04/16/22 23:27 Ondansetron 4 Mg/2 Ml Inj IV Q8H PRN Nausea And Vomiting Sodium Chloride 10 ml 04/17/22 10:00 05/08/22 22:05 Sodium Chloride 0.9% 10 Ml Flush Syringe IV Not Given BID EDGAR Sodium Chloride 10 ml 04/16/22 23:27 Sodium Chloride 0.9% 10 Ml Flush Syringe IV PRN PRN LINE FLUSH Spironolactone 25 mg 04/20/22 10:00 05/08/22 09:05 Spironolactone 25 Mg Tab PO 25 mg QDAY EDGAR Administration Nutrition/Malnutrition Assess - Dietary Evaluation Nutrition/Malnutrition Findings: Nutrition Notes Start: 04/24/22 15:41 Freq: Status: Active Protocol: Document 05/08/22 14:54 SHWETHA (Rec: 05/08/22 15:04 SHWETHA [id number]) Nutrition Notes Initial or Follow up Reassessment Current Diagnosis Hypertension Other Pertinent Diagnosis Ground-Level Fall, Hypocalcemia, Elevated D-dimer , COVID-19. Current Diet Cardiac -Chopped Meats- Diet + D Suppl (since B 04/17). Labs/Tests 05/08: Na 134. Pertinent Medications 05/08: Nutritionally unremarkable. Height 5 ft 6 in Weight 70.4 kg [place] Body Weight (kg) 64.54 BMI 25.0 Weight change and time frame No body weight change reported in 1 week. Weight Status Appropriate Subjective/Other Information RD consult for routine F/U on dietary advancement. Pt's PO intake has been Poor ( 25%), according to ADL notes; however, Dietary Supplements have been helping Pt to compensate for poor PO intake of meals. Pt is on Room Air, O2 saturation @ 99%, according to Physical Assessment History notes. Percent of energy/protein needs met: Prescribed Cardiac -Chopped Meats- Diet provides for energy/protein needs (2,230 Kcal/85 g) during LOS; additionally, Dietary Supplements will support wound healing processes with 1,050 Kcal and 60 g of protein. Burn Absent Trauma Absent GI Symptoms None Food Allergy No Skin Integrity/Comment Sacrum skin tear. 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 Diagnosis Progress(for reassessment Continues documentation) Is patient on ventilator? No Is Patient Ambulatory and/or Out of Bed No REE-([place]-St. Jeor-confined to bed) [id number] Calculation Used for Recommendations [place]-St or Additional Notes Protein: 1-1.2 g/Kg ABW; 69-83 g/day. Fluids: 1 ml/Kcal, or as per MD. Nutrition Intervention Change Diet Order: Continue Cardiac -Chopped Meats- Diet. Add Supplement/Snack (indicate name/kcal Continue 8 fl oz Ensure Enlive /protein ) ; to TID. Provides kCal: 1,050 Provides Protein (gm) 50 Goal #1 Support, through dietary supplementation, wound healing processes during LOS. Goal #2 Compensate, through dietary supplementation, for possible poor or insufficient PO intake of meals during LOS. Goal #3 Facilitate PO intake of meals with elemental, textural, or mechanical modification during LOS. Goal #4 Adjust the dietary intervention to better serve Pt's needs and clinical conditions during LOS. Follow-Up By: 05/15/22 Additional Comments Continue monitoring food tolerance, %PO intake of meals and ONS, and BM.
[2022-05-09] MEDS: LOSARTAN 50 MG TAB PO SCH (09:46)
[2022-05-09] MEDS: SPIRONOLACTONE 25 MG TAB PO SCH (09:46)
[2022-05-09] MEDS: NIFEdipine XL 30 MG TAB PO SCH (09:47)
[2022-05-10] MEDS: HEPARIN 5,000 UNIT/1 ML VIAL SUB-Q SCH ×3 (05:40→22:36)
--- NOTE | 2022-05-10 07:37 | Progress Note ---
Assessment and Plan Assessment and plan: 72-year-old -[place] male with known history of hypertension and who lives by himself presents to the emergency room today complaining of bilateral hip pain after having a fall about 4 days ago [employer]. 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 He was subsequently unable to get up from the floor. He denies any loss of consciousness, no head injury. The police had to force open the door after a welfare check. Work-up in the emergency room revealed chest x-ray that was unremarkable. X-ray of the hip and pelvis, tibia and fibula, x-ray of the femur were unremarkable. CT of the cervical spine was also unremarkable. Labs however revealed elevated BUN and creatinine, creatinine kinase of 4534 Acute kidney injury secondary to vasomotor nephropathy/dehydrationresolved Rhabdomyolysisresolved Hypokalemiaresolved Hypertension Ground-level fall Fever- resolved Acute hypoxic respiratory failureresolved Hypocalcemia Elevated D-dimer COVID-19 infection- stable #Advance care planning Disease education conducted, care plan discussed, diagnoses discussed, prognosis discussed, patient is full code, patient acknowledges understanding and agree with care plan, +30 minutes. Patient is a 72-year-old male with past medical history of hypertension who presented in the ED with complaints of bilateral hip pain after experiencing a ground-level fall approximately 4 days prior to presentation where he was unable to get up from the floor. The patient was found at home (lives alone) after welfare check was called by family friends. In the ED, the patient was found to be hemodynamically stable with unremarkable imaging of his hip, pelvis, tibia, fibula, and femurs. Patient underwent CT cervical spine was also found to be unremarkable. Patient did have labs that were remarkable for creatinine of 1.5 (baseline unknown) and creatine kinase of 4534. Patient was medically managed with IV diuresis and monitoring of his electrolytes. The patient also developed acute hypoxic respiratory failure and fevers that were found to be secondary to COVID-19 infection. The patient has since been weaned to room air. The patient is hemodynamically stable. The patient is medically clear for discharge. 04/26/2022: Pending permanent placement since the patient was abandoned by his community despite them stating they would pick him up on 04/25/2022. 04/27/2022: Continue pending permanent placement. 04/28/2022: Continue pending permanent placement. 04/29/2022: Patient still pending placement. Case management reports the was abandoned by his community despite them stating they would pick him up on 04/25/2022. 04/30/2022. Awaiting placement 05/01/2022. Awaiting placement. 05/02/2022. Patient is still awaiting placement. I had a long discussion with case management with regards to discharge planning 05/03/2022. Patient resting comfortably. Still awaiting for placement for discharge 05/04/2022. No new issues overnight. Patient still awaiting placement. 05/05/2022. No new issues overnight. Patient still awaiting placement. 05/06/2022: Placement remains an issue. D/w case management this AM re: placement at [facility]. They will call and attempt to expedite placement. 05/07/2022: Awaiting placement. 05/08/2022: Clinically improved. Participating on encounter. Able to ambulate but more alert and able to brush teeth, feed himself. awaiting placement. Will coordinate with re: [facility] placement. 05/09/2022: Clinially improved. Some weakness with ambulation but improving. Inc po intake. Will continue to work with Sw/CM for placement. 05/10/2022: Awaiting placement. Sadly this patient appears to be abandoned by community. Will work with SW on Thursday for solution. History Interval history: No acute complaints. Diet improved. Appetite improving. RN moved patient to chair but patient subsequently requested to be moved back to bed. Encouraged continued to work with PT/RN to be active. Hospitalist Physical - Physical exam Narrative exam: General appearance: Present: no acute distress, well-nourished - EENT Eyes: Present: PERRL, EOM intact ENT: hearing intact, clear oral mucosa, dentition normal - Neck Neck: Present: supple, normal ROM - Respiratory Respiratory effort: normal Respiratory: bilateral: CTA - Cardiovascular Rhythm: regular Heart Sounds: Present: S1 & S2. Absent: gallop, rub - Extremities Extremities: no ischemia, No edema, Full ROM - Abdominal General gastrointestinal: soft, non-tender, non-distended, normal bowel sounds - Integumentary Integumentary: Present: clear, warm, dry - Neurologic Neurologic: CNII-XII intact, moves all extremities - Constitutional Vitals: Temp Pulse Resp BP Pulse Ox 97.5 F L 81 18 110/79 98 05/10/22 04:46 05/10/22 04:44 05/10/22 04:44 05/10/22 04:44 05/10/22 04:44 General appearance: Present: no acute distress, well-nourished HEART Score - HEART Score Troponin: Troponin T < 0.010 ng/mL (0.00-0.029) 04/16/22 20:50 Results - Labs CBC & Chem 7: 05/05/22 04:00 05/05/22 04:00 Labs: Laboratory Last Values WBC 5.0 K/mm3 (4.5-11.0) 05/05/22 04:00 RBC 4.08 M/mm3 (3.65-5.03) 05/05/22 04:00 Hgb 12.4 gm/dl (11.8-15.2) 05/05/22 04:00 Hct 37.0 % (35.5-45.6) 05/05/22 04:00 MCV 91 fl (84-94) 05/05/22 04:00 MCH 30 pg (28-32) 05/05/22 04:00 MCHC 34 % (32-34) 05/05/22 04:00 RDW 14.3 % (13.2-15.2) 05/05/22 04:00 Plt Count 482 K/mm3 (140-440) H 05/05/22 04:00 Lymph % (Auto) 50.4 % (13.4-35.0) H 05/05/22 04:00 [place] % (Auto) 11.6 % (0.0-7.3) H 05/05/22 04:00 Eos % (Auto) 2.0 % (0.0-4.3) 05/05/22 04:00 Baso % (Auto) 0.2 % (0.0-1.8) 05/05/22 04:00 Lymph # (Auto) 2.5 K/mm3 (1.2-5.4) 05/05/22 04:00 [place] # (Auto) 0.6 K/mm3 (0.0-0.8) 05/05/22 04:00 Eos # (Auto) 0.1 K/mm3 (0.0-0.4) 05/05/22 04:00 Baso # (Auto) 0.0 K/mm3 (0.0-0.1) 05/05/22 04:00 Seg Neutrophils % 35.8 % (40.0-70.0) L 05/05/22 04:00 Seg Neutrophils # 1.8 K/mm3 (1.8-7.7) 05/05/22 04:00 PT 13.6 Sec. (12.2-14.9) 04/16/22 20:50 INR 0.94 (0.87-1.13) 04/16/22 20:50 D-Dimer 1188.69 ng/mlDDU (0-234) H 04/22/22 08:25 Sodium 134 mmol/L (137-145) L 05/05/22 04:00 Potassium 4.3 mmol/L (3.6-5.0) 05/05/22 04:00 Chloride 100.1 mmol/L (98-107) 05/05/22 04:00 Carbon Dioxide 23 mmol/L (22-30) 05/05/22 04:00 Anion Gap 15 mmol/L 05/05/22 04:00 BUN 19 mg/dL (9-20) 05/05/22 04:00 Creatinine 1.1 mg/dL (0.8-1.3) 05/05/22 04:00 Estimated GFR > 60 ml/min 05/05/22 04:00 BUN/Creatinine Ratio 17 % 05/05/22 04:00 Glucose 94 mg/dL (75-100) 05/05/22 04:00 POC Glucose 102 mg/dL (70-105) 05/04/22 11:22 Calcium 9.4 mg/dL (8.4-10.2) 05/05/22 04:00 Magnesium 1.80 mg/dL (1.7-2.3) 04/21/22 10:53 Total Creatine Kinase 1221 units/L (55-170) H 04/19/22 05:31 CK-MB (CK-2) 16.2 ng/mL (0.0-4.0) H 04/16/22 20:50 CK-MB (CK-2) Rel Index 0.3 (0-4) 04/16/22 20:50 Troponin T < 0.010 ng/mL (0.00-0.029) 04/16/22 20:50 Procalcitonin 0.40 ng/mL (<0.15) 04/22/22 11:01 TSH 1.910 mlU/mL (0.270-4.200) 04/16/22 20:50 Free T4 1.24 ng/dL (0.76-1.46) 04/16/22 20:50 Coronavirus (PCR) Positive (Negative) A 05/02/22 10:20 SARS-CoV-2 (PCR) Positive (Negative) A 04/29/22 12:30 Ma/IV: Voiding Method Condom Catheter Active Medications - Current Medications Current Medications: Generic Name Dose Route Start Last Admin Trade Name Freq PRN Reason Stop Dose Admin Acetaminophen 650 mg 04/16/22 23:27 05/02/22 20:18 Acetaminophen 325 Mg Tab PO 650 mg Q4H PRN Administration Pain MILD(1-3)/Fever >100.5/CRUZ Heparin Sodium (Porcine) 5,000 unit 04/17/22 06:00 05/10/22 05:40 Heparin 5,000 Unit/1 Ml Vial SUB-Q 5,000 unit Q8HR EDGAR Administration Losartan Potassium 100 mg 04/26/22 10:00 05/09/22 09:46 Losartan 50 Mg Tab PO 100 mg QDAY EDGAR Administration Magnesium Hydroxide 30 ml 04/16/22 23:27 Magnesium Hydroxide (Mom) Oral Liqd Udc PO Q4H PRN Constipation Morphine Sulfate 2 mg 04/16/22 23:27 Morphine 2 Mg/1 Ml Inj IV Q4H PRN Pain, Moderate (4-6) Morphine Sulfate 4 mg 04/16/22 23:27 Morphine 4 Mg/1 Ml Inj IV Q4H PRN Pain , Severe (7-10) Nifedipine 30 mg 04/28/22 10:00 05/09/22 09:47 Nifedipine Xl 30 Mg Tab PO 30 mg QDAY EDGAR Administration Ondansetron HCl 4 mg 04/16/22 23:27 Ondansetron 4 Mg/2 Ml Inj IV Q8H PRN Nausea And Vomiting Sodium Chloride 10 ml 04/17/22 10:00 05/09/22 22:04 Sodium Chloride 0.9% 10 Ml Flush Syringe IV 10 ml BID EDGAR Administration Sodium Chloride 10 ml 04/16/22 23:27 Sodium Chloride 0.9% 10 Ml Flush Syringe IV PRN PRN LINE FLUSH Spironolactone 25 mg 04/20/22 10:00 05/09/22 09:46 Spironolactone 25 Mg Tab PO 25 mg QDAY EDGAR Administration Nutrition/Malnutrition Assess - Dietary Evaluation Nutrition/Malnutrition Findings: Nutrition Notes Start: 04/24/22 15:41 Freq: Status: Active Protocol: Document 05/08/22 14:54 SHWETHA (Rec: 05/08/22 15:04 [email or web address] [id number]) Nutrition Notes Initial or Follow up Reassessment Current Diagnosis Hypertension Other Pertinent Diagnosis Ground-Level Fall, Hypocalcemia, Elevated D-dimer , COVID-19. Current Diet Cardiac -Chopped Meats- Diet + D Suppl (since B 04/17). Labs/Tests 05/08: Na 134. Pertinent Medications 05/08: Nutritionally unremarkable. Height 5 ft 6 in Weight 70.4 kg [place] Body Weight (kg) 64.54 BMI 25.0 Weight change and time frame No body weight change reported in 1 week. Weight Status Appropriate Subjective/Other Information RD consult for routine F/U on dietary advancement. Pt's PO intake has been Poor ( 25%), according to ADL notes; however, Dietary Supplements have been helping Pt to compensate for poor PO intake of meals. Pt is on Room Air, O2 saturation @ 99%, according to Physical Assessment History notes. Percent of energy/protein needs met: Prescribed Cardiac -Chopped Meats- Diet provides for energy/protein needs (2,230 Kcal/85 g) during LOS; additionally, Dietary Supplements will support wound healing processes with 1,050 Kcal and 60 g of protein. Burn Absent Trauma Absent GI Symptoms None Food Allergy No Skin Integrity/Comment Sacrum skin tear. 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 Diagnosis Progress(for reassessment Continues documentation) Is patient on ventilator? No Is Patient Ambulatory and/or Out of Bed No REE-(Eren Patino-confined to bed) [phone] Calculation Used for Recommendations StevensNash Patino Additional Notes Protein: 1-1.2 g/Kg ABW; 69-83 g/day. Fluids: 1 ml/Kcal, or as per MD. Nutrition Intervention Change Diet Order: Continue Cardiac -Chopped Meats- Diet. Add Supplement/Snack (indicate name/kcal Continue 8 fl oz Ensure Enlive /protein ) ; to TID. Provides kCal: 1,050 Provides Protein (gm) 50 Goal #1 Support, through dietary supplementation, wound healing processes during LOS. Goal #2 Compensate, through dietary supplementation, for possible poor or insufficient PO intake of meals during LOS. Goal #3 Facilitate PO intake of meals with elemental, textural, or mechanical modification during LOS. Goal #4 Adjust the dietary intervention to better serve Pt's needs and clinical conditions during LOS. Follow-Up By: 05/15/22 Additional Comments Continue monitoring food tolerance, %PO intake of meals and ONS, and BM.
[2022-05-10] MEDS: SPIRONOLACTONE 25 MG TAB PO SCH (09:56)
[2022-05-10] MEDS: NIFEdipine XL 30 MG TAB PO SCH (09:56)
[2022-05-10] MEDS: LOSARTAN 50 MG TAB PO SCH (09:56)
[2022-05-11] MEDS: HEPARIN 5,000 UNIT/1 ML VIAL SUB-Q SCH ×3 (05:31→21:29)
--- NOTE | 2022-05-11 07:47 | Progress Note ---
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 He was subsequently unable to get up from the floor. He denies any loss of consciousness, no head injury. The police had to force open the door after a welfare check. Work-up in the emergency room revealed chest x-ray that was unremarkable. X-ray of the hip and pelvis, tibia and fibula, x-ray of the femur were unremarkable. CT of the cervical spine was also unremarkable. Labs however revealed elevated BUN and creatinine, creatinine kinase of 4534 Acute kidney injury secondary to vasomotor nephropathy/dehydrationresolved Rhabdomyolysisresolved Hypokalemiaresolved Hypertension Ground-level fall Fever- resolved Acute hypoxic respiratory failureresolved Hypocalcemia Elevated D-dimer COVID-19 infection- stable #Advance care planning Disease education conducted, care plan discussed, diagnoses discussed, prognosis discussed, patient is full code, patient acknowledges understanding and agree with care plan, +30 minutes. Patient is a 72-year-old male with past medical history of hypertension who presented in the ED with complaints of bilateral hip pain after experiencing a ground-level fall approximately 4 days prior to presentation where he was unable to get up from the floor. The patient was found at home (lives alone) after welfare check was called by family friends. In the ED, the patient was found to be hemodynamically stable with unremarkable imaging of his hip, pelvis, tibia, fibula, and femurs. Patient underwent CT cervical spine was also found to be unremarkable. Patient did have labs that were remarkable for creatinine of 1.5 (baseline unknown) and creatine kinase of 4534. Patient was medically managed with IV diuresis and monitoring of his electrolytes. The patient also developed acute hypoxic respiratory failure and fevers that were found to be secondary to COVID-19 infection. The patient has since been weaned to room air. The patient is hemodynamically stable. The patient is medically clear for discharge. 04/26/2022: Pending permanent placement since the patient was abandoned by his community despite them stating they would pick him up on 04/25/2022. 04/27/2022: Continue pending permanent placement. 04/28/2022: Continue pending permanent placement. 04/29/2022: Patient still pending placement. Case management reports the was abandoned by his community despite them stating they would pick him up on 04/25/2022. 04/30/2022. Awaiting placement 05/01/2022. Awaiting placement. 05/02/2022. Patient is still awaiting placement. I had a long discussion with case management with regards to discharge planning 05/03/2022. Patient resting comfortably. Still awaiting for placement for discharge 05/04/2022. No new issues overnight. Patient still awaiting placement. 05/05/2022. No new issues overnight. Patient still awaiting placement. 05/06/2022: Placement remains an issue. D/w case management this AM re: placement at [facility]. They will call and attempt to expedite placement. 05/07/2022: Awaiting placement. 05/08/2022: Clinically improved. Participating on encounter. Able to ambulate but more alert and able to brush teeth, feed himself. awaiting placement. Will coordinate with CM re: [facility] placement. 05/09/2022: Clinially improved. Some weakness with ambulation but improving. Inc po intake. Will continue to work with Sw/CM for placement. 05/10/2022: Awaiting placement. Sadly this patient appears to be abandoned by community. Will work with SW on Thursday for solution. 05/11/2022: Placement issue. Will continue to work with CM. may need to get [place] [facility] involved if family/community does not help. History Interval history: No acute complaints. Resting comfortably Hospitalist Physical - Physical exam Narrative exam: General appearance: Present: no acute distress, well-nourished - EENT Eyes: Present: PERRL, EOM intact ENT: hearing intact, clear oral mucosa, dentition normal - Neck Neck: Present: supple, normal ROM - Respiratory Respiratory effort: normal Respiratory: bilateral: CTA - Cardiovascular Rhythm: regular Heart Sounds: Present: S1 & S2. Absent: gallop, rub - Extremities Extremities: no ischemia, No edema, Full ROM - Abdominal General gastrointestinal: soft, non-tender, non-distended, normal bowel sounds - Integumentary Integumentary: Present: clear, warm, dry - Neurologic Neurologic: CNII-XII intact, moves all extremities - Constitutional Vitals: Temp Pulse Resp BP Pulse Ox 98.4 F 119 H 18 130/90 99 05/11/22 04:56 05/11/22 04:56 05/11/22 04:56 05/11/22 04:56 05/11/22 04:56 General appearance: Present: no acute distress, well-nourished HEART Score - HEART Score Troponin: Troponin T < 0.010 ng/mL (0.00-0.029) 04/16/22 20:50 Results - Labs CBC & Chem 7: 05/05/22 04:00 05/05/22 04:00 Labs: Laboratory Last Values WBC 5.0 K/mm3 (4.5-11.0) 05/05/22 04:00 RBC 4.08 M/mm3 (3.65-5.03) 05/05/22 04:00 Hgb 12.4 gm/dl (11.8-15.2) 05/05/22 04:00 Hct 37.0 % (35.5-45.6) 05/05/22 04:00 MCV 91 fl (84-94) 05/05/22 04:00 MCH 30 pg (28-32) 05/05/22 04:00 MCHC 34 % (32-34) 05/05/22 04:00 RDW 14.3 % (13.2-15.2) 05/05/22 04:00 Plt Count 482 K/mm3 (140-440) H 05/05/22 04:00 Lymph % (Auto) 50.4 % (13.4-35.0) H 05/05/22 04:00 [place] % (Auto) 11.6 % (0.0-7.3) H 05/05/22 04:00 Eos % (Auto) 2.0 % (0.0-4.3) 05/05/22 04:00 Baso % (Auto) 0.2 % (0.0-1.8) 05/05/22 04:00 Lymph # (Auto) 2.5 K/mm3 (1.2-5.4) 05/05/22 04:00 [place] # (Auto) 0.6 K/mm3 (0.0-0.8) 05/05/22 04:00 Eos # (Auto) 0.1 K/mm3 (0.0-0.4) 05/05/22 04:00 Baso # (Auto) 0.0 K/mm3 (0.0-0.1) 05/05/22 04:00 Seg Neutrophils % 35.8 % (40.0-70.0) L 05/05/22 04:00 Seg Neutrophils # 1.8 K/mm3 (1.8-7.7) 05/05/22 04:00 PT 13.6 Sec. (12.2-14.9) 04/16/22 20:50 INR 0.94 (0.87-1.13) 04/16/22 20:50 D-Dimer 1188.69 ng/mlDDU (0-234) H 04/22/22 08:25 Sodium 134 mmol/L (137-145) L 05/05/22 04:00 Potassium 4.3 mmol/L (3.6-5.0) 05/05/22 04:00 Chloride 100.1 mmol/L (98-107) 05/05/22 04:00 Carbon Dioxide 23 mmol/L (22-30) 05/05/22 04:00 Anion Gap 15 mmol/L 05/05/22 04:00 BUN 19 mg/dL (9-20) 05/05/22 04:00 Creatinine 1.1 mg/dL (0.8-1.3) 05/05/22 04:00 Estimated GFR > 60 ml/min 05/05/22 04:00 BUN/Creatinine Ratio 17 % 05/05/22 04:00 Glucose 94 mg/dL (75-100) 05/05/22 04:00 POC Glucose 102 mg/dL (70-105) 05/04/22 11:22 Calcium 9.4 mg/dL (8.4-10.2) 05/05/22 04:00 Magnesium 1.80 mg/dL (1.7-2.3) 04/21/22 10:53 Total Creatine Kinase 1221 units/L (55-170) H 04/19/22 05:31 CK-MB (CK-2) 16.2 ng/mL (0.0-4.0) H 04/16/22 20:50 CK-MB (CK-2) Rel Index 0.3 (0-4) 04/16/22 20:50 Troponin T < 0.010 ng/mL (0.00-0.029) 04/16/22 20:50 Procalcitonin 0.40 ng/mL (<0.15) 04/22/22 11:01 TSH 1.910 mlU/mL (0.270-4.200) 04/16/22 20:50 Free T4 1.24 ng/dL (0.76-1.46) 04/16/22 20:50 Coronavirus (PCR) Negative (Negative) 05/09/22 14:57 SARS-CoV-2 (PCR) Positive (Negative) A 04/29/22 12:30 Ma/IV: Voiding Method Condom Catheter Active Medications - Current Medications Current Medications: Generic Name Dose Route Start Last Admin Trade Name Freq PRN Reason Stop Dose Admin Acetaminophen 650 mg 04/16/22 23:27 05/02/22 20:18 Acetaminophen 325 Mg Tab PO 650 mg Q4H PRN Administration Pain MILD(1-3)/Fever >100.5/CRUZ Heparin Sodium (Porcine) 5,000 unit 04/17/22 06:00 05/11/22 05:31 Heparin 5,000 Unit/1 Ml Vial SUB-Q 5,000 unit Q8HR EDGAR Administration Losartan Potassium 100 mg 04/26/22 10:00 05/10/22 09:56 Losartan 50 Mg Tab PO 100 mg QDAY EDGAR Administration Magnesium Hydroxide 30 ml 04/16/22 23:27 Magnesium Hydroxide (Mom) Oral Liqd Udc PO Q4H PRN Constipation Morphine Sulfate 2 mg 04/16/22 23:27 Morphine 2 Mg/1 Ml Inj IV Q4H PRN Pain, Moderate (4-6) Morphine Sulfate 4 mg 04/16/22 23:27 Morphine 4 Mg/1 Ml Inj IV Q4H PRN Pain , Severe (7-10) Nifedipine 30 mg 04/28/22 10:00 05/10/22 09:56 Nifedipine Xl 30 Mg Tab PO 30 mg QDAY EDGAR Administration Ondansetron HCl 4 mg 04/16/22 23:27 Ondansetron 4 Mg/2 Ml Inj IV Q8H PRN Nausea And Vomiting Sodium Chloride 10 ml 04/17/22 10:00 05/10/22 22:37 Sodium Chloride 0.9% 10 Ml Flush Syringe IV 10 ml BID EDGAR Administration Sodium Chloride 10 ml 04/16/22 23:27 Sodium Chloride 0.9% 10 Ml Flush Syringe IV PRN PRN LINE FLUSH Spironolactone 25 mg 04/20/22 10:00 05/10/22 09:56 Spironolactone 25 Mg Tab PO 25 mg QDAY EDGAR Administration Nutrition/Malnutrition Assess - Dietary Evaluation Nutrition/Malnutrition Findings: Nutrition Notes Start: 04/24/22 15:41 Freq: Status: Active Protocol: Document 05/08/22 14:54 SHWETHA (Rec: 05/08/22 15:04 SHWETHA [id number]) Nutrition Notes Initial or Follow up Reassessment Current Diagnosis Hypertension Other Pertinent Diagnosis Ground-Level Fall, Hypocalcemia, Elevated D-dimer , COVID-19. Current Diet Cardiac -Chopped Meats- Diet + D Suppl (since B 04/17). Labs/Tests 05/08: Na 134. Pertinent Medications 05/08: Nutritionally unremarkable. Height 5 ft 6 in Weight 70.4 kg [place] Body Weight (kg) 64.54 BMI 25.0 Weight change and time frame No body weight change reported in 1 week. Weight Status Appropriate Subjective/Other Information RD consult for routine F/U on dietary advancement. Pt's PO intake has been Poor ( 25%), according to ADL notes; however, Dietary Supplements have been helping Pt to compensate for poor PO intake of meals. Pt is on Room Air, O2 saturation @ 99%, according to Physical Assessment History notes. Percent of energy/protein needs met: Prescribed Cardiac -Chopped Meats- Diet provides for energy/protein needs (2,230 Kcal/85 g) during LOS; additionally, Dietary Supplements will support wound healing processes with 1,050 Kcal and 60 g of protein. Burn Absent Trauma Absent GI Symptoms None Food Allergy No Skin Integrity/Comment Sacrum skin tear. Current % PO Poor (25-49%) Minimum of two criteria No Fluid Accumulation N/A Reduced [place] Strength N/A (non-severe) Protein-Calorie Malnutrition N\A #3 Nutrition Diagnosis Biting/Chewing (masticatory) difficulty Diagnosis Progress(for reassessment Continues documentation) #2 Nutrition Diagnosis Inadequate protein-energy intake Diagnosis Progress(for reassessment Continues documentation) #1 Nutrition Diagnosis Increased nutrient needs ( specify in comment below) Comments: Protein to support wound healing processes. Diagnosis Progress(for reassessment Continues documentation) Is patient on ventilator? No Is Patient Ambulatory and/or Out of Bed No REE-(VenturaShanelle Patino-confined to bed) [phone] Calculation Used for Recommendations VenturaNash Patino Additional Notes Protein: 1-1.2 g/Kg ABW; 69-83 g/day. Fluids: 1 ml/Kcal, or as per MD. Nutrition Intervention Change Diet Order: Continue Cardiac -Chopped Meats- Diet. Add Supplement/Snack (indicate name/kcal Continue 8 fl oz Ensure Enlive /protein ) ; to TID. Provides kCal: 1,050 Provides Protein (gm) 50 Goal #1 Support, through dietary supplementation, wound healing processes during LOS. Goal #2 Compensate, through dietary supplementation, for possible poor or insufficient PO intake of meals during LOS. Goal #3 Facilitate PO intake of meals with elemental, textural, or mechanical modification during LOS. Goal #4 Adjust the dietary intervention to better serve Pt's needs and clinical conditions during LOS. Follow-Up By: 05/15/22 Additional Comments Continue monitoring food tolerance, %PO intake of meals and ONS, and BM.
[2022-05-11] MEDS: LOSARTAN 50 MG TAB PO SCH (10:01)
[2022-05-11] MEDS: SPIRONOLACTONE 25 MG TAB PO SCH (10:01)
[2022-05-11] MEDS: NIFEdipine XL 30 MG TAB PO SCH (10:01)
[2022-05-12] MEDS: HEPARIN 5,000 UNIT/1 ML VIAL SUB-Q SCH ×3 (07:20→21:30)
--- NOTE | 2022-05-12 07:47 | Progress Note ---
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 He was subsequently unable to get up from the floor. He denies any loss of consciousness, no head injury. The police had to force open the door after a welfare check. Work-up in the emergency room revealed chest x-ray that was unremarkable. X-ray of the hip and pelvis, tibia and fibula, x-ray of the femur were unremarkable. CT of the cervical spine was also unremarkable. Labs however revealed elevated BUN and creatinine, creatinine kinase of 4534 Acute kidney injury secondary to vasomotor nephropathy/dehydrationresolved Rhabdomyolysisresolved Hypokalemiaresolved Hypertension Ground-level fall Fever- resolved Acute hypoxic respiratory failureresolved Hypocalcemia Elevated D-dimer COVID-19 infection- stable #Advance care planning Disease education conducted, care plan discussed, diagnoses discussed, prognosis discussed, patient is full code, patient acknowledges understanding and agree with care plan, +30 minutes. Patient is a 72-year-old male with past medical history of hypertension who presented in the ED with complaints of bilateral hip pain after experiencing a ground-level fall approximately 4 days prior to presentation where he was unable to get up from the floor. The patient was found at home (lives alone) after welfare check was called by family friends. In the ED, the patient was found to be hemodynamically stable with unremarkable imaging of his hip, pelvis, tibia, fibula, and femurs. Patient underwent CT cervical spine was also found to be unremarkable. Patient did have labs that were remarkable for creatinine of 1.5 (baseline unknown) and creatine kinase of 4534. Patient was medically managed with IV diuresis and monitoring of his electrolytes. The patient also developed acute hypoxic respiratory failure and fevers that were found to be secondary to COVID-19 infection. The patient has since been weaned to room air. The patient is hemodynamically stable. The patient is medically clear for discharge. 04/26/2022: Pending permanent placement since the patient was abandoned by his community despite them stating they would pick him up on 04/25/2022. 04/27/2022: Continue pending permanent placement. 04/28/2022: Continue pending permanent placement. 04/29/2022: Patient still pending placement. Case management reports the was abandoned by his community despite them stating they would pick him up on 04/25/2022. 04/30/2022. Awaiting placement 05/01/2022. Awaiting placement. 05/02/2022. Patient is still awaiting placement. I had a long discussion with case management with regards to discharge planning 05/03/2022. Patient resting comfortably. Still awaiting for placement for discharge 05/04/2022. No new issues overnight. Patient still awaiting placement. 05/05/2022. No new issues overnight. Patient still awaiting placement. 05/06/2022: Placement remains an issue. D/w case management this AM re: placement at [facility]. They will call and attempt to expedite placement. 05/07/2022: Awaiting placement. 05/08/2022: Clinically improved. Participating on encounter. Able to ambulate but more alert and able to brush teeth, feed himself. awaiting placement. Will coordinate with CM re: [facility] placement. 05/09/2022: Clinially improved. Some weakness with ambulation but improving. Inc po intake. Will continue to work with Sw/CM for placement. 05/10/2022: Awaiting placement. Sadly this patient appears to be abandoned by community. Will work with SW on Thursday for solution. 05/11/2022: Placement issue. Will continue to work with CM. may need to get [facility] involved if family/community does not help. 05/12/2022: Urinary retention noted, bladder scan ordered, straight cath if necessary. D/w RN. D/w Gurvinder this morning regarding placement. [facility] "community" cannot support him. History Interval history: Complaining of some suprapubic pain. Unable to urinate. Discussed with RN to BladderScan patient and straight cath if necessary Hospitalist Physical - Physical exam Narrative exam: General appearance: Present: no acute distress, well-nourished - EENT Eyes: Present: PERRL, EOM intact ENT: hearing intact, clear oral mucosa, dentition normal - Neck Neck: Present: supple, normal ROM - Respiratory Respiratory effort: normal Respiratory: bilateral: CTA - Cardiovascular Rhythm: regular Heart Sounds: Present: S1 & S2. Absent: gallop, rub - Extremities Extremities: no ischemia, No edema, Full ROM - Abdominal General gastrointestinal: soft, non-tender, non-distended, normal bowel sounds - Integumentary Integumentary: Present: clear, warm, dry - Neurologic Neurologic: CNII-XII intact, moves all extremities - Constitutional Vitals: Temp Pulse Resp BP Pulse Ox 97.9 F 119 H 20 110/76 96 05/12/22 05:14 05/12/22 05:14 05/12/22 05:14 05/12/22 05:14 05/12/22 05:14 General appearance: Present: no acute distress, well-nourished HEART Score - HEART Score Troponin: Troponin T < 0.010 ng/mL (0.00-0.029) 04/16/22 20:50 Results - Labs CBC & Chem 7: 05/05/22 04:00 05/05/22 04:00 Labs: Laboratory Last Values WBC 5.0 K/mm3 (4.5-11.0) 05/05/22 04:00 RBC 4.08 M/mm3 (3.65-5.03) 05/05/22 04:00 Hgb 12.4 gm/dl (11.8-15.2) 05/05/22 04:00 Hct 37.0 % (35.5-45.6) 05/05/22 04:00 MCV 91 fl (84-94) 05/05/22 04:00 MCH 30 pg (28-32) 05/05/22 04:00 MCHC 34 % (32-34) 05/05/22 04:00 RDW 14.3 % (13.2-15.2) 05/05/22 04:00 Plt Count 482 K/mm3 (140-440) H 05/05/22 04:00 Lymph % (Auto) 50.4 % (13.4-35.0) H 05/05/22 04:00 [place] % (Auto) 11.6 % (0.0-7.3) H 05/05/22 04:00 Eos % (Auto) 2.0 % (0.0-4.3) 05/05/22 04:00 Baso % (Auto) 0.2 % (0.0-1.8) 05/05/22 04:00 Lymph # (Auto) 2.5 K/mm3 (1.2-5.4) 05/05/22 04:00 [place] # (Auto) 0.6 K/mm3 (0.0-0.8) 05/05/22 04:00 Eos # (Auto) 0.1 K/mm3 (0.0-0.4) 05/05/22 04:00 Baso # (Auto) 0.0 K/mm3 (0.0-0.1) 05/05/22 04:00 Seg Neutrophils % 35.8 % (40.0-70.0) L 05/05/22 04:00 Seg Neutrophils # 1.8 K/mm3 (1.8-7.7) 05/05/22 04:00 PT 13.6 Sec. (12.2-14.9) 04/16/22 20:50 INR 0.94 (0.87-1.13) 04/16/22 20:50 D-Dimer 1188.69 ng/mlDDU (0-234) H 04/22/22 08:25 Sodium 134 mmol/L (137-145) L 05/05/22 04:00 Potassium 4.3 mmol/L (3.6-5.0) 05/05/22 04:00 Chloride 100.1 mmol/L (98-107) 05/05/22 04:00 Carbon Dioxide 23 mmol/L (22-30) 05/05/22 04:00 Anion Gap 15 mmol/L 05/05/22 04:00 BUN 19 mg/dL (9-20) 05/05/22 04:00 Creatinine 1.1 mg/dL (0.8-1.3) 05/05/22 04:00 Estimated GFR > 60 ml/min 05/05/22 04:00 BUN/Creatinine Ratio 17 % 05/05/22 04:00 Glucose 94 mg/dL (75-100) 05/05/22 04:00 POC Glucose 102 mg/dL (70-105) 05/04/22 11:22 Calcium 9.4 mg/dL (8.4-10.2) 05/05/22 04:00 Magnesium 1.80 mg/dL (1.7-2.3) 04/21/22 10:53 Total Creatine Kinase 1221 units/L (55-170) H 04/19/22 05:31 CK-MB (CK-2) 16.2 ng/mL (0.0-4.0) H 04/16/22 20:50 CK-MB (CK-2) Rel Index 0.3 (0-4) 04/16/22 20:50 Troponin T < 0.010 ng/mL (0.00-0.029) 04/16/22 20:50 Procalcitonin 0.40 ng/mL (<0.15) 04/22/22 11:01 TSH 1.910 mlU/mL (0.270-4.200) 04/16/22 20:50 Free T4 1.24 ng/dL (0.76-1.46) 04/16/22 20:50 Coronavirus (PCR) Negative (Negative) 05/09/22 14:57 SARS-CoV-2 (PCR) Positive (Negative) A 04/29/22 12:30 Ma/IV: Voiding Method Condom Catheter Active Medications - Current Medications Current Medications: Generic Name Dose Route Start Last Admin Trade Name Freq PRN Reason Stop Dose Admin Acetaminophen 650 mg 04/16/22 23:27 05/02/22 20:18 Acetaminophen 325 Mg Tab PO 650 mg Q4H PRN Administration Pain MILD(1-3)/Fever >100.5/CRUZ Heparin Sodium (Porcine) 5,000 unit 04/17/22 06:00 05/12/22 07:20 Heparin 5,000 Unit/1 Ml Vial SUB-Q 5,000 unit Q8HR EDGAR Administration Losartan Potassium 100 mg 04/26/22 10:00 05/11/22 10:01 Losartan 50 Mg Tab PO 100 mg QDAY EDGAR Administration Magnesium Hydroxide 30 ml 04/16/22 23:27 Magnesium Hydroxide (Mom) Oral Liqd Udc PO Q4H PRN Constipation Metoprolol Tartrate 50 mg 05/12/22 10:00 Metoprolol Tartrate 50 Mg Tab PO BID EDGAR Morphine Sulfate 2 mg 04/16/22 23:27 Morphine 2 Mg/1 Ml Inj IV Q4H PRN Pain, Moderate (4-6) Morphine Sulfate 4 mg 04/16/22 23:27 Morphine 4 Mg/1 Ml Inj IV Q4H PRN Pain , Severe (7-10) Nifedipine 30 mg 04/28/22 10:00 05/11/22 10:01 Nifedipine Xl 30 Mg Tab PO 30 mg QDAY EDGAR Administration Ondansetron HCl 4 mg 04/16/22 23:27 Ondansetron 4 Mg/2 Ml Inj IV Q8H PRN Nausea And Vomiting Sodium Chloride 10 ml 04/17/22 10:00 05/11/22 21:30 Sodium Chloride 0.9% 10 Ml Flush Syringe IV Not Given BID EDGAR Sodium Chloride 10 ml 04/16/22 23:27 Sodium Chloride 0.9% 10 Ml Flush Syringe IV PRN PRN LINE FLUSH Spironolactone 25 mg 04/20/22 10:00 05/11/22 10:01 Spironolactone 25 Mg Tab PO 25 mg QDAY EDGAR Administration Nutrition/Malnutrition Assess - Dietary Evaluation Nutrition/Malnutrition Findings: Nutrition Notes Start: 04/24/22 15:41 Freq: Status: Active Protocol: Document 05/08/22 14:54 SHWETHA (Rec: 05/08/22 15:04 SHWETHA [id number]) Nutrition Notes Initial or Follow up Reassessment Current Diagnosis Hypertension Other Pertinent Diagnosis Ground-Level Fall, Hypocalcemia, Elevated D-dimer , COVID-19. Current Diet Cardiac -Chopped Meats- Diet + D Suppl (since B 04/17). Labs/Tests 05/08: Na 134. Pertinent Medications 05/08: Nutritionally unremarkable. Height 5 ft 6 in Weight 70.4 kg [place] Body Weight (kg) 64.54 BMI 25.0 Weight change and time frame No body weight change reported in 1 week. Weight Status Appropriate Subjective/Other Information RD consult for routine F/U on dietary advancement. Pt's PO intake has been Poor ( 25%), according to ADL notes; however, Dietary Supplements have been helping Pt to compensate for poor PO intake of meals. Pt is on Room Air, O2 saturation @ 99%, according to Physical Assessment History notes. Percent of energy/protein needs met: Prescribed Cardiac -Chopped Meats- Diet provides for energy/protein needs (2,230 Kcal/85 g) during LOS; additionally, Dietary Supplements will support wound healing processes with 1,050 Kcal and 60 g of protein. Burn Absent Trauma Absent GI Symptoms None Food Allergy No Skin Integrity/Comment Sacrum skin tear. Current % PO Poor (25-49%) Minimum of two criteria No Fluid Accumulation N/A Reduced [place] Strength N/A (non-severe) Protein-Calorie Malnutrition N\\A #3 Nutrition Diagnosis Biting/Chewing (masticatory) difficulty Diagnosis Progress(for reassessment Continues documentation) #2 Nutrition Diagnosis Inadequate protein-energy intake Diagnosis Progress(for reassessment Continues documentation) #1 Nutrition Diagnosis Increased nutrient needs ( specify in comment below) Comments: Protein to support wound healing processes. Diagnosis Progress(for reassessment Continues documentation) Is patient on ventilator? No Is Patient Ambulatory and/or Out of Bed No REE-([place]-St[place] Jeor-confined to bed) [phone] Calculation Used for Recommendations [place] Jeor Additional Notes Protein: 1-1.2 g/Kg ABW; 69-83 g/day. Fluids: 1 ml/Kcal, or as per MD. Nutrition Intervention Change Diet Order: Continue Cardiac -Chopped Meats- Diet. Add Supplement/Snack (indicate name/kcal Continue 8 fl oz Ensure Enlive /protein ) ; to TID. Provides kCal: 1,050 Provides Protein (gm) 50 Goal #1 Support, through dietary supplementation, wound healing processes during LOS. Goal #2 Compensate, through dietary supplementation, for possible poor or insufficient PO intake of meals during LOS. Goal #3 Facilitate PO intake of meals with elemental, textural, or mechanical modification during LOS. Goal #4 Adjust the dietary intervention to better serve Pt's needs and clinical conditions during LOS. Follow-Up By: 05/15/22 Additional Comments Continue monitoring food tolerance, %PO intake of meals and ONS, and BM.
[2022-05-12] MEDS: LOSARTAN 50 MG TAB PO SCH (10:01)
[2022-05-12] MEDS: NIFEdipine XL 30 MG TAB PO SCH (10:01)
[2022-05-12] MEDS: SPIRONOLACTONE 25 MG TAB PO SCH (10:02)
[2022-05-12] MEDS: METOPROLOL TARTRATE 50 MG TAB PO SCH ×2 (10:03→21:28)
[2022-05-13] MEDS: HEPARIN 5,000 UNIT/1 ML VIAL SUB-Q SCH ×4 (05:57→23:47)
[2022-05-13] MEDS: LOSARTAN 50 MG TAB PO SCH (10:58)
[2022-05-13] MEDS: SPIRONOLACTONE 25 MG TAB PO SCH (10:59)
[2022-05-13] MEDS: NIFEdipine XL 30 MG TAB PO SCH (10:59)
[2022-05-13] MEDS: METOPROLOL TARTRATE 50 MG TAB PO SCH ×2 (11:00→23:47)
--- NOTE | 2022-05-13 18:00 | Progress Note ---
Assessment and Plan Patient is a 72-year-old male with past medical history of hypertension who presented in the ED with complaints of bilateral hip pain after experiencing a ground-level fall approximately 4 days prior to presentation where he was unable to get up from the floor. The patient was found at home (lives alone) after welfare check was called by family friends. In the ED, the patient was found to be hemodynamically stable with unremarkable imaging of his hip, pelvis, tibia, fibula, and femurs. Patient underwent CT cervical spine was also found to be unremarkable. Patient did have labs that were remarkable for creatinine of 1.5 (baseline unknown) and creatine kinase of 4534. Patient was medically managed with IV diuresis and monitoring of his electrolytes. The patient also developed acute hypoxic respiratory failure and fevers that were found to be secondary to COVID-19 infection. The patient has since been weaned to room air. The patient is hemodynamically stable. The patient is medically clear for discharge. 04/26/2022: Pending permanent placement since the patient was abandoned by his community despite them stating they would pick him up on 04/25/2022. 04/27/2022: Continue pending permanent placement. 04/28/2022: Continue pending permanent placement. 04/29/2022: Patient still pending placement. Case management reports the was abandoned by his community despite them stating they would pick him up on 04/25/2022. 04/30/2022. Awaiting placement 05/01/2022. Awaiting placement. 05/02/2022. Patient is still awaiting placement. I had a long discussion with case management with regards to discharge planning 05/03/2022. Patient resting comfortably. Still awaiting for placement for discharge 05/04/2022. No new issues overnight. Patient still awaiting placement. 05/05/2022. No new issues overnight. Patient still awaiting placement. 05/06/2022: Placement remains an issue. D/w case management this AM re: placement at [facility]. They will call and attempt to expedite placement. 05/07/2022: Awaiting placement. 05/08/2022: Clinically improved. Participating on encounter. Able to ambulate but more alert and able to brush teeth, feed himself. awaiting placement. Will coordinate with re: [facility] placement. 05/09/2022: Clinially improved. Some weakness with ambulation but improving. Inc po intake. Will continue to work with Sw/CM for placement. 05/10/2022: Awaiting placement. Sadly this patient appears to be abandoned by community. Will work with SW on Thursday for solution. 05/11/2022: Placement issue. Will continue to work with CM. may need to get [facility] involved if family/community does not help. 05/12/2022: Urinary retention noted, bladder scan ordered, straight cath if necessary. D/w RN. D/w Sw this morning regarding placement. Will need to reach out to [facility] as "community" cannot support him. 05/13/22: Resumed care, remains on gee for urinary retention developed yesterday. will order a pelvic US. cont to follow. A/p Acute kidney injury secondary to vasomotor nephropathy/dehydrationresolved Rhabdomyolysisresolved Hypokalemiaresolved Hypertension Ground-level fall Fever- resolved Acute hypoxic respiratory failureresolved Hypocalcemia Elevated D-dimer COVID-19 infection- stable Urinary retention, on gee #Advance care planning Disease education conducted, care plan discussed, diagnoses discussed, prognosis discussed, patient is full code, patient acknowledges understanding and agree with care plan, +30 minutes. --Cont supportive care, wait for placement, PT/OT daily Subjective Date of service: 05/13/22 Interval history: Patient seen and examined. Medical records and medication list reviewed. No acute event overnight noted by the RN. Patient draining well with gee Patient denies any chest pain or difficulty breathing. Patient is tolerating diet. Discussed plan of care at bedside with patient' RN and also with CM . Objective - Exam Narrative Exam: General appearance: Present: no acute distress, well-nourished - EENT Eyes: Present: PERRL, EOM intact ENT: hearing intact, clear oral mucosa, dentition normal - Neck Neck: Present: supple, normal ROM - Respiratory Respiratory effort: normal Respiratory: bilateral: CTA - Cardiovascular Rhythm: regular Heart Sounds: Present: S1 & S2. Absent: gallop, rub - Extremities Extremities: no ischemia, No edema, Full ROM - Abdominal General gastrointestinal: soft, non-tender, non-distended, normal bowel sounds - Integumentary Integumentary: Present: clear, warm, dry - Neurologic Neurologic: CNII-XII intact, moves all extremities - Constitutional Vitals: Vital Signs - 12hr 05/13/22 05/13/22 05/13/22 05:59 07:21 10:58 Temperature 97.6 F Pulse Rate 92 H 95 H 95 H Respiratory 20 Rate Blood Pressure 100/69 97/68 O2 Sat by Pulse 97 97 Oximetry 05/13/22 05/13/22 05/13/22 10:59 11:00 11:14 Temperature 97.5 F L Pulse Rate 95 H 95 H 97 H Respiratory 20 Rate Blood Pressure 94/61 O2 Sat by Pulse 96 Oximetry 05/13/22 05/13/22 13:06 16:36 Temperature Pulse Rate Respiratory 20 Rate Blood Pressure 100/69 O2 Sat by Pulse 97 Oximetry - Labs CBC & Chem 7: 05/05/22 04:00 05/05/22 04:00 HEART Score - HEART Score Troponin: Troponin T < 0.010 ng/mL (0.00-0.029) 04/16/22 20:50
[2022-05-13] MEDS: ACETAMINOPHEN 325 MG TAB PO PRN (20:38)
[2022-05-14] MEDS: HEPARIN 5,000 UNIT/1 ML VIAL SUB-Q SCH ×3 (05:52→22:14)
[2022-05-14] MEDS: SPIRONOLACTONE 25 MG TAB PO SCH (10:35)
[2022-05-14] MEDS: LOSARTAN 50 MG TAB PO SCH (10:36)
[2022-05-14] MEDS: METOPROLOL TARTRATE 50 MG TAB PO SCH ×2 (10:37→22:12)
[2022-05-14] MEDS: NIFEdipine XL 30 MG TAB PO SCH (10:38)
--- NOTE | 2022-05-14 16:00 | Progress Note ---
Assessment and Plan Patient is a 72-year-old male with past medical history of hypertension who presented in the ED with complaints of bilateral hip pain after experiencing a ground-level fall approximately 4 days prior to presentation where he was unable to get up from the floor. The patient was found at home (lives alone) after welfare check was called by family friends. In the ED, the patient was found to be hemodynamically stable with unremarkable imaging of his hip, pelvis, tibia, fibula, and femurs. Patient underwent CT cervical spine was also found to be unremarkable. Patient did have labs that were remarkable for creatinine of 1.5 (baseline unknown) and creatine kinase of 4534. Patient was medically managed with IV diuresis and monitoring of his electrolytes. The patient also developed acute hypoxic respiratory failure and fevers that were found to be secondary to COVID-19 infection. The patient has since been weaned to room air. The patient is hemodynamically stable. The patient is medically clear for discharge. 04/26/2022: Pending permanent placement since the patient was abandoned by his community despite them stating they would pick him up on 04/25/2022. 04/27/2022: Continue pending permanent placement. 04/28/2022: Continue pending permanent placement. 04/29/2022: Patient still pending placement. Case management reports the was abandoned by his community despite them stating they would pick him up on 04/25/2022. 04/30/2022. Awaiting placement 05/01/2022. Awaiting placement. 05/02/2022. Patient is still awaiting placement. I had a long discussion with case management with regards to discharge planning 05/03/2022. Patient resting comfortably. Still awaiting for placement for discharge 05/04/2022. No new issues overnight. Patient still awaiting placement. 05/05/2022. No new issues overnight. Patient still awaiting placement. 05/06/2022: Placement remains an issue. D/w case management this AM re: placement at [facility]. They will call and attempt to expedite placement. 05/07/2022: Awaiting placement. 05/08/2022: Clinically improved. Participating on encounter. Able to ambulate but more alert and able to brush teeth, feed himself. awaiting placement. Will coordinate with re: [facility] placement. 05/09/2022: Clinially improved. Some weakness with ambulation but improving. Inc po intake. Will continue to work with Sw/CM for placement. 05/10/2022: Awaiting placement. Sadly this patient appears to be abandoned by community. Will work with SW on Thursday for solution. 05/11/2022: Placement issue. Will continue to work with CM. may need to get [facility] involved if family/community does not help. 05/12/2022: Urinary retention noted, bladder scan ordered, straight cath if necessary. D/w RN. D/w Sw this morning regarding placement. Will need to reach out to [facility] as "community" cannot support him. 05/13/22: Resumed care, remains on gee for urinary retention developed yes terday. will order a pelvic US. cont to follow. 05/14/22: remains on gee, monitor ins/os. tolerating TF. pending placement. may get set up for inpt hospice per CM. patient has no family but he has a friend who is willing to sign the paper for hospice. will cont to follow if that is acceptable for hospice. A/p Acute kidney injury secondary to vasomotor nephropathy/dehydrationresolved Rhabdomyolysisresolved Hypokalemiaresolved Hypertension Ground-level fall Fever- resolved Acute hypoxic respiratory failureresolved Hypocalcemia Elevated D-dimer COVID-19 infection- stable Urinary retention, on gee #Advance care planning Disease education conducted, care plan discussed, diagnoses discussed, prognosis discussed, patient is full code, patient acknowledges understanding and agree with care plan, +30 minutes. --Cont supportive care, wait for placement, cont PT/OT daily Subjective Date of service: 05/14/22 Interval history: Patient seen and examined. Medical records and medication list reviewed. No acute event overnight noted by the RN. Patient draining well with gee Patient denies any chest pain or difficulty breathing. Patient is tolerating diet. Discussed plan of care at bedside with patient' RN and also with CM . Objective - Exam Narrative Exam: General appearance: Present: no acute distress, well-nourished - EENT Eyes: Present: PERRL, EOM intact ENT: hearing intact, clear oral mucosa, dentition normal - Neck Neck: Present: supple, normal ROM - Respiratory Respiratory effort: normal Respiratory: bilateral: CTA - Cardiovascular Rhythm: regular Heart Sounds: Present: S1 & S2. Absent: gallop, rub - Extremities Extremities: no ischemia, No edema, Full ROM - Abdominal General gastrointestinal: soft, non-tender, non-distended, normal bowel sounds - Integumentary Integumentary: Present: clear, warm, dry - Neurologic Neurologic: CNII-XII intact, moves all extremities, oriented to place and person - Constitutional Vitals: Vital Signs - 12hr 05/14/22 05/14/22 05/14/22 05:53 10:19 10:34 Temperature 97.9 F 98.2 F Pulse Rate 80 92 H Respiratory 18 16 Rate Blood Pressure 99/62 96/61 O2 Sat by Pulse 99 98 Oximetry 05/14/22 10:37 Temperature Pulse Rate Respiratory Rate Blood Pressure 96/67 O2 Sat by Pulse Oximetry - Labs CBC & Chem 7: 05/05/22 04:00 05/05/22 04:00 HEART Score - HEART Score Troponin: Troponin T < 0.010 ng/mL (0.00-0.029) 04/16/22 20:50
[2022-05-15] MEDS: HEPARIN 5,000 UNIT/1 ML VIAL SUB-Q SCH ×3 (05:02→21:21)
[2022-05-15] MEDS: METOPROLOL TARTRATE 50 MG TAB PO SCH ×3 (10:10→21:34)
[2022-05-15] MEDS: SPIRONOLACTONE 25 MG TAB PO SCH (10:10)
[2022-05-15] MEDS: LOSARTAN 50 MG TAB PO SCH (10:10)
[2022-05-15] MEDS: NIFEdipine XL 30 MG TAB PO SCH (10:11)
--- NOTE | 2022-05-15 12:32 | Progress Note ---
Assessment and Plan Patient is a 72-year-old male with past medical history of hypertension who presented in the ED with complaints of bilateral hip pain after experiencing a ground-level fall approximately 4 days prior to presentation where he was unable to get up from the floor. The patient was found at home (lives alone) after welfare check was called by family friends. In the ED, the patient was found to be hemodynamically stable with unremarkable imaging of his hip, pelvis, tibia, fibula, and femurs. Patient underwent CT cervical spine was also found to be unremarkable. Patient did have labs that were remarkable for creatinine of 1.5 (baseline unknown) and creatine kinase of 4534. Patient was medically managed with IV diuresis and monitoring of his electrolytes. The patient also developed acute hypoxic respiratory failure and fevers that were found to be secondary to COVID-19 infection. The patient has since been weaned to room air. The patient is hemodynamically stable. The patient is medically clear for discharge. 04/26/2022: Pending permanent placement since the patient was abandoned by his community despite them stating they would pick him up on 04/25/2022. 04/27/2022: Continue pending permanent placement. 04/28/2022: Continue pending permanent placement. 04/29/2022: Patient still pending placement. Case management reports the was abandoned by his community despite them stating they would pick him up on 04/25/2022. 04/30/2022. Awaiting placement 05/01/2022. Awaiting placement. 05/02/2022. Patient is still awaiting placement. I had a long discussion with case management with regards to discharge planning 05/03/2022. Patient resting comfortably. Still awaiting for placement for discharge 05/04/2022. No new issues overnight. Patient still awaiting placement. 05/05/2022. No new issues overnight. Patient still awaiting placement. 05/06/2022: Placement remains an issue. D/w case management this AM re: placement at [facility]. They will call and attempt to expedite placement. 05/07/2022: Awaiting placement. 05/08/2022: Clinically improved. Participating on encounter. Able to ambulate but more alert and able to brush teeth, feed himself. awaiting placement. Will coordinate with re: [facility] placement. 05/09/2022: Clinially improved. Some weakness with ambulation but improving. Inc po intake. Will continue to work with Sw/CM for placement. 05/10/2022: Awaiting placement. Sadly this patient appears to be abandoned by community. Will work with SW on Thursday for solution. 05/11/2022: Placement issue. Will continue to work with CM. may need to get [facility] involved if family/community does not help. 05/12/2022: Urinary retention noted, bladder scan ordered, straight cath if necessary. D/w RN. D/w Sw this morning regarding placement. Will need to reach out to [facility] as "community" cannot support him. 05/13/22: Resumed care, remains on gee for urinary retention developed yes terday. will order a pelvic US. cont to follow. 05/14/22: remains on gee, monitor ins/os. tolerating diet. pending placement. may get set up for inpt hospice per CM. patient has no family but he has a friend who is willing to sign the paper for hospice. will cont to follow if that is acceptable for hospice. 05/15/22: cont to follow clinically. daily PT. pending placement. cant be sign up for hospice w/o blood relatives. A/p Acute kidney injury secondary to vasomotor nephropathy/dehydrationresolved Rhabdomyolysisresolved Hypokalemiaresolved Hypertension Ground-level fall Fever- resolved Acute hypoxic respiratory failureresolved Hypocalcemia Elevated D-dimer COVID-19 infection- stable Urinary retention, on gee #Advance care planning Disease education conducted, care plan discussed, diagnoses discussed, prognosis discussed, patient is full code, patient acknowledges understanding and agree with care plan, +30 minutes. --Cont supportive care, wait for placement, cont PT/OT daily Subjective Date of service: 05/15/22 Interval history: Patient seen and examined. Medical records and medication list reviewed. No acute event overnight noted by the RN. Patient draining well with gee Patient denies any chest pain or difficulty breathing. Patient is tolerating diet. Discussed plan of care at bedside with patient' RN and also with CM . Objective - Exam Narrative Exam: General appearance: Present: no acute distress, well-nourished - EENT Eyes: Present: PERRL, EOM intact ENT: hearing intact, clear oral mucosa, dentition normal - Neck Neck: Present: supple, normal ROM - Respiratory Respiratory effort: normal Respiratory: bilateral: CTA - Cardiovascular Rhythm: regular Heart Sounds: Present: S1 & S2. Absent: gallop, rub - Extremities Extremities: no ischemia, No edema, Full ROM - Abdominal General gastrointestinal: soft, non-tender, non-distended, normal bowel sounds - Integumentary Integumentary: Present: clear, warm, dry - Neurologic Neurologic: CNII-XII intact, moves all extremities, oriented to place and person - Constitutional Vitals: Vital Signs - 12hr 05/15/22 10:10 Pulse Rate 77 Blood Pressure 128/89 - Labs CBC & Chem 7: 05/05/22 04:00 05/17/22 05:52 HEART Score - HEART Score Troponin: Troponin T < 0.010 ng/mL (0.00-0.029) 04/16/22 20:50
[2022-05-16] MEDS: HEPARIN 5,000 UNIT/1 ML VIAL SUB-Q SCH ×3 (05:47→22:26)
[2022-05-16] MEDS: LOSARTAN 50 MG TAB PO SCH (09:35)
[2022-05-16] MEDS: SPIRONOLACTONE 25 MG TAB PO SCH (09:36)
[2022-05-16] MEDS: NIFEdipine XL 30 MG TAB PO SCH (09:36)
[2022-05-16] MEDS: METOPROLOL TARTRATE 50 MG TAB PO SCH ×2 (09:36→22:19)
--- NOTE | 2022-05-16 13:54 | Progress Note ---
Assessment and Plan Patient is a 72-year-old male with past medical history of hypertension who presented in the ED with complaints of bilateral hip pain after experiencing a ground-level fall approximately 4 days prior to presentation where he was unable to get up from the floor. The patient was found at home (lives alone) after welfare check was called by family friends. In the ED, the patient was found to be hemodynamically stable with unremarkable imaging of his hip, pelvis, tibia, fibula, and femurs. Patient underwent CT cervical spine was also found to be unremarkable. Patient did have labs that were remarkable for creatinine of 1.5 (baseline unknown) and creatine kinase of 4534. Patient was medically managed with IV diuresis and monitoring of his electrolytes. The patient also developed acute hypoxic respiratory failure and fevers that were found to be secondary to COVID-19 infection. The patient has since been weaned to room air. The patient is hemodynamically stable. The patient is medically clear for discharge. 04/26/2022: Pending permanent placement since the patient was abandoned by his community despite them stating they would pick him up on 04/25/2022. 04/27/2022: Continue pending permanent placement. 04/28/2022: Continue pending permanent placement. 04/29/2022: Patient still pending placement. Case management reports the was abandoned by his community despite them stating they would pick him up on 04/25/2022. 04/30/2022. Awaiting placement 05/01/2022. Awaiting placement. 05/02/2022. Patient is still awaiting placement. I had a long discussion with case management with regards to discharge planning 05/03/2022. Patient resting comfortably. Still awaiting for placement for discharge 05/04/2022. No new issues overnight. Patient still awaiting placement. 05/05/2022. No new issues overnight. Patient still awaiting placement. 05/06/2022: Placement remains an issue. D/w case management this AM re: placement at [facility]. They will call and attempt to expedite placement. 05/07/2022: Awaiting placement. 05/08/2022: Clinically improved. Participating on encounter. Able to ambulate but more alert and able to brush teeth, feed himself. awaiting placement. Will coordinate with re: [facility] placement. 05/09/2022: Clinially improved. Some weakness with ambulation but improving. Inc po intake. Will continue to work with Sw/CM for placement. 05/10/2022: Awaiting placement. Sadly this patient appears to be abandoned by community. Will work with SW on Thursday for solution. 05/11/2022: Placement issue. Will continue to work with CM. may need to get [facility] involved if family/community does not help. 05/12/2022: Urinary retention noted, bladder scan ordered, straight cath if necessary. D/w RN. D/w Sw this morning regarding placement. Will need to reach out to [facility] as "community" cannot support him. 05/13/22: Resumed care, remains on gee for urinary retention developed yes terday. will order a pelvic US. cont to follow. 05/14/22: remains on gee, monitor ins/os. tolerating diet. pending placement. may get set up for inpt hospice per CM. patient has no family but he has a friend who is willing to sign the paper for hospice. will cont to follow if that is acceptable for hospice. 05/15/22: cont to follow clinically. daily PT. pending placement. cant be sign up for hospice w/o blood relatives. 05/16: medically stable, needs placement. cont supportive care. unfunded, demented, need / care. A/p Acute kidney injury secondary to vasomotor nephropathy/dehydrationresolved Rhabdomyolysisresolved Hypokalemiaresolved Hypertension Ground-level fall Fever- resolved Acute hypoxic respiratory failureresolved Hypocalcemia Elevated D-dimer COVID-19 infection- stable Urinary retention, on gee --Cont supportive care, wait for placement, cont PT/OT daily Subjective Date of service: 05/16/22 Interval history: Patient seen and examined. Medical records and medication list reviewed. No acute event overnight noted by the RN. Patient draining well with gee Patient denies any chest pain or difficulty breathing. Patient is tolerating diet. Discussed plan of care at bedside with patient' RN and also with CM . Objective - Exam Narrative Exam: General appearance: Present: no acute distress, well-nourished - EENT Eyes: Present: PERRL, EOM intact ENT: hearing intact, clear oral mucosa, dentition normal - Neck Neck: Present: supple, normal ROM - Respiratory Respiratory effort: normal Respiratory: bilateral: CTA - Cardiovascular Rhythm: regular Heart Sounds: Present: S1 & S2. Absent: gallop, rub - Extremities Extremities: no ischemia, No edema, Full ROM - Abdominal General gastrointestinal: soft, non-tender, non-distended, normal bowel sounds - Integumentary Integumentary: Present: clear, warm, dry - Neurologic Neurologic: CNII-XII intact, moves all extremities, oriented to place and person - Constitutional Vitals: Vital Signs - 12hr 05/16/22 05/16/22 05/16/22 09:31 09:35 09:36 Temperature Pulse Rate 101 H 101 H 101 H Respiratory 18 Rate Blood Pressure 133/89 133/89 133/89 Blood Pressure [Left] O2 Sat by Pulse 94 Oximetry 05/16/22 05/16/22 11:31 12:00 Temperature 98 F 98 F Pulse Rate 92 H 92 H Respiratory 20 20 Rate Blood Pressure Blood Pressure 110/81 110/81 [Left] O2 Sat by Pulse 97 97 Oximetry - Labs CBC & Chem 7: 05/05/22 04:00 05/17/22 05:52 HEART Score - HEART Score Troponin: Troponin T < 0.010 ng/mL (0.00-0.029) 04/16/22 20:50
[2022-05-17] MEDS: HEPARIN 5,000 UNIT/1 ML VIAL SUB-Q SCH ×3 (05:00→22:15)
[2022-05-17 06:44] LABS: BUN/Creatinine Ratio 27; Blood Urea Nitrogen 32 mg/dL (9-20); Calcium 9.2 mg/dL (8.4-10.2); Hemolysis Index 2
[2022-05-17] MEDS: LOSARTAN 50 MG TAB PO SCH (10:28)
[2022-05-17] MEDS: SPIRONOLACTONE 25 MG TAB PO SCH (10:28)
[2022-05-17] MEDS: NIFEdipine XL 30 MG TAB PO SCH (10:28)
[2022-05-17] MEDS: METOPROLOL TARTRATE 50 MG TAB PO SCH ×2 (10:28→22:15)
--- NOTE | 2022-05-17 16:32 | Progress Note ---
Assessment and Plan Patient is a 72-year-old male with past medical history of hypertension who presented in the ED with complaints of bilateral hip pain after experiencing a ground-level fall approximately 4 days prior to presentation where he was unable to get up from the floor. The patient was found at home (lives alone) after welfare check was called by family friends. In the ED, the patient was found to be hemodynamically stable with unremarkable imaging of his hip, pelvis, tibia, fibula, and femurs. Patient underwent CT cervical spine was also found to be unremarkable. Patient did have labs that were remarkable for creatinine of 1.5 (baseline unknown) and creatine kinase of 4534. Patient was medically managed with IV diuresis and monitoring of his electrolytes. The patient also developed acute hypoxic respiratory failure and fevers that were found to be secondary to COVID-19 infection. The patient has since been weaned to room air. The patient is hemodynamically stable. The patient is medically clear for discharge. 04/26/2022: Pending permanent placement since the patient was abandoned by his community despite them stating they would pick him up on 04/25/2022. 04/27/2022: Continue pending permanent placement. 04/28/2022: Continue pending permanent placement. 04/29/2022: Patient still pending placement. Case management reports the was abandoned by his community despite them stating they would pick him up on 04/25/2022. 04/30/2022. Awaiting placement 05/01/2022. Awaiting placement. 05/02/2022. Patient is still awaiting placement. I had a long discussion with case management with regards to discharge planning 05/03/2022. Patient resting comfortably. Still awaiting for placement for discharge 05/04/2022. No new issues overnight. Patient still awaiting placement. 05/05/2022. No new issues overnight. Patient still awaiting placement. 05/06/2022: Placement remains an issue. D/w case management this AM re: placement at [facility]. They will call and attempt to expedite placement. 05/07/2022: Awaiting placement. 05/08/2022: Clinically improved. Participating on encounter. Able to ambulate but more alert and able to brush teeth, feed himself. awaiting placement. Will coordinate with re: [facility] placement. 05/09/2022: Clinially improved. Some weakness with ambulation but improving. Inc po intake. Will continue to work with Sw/CM for placement. 05/10/2022: Awaiting placement. Sadly this patient appears to be abandoned by community. Will work with SW on Thursday for solution. 05/11/2022: Placement issue. Will continue to work with CM. may need to get [facility] involved if family/community does not help. 05/12/2022: Urinary retention noted, bladder scan ordered, straight cath if necessary. D/w RN. D/w Sw this morning regarding placement. Will need to reach out to [facility] as "community" cannot support him. 05/13/22: Resumed care, remains on gee for urinary retention developed yes terday. will order a pelvic US. cont to follow. 05/14/22: remains on gee, monitor ins/os. tolerating diet. pending placement. may get set up for inpt hospice per CM. patient has no family but he has a friend who is willing to sign the paper for hospice. will cont to follow if that is acceptable for hospice. 05/15/22: cont to follow clinically. daily PT. pending placement. cant be sign up for hospice w/o blood relatives. 05/16: medically stable, needs placement. cont supportive care. unfunded, demented, need 24/7 care. 05/17: medically stable, needs placement. cont supportive care. daily PT. A/p Acute kidney injury secondary to vasomotor nephropathy/dehydrationresolved Rhabdomyolysisresolved Hypokalemiaresolved Hypertension Ground-level fall, PT/OT Fever- resolved Acute hypoxic respiratory failureresolved Hypocalcemia Elevated D-dimer COVID-19 infection- stable Urinary retention, on gee Dementia, need total care --Cont supportive care, wait for placement, cont PT/OT daily Subjective Date of service: 05/17/22 Interval history: Patient seen and examined. Medical records and medication list reviewed. No acute event overnight noted by the RN. Patient draining well with gee Patient denies any chest pain or difficulty breathing. Patient is tolerating diet. Discussed plan of care at bedside with patient' RN and also with CM . Objective - Exam Narrative Exam: General appearance: Present: no acute distress, well-nourished - EENT Eyes: Present: PERRL, EOM intact ENT: hearing intact, clear oral mucosa, dentition normal - Neck Neck: Present: supple, normal ROM - Respiratory Respiratory effort: normal Respiratory: bilateral: CTA - Cardiovascular Rhythm: regular Heart Sounds: Present: S1 & S2. Absent: gallop, rub - Extremities Extremities: no ischemia, No edema, Full ROM - Abdominal General gastrointestinal: soft, non-tender, non-distended, normal bowel sounds - Integumentary Integumentary: Present: clear, warm, dry - Neurologic Neurologic: CNII-XII intact, moves all extremities, oriented to place and person - Constitutional Vitals: Vital Signs - 12hr 05/17/22 05/17/22 05/17/22 04:56 10:00 12:37 Temperature 98.1 F 98.0 F Pulse Rate 88 102 H Respiratory 17 18 Rate Blood Pressure 89/58 92/63 O2 Sat by Pulse 96 96 98 Oximetry - Labs CBC & Chem 7: 05/05/22 04:00 05/17/22 05:52 Labs: Abnormal lab results 05/17/22 Range/Units 05:52 BUN 32 H (9-20) mg/dL Glucose 118 H (75-100) mg/dL HEART Score - HEART Score Troponin: Troponin T < 0.010 ng/mL (0.00-0.029) 04/16/22 20:50
[2022-05-18] MEDS: HEPARIN 5,000 UNIT/1 ML VIAL SUB-Q SCH ×3 (06:56→22:51)
[2022-05-18] MEDS: METOPROLOL TARTRATE 50 MG TAB PO SCH ×2 (09:57→22:51)
[2022-05-18] MEDS: LOSARTAN 50 MG TAB PO SCH (09:58)
--- NOTE | 2022-05-18 12:58 | Progress Note ---
Assessment and Plan Patient is a 72-year-old male with past medical history of hypertension who presented in the ED with complaints of bilateral hip pain after experiencing a ground-level fall approximately 4 days prior to presentation where he was unable to get up from the floor. The patient was found at home (lives alone) after welfare check was called by family friends. In the ED, the patient was found to be hemodynamically stable with unremarkable imaging of his hip, pelvis, tibia, fibula, and femurs. Patient underwent CT cervical spine was also found to be unremarkable. Patient did have labs that were remarkable for creatinine of 1.5 (baseline unknown) and creatine kinase of 4534. Patient was medically managed with IV diuresis and monitoring of his electrolytes. The patient also developed acute hypoxic respiratory failure and fevers that were found to be secondary to COVID-19 infection. The patient has since been weaned to room air. The patient is hemodynamically stable. The patient is medically clear for discharge. 04/26/2022: Pending permanent placement since the patient was abandoned by his community despite them stating they would pick him up on 04/25/2022. 04/27/2022: Continue pending permanent placement. 04/28/2022: Continue pending permanent placement. 04/29/2022: Patient still pending placement. Case management reports the was abandoned by his community despite them stating they would pick him up on 04/25/2022. 04/30/2022. Awaiting placement 05/01/2022. Awaiting placement. 05/02/2022. Patient is still awaiting placement. I had a long discussion with case management with regards to discharge planning 05/03/2022. Patient resting comfortably. Still awaiting for placement for discharge 05/04/2022. No new issues overnight. Patient still awaiting placement. 05/05/2022. No new issues overnight. Patient still awaiting placement. 05/06/2022: Placement remains an issue. D/w case management this AM re: placement at [facility]. They will call and attempt to expedite placement. 05/07/2022: Awaiting placement. 05/08/2022: Clinically improved. Participating on encounter. Able to ambulate but more alert and able to brush teeth, feed himself. awaiting placement. Will coordinate with re: [facility] placement. 05/09/2022: Clinially improved. Some weakness with ambulation but improving. Inc po intake. Will continue to work with Sw/CM for placement. 05/10/2022: Awaiting placement. Sadly this patient appears to be abandoned by community. Will work with SW on Thursday for solution. 05/11/2022: Placement issue. Will continue to work with CM. may need to get [facility] involved if family/community does not help. 05/12/2022: Urinary retention noted, bladder scan ordered, straight cath if necessary. D/w RN. D/w Sw this morning regarding placement. Will need to reach out to [facility] as "community" cannot support him. 05/13/22: Resumed care, remains on gee for urinary retention developed yes terday. will order a pelvic US. cont to follow. 05/14/22: remains on gee, monitor ins/os. tolerating diet. pending placement. may get set up for inpt hospice per CM. patient has no family but he has a friend who is willing to sign the paper for hospice. will cont to follow if that is acceptable for hospice. 05/15/22: cont to follow clinically. daily PT. pending placement. cant be sign up for hospice w/o blood relatives. 05/16: medically stable, needs placement. cont supportive care. unfunded, demented, need /7 care. 05/17: medically stable, needs placement. cont supportive care. daily PT. 05/18: pending placement, cont supportive care. no change clinically A/p Acute kidney injury secondary to vasomotor nephropathy/dehydrationresolved Rhabdomyolysisresolved Hypokalemiaresolved Hypertension Ground-level fall, PT/OT Fever- resolved Acute hypoxic respiratory failureresolved Hypocalcemia Elevated D-dimer COVID-19 infection- stable Urinary retention, on gee Dementia, need total care --Cont supportive care, wait for placement, cont PT/OT daily Subjective Date of service: 05/18/22 Interval history: Patient seen and examined. Medical records and medication list reviewed. No acute event overnight noted by the RN. Patient draining well with gee Patient denies any chest pain or difficulty breathing. Patient is tolerating diet. Discussed plan of care at bedside with patient' RN and also with CM . Objective - Exam Narrative Exam: General appearance: Present: no acute distress, well-nourished - EENT Eyes: Present: PERRL, EOM intact ENT: hearing intact, clear oral mucosa, dentition normal - Neck Neck: Present: supple, normal ROM - Respiratory Respiratory effort: normal Respiratory: bilateral: CTA - Cardiovascular Rhythm: regular Heart Sounds: Present: S1 & S2. Absent: gallop, rub - Extremities Extremities: no ischemia, No edema, Full ROM - Abdominal General gastrointestinal: soft, non-tender, non-distended, normal bowel sounds - Integumentary Integumentary: Present: clear, warm, dry - Neurologic Neurologic: CNII-XII intact, moves all extremities, oriented to place and person - Constitutional Vitals: Vital Signs - 12hr 05/18/22 05/18/22 09:57 09:58 Pulse Rate 82 82 Blood Pressure 97/67 97/67 - Labs CBC & Chem 7: 05/05/22 04:00 05/17/22 05:52 HEART Score - HEART Score Troponin: Troponin T < 0.010 ng/mL (0.00-0.029) 04/16/22 20:50
[2022-05-18] MEDS: NIFEdipine XL 30 MG TAB PO SCH (18:24)
[2022-05-18] MEDS: SPIRONOLACTONE 25 MG TAB PO SCH (18:24)
[2022-05-19] MEDS: HEPARIN 5,000 UNIT/1 ML VIAL SUB-Q SCH ×3 (05:24→22:00)
[2022-05-19] MEDS ORDERED: LOPERAMIDE 2 MG CAP PO PRN (09:27)
[2022-05-19] MEDS ORDERED: metroNIDAZOLE 500 MG TAB PO SCH (10:00)
[2022-05-19] MEDS: LOSARTAN 50 MG TAB PO SCH (10:14)
[2022-05-19] MEDS: METOPROLOL TARTRATE 50 MG TAB PO SCH ×2 (10:15→22:00)
[2022-05-19] MEDS: SPIRONOLACTONE 25 MG TAB PO SCH (10:15)
[2022-05-19] MEDS: NIFEdipine XL 30 MG TAB PO SCH (10:16)
--- NOTE | 2022-05-19 13:51 | Progress Note ---
Assessment and Plan Patient is a 72-year-old male with past medical history of hypertension who presented in the ED with complaints of bilateral hip pain after experiencing a ground-level fall approximately 4 days prior to presentation where he was unable to get up from the floor. The patient was found at home (lives alone) after welfare check was called by family friends. In the ED, the patient was found to be hemodynamically stable with unremarkable imaging of his hip, pelvis, tibia, fibula, and femurs. Patient underwent CT cervical spine was also found to be unremarkable. Patient did have labs that were remarkable for creatinine of 1.5 (baseline unknown) and creatine kinase of 4534. Patient was medically managed with IV diuresis and monitoring of his electrolytes. The patient also developed acute hypoxic respiratory failure and fevers that were found to be secondary to COVID-19 infection. The patient has since been weaned to room air. The patient is hemodynamically stable. The patient is medically clear for discharge. 04/26/2022: Pending permanent placement since the patient was abandoned by his community despite them stating they would pick him up on 04/25/2022. 04/27/2022: Continue pending permanent placement. 04/28/2022: Continue pending permanent placement. 04/29/2022: Patient still pending placement. Case management reports the was abandoned by his community despite them stating they would pick him up on 04/25/2022. 04/30/2022. Awaiting placement 05/01/2022. Awaiting placement. 05/02/2022. Patient is still awaiting placement. I had a long discussion with case management with regards to discharge planning 05/03/2022. Patient resting comfortably. Still awaiting for placement for discharge 05/04/2022. No new issues overnight. Patient still awaiting placement. 05/05/2022. No new issues overnight. Patient still awaiting placement. 05/06/2022: Placement remains an issue. D/w case management this AM re: placement at [facility]. They will call and attempt to expedite placement. 05/07/2022: Awaiting placement. 05/08/2022: Clinically improved. Participating on encounter. Able to ambulate but more alert and able to brush teeth, feed himself. awaiting placement. Will coordinate with re: [facility] placement. 05/09/2022: Clinially improved. Some weakness with ambulation but improving. Inc po intake. Will continue to work with Sw/CM for placement. 05/10/2022: Awaiting placement. Sadly this patient appears to be abandoned by community. Will work with SW on Thursday for solution. 05/11/2022: Placement issue. Will continue to work with CM. may need to get [facility] involved if family/community does not help. 05/12/2022: Urinary retention noted, bladder scan ordered, straight cath if necessary. D/w RN. D/w Sw this morning regarding placement. Will need to reach out to [facility] as "community" cannot support him. 05/13/22: Resumed care, remains on gee for urinary retention developed yes terday. will order a pelvic US. cont to follow. 05/14/22: remains on gee, monitor ins/os. tolerating diet. pending placement. may get set up for inpt hospice per CM. patient has no family but he has a friend who is willing to sign the paper for hospice. will cont to follow if that is acceptable for hospice. 05/15/22: cont to follow clinically. daily PT. pending placement. cant be sign up for hospice w/o blood relatives. 05/16: medically stable, needs placement. cont supportive care. unfunded, demented, need 24/7 care. 05/17: medically stable, needs placement. cont supportive care. daily PT. 05/18: pending placement, cont supportive care. no change clinically 05/19: unfunded, demented, need 24/7 care. medically stable, needs placement. cont supportive care. daily PT. A/p Acute kidney injury secondary to vasomotor nephropathy/dehydrationresolved Rhabdomyolysisresolved Hypokalemiaresolved Hypertension Ground-level fall, PT/OT Fever- resolved Acute hypoxic respiratory failureresolved Hypocalcemia Elevated D-dimer COVID-19 infection- stable Urinary retention, on gee Dementia, need total care --Cont supportive care, wait for placement, cont PT/OT daily Subjective Date of service: 05/19/22 Interval history: Patient seen and examined. Medical records and medication list reviewed. No acute event overnight noted by the RN. Patient draining well with gee Patient denies any chest pain or difficulty breathing. Patient is tolerating diet. Discussed plan of care at bedside with patient' RN and also with CM . Objective - Exam Narrative Exam: General appearance: Present: no acute distress, well-nourished - EENT Eyes: Present: PERRL, EOM intact ENT: hearing intact, clear oral mucosa, dentition normal - Neck Neck: Present: supple, normal ROM - Respiratory Respiratory effort: normal Respiratory: bilateral: CTA - Cardiovascular Rhythm: regular Heart Sounds: Present: S1 & S2. Absent: gallop, rub - Extremities Extremities: no ischemia, No edema, Full ROM - Abdominal General gastrointestinal: soft, non-tender, non-distended, normal bowel sounds - Integumentary Integumentary: Present: clear, warm, dry - Neurologic Neurologic: CNII-XII intact, moves all extremities, oriented to place and person - Constitutional Vitals: Vital Signs - 12hr 05/19/22 05/19/22 10:14 10:15 Pulse Rate 74 74 Blood Pressure 107/77 107/77 - Labs CBC & Chem 7: 05/05/22 04:00 05/17/22 05:52 HEART Score - HEART Score Troponin: Troponin T < 0.010 ng/mL (0.00-0.029) 04/16/22 20:50
[2022-05-20] MEDS: HEPARIN 5,000 UNIT/1 ML VIAL SUB-Q SCH ×3 (05:43→21:46)
--- NOTE | 2022-05-20 08:28 | Progress Note ---
Assessment and Plan Assessment and plan: Patient is a 72-year-old male with past medical history of hypertension who presented in the ED with complaints of bilateral hip pain after experiencing a ground-level fall approximately 4 days prior to presentation where he was unable to get up from the floor. The patient was found at home (lives alone) after welfare check was called by family friends. In the ED, the patient was found to be hemodynamically stable with unremarkable imaging of his hip, pelvis, tibia, fibula, and femurs. Patient underwent CT cervical spine was also found to be unremarkable. Patient did have labs that were remarkable for creatinine of 1.5 (baseline unknown) and creatine kinase of 4534. Patient was medically managed with IV diuresis and monitoring of his electrolytes. The patient also developed acute hypoxic respiratory failure and fevers that were found to be secondary to COVID-19 infection. The patient has since been weaned to room air. The patient is hemodynamically stable. The patient is medically clear for discharge. Pending placement Assessment and plan; --Acute kidney injury secondary to vasomotor nephropathy/dehydrationresolved --Rhabdomyolysisresolved --Hypokalemiaresolved --Hypertension; moderate control, continue current antihypertensives and as needed occasions -- History of ground-level fall, PT/OT/discharge planning[pending placement] --Fever- resolved --Acute hypoxic respiratory failureresolved --Hypocalcemia; resolved --Elevated D-dimer; CTA negative for PE, venous Doppler negative for DVT --COVID-19 infection-positive x3[04/23, 04/29, 05/02], most recent negative[05/09/22] --Urinary retention, on continuous Gee catheterization --Dementia; need total care --Cont supportive care, wait for placement, cont PT/OT daily Disposition; patient is medically stable, pending placement Closely monitor the patient and adjust the management as needed Plan of care reviewed with the patient's nurse and the case management Daily Hospital course: 04/26/2022: Pending permanent placement since the patient was abandoned by his community despite them stating they would pick him up on 04/25/2022. 04/27/2022: Continue pending permanent placement. 04/28/2022: Continue pending permanent placement. 04/29/2022: Patient still pending placement. Case management reports the was abandoned by his community despite them stating they would pick him up on 04/25/2022. 04/30/2022. Awaiting placement 05/01/2022. Awaiting placement. 05/02/2022. Patient is still awaiting placement. I had a long discussion with case management with regards to discharge planning 05/03/2022. Patient resting comfortably. Still awaiting for placement for discharge 05/04/2022. No new issues overnight. Patient still awaiting placement. 05/05/2022. No new issues overnight. Patient still awaiting placement. 05/06/2022: Placement remains an issue. D/w case management this AM re: placement at [facility]. They will call and attempt to expedite placement. 05/07/2022: Awaiting placement. 05/08/2022: Clinically improved. Participating on encounter. Able to ambulate but more alert and able to brush teeth, feed himself. awaiting placement. Will coordinate with CM re: [facility] placement. 05/09/2022: Clinially improved. Some weakness with ambulation but improving. Inc po intake. Will continue to work with Sw/CM for placement. 05/10/2022: Awaiting placement. Sadly this patient appears to be abandoned by community. Will work with SW on Thursday for solution. 05/11/2022: Placement issue. Will continue to work with CM. may need to get [facility] involved if family/community does not help. 05/12/2022: Urinary retention noted, bladder scan ordered, straight cath if necessary. D/w RN. D/w Gurvinder this morning regarding placement. [facility]. 05/13/22: Resumed care, remains on gee for urinary retention developed yesterday. will order a pelvic US. cont to follow. 05/14/22: remains on gee, monitor ins/os. tolerating diet. pending placement. m ay get set up for inpt hospice per CM. patient has no family but he has a friend who is willing to sign the paper for hospice. will cont to follow if that is acceptable for hospice. 05/15/22: cont to follow clinically. daily PT. pending placement. cant be sign up for hospice w/o blood relatives. 05/16: medically stable, needs placement. cont supportive care. unfunded, demented, need 24/7 care. 05/17: medically stable, needs placement. cont supportive care. daily PT. 05/18: pending placement, cont supportive care. no change clinically 05/19: unfunded, demented, need 24/7 care. medically stable, needs placement. cont supportive care. daily PT. 05/20; patient is medically stable, pending placement, multiple social issues/unfunded Hospitalist Physical - Constitutional Vitals: Temp Pulse Resp BP Pulse Ox 98.8 F 84 16 99/72 97 05/20/22 04:39 05/20/22 04:39 05/20/22 04:39 05/20/22 04:39 05/20/22 04:39 General appearance: Present: no acute distress, well-nourished - EENT Eyes: Present: PERRL, EOM intact - Neck Neck: Present: supple, normal ROM - Respiratory Respiratory effort: normal Respiratory: bilateral: diminished, negative: rales, rhonchi, wheezing - Cardiovascular Rhythm: regular Heart Sounds: Present: S1 & S2 - Extremities Extremities: no ischemia, No edema - Abdominal General gastrointestinal: soft, non-tender, non-distended, normal bowel sounds - Integumentary Integumentary: Present: clear, warm - Psychiatric Psychiatric: other (Minimally communicative) - Neurologic Neurologic: other (Dementia) HEART Score - HEART Score Troponin: Troponin T < 0.010 ng/mL (0.00-0.029) 04/16/22 20:50 Results - Labs CBC & Chem 7: 05/05/22 04:00 05/17/22 05:52 Labs: Laboratory Last Values WBC 5.0 K/mm3 (4.5-11.0) 05/05/22 04:00 RBC 4.08 M/mm3 (3.65-5.03) 05/05/22 04:00 Hgb 12.4 gm/dl (11.8-15.2) 05/05/22 04:00 Hct 37.0 % (35.5-45.6) 05/05/22 04:00 MCV 91 fl (84-94) 05/05/22 04:00 MCH 30 pg (28-32) 05/05/22 04:00 MCHC 34 % (32-34) 05/05/22 04:00 RDW 14.3 % (13.2-15.2) 05/05/22 04:00 Plt Count 482 K/mm3 (140-440) H 05/05/22 04:00 Lymph % (Auto) 50.4 % (13.4-35.0) H 05/05/22 04:00 Frio % (Auto) 11.6 % (0.0-7.3) H 05/05/22 04:00 Eos % (Auto) 2.0 % (0.0-4.3) 05/05/22 04:00 Baso % (Auto) 0.2 % (0.0-1.8) 05/05/22 04:00 Lymph # (Auto) 2.5 K/mm3 (1.2-5.4) 05/05/22 04:00 [place] # (Auto) 0.6 K/mm3 (0.0-0.8) 05/05/22 04:00 Eos # (Auto) 0.1 K/mm3 (0.0-0.4) 05/05/22 04:00 Baso # (Auto) 0.0 K/mm3 (0.0-0.1) 05/05/22 04:00 Seg Neutrophils % 35.8 % (40.0-70.0) L 05/05/22 04:00 Seg Neutrophils # 1.8 K/mm3 (1.8-7.7) 05/05/22 04:00 PT 13.6 Sec. (12.2-14.9) 04/16/22 20:50 INR 0.94 (0.87-1.13) 04/16/22 20:50 D-Dimer 1188.69 ng/mlDDU (0-234) H 04/22/22 08:25 Sodium 138 mmol/L (137-145) 05/17/22 05:52 Potassium 4.2 mmol/L (3.6-5.0) 05/17/22 05:52 Chloride 102.3 mmol/L (98-107) 05/17/22 05:52 Carbon Dioxide 26 mmol/L (22-30) 05/17/22 05:52 Anion Gap 14 mmol/L 05/17/22 05:52 BUN 32 mg/dL (9-20) H 05/17/22 05:52 Creatinine 1.2 mg/dL (0.8-1.3) 05/17/22 05:52 Estimated GFR > 60 ml/min 05/17/22 05:52 BUN/Creatinine Ratio 27 % 05/17/22 05:52 Glucose 118 mg/dL (75-100) H 05/17/22 05:52 POC Glucose 102 mg/dL (70-105) 05/04/22 11:22 Calcium 9.2 mg/dL (8.4-10.2) 05/17/22 05:52 Magnesium 1.80 mg/dL (1.7-2.3) 04/21/22 10:53 Total Creatine Kinase 1221 units/L (55-170) H 04/19/22 05:31 CK-MB (CK-2) 16.2 ng/mL (0.0-4.0) H 04/16/22 20:50 CK-MB (CK-2) Rel Index 0.3 (0-4) 04/16/22 20:50 Troponin T < 0.010 ng/mL (0.00-0.029) 04/16/22 20:50 Procalcitonin 0.40 ng/mL (<0.15) 04/22/22 11:01 TSH 1.910 mlU/mL (0.270-4.200) 04/16/22 20:50 Free T4 1.24 ng/dL (0.76-1.46) 04/16/22 20:50 Coronavirus (PCR) Negative (Negative) 05/09/22 14:57 SARS-CoV-2 (PCR) Positive (Negative) A 04/29/22 12:30 Gee/IV: Voiding Method Bedside Commode Active Medications - Current Medications Current Medications: Generic Name Dose Route Start Last Admin Trade Name Freq PRN Reason Stop Dose Admin Acetaminophen 650 mg 04/16/22 23:27 05/13/22 20:38 Acetaminophen 325 Mg Tab PO 650 mg Q4H PRN Administration Pain MILD(1-3)/Fever >100.5/CRUZ Heparin Sodium (Porcine) 5,000 unit 04/17/22 06:00 05/20/22 05:43 Heparin 5,000 Unit/1 Ml Vial SUB-Q 5,000 unit Q8HR EDGAR Administration Loperamide HCl 2 mg 05/19/22 09:27 Loperamide 2 Mg Cap PO Q2H PRN Diarrhea Losartan Potassium 100 mg 04/26/22 10:00 05/19/22 10:14 Losartan 50 Mg Tab PO 100 mg QDAY EDGAR Administration Metoprolol Tartrate 50 mg 05/12/22 10:00 05/19/22 22:00 Metoprolol Tartrate 50 Mg Tab PO Not Given BID EDGAR Morphine Sulfate 2 mg 04/16/22 23:27 Morphine 2 Mg/1 Ml Inj IV Q4H PRN Pain, Moderate (4-6) Morphine Sulfate 4 mg 04/16/22 23:27 Morphine 4 Mg/1 Ml Inj IV Q4H PRN Pain , Severe (7-10) Nifedipine 30 mg 04/28/22 10:00 05/19/22 10:16 Nifedipine Xl 30 Mg Tab PO 30 mg QDAY EDGAR Administration Ondansetron HCl 4 mg 04/16/22 23:27 Ondansetron 4 Mg/2 Ml Inj IV Q8H PRN Nausea And Vomiting Sodium Chloride 10 ml 04/17/22 10:00 05/19/22 22:00 Sodium Chloride 0.9% 10 Ml Flush Syringe IV Not Given BID EDGAR Sodium Chloride 10 ml 04/16/22 23:27 Sodium Chloride 0.9% 10 Ml Flush Syringe IV PRN PRN LINE FLUSH Spironolactone 25 mg 04/20/22 10:00 05/19/22 10:15 Spironolactone 25 Mg Tab PO 25 mg QDAY EDGAR Administration Nutrition/Malnutrition Assess - Dietary Evaluation Nutrition/Malnutrition Findings: Nutrition Notes Start: 04/24/22 15:41 Freq: Status: Active Protocol: Document 05/15/22 12:27 SHWETHA (Rec: 05/15/22 12:44 [email or web address] [id number]) Nutrition Notes Initial or Follow up Reassessment Current Diagnosis Hypertension Other Pertinent Diagnosis Ground-Level Fall, Urinary Retention, COVID-19. Current Diet Cardiac -Chopped Meats- Diet + D Suppl (since B 04/17). Labs/Tests 05/15 Na 134. Pertinent Medications 05/15: Nutritionally unremarkable. Height 5 ft 6 in Weight 70.4 kg [place] Body Weight (kg) 64.54 BMI 25.0 Weight change and time frame No body weight change reported in 2 weeks. Weight Status Appropriate Subjective/Other Information RD consult for routine F/U on dietary advancement. Pt's PO intake has been Poor ( 25%), according to ADL notes; however, Dietary Supplements have been helping Pt to compensate for poor PO intake of meals. Pt is on Room Air, O2 saturation @ 96%, according to Physical Assessment History notes. Pt is medically cleared for discharge, awaiting for placement, according to Progress notes. Percent of energy/protein needs met: Prescribed Cardiac -Chopped Meats- Diet provides for energy/protein needs (2,230 Kcal/85 g) during LOS; additionally, Dietary Supplements will support wound healing processes with 1,050 Kcal and 60 g of protein. Burn Absent Trauma Absent GI Symptoms None Food Allergy No Skin Integrity/Comment Sacrum skin tear. Current % PO Poor (25-49%) Minimum of two criteria No Fluid Accumulation N/A Reduced Brand Manager Strength N/A (non-severe) Protein-Calorie Malnutrition N\\A #3 Nutrition Diagnosis Biting/Chewing (masticatory) difficulty Diagnosis Progress(for reassessment Continues documentation) #2 Nutrition Diagnosis Inadequate protein-energy intake Diagnosis Progress(for reassessment Continues documentation) #1 Nutrition Diagnosis Increased nutrient needs ( specify in comment below) Comments: Protein to support wound healing processes. Diagnosis Progress(for reassessment Continues documentation) Is patient on ventilator? No Is Patient Ambulatory and/or Out of Bed No REE-([facility]-confined to bed) [phone] Calculation Used for Recommendations [facility] Additional Notes Protein: 1-1.2 g/Kg ABW; 69-83 g/day. Fluids: 1 ml/Kcal, or as per MD. Nutrition Intervention Change Diet Order: Continue Cardiac -Chopped Meats- Diet. Add Supplement/Snack (indicate name/kcal Continue 8 fl oz Ensure Enlive /protein ) ; to TID. Provides kCal: 1,050 Provides Protein (gm) 60 Goal #1 Support, through dietary supplementation, wound healing processes during LOS. Goal #2 Compensate, through dietary supplementation, for possible poor or insufficient PO intake of meals during LOS. Goal #3 Facilitate PO intake of meals with elemental, textural, or mechanical modification during LOS. Goal #4 Adjust the dietary intervention to better serve Pt's needs and clinical conditions during LOS. Follow-Up By: 05/29/22 Additional Comments Continue monitoring food tolerance, %PO intake of meals and ONS, and BM.
[2022-05-20] MEDS: SPIRONOLACTONE 25 MG TAB PO SCH (10:44)
[2022-05-20] MEDS: LOSARTAN 50 MG TAB PO SCH (10:45)
[2022-05-20] MEDS: METOPROLOL TARTRATE 50 MG TAB PO SCH ×2 (10:46→22:32)
[2022-05-20] MEDS: NIFEdipine XL 30 MG TAB PO SCH (10:46)
[2022-05-21] MEDS: HEPARIN 5,000 UNIT/1 ML VIAL SUB-Q SCH ×3 (05:41→22:02)
[2022-05-21] MEDS: SPIRONOLACTONE 25 MG TAB PO SCH (09:22)
[2022-05-21] MEDS: NIFEdipine XL 30 MG TAB PO SCH (09:22)
[2022-05-21] MEDS: LOSARTAN 50 MG TAB PO SCH (09:22)
[2022-05-21] MEDS: METOPROLOL TARTRATE 50 MG TAB PO SCH ×2 (09:23→22:03)
--- NOTE | 2022-05-21 09:44 | Progress Note ---
Assessment and Plan Assessment and plan: --Acute kidney injury secondary to vasomotor nephropathy/dehydrationresolved --Rhabdomyolysisresolved --Hypokalemiaresolved --Hypertension; moderate control, continue current antihypertensives and as needed occasions -- History of ground-level fall, PT/OT/discharge planning[pending placement] --Fever- resolved --Acute hypoxic respiratory failureresolved --Hypocalcemia; resolved --Elevated D-dimer; CTA negative for PE, venous Doppler negative for DVT --COVID-19 infection-positive x3[04/23, 04/29, 05/02], most recent negative[05/09/22] --Urinary retention, on continuous Gee catheterization --Dementia; need total care --Cont supportive care, wait for placement, cont PT/OT daily PT, OT evaluation recommendations noted and appreciated Both services recommend rolling walker, wheelchair and subacute rehab placement Discharge planning per case management Patient is medically stable Disposition; patient is medically stable, pending placement Closely monitor the patient and adjust the management as needed Plan of care reviewed with the patient's nurse and the case management Daily Hospital course: 04/26/2022: Pending permanent placement since the patient was abandoned by his community despite them stating they would pick him up on 04/25/2022. 04/27/2022: Continue pending permanent placement. 04/28/2022: Continue pending permanent placement. 04/29/2022: Patient still pending placement. Case management reports the was abandoned by his community despite them stating they would pick him up on 04/25/2022. 04/30/2022. Awaiting placement 05/01/2022. Awaiting placement. 05/02/2022. Patient is still awaiting placement. I had a long discussion with case management with regards to discharge planning 05/03/2022. Patient resting comfortably. Still awaiting for placement for discharge 05/04/2022. No new issues overnight. Patient still awaiting placement. 05/05/2022. No new issues overnight. Patient still awaiting placement. 05/06/2022: Placement remains an issue. D/w case management this AM re: placement at [facility]. They will call and attempt to expedite placement. 05/07/2022: Awaiting placement. 05/08/2022: Clinically improved. Participating on encounter. Able to ambulate but more alert and able to brush teeth, feed himself. awaiting placement. Will coordinate with CM re: [facility] placement. 05/09/2022: Clinially improved. Some weakness with ambulation but improving. Inc po intake. Will continue to work with Sw/CM for placement. 05/10/2022: Awaiting placement. Sadly this patient appears to be abandoned by community. Will work with SW on Thursday for solution. 05/11/2022: Placement issue. Will continue to work with CM. may need to get [facility] involved if family/community does not help. 05/12/2022: Urinary retention noted, bladder scan ordered, straight cath if necessary. D/w RN. D/w Gurvinder this morning regarding placement. Will need to reach out to [facility] as "community" cannot support him. 05/13/22: Resumed care, remains on gee for urinary retention developed yesterday. will order a pelvic US. cont to follow. 05/14/22: remains on gee, monitor ins/os. tolerating diet. pending placement. may get set up for inpt hospice per CM. patient has no family but he has a friend who is willing to sign the paper for hospice. will cont to follow if that is acceptable for hospice. 05/15/22: cont to follow clinically. daily PT. pending placement. cant be sign up for hospice w/o blood relatives. 05/16: medically stable, needs placement. cont supportive care. unfunded, demented, need 24/7 care. 05/17: medically stable, needs placement. cont supportive care. daily PT. 05/18: pending placement, cont supportive care. no change clinically 05/19: unfunded, demented, need 24/7 care. medically stable, needs placement. cont supportive care. daily PT. 05/20; patient is medically stable, pending placement, multiple social issues/unfunded 05/21; PT and OT recommended rolling walker wheelchair and subacute rehab Hospitalist Physical - Constitutional Vitals: Temp Pulse Resp BP Pulse Ox 98.4 F 87 20 117/78 98 05/21/22 09:20 05/21/22 09:20 05/21/22 09:20 05/21/22 09:20 05/21/22 09:20 General appearance: Present: no acute distress, well-nourished HEART Score - HEART Score Troponin: Troponin T < 0.010 ng/mL (0.00-0.029) 04/16/22 20:50 Results - Labs CBC & Chem 7: 05/05/22 04:00 05/17/22 05:52 Labs: Laboratory Last Values WBC 5.0 K/mm3 (4.5-11.0) 05/05/22 04:00 RBC 4.08 M/mm3 (3.65-5.03) 05/05/22 04:00 Hgb 12.4 gm/dl (11.8-15.2) 05/05/22 04:00 Hct 37.0 % (35.5-45.6) 05/05/22 04:00 MCV 91 fl (84-94) 05/05/22 04:00 MCH 30 pg (28-32) 05/05/22 04:00 MCHC 34 % (32-34) 05/05/22 04:00 RDW 14.3 % (13.2-15.2) 05/05/22 04:00 Plt Count 482 K/mm3 (140-440) H 05/05/22 04:00 Lymph % (Auto) 50.4 % (13.4-35.0) H 05/05/22 04:00 [place] % (Auto) 11.6 % (0.0-7.3) H 05/05/22 04:00 Eos % (Auto) 2.0 % (0.0-4.3) 05/05/22 04:00 Baso % (Auto) 0.2 % (0.0-1.8) 05/05/22 04:00 Lymph # (Auto) 2.5 K/mm3 (1.2-5.4) 05/05/22 04:00 [place] # (Auto) 0.6 K/mm3 (0.0-0.8) 05/05/22 04:00 Eos # (Auto) 0.1 K/mm3 (0.0-0.4) 05/05/22 04:00 Baso # (Auto) 0.0 K/mm3 (0.0-0.1) 05/05/22 04:00 Seg Neutrophils % 35.8 % (40.0-70.0) L 05/05/22 04:00 Seg Neutrophils # 1.8 K/mm3 (1.8-7.7) 05/05/22 04:00 PT 13.6 Sec. (12.2-14.9) 04/16/22 20:50 INR 0.94 (0.87-1.13) 04/16/22 20:50 D-Dimer 1188.69 ng/mlDDU (0-234) H 04/22/22 08:25 Sodium 138 mmol/L (137-145) 05/17/22 05:52 Potassium 4.2 mmol/L (3.6-5.0) 05/17/22 05:52 Chloride 102.3 mmol/L (98-107) 05/17/22 05:52 Carbon Dioxide 26 mmol/L (22-30) 05/17/22 05:52 Anion Gap 14 mmol/L 05/17/22 05:52 BUN 32 mg/dL (9-20) H 05/17/22 05:52 Creatinine 1.2 mg/dL (0.8-1.3) 05/17/22 05:52 Estimated GFR > 60 ml/min 05/17/22 05:52 BUN/Creatinine Ratio 27 % 05/17/22 05:52 Glucose 118 mg/dL (75-100) H 05/17/22 05:52 POC Glucose 102 mg/dL (70-105) 05/04/22 11:22 Calcium 9.2 mg/dL (8.4-10.2) 05/17/22 05:52 Magnesium 1.80 mg/dL (1.7-2.3) 04/21/22 10:53 Total Creatine Kinase 1221 units/L (55-170) H 04/19/22 05:31 CK-MB (CK-2) 16.2 ng/mL (0.0-4.0) H 04/16/22 20:50 CK-MB (CK-2) Rel Index 0.3 (0-4) 04/16/22 20:50 Troponin T < 0.010 ng/mL (0.00-0.029) 04/16/22 20:50 Procalcitonin 0.40 ng/mL (<0.15) 04/22/22 11:01 TSH 1.910 mlU/mL (0.270-4.200) 04/16/22 20:50 Free T4 1.24 ng/dL (0.76-1.46) 04/16/22 20:50 Coronavirus (PCR) Negative (Negative) 05/09/22 14:57 SARS-CoV-2 (PCR) Positive (Negative) A 04/29/22 12:30 Gee/IV: Voiding Method Indwelling Catheter Active Medications - Current Medications Current Medications: Generic Name Dose Route Start Last Admin Trade Name Freq PRN Reason Stop Dose Admin Acetaminophen 650 mg 04/16/22 23:27 05/13/22 20:38 Acetaminophen 325 Mg Tab PO 650 mg Q4H PRN Administration Pain MILD(1-3)/Fever >100.5/CRUZ Heparin Sodium (Porcine) 5,000 unit 04/17/22 06:00 05/21/22 05:41 Heparin 5,000 Unit/1 Ml Vial SUB-Q 5,000 unit Q8HR EDGAR Administration Loperamide HCl 2 mg 05/19/22 09:27 Loperamide 2 Mg Cap PO Q2H PRN Diarrhea Losartan Potassium 100 mg 04/26/22 10:00 05/21/22 09:22 Losartan 50 Mg Tab PO 100 mg QDAY EDGAR Administration Metoprolol Tartrate 50 mg 05/12/22 10:00 05/21/22 09:23 Metoprolol Tartrate 50 Mg Tab PO 50 mg BID EDGAR Administration Morphine Sulfate 2 mg 04/16/22 23:27 Morphine 2 Mg/1 Ml Inj IV Q4H PRN Pain, Moderate (4-6) Morphine Sulfate 4 mg 04/16/22 23:27 Morphine 4 Mg/1 Ml Inj IV Q4H PRN Pain , Severe (7-10) Nifedipine 30 mg 04/28/22 10:00 05/21/22 09:22 Nifedipine Xl 30 Mg Tab PO 30 mg QDAY EDGAR Administration Ondansetron HCl 4 mg 04/16/22 23:27 Ondansetron 4 Mg/2 Ml Inj IV Q8H PRN Nausea And Vomiting Sodium Chloride 10 ml 04/17/22 10:00 05/21/22 09:23 Sodium Chloride 0.9% 10 Ml Flush Syringe IV 10 ml BID EDGAR Administration Sodium Chloride 10 ml 04/16/22 23:27 Sodium Chloride 0.9% 10 Ml Flush Syringe IV PRN PRN LINE FLUSH Spironolactone 25 mg 04/20/22 10:00 05/21/22 09:22 Spironolactone 25 Mg Tab PO 25 mg QDAY EDGAR Administration Nutrition/Malnutrition Assess - Dietary Evaluation Nutrition/Malnutrition Findings: Nutrition Notes Start: 04/24/22 15:41 Freq: Status: Active Protocol: Document 05/15/22 12:27 SHWETHA (Rec: 05/15/22 12:44 [email or web address] [id number]) Nutrition Notes Initial or Follow up Reassessment Current Diagnosis Hypertension Other Pertinent Diagnosis Ground-Level Fall, Urinary Retention, COVID-19. Current Diet Cardiac -Chopped Meats- Diet + D Suppl (since B 04/17). Labs/Tests 05/15 Na 134. Pertinent Medications 05/15: Nutritionally unremarkable. Height 5 ft 6 in Weight 70.4 kg [place] Body Weight (kg) 64.54 BMI 25.0 Weight change and time frame No body weight change reported in 2 weeks. Weight Status Appropriate Subjective/Other Information RD consult for routine F/U on dietary advancement. Pt's PO intake has been Poor ( 25%), according to ADL notes; however, Dietary Supplements have been helping Pt to compensate for poor PO intake of meals. Pt is on Room Air, O2 saturation @ 96%, according to Physical Assessment History notes. Pt is medically cleared for discharge, awaiting for placement, according to Progress notes. Percent of energy/protein needs met: Prescribed Cardiac -Chopped Meats- Diet provides for energy/protein needs (2,230 Kcal/85 g) during LOS; additionally, Dietary Supplements will support wound healing processes with 1,050 Kcal and 60 g of protein. Burn Absent Trauma Absent GI Symptoms None Food Allergy No Skin Integrity/Comment Sacrum skin tear. Current % PO Poor (25-49%) Minimum of two criteria No Fluid Accumulation N/A Reduced Salicylic Acid Blender Strength N/A (non-severe) Protein-Calorie Malnutrition N\\A #3 Nutrition Diagnosis Biting/Chewing (masticatory) difficulty Diagnosis Progress(for reassessment Continues documentation) #2 Nutrition Diagnosis Inadequate protein-energy intake Diagnosis Progress(for reassessment Continues documentation) #1 Nutrition Diagnosis Increased nutrient needs ( specify in comment below) Comments: Protein to support wound healing processes. Diagnosis Progress(for reassessment Continues documentation) Is patient on ventilator? No Is Patient Ambulatory and/or Out of Bed No REE-([facility]-confined to bed) [phone] Calculation Used for Recommendations [facility] Additional Notes Protein: 1-1.2 g/Kg ABW; 69-83 g/day. Fluids: 1 ml/Kcal, or as per MD. Nutrition Intervention Change Diet Order: Continue Cardiac -Chopped Meats- Diet. Add Supplement/Snack (indicate name/kcal Continue 8 fl oz Ensure Enlive /protein ) ; to TID. Provides kCal: 1,050 Provides Protein (gm) 60 Goal #1 Support, through dietary supplementation, wound healing processes during LOS. Goal #2 Compensate, through dietary supplementation, for possible poor or insufficient PO intake of meals during LOS. Goal #3 Facilitate PO intake of meals with elemental, textural, or mechanical modification during LOS. Goal #4 Adjust the dietary intervention to better serve Pt's needs and clinical conditions during LOS. Follow-Up By: 05/29/22 Additional Comments Continue monitoring food tolerance, %PO intake of meals and ONS, and BM.
[2022-05-22] MEDS: HEPARIN 5,000 UNIT/1 ML VIAL SUB-Q SCH ×3 (05:29→22:39)
--- NOTE | 2022-05-22 09:08 | Progress Note ---
Assessment and Plan Assessment and plan: --Acute kidney injury secondary to vasomotor nephropathy/dehydrationresolved --Rhabdomyolysisresolved --Hypokalemiaresolved --Hypertension; moderate control, continue current antihypertensives and as needed occasions -- History of ground-level fall, PT/OT/discharge planning[pending placement] --Fever- resolved --Acute hypoxic respiratory failureresolved --Hypocalcemia; resolved --Elevated D-dimer; CTA negative for PE, venous Doppler negative for DVT --COVID-19 infection-positive x3[04/23, 04/29, 05/02], most recent negative[05/09/22] --Urinary retention, on continuous Ma catheterization --Dementia; need total care --Cont supportive care, wait for placement, cont PT/OT daily PT, OT evaluation recommendations noted and appreciated Both services recommend rolling walker, wheelchair and subacute rehab placement Discharge planning per case management Patient is medically stable Disposition; patient is medically stable, pending placement Closely monitor the patient and adjust the management as needed Plan of care reviewed with the patient's nurse and the case management History Interval history: I have seen and examined the patient at the bedside Patient's chart and medications reviewed Patient is receiving physical therapy Patient feels better awaiting placement Hospitalist Physical - Constitutional Vitals: Temp Pulse Resp BP Pulse Ox 97.3 F L 86 18 117/85 96 05/22/22 05:28 05/22/22 05:28 05/22/22 05:28 05/22/22 05:28 05/22/22 05:28 General appearance: Present: no acute distress, well-nourished - EENT Eyes: Present: PERRL, EOM intact - Neck Neck: Present: supple, normal ROM - Respiratory Respiratory effort: normal Respiratory: bilateral: diminished, negative: rales, rhonchi, wheezing - Cardiovascular Rhythm: regular Heart Sounds: Present: S1 & S2 - Extremities Extremities: no ischemia, No edema - Abdominal General gastrointestinal: soft, non-tender, non-distended, normal bowel sounds - Integumentary Integumentary: Present: clear, warm - Psychiatric Psychiatric: appropriate mood/affect, cooperative - Neurologic Neurologic: CNII-XII intact, moves all extremities HEART Score - HEART Score Troponin: Troponin T < 0.010 ng/mL (0.00-0.029) 04/16/22 20:50 Results - Labs CBC & Chem 7: 05/05/22 04:00 05/17/22 05:52 Labs: Laboratory Last Values WBC 5.0 K/mm3 (4.5-11.0) 05/05/22 04:00 RBC 4.08 M/mm3 (3.65-5.03) 05/05/22 04:00 Hgb 12.4 gm/dl (11.8-15.2) 05/05/22 04:00 Hct 37.0 % (35.5-45.6) 05/05/22 04:00 MCV 91 fl (84-94) 05/05/22 04:00 MCH 30 pg (28-32) 05/05/22 04:00 MCHC 34 % (32-34) 05/05/22 04:00 RDW 14.3 % (13.2-15.2) 05/05/22 04:00 Plt Count 482 K/mm3 (140-440) H 05/05/22 04:00 Lymph % (Auto) 50.4 % (13.4-35.0) H 05/05/22 04:00 [place] % (Auto) 11.6 % (0.0-7.3) H 05/05/22 04:00 Eos % (Auto) 2.0 % (0.0-4.3) 05/05/22 04:00 Baso % (Auto) 0.2 % (0.0-1.8) 05/05/22 04:00 Lymph # (Auto) 2.5 K/mm3 (1.2-5.4) 05/05/22 04:00 [place] # (Auto) 0.6 K/mm3 (0.0-0.8) 05/05/22 04:00 Eos # (Auto) 0.1 K/mm3 (0.0-0.4) 05/05/22 04:00 Baso # (Auto) 0.0 K/mm3 (0.0-0.1) 05/05/22 04:00 Seg Neutrophils % 35.8 % (40.0-70.0) L 05/05/22 04:00 Seg Neutrophils # 1.8 K/mm3 (1.8-7.7) 05/05/22 04:00 PT 13.6 Sec. (12.2-14.9) 04/16/22 20:50 INR 0.94 (0.87-1.13) 04/16/22 20:50 D-Dimer 1188.69 ng/mlDDU (0-234) H 04/22/22 08:25 Sodium 138 mmol/L (137-145) 05/17/22 05:52 Potassium 4.2 mmol/L (3.6-5.0) 05/17/22 05:52 Chloride 102.3 mmol/L (98-107) 05/17/22 05:52 Carbon Dioxide 26 mmol/L (22-30) 05/17/22 05:52 Anion Gap 14 mmol/L 05/17/22 05:52 BUN 32 mg/dL (9-20) H 05/17/22 05:52 Creatinine 1.2 mg/dL (0.8-1.3) 05/17/22 05:52 Estimated GFR > 60 ml/min 05/17/22 05:52 BUN/Creatinine Ratio 27 % 05/17/22 05:52 Glucose 118 mg/dL (75-100) H 05/17/22 05:52 POC Glucose 102 mg/dL (70-105) 05/04/22 11:22 Calcium 9.2 mg/dL (8.4-10.2) 05/17/22 05:52 Magnesium 1.80 mg/dL (1.7-2.3) 04/21/22 10:53 Total Creatine Kinase 1221 units/L (55-170) H 04/19/22 05:31 CK-MB (CK-2) 16.2 ng/mL (0.0-4.0) H 04/16/22 20:50 CK-MB (CK-2) Rel Index 0.3 (0-4) 04/16/22 20:50 Troponin T < 0.010 ng/mL (0.00-0.029) 04/16/22 20:50 Procalcitonin 0.40 ng/mL (<0.15) 04/22/22 11:01 TSH 1.910 mlU/mL (0.270-4.200) 04/16/22 20:50 Free T4 1.24 ng/dL (0.76-1.46) 04/16/22 20:50 Coronavirus (PCR) Negative (Negative) 05/09/22 14:57 SARS-CoV-2 (PCR) Positive (Negative) A 04/29/22 12:30 Ma/IV: Voiding Method Bedside Commode Active Medications - Current Medications Current Medications: Generic Name Dose Route Start Last Admin Trade Name Freq PRN Reason Stop Dose Admin Acetaminophen 650 mg 04/16/22 23:27 05/13/22 20:38 Acetaminophen 325 Mg Tab PO 650 mg Q4H PRN Administration Pain MILD(1-3)/Fever >100.5/CRUZ Heparin Sodium (Porcine) 5,000 unit 04/17/22 06:00 05/22/22 05:29 Heparin 5,000 Unit/1 Ml Vial SUB-Q 5,000 unit Q8HR EDGAR Administration Loperamide HCl 2 mg 05/19/22 09:27 Loperamide 2 Mg Cap PO Q2H PRN Diarrhea Losartan Potassium 100 mg 04/26/22 10:00 05/21/22 09:22 Losartan 50 Mg Tab PO 100 mg QDAY EDGAR Administration Metoprolol Tartrate 50 mg 05/12/22 10:00 05/21/22 22:03 Metoprolol Tartrate 50 Mg Tab PO Not Given BID EDGAR Morphine Sulfate 2 mg 04/16/22 23:27 Morphine 2 Mg/1 Ml Inj IV Q4H PRN Pain, Moderate (4-6) Morphine Sulfate 4 mg 04/16/22 23:27 Morphine 4 Mg/1 Ml Inj IV Q4H PRN Pain , Severe (7-10) Nifedipine 30 mg 04/28/22 10:00 05/21/22 09:22 Nifedipine Xl 30 Mg Tab PO 30 mg QDAY EDGAR Administration Ondansetron HCl 4 mg 04/16/22 23:27 Ondansetron 4 Mg/2 Ml Inj IV Q8H PRN Nausea And Vomiting Sodium Chloride 10 ml 04/17/22 10:00 05/21/22 22:03 Sodium Chloride 0.9% 10 Ml Flush Syringe IV 10 ml BID EDGAR Administration Sodium Chloride 10 ml 04/16/22 23:27 Sodium Chloride 0.9% 10 Ml Flush Syringe IV PRN PRN LINE FLUSH Spironolactone 25 mg 04/20/22 10:00 05/21/22 09:22 Spironolactone 25 Mg Tab PO 25 mg QDAY EDGAR Administration Nutrition/Malnutrition Assess - Dietary Evaluation Nutrition/Malnutrition Findings: Nutrition Notes Start: 04/24/22 15:41 Freq: Status: Active Protocol: Document 05/15/22 12:27 SHWETHA (Rec: 05/15/22 12:44 SHWETHA [id number]) Nutrition Notes Initial or Follow up Reassessment Current Diagnosis Hypertension Other Pertinent Diagnosis Ground-Level Fall, Urinary Retention, COVID-19. Current Diet Cardiac -Chopped Meats- Diet + D Suppl (since B 04/17). Labs/Tests 05/15 Na 134. Pertinent Medications 05/15: Nutritionally unremarkable. Height 5 ft 6 in Weight 70.4 kg [place] Body Weight (kg) 64.54 BMI 25.0 Weight change and time frame No body weight change reported in 2 weeks. Weight Status Appropriate Subjective/Other Information RD consult for routine F/U on dietary advancement. Pt's PO intake has been Poor ( 25%), according to ADL notes; however, Dietary Supplements have been helping Pt to compensate for poor PO intake of meals. Pt is on Room Air, O2 saturation @ 96%, according to Physical Assessment History notes. Pt is medically cleared for discharge, awaiting for placement, according to Progress notes. Percent of energy/protein needs met: Prescribed Cardiac -Chopped Meats- Diet provides for energy/protein needs (2,230 Kcal/85 g) during LOS; additionally, Dietary Supplements will support wound healing processes with 1,050 Kcal and 60 g of protein. Burn Absent Trauma Absent GI Symptoms None Food Allergy No Skin Integrity/Comment Sacrum skin tear. 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 Diagnosis Progress(for reassessment Continues documentation) Is patient on ventilator? No Is Patient Ambulatory and/or Out of Bed No REE-([place] Jeor-confined to bed) [phone] Calculation Used for Recommendations [place] [place] Additional Notes Protein: 1-1.2 g/Kg ABW; 69-83 g/day. Fluids: 1 ml/Kcal, or as per MD. Nutrition Intervention Change Diet Order: Continue Cardiac -Chopped Meats- Diet. Add Supplement/Snack (indicate name/kcal Continue 8 fl oz Ensure Enlive /protein ) ; to TID. Provides kCal: 1,050 Provides Protein (gm) 60 Goal #1 Support, through dietary supplementation, wound healing processes during LOS. Goal #2 Compensate, through dietary supplementation, for possible poor or insufficient PO intake of meals during LOS. Goal #3 Facilitate PO intake of meals with elemental, textural, or mechanical modification during LOS. Goal #4 Adjust the dietary intervention to better serve Pt's needs and clinical conditions during LOS. Follow-Up By: 05/29/22 Additional Comments Continue monitoring food tolerance, %PO intake of meals and ONS, and BM.
[2022-05-22] MEDS: SPIRONOLACTONE 25 MG TAB PO SCH (09:31)
[2022-05-22] MEDS: METOPROLOL TARTRATE 50 MG TAB PO SCH ×2 (09:31→22:36)
[2022-05-22] MEDS: LOSARTAN 50 MG TAB PO SCH (09:31)
[2022-05-22] MEDS: NIFEdipine XL 30 MG TAB PO SCH (09:31)
[2022-05-23] MEDS: HEPARIN 5,000 UNIT/1 ML VIAL SUB-Q SCH ×3 (05:48→21:38)
[2022-05-23] MEDS: NIFEdipine XL 30 MG TAB PO SCH (11:29)
[2022-05-23] MEDS: LOSARTAN 50 MG TAB PO SCH (11:29)
[2022-05-23] MEDS: METOPROLOL TARTRATE 50 MG TAB PO SCH ×2 (11:29→21:38)
[2022-05-23] MEDS: SPIRONOLACTONE 25 MG TAB PO SCH (11:30)
--- NOTE | 2022-05-23 18:59 | Progress Note ---
Assessment and Plan Assessment and plan: --Acute kidney injury secondary to vasomotor nephropathy/dehydrationresolved --Rhabdomyolysisresolved --Hypokalemiaresolved --Hypertension; moderate control, continue current antihypertensives and as needed occasions -- History of ground-level fall, PT/OT/discharge planning[pending placement] --Fever- resolved --Acute hypoxic respiratory failureresolved --Hypocalcemia; resolved --Elevated D-dimer; CTA negative for PE, venous Doppler negative for DVT --COVID-19 infection-positive x3[04/23, 04/29, 05/02], most recent negative[05/09/22] --Urinary retention, on continuous Ma catheterization --Dementia; need total care --Cont supportive care, wait for placement, cont PT/OT daily PT, OT evaluation recommendations noted and appreciated Both services recommend rolling walker, wheelchair and subacute rehab placement Discharge planning per case management Patient is medically stable Disposition; patient is medically stable, pending placement Closely monitor the patient and adjust the management as needed Plan of care reviewed with the patient's nurse and the case management 05/23/2020 stable for discharge awaiting placement History Interval history: I have seen and examined the patient at the bedside Patient's chart and medications reviewed No new events reported by the nursing Patient is cheerful no new complaints Awaiting placement Hospitalist Physical - Constitutional Vitals: Temp Pulse Resp BP Pulse Ox 98.2 F 96 H 22 121/83 96 05/23/22 05:24 05/23/22 05:24 05/23/22 05:24 05/23/22 05:24 05/23/22 05:24 General appearance: Present: no acute distress, well-nourished - EENT Eyes: Present: PERRL, EOM intact - Neck Neck: Present: supple, normal ROM - Respiratory Respiratory effort: normal Respiratory: bilateral: diminished, negative: rales, rhonchi, wheezing - Cardiovascular Rhythm: regular Heart Sounds: Present: S1 & S2 - Extremities Extremities: no ischemia, No edema - Abdominal General gastrointestinal: soft, non-tender, non-distended, normal bowel sounds - Integumentary Integumentary: Present: clear, warm - Psychiatric Psychiatric: appropriate mood/affect, cooperative - Neurologic Neurologic: CNII-XII intact, moves all extremities HEART Score - HEART Score Troponin: Troponin T < 0.010 ng/mL (0.00-0.029) 04/16/22 20:50 Results - Labs CBC & Chem 7: 05/05/22 04:00 05/17/22 05:52 Labs: Laboratory Last Values WBC 5.0 K/mm3 (4.5-11.0) 05/05/22 04:00 RBC 4.08 M/mm3 (3.65-5.03) 05/05/22 04:00 Hgb 12.4 gm/dl (11.8-15.2) 05/05/22 04:00 Hct 37.0 % (35.5-45.6) 05/05/22 04:00 MCV 91 fl (84-94) 05/05/22 04:00 MCH 30 pg (28-32) 05/05/22 04:00 MCHC 34 % (32-34) 05/05/22 04:00 RDW 14.3 % (13.2-15.2) 05/05/22 04:00 Plt Count 482 K/mm3 (140-440) H 05/05/22 04:00 Lymph % (Auto) 50.4 % (13.4-35.0) H 05/05/22 04:00 [place] % (Auto) 11.6 % (0.0-7.3) H 05/05/22 04:00 Eos % (Auto) 2.0 % (0.0-4.3) 05/05/22 04:00 Baso % (Auto) 0.2 % (0.0-1.8) 05/05/22 04:00 Lymph # (Auto) 2.5 K/mm3 (1.2-5.4) 05/05/22 04:00 [place] # (Auto) 0.6 K/mm3 (0.0-0.8) 05/05/22 04:00 Eos # (Auto) 0.1 K/mm3 (0.0-0.4) 05/05/22 04:00 Baso # (Auto) 0.0 K/mm3 (0.0-0.1) 05/05/22 04:00 Seg Neutrophils % 35.8 % (40.0-70.0) L 05/05/22 04:00 Seg Neutrophils # 1.8 K/mm3 (1.8-7.7) 05/05/22 04:00 PT 13.6 Sec. (12.2-14.9) 04/16/22 20:50 INR 0.94 (0.87-1.13) 04/16/22 20:50 D-Dimer 1188.69 ng/mlDDU (0-234) H 04/22/22 08:25 Sodium 138 mmol/L (137-145) 05/17/22 05:52 Potassium 4.2 mmol/L (3.6-5.0) 05/17/22 05:52 Chloride 102.3 mmol/L (98-107) 05/17/22 05:52 Carbon Dioxide 26 mmol/L (22-30) 05/17/22 05:52 Anion Gap 14 mmol/L 05/17/22 05:52 BUN 32 mg/dL (9-20) H 05/17/22 05:52 Creatinine 1.2 mg/dL (0.8-1.3) 05/17/22 05:52 Estimated GFR > 60 ml/min 05/17/22 05:52 BUN/Creatinine Ratio 27 % 05/17/22 05:52 Glucose 118 mg/dL (75-100) H 05/17/22 05:52 POC Glucose 102 mg/dL (70-105) 05/04/22 11:22 Calcium 9.2 mg/dL (8.4-10.2) 05/17/22 05:52 Magnesium 1.80 mg/dL (1.7-2.3) 04/21/22 10:53 Total Creatine Kinase 1221 units/L (55-170) H 04/19/22 05:31 CK-MB (CK-2) 16.2 ng/mL (0.0-4.0) H 04/16/22 20:50 CK-MB (CK-2) Rel Index 0.3 (0-4) 04/16/22 20:50 Troponin T < 0.010 ng/mL (0.00-0.029) 04/16/22 20:50 Procalcitonin 0.40 ng/mL (<0.15) 04/22/22 11:01 TSH 1.910 mlU/mL (0.270-4.200) 04/16/22 20:50 Free T4 1.24 ng/dL (0.76-1.46) 04/16/22 20:50 Coronavirus (PCR) Negative (Negative) 05/09/22 14:57 SARS-CoV-2 (PCR) Positive (Negative) A 04/29/22 12:30 Ma/IV: Voiding Method Indwelling Catheter Active Medications - Current Medications Current Medications: Generic Name Dose Route Start Last Admin Trade Name Freq PRN Reason Stop Dose Admin Acetaminophen 650 mg 04/16/22 23:27 05/13/22 20:38 Acetaminophen 325 Mg Tab PO 650 mg Q4H PRN Administration Pain MILD(1-3)/Fever >100.5/CRUZ Heparin Sodium (Porcine) 5,000 unit 04/17/22 06:00 05/23/22 16:45 Heparin 5,000 Unit/1 Ml Vial SUB-Q 5,000 unit Q8HR EDGAR Administration Loperamide HCl 2 mg 05/19/22 09:27 Loperamide 2 Mg Cap PO Q2H PRN Diarrhea Losartan Potassium 100 mg 04/26/22 10:00 05/23/22 11:29 Losartan 50 Mg Tab PO 100 mg QDAY EDGAR Administration Metoprolol Tartrate 50 mg 05/12/22 10:00 05/23/22 11:29 Metoprolol Tartrate 50 Mg Tab PO 50 mg BID EDGAR Administration Morphine Sulfate 2 mg 04/16/22 23:27 Morphine 2 Mg/1 Ml Inj IV Q4H PRN Pain, Moderate (4-6) Morphine Sulfate 4 mg 04/16/22 23:27 Morphine 4 Mg/1 Ml Inj IV Q4H PRN Pain , Severe (7-10) Nifedipine 30 mg 04/28/22 10:00 05/23/22 11:29 Nifedipine Xl 30 Mg Tab PO 30 mg QDAY EDGAR Administration Ondansetron HCl 4 mg 04/16/22 23:27 Ondansetron 4 Mg/2 Ml Inj IV Q8H PRN Nausea And Vomiting Sodium Chloride 10 ml 04/17/22 10:00 05/23/22 11:30 Sodium Chloride 0.9% 10 Ml Flush Syringe IV 10 ml BID EDGAR Administration Sodium Chloride 10 ml 04/16/22 23:27 Sodium Chloride 0.9% 10 Ml Flush Syringe IV PRN PRN LINE FLUSH Spironolactone 25 mg 04/20/22 10:00 05/23/22 11:30 Spironolactone 25 Mg Tab PO 25 mg QDAY EDGAR Administration Nutrition/Malnutrition Assess - Dietary Evaluation Nutrition/Malnutrition Findings: Nutrition Notes Start: 04/24/22 15:41 Freq: Status: Active Protocol: Document 05/15/22 12:27 SHWETHA (Rec: 05/15/22 12:44 [email or web address] [id number]) Nutrition Notes Initial or Follow up Reassessment Current Diagnosis Hypertension Other Pertinent Diagnosis Ground-Level Fall, Urinary Retention, COVID-19. Current Diet Cardiac -Chopped Meats- Diet + D Suppl (since B 04/17). Labs/Tests 05/15 Na 134. Pertinent Medications 05/15: Nutritionally unremarkable. Height 5 ft 6 in Weight 70.4 kg [place] Body Weight (kg) 64.54 BMI 25.0 Weight change and time frame No body weight change reported in 2 weeks. Weight Status Appropriate Subjective/Other Information RD consult for routine F/U on dietary advancement. Pt's PO intake has been Poor ( 25%), according to ADL notes; however, Dietary Supplements have been helping Pt to compensate for poor PO intake of meals. Pt is on Room Air, O2 saturation @ 96%, according to Physical Assessment History notes. Pt is medically cleared for discharge, awaiting for placement, according to Progress notes. Percent of energy/protein needs met: Prescribed Cardiac -Chopped Meats- Diet provides for energy/protein needs (2,230 Kcal/85 g) during LOS; additionally, Dietary Supplements will support wound healing processes with 1,050 Kcal and 60 g of protein. Burn Absent Trauma Absent GI Symptoms None Food Allergy No Skin Integrity/Comment Sacrum skin tear. 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 Diagnosis Progress(for reassessment Continues documentation) Is patient on ventilator? No Is Patient Ambulatory and/or Out of Bed No REE-([place]-[facility] Je[facility]-confined to bed) 6513.853 Calculation Used for Recommendations [place] Additional Notes Protein: 1-1.2 g/Kg ABW; 69-83 g/day. Fluids: 1 ml/Kcal, or as per MD. Nutrition Intervention Change Diet Order: Continue Cardiac -Chopped Meats- Diet. Add Supplement/Snack (indicate name/kcal Continue 8 fl oz Ensure Enlive /protein ) ; to TID. Provides kCal: 1,050 Provides Protein (gm) 60 Goal #1 Support, through dietary supplementation, wound healing processes during LOS. Goal #2 Compensate, through dietary supplementation, for possible poor or insufficient PO intake of meals during LOS. Goal #3 Facilitate PO intake of meals with elemental, textural, or mechanical modification during LOS. Goal #4 Adjust the dietary intervention to better serve Pt's needs and clinical conditions during LOS. Follow-Up By: 05/29/22 Additional Comments Continue monitoring food tolerance, %PO intake of meals and ONS, and BM.
[2022-05-24] MEDS: HEPARIN 5,000 UNIT/1 ML VIAL SUB-Q SCH ×3 (06:01→21:19)
--- NOTE | 2022-05-24 10:22 | Progress Note ---
Assessment and Plan Assessment and plan: --Acute kidney injury secondary to vasomotor nephropathy/dehydrationresolved --Rhabdomyolysisresolved --Hypokalemiaresolved --Hypertension; moderate control, continue current antihypertensives and as needed occasions -- History of ground-level fall, PT/OT/discharge planning[pending placement] --Fever- resolved --Acute hypoxic respiratory failureresolved --Hypocalcemia; resolved --Elevated D-dimer; CTA negative for PE, venous Doppler negative for DVT --COVID-19 infection-positive x3[04/23, 04/29, 05/02], most recent negative[05/09/22] --Urinary retention, on continuous Ma catheterization --Dementia; need total care --Cont supportive care, wait for placement, cont PT/OT daily PT, OT evaluation recommendations noted and appreciated Both services recommend rolling walker, wheelchair and subacute rehab placement Discharge planning per case management Patient is medically stable Disposition; patient is medically stable, pending placement Closely monitor the patient and adjust the management as needed Plan of care reviewed with the patient's nurse and the case management 05/23/2020 stable for discharge awaiting placement History Interval history: I have seen and examined the patient at the bedside Patient feels better clinically no change No new complaints Awaiting placement Hospitalist Physical - Constitutional Vitals: Temp Pulse Resp BP Pulse Ox 99.2 F 83 18 102/69 97 05/23/22 21:37 05/23/22 21:38 05/23/22 21:37 05/23/22 21:38 05/23/22 21:37 General appearance: Present: no acute distress, well-nourished HEART Score - HEART Score Troponin: Troponin T < 0.010 ng/mL (0.00-0.029) 04/16/22 20:50 Results - Labs CBC & Chem 7: 05/05/22 04:00 05/17/22 05:52 Labs: Laboratory Last Values WBC 5.0 K/mm3 (4.5-11.0) 05/05/22 04:00 RBC 4.08 M/mm3 (3.65-5.03) 05/05/22 04:00 Hgb 12.4 gm/dl (11.8-15.2) 05/05/22 04:00 Hct 37.0 % (35.5-45.6) 05/05/22 04:00 MCV 91 fl (84-94) 05/05/22 04:00 MCH 30 pg (28-32) 05/05/22 04:00 MCHC 34 % (32-34) 05/05/22 04:00 RDW 14.3 % (13.2-15.2) 05/05/22 04:00 Plt Count 482 K/mm3 (140-440) H 05/05/22 04:00 Lymph % (Auto) 50.4 % (13.4-35.0) H 05/05/22 04:00 Carbon % (Auto) 11.6 % (0.0-7.3) H 05/05/22 04:00 Eos % (Auto) 2.0 % (0.0-4.3) 05/05/22 04:00 Baso % (Auto) 0.2 % (0.0-1.8) 05/05/22 04:00 Lymph # (Auto) 2.5 K/mm3 (1.2-5.4) 05/05/22 04:00 Carbon # (Auto) 0.6 K/mm3 (0.0-0.8) 05/05/22 04:00 Eos # (Auto) 0.1 K/mm3 (0.0-0.4) 05/05/22 04:00 Baso # (Auto) 0.0 K/mm3 (0.0-0.1) 05/05/22 04:00 Seg Neutrophils % 35.8 % (40.0-70.0) L 05/05/22 04:00 Seg Neutrophils # 1.8 K/mm3 (1.8-7.7) 05/05/22 04:00 PT 13.6 Sec. (12.2-14.9) 04/16/22 20:50 INR 0.94 (0.87-1.13) 04/16/22 20:50 D-Dimer 1188.69 ng/mlDDU (0-234) H 04/22/22 08:25 Sodium 138 mmol/L (137-145) 05/17/22 05:52 Potassium 4.2 mmol/L (3.6-5.0) 05/17/22 05:52 Chloride 102.3 mmol/L (98-107) 05/17/22 05:52 Carbon Dioxide 26 mmol/L (22-30) 05/17/22 05:52 Anion Gap 14 mmol/L 05/17/22 05:52 BUN 32 mg/dL (9-20) H 05/17/22 05:52 Creatinine 1.2 mg/dL (0.8-1.3) 05/17/22 05:52 Estimated GFR > 60 ml/min 05/17/22 05:52 BUN/Creatinine Ratio 27 % 05/17/22 05:52 Glucose 118 mg/dL (75-100) H 05/17/22 05:52 POC Glucose 102 mg/dL (70-105) 05/04/22 11:22 Calcium 9.2 mg/dL (8.4-10.2) 05/17/22 05:52 Magnesium 1.80 mg/dL (1.7-2.3) 04/21/22 10:53 Total Creatine Kinase 1221 units/L (55-170) H 04/19/22 05:31 CK-MB (CK-2) 16.2 ng/mL (0.0-4.0) H 04/16/22 20:50 CK-MB (CK-2) Rel Index 0.3 (0-4) 04/16/22 20:50 Troponin T < 0.010 ng/mL (0.00-0.029) 04/16/22 20:50 Procalcitonin 0.40 ng/mL (<0.15) 04/22/22 11:01 TSH 1.910 mlU/mL (0.270-4.200) 04/16/22 20:50 Free T4 1.24 ng/dL (0.76-1.46) 04/16/22 20:50 Coronavirus (PCR) Negative (Negative) 05/09/22 14:57 SARS-CoV-2 (PCR) Positive (Negative) A 04/29/22 12:30 Ma/IV: Voiding Method Indwelling Catheter Active Medications - Current Medications Current Medications: Generic Name Dose Route Start Last Admin Trade Name Freq PRN Reason Stop Dose Admin Acetaminophen 650 mg 04/16/22 23:27 05/13/22 20:38 Acetaminophen 325 Mg Tab PO 650 mg Q4H PRN Administration Pain MILD(1-3)/Fever >100.5/CRUZ Heparin Sodium (Porcine) 5,000 unit 04/17/22 06:00 05/24/22 06:01 Heparin 5,000 Unit/1 Ml Vial SUB-Q 5,000 unit Q8HR EDGAR Administration Loperamide HCl 2 mg 05/19/22 09:27 Loperamide 2 Mg Cap PO Q2H PRN Diarrhea Losartan Potassium 100 mg 04/26/22 10:00 05/23/22 11:29 Losartan 50 Mg Tab PO 100 mg QDAY EDGAR Administration Metoprolol Tartrate 50 mg 05/12/22 10:00 05/23/22 21:38 Metoprolol Tartrate 50 Mg Tab PO Not Given BID EDGAR Morphine Sulfate 2 mg 04/16/22 23:27 Morphine 2 Mg/1 Ml Inj IV Q4H PRN Pain, Moderate (4-6) Morphine Sulfate 4 mg 04/16/22 23:27 Morphine 4 Mg/1 Ml Inj IV Q4H PRN Pain , Severe (7-10) Nifedipine 30 mg 04/28/22 10:00 05/23/22 11:29 Nifedipine Xl 30 Mg Tab PO 30 mg QDAY EDGAR Administration Ondansetron HCl 4 mg 04/16/22 23:27 Ondansetron 4 Mg/2 Ml Inj IV Q8H PRN Nausea And Vomiting Sodium Chloride 10 ml 04/17/22 10:00 05/23/22 21:38 Sodium Chloride 0.9% 10 Ml Flush Syringe IV 10 ml BID EDGAR Administration Sodium Chloride 10 ml 04/16/22 23:27 Sodium Chloride 0.9% 10 Ml Flush Syringe IV PRN PRN LINE FLUSH Spironolactone 25 mg 04/20/22 10:00 05/23/22 11:30 Spironolactone 25 Mg Tab PO 25 mg QDAY EDGAR Administration Nutrition/Malnutrition Assess - Dietary Evaluation Nutrition/Malnutrition Findings: Nutrition Notes Start: 04/24/22 15:41 Freq: Status: Active Protocol: Document 05/15/22 12:27 SHWETHA (Rec: 05/15/22 12:44 SHWETHA [id number]) Nutrition Notes Initial or Follow up Reassessment Current Diagnosis Hypertension Other Pertinent Diagnosis Ground-Level Fall, Urinary Retention, COVID-19. Current Diet Cardiac -Chopped Meats- Diet + D Suppl (since B 04/17). Labs/Tests 05/15 Na 134. Pertinent Medications 05/15: Nutritionally unremarkable. Height 5 ft 6 in Weight 70.4 kg [place] Body Weight (kg) 64.54 BMI 25.0 Weight change and time frame No body weight change reported in 2 weeks. Weight Status Appropriate Subjective/Other Information RD consult for routine F/U on dietary advancement. Pt's PO intake has been Poor ( 25%), according to ADL notes; however, Dietary Supplements have been helping Pt to compensate for poor PO intake of meals. Pt is on Room Air, O2 saturation @ 96%, according to Physical Assessment History notes. Pt is medically cleared for discharge, awaiting for placement, according to Progress notes. Percent of energy/protein needs met: Prescribed Cardiac -Chopped Meats- Diet provides for energy/protein needs (2,230 Kcal/85 g) during LOS; additionally, Dietary Supplements will support wound healing processes with 1,050 Kcal and 60 g of protein. Burn Absent Trauma Absent GI Symptoms None Food Allergy No Skin Integrity/Comment Sacrum skin tear. 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 Diagnosis Progress(for reassessment Continues documentation) Is patient on ventilator? No Is Patient Ambulatory and/or Out of Bed No REE-([facility]-confined to bed) [phone] Calculation Used for Recommendations [facility] Additional Notes Protein: 1-1.2 g/Kg ABW; 69-83 g/day. Fluids: 1 ml/Kcal, or as per MD. Nutrition Intervention Change Diet Order: Continue Cardiac -Chopped Meats- Diet. Add Supplement/Snack (indicate name/kcal Continue 8 fl oz Ensure Enlive /protein ) ; to TID. Provides kCal: 1,050 Provides Protein (gm) 60 Goal #1 Support, through dietary supplementation, wound healing processes during LOS. Goal #2 Compensate, through dietary supplementation, for possible poor or insufficient PO intake of meals during LOS. Goal #3 Facilitate PO intake of meals with elemental, textural, or mechanical modification during LOS. Goal #4 Adjust the dietary intervention to better serve Pt's needs and clinical conditions during LOS. Follow-Up By: 05/29/22 Additional Comments Continue monitoring food tolerance, %PO intake of meals and ONS, and BM.
[2022-05-24] MEDS: NIFEdipine XL 30 MG TAB PO SCH (11:12)
[2022-05-24] MEDS: METOPROLOL TARTRATE 50 MG TAB PO SCH ×2 (11:12→23:29)
[2022-05-24] MEDS: SPIRONOLACTONE 25 MG TAB PO SCH (11:12)
[2022-05-24] MEDS: LOSARTAN 50 MG TAB PO SCH (11:13)
[2022-05-25] MEDS: HEPARIN 5,000 UNIT/1 ML VIAL SUB-Q SCH ×3 (06:29→21:19)
[2022-05-25] MEDS: NIFEdipine XL 30 MG TAB PO SCH (09:34)
[2022-05-25] MEDS: METOPROLOL TARTRATE 50 MG TAB PO SCH ×2 (09:34→21:19)
[2022-05-25] MEDS: SPIRONOLACTONE 25 MG TAB PO SCH (09:34)
[2022-05-25] MEDS: LOSARTAN 50 MG TAB PO SCH (09:34)
--- NOTE | 2022-05-25 19:34 | Progress Note ---
Assessment and Plan Assessment and plan: --Acute kidney injury secondary to vasomotor nephropathy/dehydrationresolved --Rhabdomyolysisresolved --Hypokalemiaresolved --Hypertension; moderate control, continue current antihypertensives and as needed occasions -- History of ground-level fall, PT/OT/discharge planning[pending placement] --Fever- resolved --Acute hypoxic respiratory failureresolved --Hypocalcemia; resolved --Elevated D-dimer; CTA negative for PE, venous Doppler negative for DVT --COVID-19 infection-positive x3[04/23, 04/29, 05/02], most recent negative[05/09/22] --Urinary retention, on continuous Ma catheterization --Dementia; need total care --Cont supportive care, wait for placement, cont PT/OT daily PT, OT evaluation recommendations noted and appreciated Both services recommend rolling walker, wheelchair and subacute rehab placement Discharge planning per case management Patient is medically stable Disposition; patient is medically stable, pending placement Closely monitor the patient and adjust the management as needed Plan of care reviewed with the patient's nurse and the case management 05/23/2020 stable for discharge awaiting placement 05/25; awaiting placement, DC plan per case management History Interval history: Seen and examined the patient at the bedside Patient's chart and medications reviewed Patient has no new complaints Patient is awaiting placement Vital signs noted Hospitalist Physical - Constitutional Vitals: Temp Pulse Resp BP Pulse Ox 98.0 F 98 H 16 116/84 97 05/25/22 05:04 05/25/22 08:56 05/25/22 05:04 05/25/22 08:56 05/25/22 08:56 General appearance: Present: no acute distress, well-nourished - EENT Eyes: Present: PERRL, EOM intact - Neck Neck: Present: supple, normal ROM - Respiratory Respiratory effort: normal Respiratory: bilateral: diminished, negative: rales, rhonchi, wheezing - Cardiovascular Rhythm: regular Heart Sounds: Present: S1 & S2 - Extremities Extremities: no ischemia, No edema - Abdominal General gastrointestinal: soft, non-tender, non-distended, normal bowel sounds - Integumentary Integumentary: Present: clear, warm - Psychiatric Psychiatric: appropriate mood/affect, cooperative - Neurologic Neurologic: CNII-XII intact, moves all extremities HEART Score - HEART Score Troponin: Troponin T < 0.010 ng/mL (0.00-0.029) 04/16/22 20:50 Results - Labs CBC & Chem 7: 05/05/22 04:00 05/17/22 05:52 Labs: Laboratory Last Values WBC 5.0 K/mm3 (4.5-11.0) 05/05/22 04:00 RBC 4.08 M/mm3 (3.65-5.03) 05/05/22 04:00 Hgb 12.4 gm/dl (11.8-15.2) 05/05/22 04:00 Hct 37.0 % (35.5-45.6) 05/05/22 04:00 MCV 91 fl (84-94) 05/05/22 04:00 MCH 30 pg (28-32) 05/05/22 04:00 MCHC 34 % (32-34) 05/05/22 04:00 RDW 14.3 % (13.2-15.2) 05/05/22 04:00 Plt Count 482 K/mm3 (140-440) H 05/05/22 04:00 Lymph % (Auto) 50.4 % (13.4-35.0) H 05/05/22 04:00 [place] % (Auto) 11.6 % (0.0-7.3) H 05/05/22 04:00 Eos % (Auto) 2.0 % (0.0-4.3) 05/05/22 04:00 Baso % (Auto) 0.2 % (0.0-1.8) 05/05/22 04:00 Lymph # (Auto) 2.5 K/mm3 (1.2-5.4) 05/05/22 04:00 [place] # (Auto) 0.6 K/mm3 (0.0-0.8) 05/05/22 04:00 Eos # (Auto) 0.1 K/mm3 (0.0-0.4) 05/05/22 04:00 Baso # (Auto) 0.0 K/mm3 (0.0-0.1) 05/05/22 04:00 Seg Neutrophils % 35.8 % (40.0-70.0) L 05/05/22 04:00 Seg Neutrophils # 1.8 K/mm3 (1.8-7.7) 05/05/22 04:00 PT 13.6 Sec. (12.2-14.9) 04/16/22 20:50 INR 0.94 (0.87-1.13) 04/16/22 20:50 D-Dimer 1188.69 ng/mlDDU (0-234) H 04/22/22 08:25 Sodium 138 mmol/L (137-145) 05/17/22 05:52 Potassium 4.2 mmol/L (3.6-5.0) 05/17/22 05:52 Chloride 102.3 mmol/L (98-107) 05/17/22 05:52 Carbon Dioxide 26 mmol/L (22-30) 05/17/22 05:52 Anion Gap 14 mmol/L 05/17/22 05:52 BUN 32 mg/dL (9-20) H 05/17/22 05:52 Creatinine 1.2 mg/dL (0.8-1.3) 05/17/22 05:52 Estimated GFR > 60 ml/min 05/17/22 05:52 BUN/Creatinine Ratio 27 % 05/17/22 05:52 Glucose 118 mg/dL (75-100) H 05/17/22 05:52 POC Glucose 102 mg/dL (70-105) 05/04/22 11:22 Calcium 9.2 mg/dL (8.4-10.2) 05/17/22 05:52 Magnesium 1.80 mg/dL (1.7-2.3) 04/21/22 10:53 Total Creatine Kinase 1221 units/L (55-170) H 04/19/22 05:31 CK-MB (CK-2) 16.2 ng/mL (0.0-4.0) H 04/16/22 20:50 CK-MB (CK-2) Rel Index 0.3 (0-4) 04/16/22 20:50 Troponin T < 0.010 ng/mL (0.00-0.029) 04/16/22 20:50 Procalcitonin 0.40 ng/mL (<0.15) 04/22/22 11:01 TSH 1.910 mlU/mL (0.270-4.200) 04/16/22 20:50 Free T4 1.24 ng/dL (0.76-1.46) 04/16/22 20:50 Coronavirus (PCR) Negative (Negative) 05/09/22 14:57 SARS-CoV-2 (PCR) Positive (Negative) A 04/29/22 12:30 Ma/IV: Voiding Method Indwelling Catheter Active Medications - Current Medications Current Medications: Generic Name Dose Route Start Last Admin Trade Name Freq PRN Reason Stop Dose Admin Acetaminophen 650 mg 04/16/22 23:27 05/13/22 20:38 Acetaminophen 325 Mg Tab PO 650 mg Q4H PRN Administration Pain MILD(1-3)/Fever >100.5/CRUZ Heparin Sodium (Porcine) 5,000 unit 04/17/22 06:00 05/25/22 16:17 Heparin 5,000 Unit/1 Ml Vial SUB-Q 5,000 unit Q8HR EDGAR Administration Loperamide HCl 2 mg 05/19/22 09:27 Loperamide 2 Mg Cap PO Q2H PRN Diarrhea Losartan Potassium 100 mg 04/26/22 10:00 05/25/22 09:34 Losartan 50 Mg Tab PO 100 mg QDAY EDGAR Administration Metoprolol Tartrate 50 mg 05/12/22 10:00 05/25/22 09:34 Metoprolol Tartrate 50 Mg Tab PO 50 mg BID EDGAR Administration Morphine Sulfate 2 mg 04/16/22 23:27 Morphine 2 Mg/1 Ml Inj IV Q4H PRN Pain, Moderate (4-6) Morphine Sulfate 4 mg 04/16/22 23:27 Morphine 4 Mg/1 Ml Inj IV Q4H PRN Pain , Severe (7-10) Nifedipine 30 mg 04/28/22 10:00 05/25/22 09:34 Nifedipine Xl 30 Mg Tab PO 30 mg QDAY EDGAR Administration Ondansetron HCl 4 mg 04/16/22 23:27 Ondansetron 4 Mg/2 Ml Inj IV Q8H PRN Nausea And Vomiting Sodium Chloride 10 ml 04/17/22 10:00 05/25/22 09:35 Sodium Chloride 0.9% 10 Ml Flush Syringe IV 10 ml BID EDGAR Administration Sodium Chloride 10 ml 04/16/22 23:27 Sodium Chloride 0.9% 10 Ml Flush Syringe IV PRN PRN LINE FLUSH Spironolactone 25 mg 04/20/22 10:00 05/25/22 09:34 Spironolactone 25 Mg Tab PO 25 mg QDAY EDGAR Administration Nutrition/Malnutrition Assess - Dietary Evaluation Nutrition/Malnutrition Findings: Nutrition Notes Start: 04/24/22 15:41 Freq: Status: Active Protocol: Document 05/15/22 12:27 SHWETHA (Rec: 05/15/22 12:44 SHWETHA [id number]) Nutrition Notes Initial or Follow up Reassessment Current Diagnosis Hypertension Other Pertinent Diagnosis Ground-Level Fall, Urinary Retention, COVID-19. Current Diet Cardiac -Chopped Meats- Diet + D Suppl (since B 04/17). Labs/Tests 05/15 Na 134. Pertinent Medications 05/15: Nutritionally unremarkable. Height 5 ft 6 in Weight 70.4 kg [place] Body Weight (kg) 64.54 BMI 25.0 Weight change and time frame No body weight change reported in 2 weeks. Weight Status Appropriate Subjective/Other Information RD consult for routine F/U on dietary advancement. Pt's PO intake has been Poor ( 25%), according to ADL notes; however, Dietary Supplements have been helping Pt to compensate for poor PO intake of meals. Pt is on Room Air, O2 saturation @ 96%, according to Physical Assessment History notes. Pt is medically cleared for discharge, awaiting for placement, according to Progress notes. Percent of energy/protein needs met: Prescribed Cardiac -Chopped Meats- Diet provides for energy/protein needs (2,230 Kcal/85 g) during LOS; additionally, Dietary Supplements will support wound healing processes with 1,050 Kcal and 60 g of protein. Burn Absent Trauma Absent GI Symptoms None Food Allergy No Skin Integrity/Comment Sacrum skin tear. 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 Diagnosis Progress(for reassessment Continues documentation) Is patient on ventilator? No Is Patient Ambulatory and/or Out of Bed No REE-([facility]-confined to bed) [phone] Calculation Used for Recommendations [facility] Additional Notes Protein: 1-1.2 g/Kg ABW; 69-83 g/day. Fluids: 1 ml/Kcal, or as per MD. Nutrition Intervention Change Diet Order: Continue Cardiac -Chopped Meats- Diet. Add Supplement/Snack (indicate name/kcal Continue 8 fl oz Ensure Enlive /protein ) ; to TID. Provides kCal: 1,050 Provides Protein (gm) 60 Goal #1 Support, through dietary supplementation, wound healing processes during LOS. Goal #2 Compensate, through dietary supplementation, for possible poor or insufficient PO intake of meals during LOS. Goal #3 Facilitate PO intake of meals with elemental, textural, or mechanical modification during LOS. Goal #4 Adjust the dietary intervention to better serve Pt's needs and clinical conditions during LOS. Follow-Up By: 05/29/22 Additional Comments Continue monitoring food tolerance, %PO intake of meals and ONS, and BM.
[2022-05-26] MEDS: HEPARIN 5,000 UNIT/1 ML VIAL SUB-Q SCH ×3 (05:07→23:39)
[2022-05-26] MEDS: METOPROLOL TARTRATE 50 MG TAB PO SCH ×2 (11:39→23:39)
[2022-05-26] MEDS: SPIRONOLACTONE 25 MG TAB PO SCH (11:40)
[2022-05-26] MEDS: LOSARTAN 50 MG TAB PO SCH (11:41)
[2022-05-26] MEDS: NIFEdipine XL 30 MG TAB PO SCH (11:42)
--- NOTE | 2022-05-26 18:18 | Progress Note ---
Assessment and Plan Assessment and plan: --Acute kidney injury secondary to vasomotor nephropathy/resolved --Rhabdomyolysisresolved --Hypokalemiaresolved --Hypertension; moderate control, continue current antihypertensives and as needed occasions -- History of ground-level fall, PT/OT/discharge planning[pending placement] --Fever- resolved --Acute hypoxic respiratory failureresolved/ --Hypocalcemia; resolved --Elevated D-dimer; CTA negative for PE, venous Doppler negative for DVT --COVID-19 infection-positive x3[04/23, 04/29, 05/02], most recent negative[05/09/22] --Urinary retention, on continuous Ma catheterization --Dementia; need total care --Cont supportive care, wait for placement, cont PT/OT daily PT, OT evaluation recommendations noted and appreciated Both services recommend rolling walker, wheelchair and subacute rehab placement Discharge planning per case management Patient is medically stable Disposition; patient is medically stable, pending placement Social issues, case management assisting with discharge planning [facility] community /group helping financially with the placement needs Closely monitor the patient and adjust the management as needed Plan of care reviewed with the patient's nurse and the case management 05/23/2020 stable for discharge awaiting placement 05/25; awaiting placement, DC plan per case management 05/26; patient is medically stable for discharge Pending placement History Interval history: Seen and examined the patient at the bedside Patient's chart and medications reviewed No new events reported by the nursing Patient is medically stable awaiting placement Vitals are noted Hospitalist Physical - Constitutional Vitals: Temp Pulse Resp BP Pulse Ox 97.2 F L 74 18 141/66 99 05/26/22 04:21 05/26/22 11:41 05/26/22 04:21 05/26/22 11:41 05/26/22 10:00 General appearance: Present: no acute distress, well-nourished - EENT Eyes: Present: PERRL, EOM intact - Neck Neck: Present: supple, normal ROM - Respiratory Respiratory effort: normal Respiratory: bilateral: diminished, negative: rales, rhonchi, wheezing - Cardiovascular Rhythm: regular Heart Sounds: Present: S1 & S2 - Extremities Extremities: no ischemia, No edema - Abdominal General gastrointestinal: soft, non-tender, non-distended, normal bowel sounds - Integumentary Integumentary: Present: clear, warm - Psychiatric Psychiatric: appropriate mood/affect, cooperative - Neurologic Neurologic: moves all extremities HEART Score - HEART Score Troponin: Troponin T < 0.010 ng/mL (0.00-0.029) 04/16/22 20:50 Results - Labs CBC & Chem 7: 05/05/22 04:00 05/17/22 05:52 Labs: Laboratory Last Values WBC 5.0 K/mm3 (4.5-11.0) 05/05/22 04:00 RBC 4.08 M/mm3 (3.65-5.03) 05/05/22 04:00 Hgb 12.4 gm/dl (11.8-15.2) 05/05/22 04:00 Hct 37.0 % (35.5-45.6) 05/05/22 04:00 MCV 91 fl (84-94) 05/05/22 04:00 MCH 30 pg (28-32) 05/05/22 04:00 MCHC 34 % (32-34) 05/05/22 04:00 RDW 14.3 % (13.2-15.2) 05/05/22 04:00 Plt Count 482 K/mm3 (140-440) H 05/05/22 04:00 Lymph % (Auto) 50.4 % (13.4-35.0) H 05/05/22 04:00 [place] % (Auto) 11.6 % (0.0-7.3) H 05/05/22 04:00 Eos % (Auto) 2.0 % (0.0-4.3) 05/05/22 04:00 Baso % (Auto) 0.2 % (0.0-1.8) 05/05/22 04:00 Lymph # (Auto) 2.5 K/mm3 (1.2-5.4) 05/05/22 04:00 [place] # (Auto) 0.6 K/mm3 (0.0-0.8) 05/05/22 04:00 Eos # (Auto) 0.1 K/mm3 (0.0-0.4) 05/05/22 04:00 Baso # (Auto) 0.0 K/mm3 (0.0-0.1) 05/05/22 04:00 Seg Neutrophils % 35.8 % (40.0-70.0) L 05/05/22 04:00 Seg Neutrophils # 1.8 K/mm3 (1.8-7.7) 05/05/22 04:00 PT 13.6 Sec. (12.2-14.9) 04/16/22 20:50 INR 0.94 (0.87-1.13) 04/16/22 20:50 D-Dimer 1188.69 ng/mlDDU (0-234) H 04/22/22 08:25 Sodium 138 mmol/L (137-145) 05/17/22 05:52 Potassium 4.2 mmol/L (3.6-5.0) 05/17/22 05:52 Chloride 102.3 mmol/L (98-107) 05/17/22 05:52 Carbon Dioxide 26 mmol/L (22-30) 05/17/22 05:52 Anion Gap 14 mmol/L 05/17/22 05:52 BUN 32 mg/dL (9-20) H 05/17/22 05:52 Creatinine 1.2 mg/dL (0.8-1.3) 05/17/22 05:52 Estimated GFR > 60 ml/min 05/17/22 05:52 BUN/Creatinine Ratio 27 % 05/17/22 05:52 Glucose 118 mg/dL (75-100) H 05/17/22 05:52 POC Glucose 102 mg/dL (70-105) 05/04/22 11:22 Calcium 9.2 mg/dL (8.4-10.2) 05/17/22 05:52 Magnesium 1.80 mg/dL (1.7-2.3) 04/21/22 10:53 Total Creatine Kinase 1221 units/L (55-170) H 04/19/22 05:31 CK-MB (CK-2) 16.2 ng/mL (0.0-4.0) H 04/16/22 20:50 CK-MB (CK-2) Rel Index 0.3 (0-4) 04/16/22 20:50 Troponin T < 0.010 ng/mL (0.00-0.029) 04/16/22 20:50 Procalcitonin 0.40 ng/mL (<0.15) 04/22/22 11:01 TSH 1.910 mlU/mL (0.270-4.200) 04/16/22 20:50 Free T4 1.24 ng/dL (0.76-1.46) 04/16/22 20:50 Coronavirus (PCR) Negative (Negative) 05/09/22 14:57 SARS-CoV-2 (PCR) Positive (Negative) A 04/29/22 12:30 Ma/IV: Voiding Method Indwelling Catheter Active Medications - Current Medications Current Medications: Generic Name Dose Route Start Last Admin Trade Name Freq PRN Reason Stop Dose Admin Acetaminophen 650 mg 04/16/22 23:27 05/13/22 20:38 Acetaminophen 325 Mg Tab PO 650 mg Q4H PRN Administration Pain MILD(1-3)/Fever >100.5/CRUZ Heparin Sodium (Porcine) 5,000 unit 04/17/22 06:00 05/26/22 05:07 Heparin 5,000 Unit/1 Ml Vial SUB-Q 5,000 unit Q8HR EDGAR Administration Loperamide HCl 2 mg 05/19/22 09:27 Loperamide 2 Mg Cap PO Q2H PRN Diarrhea Losartan Potassium 100 mg 04/26/22 10:00 05/26/22 11:41 Losartan 50 Mg Tab PO 100 mg QDAY EDGAR Administration Metoprolol Tartrate 50 mg 05/12/22 10:00 05/26/22 11:39 Metoprolol Tartrate 50 Mg Tab PO 50 mg BID EDGAR Administration Morphine Sulfate 2 mg 04/16/22 23:27 Morphine 2 Mg/1 Ml Inj IV Q4H PRN Pain, Moderate (4-6) Morphine Sulfate 4 mg 04/16/22 23:27 Morphine 4 Mg/1 Ml Inj IV Q4H PRN Pain , Severe (7-10) Nifedipine 30 mg 04/28/22 10:00 05/26/22 11:42 Nifedipine Xl 30 Mg Tab PO 30 mg QDAY EDGAR Administration Ondansetron HCl 4 mg 04/16/22 23:27 Ondansetron 4 Mg/2 Ml Inj IV Q8H PRN Nausea And Vomiting Sodium Chloride 10 ml 04/17/22 10:00 05/26/22 11:45 Sodium Chloride 0.9% 10 Ml Flush Syringe IV 10 ml BID EDGAR Administration Sodium Chloride 10 ml 04/16/22 23:27 Sodium Chloride 0.9% 10 Ml Flush Syringe IV PRN PRN LINE FLUSH Spironolactone 25 mg 04/20/22 10:00 05/26/22 11:40 Spironolactone 25 Mg Tab PO 25 mg QDAY EDGAR Administration Nutrition/Malnutrition Assess - Dietary Evaluation Nutrition/Malnutrition Findings: Nutrition Notes Start: 04/24/22 15:41 Freq: Status: Active Protocol: Document 05/15/22 12:27 SHWETHA (Rec: 05/15/22 12:44 SHWETHA [id number]) Nutrition Notes Initial or Follow up Reassessment Current Diagnosis Hypertension Other Pertinent Diagnosis Ground-Level Fall, Urinary Retention, COVID-19. Current Diet Cardiac -Chopped Meats- Diet + D Suppl (since B 04/17). Labs/Tests 05/15 Na 134. Pertinent Medications 05/15: Nutritionally unremarkable. Height 5 ft 6 in Weight 70.4 kg [place] Body Weight (kg) 64.54 BMI 25.0 Weight change and time frame No body weight change reported in 2 weeks. Weight Status Appropriate Subjective/Other Information RD consult for routine F/U on dietary advancement. Pt's PO intake has been Poor ( 25%), according to ADL notes; however, Dietary Supplements have been helping Pt to compensate for poor PO intake of meals. Pt is on Room Air, O2 saturation @ 96%, according to Physical Assessment History notes. Pt is medically cleared for discharge, awaiting for placement, according to Progress notes. Percent of energy/protein needs met: Prescribed Cardiac -Chopped Meats- Diet provides for energy/protein needs (2,230 Kcal/85 g) during LOS; additionally, Dietary Supplements will support wound healing processes with 1,050 Kcal and 60 g of protein. Burn Absent Trauma Absent GI Symptoms None Food Allergy No Skin Integrity/Comment Sacrum skin tear. Current % PO Poor (25-49%) Minimum of two criteria No Fluid Accumulation N/A Reduced Heel Scorer Strength N/A (non-severe) Protein-Calorie Malnutrition N\A #3 Nutrition Diagnosis Biting/Chewing (masticatory) difficulty Diagnosis Progress(for reassessment Continues documentation) #2 Nutrition Diagnosis Inadequate protein-energy intake Diagnosis Progress(for reassessment Continues documentation) #1 Nutrition Diagnosis Increased nutrient needs ( specify in comment below) Comments: Protein to support wound healing processes. Diagnosis Progress(for reassessment Continues documentation) Is patient on ventilator? No Is Patient Ambulatory and/or Out of Bed No REE-([facility]-confined to bed) [phone] Calculation Used for Recommendations [facility] Additional Notes Protein: 1-1.2 g/Kg ABW; 69-83 g/day. Fluids: 1 ml/Kcal, or as per MD. Nutrition Intervention Change Diet Order: Continue Cardiac -Chopped Meats- Diet. Add Supplement/Snack (indicate name/kcal Continue 8 fl oz Ensure Enlive /protein ) ; to TID. Provides kCal: 1,050 Provides Protein (gm) 60 Goal #1 Support, through dietary supplementation, wound healing processes during LOS. Goal #2 Compensate, through dietary supplementation, for possible poor or insufficient PO intake of meals during LOS. Goal #3 Facilitate PO intake of meals with elemental, textural, or mechanical modification during LOS. Goal #4 Adjust the dietary intervention to better serve Pt's needs and clinical conditions during LOS. Follow-Up By: 05/29/22 Additional Comments Continue monitoring food tolerance, %PO intake of meals and ONS, and BM.
[2022-05-27] MEDS: HEPARIN 5,000 UNIT/1 ML VIAL SUB-Q SCH ×2 (05:33→14:28)
--- NOTE | 2022-05-27 09:08 | Progress Note ---
Assessment and Plan Assessment and plan: --Acute kidney injury secondary to vasomotor nephropathy/resolved --Rhabdomyolysisresolved --Hypokalemiaresolved --Hypertension; moderate control, continue current antihypertensives and as needed occasions -- History of ground-level fall, PT/OT/discharge planning[pending placement] --Fever- resolved --Acute hypoxic respiratory failureresolved/ --Hypocalcemia; resolved --Elevated D-dimer; CTA negative for PE, venous Doppler negative for DVT --COVID-19 infection-positive x3[04/23, 04/29, 05/02], most recent negative[05/09/22] --Urinary retention, on continuous Ma catheterization --Dementia; need total care --Cont supportive care, wait for placement, cont PT/OT daily PT, OT evaluation recommendations noted and appreciated Both services recommend rolling walker, wheelchair and subacute rehab placement Discharge planning per case management Patient is medically stable Disposition; patient is medically stable, pending placement Social issues, case management assisting with discharge planning [facility] community /group helping financially with the placement needs Closely monitor the patient and adjust the management as needed Plan of care reviewed with the patient's nurse and the case management 05/23/2020 stable for discharge awaiting placement 05/25; awaiting placement, DC plan per case management 05/26; patient is medically stable for discharge Pending placement Hospitalist Physical - Constitutional Vitals: Temp Pulse Resp BP Pulse Ox 98.7 F 91 H 18 96/67 98 05/27/22 05:34 05/27/22 05:34 05/27/22 05:34 05/27/22 05:34 05/27/22 05:34 General appearance: Present: no acute distress, well-nourished HEART Score - HEART Score Troponin: Troponin T < 0.010 ng/mL (0.00-0.029) 04/16/22 20:50 Results - Labs CBC & Chem 7: 05/05/22 04:00 05/17/22 05:52 Labs: Laboratory Last Values WBC 5.0 K/mm3 (4.5-11.0) 05/05/22 04:00 RBC 4.08 M/mm3 (3.65-5.03) 05/05/22 04:00 Hgb 12.4 gm/dl (11.8-15.2) 05/05/22 04:00 Hct 37.0 % (35.5-45.6) 05/05/22 04:00 MCV 91 fl (84-94) 05/05/22 04:00 MCH 30 pg (28-32) 05/05/22 04:00 MCHC 34 % (32-34) 05/05/22 04:00 RDW 14.3 % (13.2-15.2) 05/05/22 04:00 Plt Count 482 K/mm3 (140-440) H 05/05/22 04:00 Lymph % (Auto) 50.4 % (13.4-35.0) H 05/05/22 04:00 [place] % (Auto) 11.6 % (0.0-7.3) H 05/05/22 04:00 Eos % (Auto) 2.0 % (0.0-4.3) 05/05/22 04:00 Baso % (Auto) 0.2 % (0.0-1.8) 05/05/22 04:00 Lymph # (Auto) 2.5 K/mm3 (1.2-5.4) 05/05/22 04:00 [place] # (Auto) 0.6 K/mm3 (0.0-0.8) 05/05/22 04:00 Eos # (Auto) 0.1 K/mm3 (0.0-0.4) 05/05/22 04:00 Baso # (Auto) 0.0 K/mm3 (0.0-0.1) 05/05/22 04:00 Seg Neutrophils % 35.8 % (40.0-70.0) L 05/05/22 04:00 Seg Neutrophils # 1.8 K/mm3 (1.8-7.7) 05/05/22 04:00 PT 13.6 Sec. (12.2-14.9) 04/16/22 20:50 INR 0.94 (0.87-1.13) 04/16/22 20:50 D-Dimer 1188.69 ng/mlDDU (0-234) H 04/22/22 08:25 Sodium 138 mmol/L (137-145) 05/17/22 05:52 Potassium 4.2 mmol/L (3.6-5.0) 05/17/22 05:52 Chloride 102.3 mmol/L (98-107) 05/17/22 05:52 Carbon Dioxide 26 mmol/L (22-30) 05/17/22 05:52 Anion Gap 14 mmol/L 05/17/22 05:52 BUN 32 mg/dL (9-20) H 05/17/22 05:52 Creatinine 1.2 mg/dL (0.8-1.3) 05/17/22 05:52 Estimated GFR > 60 ml/min 05/17/22 05:52 BUN/Creatinine Ratio 27 % 05/17/22 05:52 Glucose 118 mg/dL (75-100) H 05/17/22 05:52 POC Glucose 102 mg/dL (70-105) 05/04/22 11:22 Calcium 9.2 mg/dL (8.4-10.2) 05/17/22 05:52 Magnesium 1.80 mg/dL (1.7-2.3) 04/21/22 10:53 Total Creatine Kinase 1221 units/L (55-170) H 04/19/22 05:31 CK-MB (CK-2) 16.2 ng/mL (0.0-4.0) H 04/16/22 20:50 CK-MB (CK-2) Rel Index 0.3 (0-4) 04/16/22 20:50 Troponin T < 0.010 ng/mL (0.00-0.029) 04/16/22 20:50 Procalcitonin 0.40 ng/mL (<0.15) 04/22/22 11:01 TSH 1.910 mlU/mL (0.270-4.200) 04/16/22 20:50 Free T4 1.24 ng/dL (0.76-1.46) 04/16/22 20:50 Coronavirus (PCR) Negative (Negative) 05/09/22 14:57 SARS-CoV-2 (PCR) Positive (Negative) A 04/29/22 12:30 Ma/IV: Voiding Method Indwelling Catheter Active Medications - Current Medications Current Medications: Generic Name Dose Route Start Last Admin Trade Name Freq PRN Reason Stop Dose Admin Acetaminophen 650 mg 04/16/22 23:27 05/13/22 20:38 Acetaminophen 325 Mg Tab PO 650 mg Q4H PRN Administration Pain MILD(1-3)/Fever >100.5/CRUZ Heparin Sodium (Porcine) 5,000 unit 04/17/22 06:00 05/27/22 05:33 Heparin 5,000 Unit/1 Ml Vial SUB-Q 5,000 unit Q8HR EDGAR Administration Loperamide HCl 2 mg 05/19/22 09:27 Loperamide 2 Mg Cap PO Q2H PRN Diarrhea Losartan Potassium 100 mg 04/26/22 10:00 05/26/22 11:41 Losartan 50 Mg Tab PO 100 mg QDAY EDGAR Administration Metoprolol Tartrate 50 mg 05/12/22 10:00 05/26/22 23:39 Metoprolol Tartrate 50 Mg Tab PO Not Given BID EDGAR Morphine Sulfate 2 mg 04/16/22 23:27 Morphine 2 Mg/1 Ml Inj IV Q4H PRN Pain, Moderate (4-6) Morphine Sulfate 4 mg 04/16/22 23:27 Morphine 4 Mg/1 Ml Inj IV Q4H PRN Pain , Severe (7-10) Nifedipine 30 mg 04/28/22 10:00 05/26/22 11:42 Nifedipine Xl 30 Mg Tab PO 30 mg QDAY EDGAR Administration Ondansetron HCl 4 mg 04/16/22 23:27 Ondansetron 4 Mg/2 Ml Inj IV Q8H PRN Nausea And Vomiting Sodium Chloride 10 ml 04/17/22 10:00 05/26/22 23:39 Sodium Chloride 0.9% 10 Ml Flush Syringe IV 10 ml BID EDGAR Administration Sodium Chloride 10 ml 04/16/22 23:27 Sodium Chloride 0.9% 10 Ml Flush Syringe IV PRN PRN LINE FLUSH Spironolactone 25 mg 04/20/22 10:00 05/26/22 11:40 Spironolactone 25 Mg Tab PO 25 mg QDAY EDGAR Administration Nutrition/Malnutrition Assess - Dietary Evaluation Nutrition/Malnutrition Findings: Nutrition Notes Start: 04/24/22 15:41 Freq: Status: Active Protocol: Document 05/15/22 12:27 SHWETHA (Rec: 05/15/22 12:44 [email or web address] [id number]) Nutrition Notes Initial or Follow up Reassessment Current Diagnosis Hypertension Other Pertinent Diagnosis Ground-Level Fall, Urinary Retention, COVID-19. Current Diet Cardiac -Chopped Meats- Diet + D Suppl (since B 04/17). Labs/Tests 05/15 Na 134. Pertinent Medications 05/15: Nutritionally unremarkable. Height 5 ft 6 in Weight 70.4 kg [place] Body Weight (kg) 64.54 BMI 25.0 Weight change and time frame No body weight change reported in 2 weeks. Weight Status Appropriate Subjective/Other Information RD consult for routine F/U on dietary advancement. Pt's PO intake has been Poor ( 25%), according to ADL notes; however, Dietary Supplements have been helping Pt to compensate for poor PO intake of meals. Pt is on Room Air, O2 saturation @ 96%, according to Physical Assessment History notes. Pt is medically cleared for discharge, awaiting for placement, according to Progress notes. Percent of energy/protein needs met: Prescribed Cardiac -Chopped Meats- Diet provides for energy/protein needs (2,230 Kcal/85 g) during LOS; additionally, Dietary Supplements will support wound healing processes with 1,050 Kcal and 60 g of protein. Burn Absent Trauma Absent GI Symptoms None Food Allergy No Skin Integrity/Comment Sacrum skin tear. Current % PO Poor (25-49%) Minimum of two criteria No Fluid Accumulation N/A Reduced Gem Carver Strength N/A (non-severe) Protein-Calorie Malnutrition N\A #3 Nutrition Diagnosis Biting/Chewing (masticatory) difficulty Diagnosis Progress(for reassessment Continues documentation) #2 Nutrition Diagnosis Inadequate protein-energy intake Diagnosis Progress(for reassessment Continues documentation) #1 Nutrition Diagnosis Increased nutrient needs ( specify in comment below) Comments: Protein to support wound healing processes. Diagnosis Progress(for reassessment Continues documentation) Is patient on ventilator? No Is Patient Ambulatory and/or Out of Bed No REE-([facility]-confined to bed) [phone] Calculation Used for Recommendations [facility] Additional Notes Protein: 1-1.2 g/Kg ABW; 69-83 g/day. Fluids: 1 ml/Kcal, or as per MD. Nutrition Intervention Change Diet Order: Continue Cardiac -Chopped Meats- Diet. Add Supplement/Snack (indicate name/kcal Continue 8 fl oz Ensure Enlive /protein ) ; to TID. Provides kCal: 1,050 Provides Protein (gm) 60 Goal #1 Support, through dietary supplementation, wound healing processes during LOS. Goal #2 Compensate, through dietary supplementation, for possible poor or insufficient PO intake of meals during LOS. Goal #3 Facilitate PO intake of meals with elemental, textural, or mechanical modification during LOS. Goal #4 Adjust the dietary intervention to better serve Pt's needs and clinical conditions during LOS. Follow-Up By: 05/29/22 Additional Comments Continue monitoring food tolerance, %PO intake of meals and ONS, and BM.
[2022-05-27] MEDS: NIFEdipine XL 30 MG TAB PO SCH (09:34)
[2022-05-27] MEDS: METOPROLOL TARTRATE 50 MG TAB PO SCH (09:34)
[2022-05-27] MEDS: LOSARTAN 50 MG TAB PO SCH ×2 (09:38→09:45)
[2022-05-27] MEDS: SPIRONOLACTONE 25 MG TAB PO SCH (09:42)
--- NOTE | 2022-05-27 12:48 | Discharge Summary ---
Providers - Providers Date of Admission: 04/16/22 23:28 Date of discharge: 05/27/22 Attending physician: SKIP ZIEGLER 04/16/22 23:27 Consult to Physician [CONS] Routine Comment: Consulting Provider: EDITH IYER Physician Instructions: Reason For Exam: POP 04/17/22 05:04 Physical Therapy Evaluation and Treat [CONS] Routine Comment: Reason For Exam: History of fall 04/18/22 20:29 Consult to Wound/ET Nurse [CONS] Routine Reason For Exam: sacral wound 04/28/22 07:34 Occupational Therapy Evaluate and Treat [CONS] Routine Comment: Reason For Exam: weakness 05/02/22 11:31 Physical Therapy Evaluation and Treat [CONS] Stat Comment: Eval and Treat Reason For Exam: Physical Therapy Primary care physician: [employer] Hospitalization Reason for admission: Ground-level fall, bilateral hip pain Condition: Stable Pertinent studies: CT head without contrast Cervical spine CT X-ray tibia and fibula X-ray hip and pelvis Lower extremity venous Doppler; negative for DVT CTA chest; negative for PE Hospital course: Patient is a 72-year-old male with past medical history of hypertension who presented in the ED with complaints of bilateral hip pain after experiencing a ground-level fall approximately 4 days prior to presentation where he was unable to get up from the floor. The patient was found at home (lives alone) after welfare check was called by family friends. In the ED, the patient was found to be hemodynamically stable with unremarkable imaging of his hip, pelvis, tibia, fibula, and femurs. Patient underwent CT cervical spine was also found to be unremarkable. Patient did have labs that were remarkable for creatinine of 1.5 (baseline unknown) and creatine kinase of 4534. Patient was medically managed with IV diuresis and monitoring of his electrolytes. The patient also developed acute hypoxic respiratory failure and fevers that were found to be secondary to COVID-19 infection. The patient has since been weaned to room air. The patient is hemodynamically stable. The patient is medically clear for discharge. Case management has assisted with discharge planning and processed personal health home placement. Patient is being discharged today Discharge diagnosis --Acute kidney injury secondary to vasomotor nephropathy/resolved --Rhabdomyolysisresolved --Hypokalemiaresolved --Hypertension; moderate control, continue current antihypertensives and as needed occasions --History of ground-level fall, PT/OT/discharge planning[pending placement] --Fever- resolved --Acute hypoxic respiratory failureresolved/ --Hypocalcemia; resolved --Elevated D-dimer; CTA negative for PE, venous Doppler negative for DVT --COVID-19 infection-positive x3[04/23, 04/29, 05/02], most recent negative[05/09/22] --History of BPH /urinary retention, on continuous Ma catheterization/outpatient follow-up with urology --Dementia; Patient is hemodynamically and clinically stable at discharge Personal-retirement placement today Disposition: [address] [place] [address] Final Discharge Diagnosis (Prints w/discharge instructions): --Acute kidney injury secondary to vasomotor nephropathy/resolved. --Rhabdomyolysisresolved. --Hypokalemiaresolved. --Hypertension; moderate control, continue current antihypertensives and as needed occasions. --History of ground-level fall, PT/OT/discharge planning[pending placement]. --Fever- resolved. --Acute hypoxic respiratory failureresolved/. --Hypocalcemia; resolved. --Elevated D- dimer; CTA negative for PE, venous Doppler negative for DVT. --COVID-19 infection-positive x3[04/23, 04/29, 05/02], most recent negative[05/09/22]. -- History of BPH /urinary retention, on continuous Ma catheterization. --Dementia; Time spent for discharge: 40 min Core Measure Documentation - Palliative Care Palliative Care/ Comfort Measures: Not Applicable - Core Measures Any of the following diagnoses?: none Exam - Constitutional Vitals: Temp Pulse Resp BP Pulse Ox 98.7 F 91 H 18 114/71 99 05/27/22 05:34 05/27/22 09:45 05/27/22 05:34 05/27/22 09:45 05/27/22 10:00 General appearance: Present: no acute distress, well-nourished - EENT Eyes: Present: PERRL, EOM intact - Neck Neck: Present: supple, normal ROM - Respiratory Respiratory effort: normal Respiratory: bilateral: diminished, negative: rales, rhonchi, wheezing - Cardiovascular Rhythm: regular Heart Sounds: Present: S1 & S2 - Extremities Extremities: no ischemia, No edema - Abdominal General gastrointestinal: Present: soft, non-tender, non-distended - Integumentary Integumentary: Present: clear, warm - Musculoskeletal Musculoskeletal: strength equal bilaterally, generalized weakness - Psychiatric Psychiatric: appropriate mood/affect, agitated - Neurologic Neurologic: moves all extremities Plan Activity: advance as tolerated, fall precautions Diet: regular Durable Medical Equipment Needed Upon Discharge: Walker-Rolling Additional Instructions: If you have worsening symptoms contact MD or go to the nearest emergency room as needed. Follow-up primary care physician in 1 week. Continuous Ma catheterization,[do not remove the Ma] bladder training and DC Ma if possible. Follow urologist Dr. Gilmore 1wk for further evaluation of BPH and urinary retention. Care Plan Goals: Patient is medically clear for discharge. Assessment: Patient is a 72-year-old male with past medical history of hypertension who presented in the ED with complaints of bilateral hip pain after experiencing a ground-level fall approximately 4 days prior to presentation where he was unable to get up from the floor. The patient was found at home (lives alone) after welfare check was called by family friends. In the ED, the patient was found to be hemodynamically stable with unremarkable imaging of his hip, pelvis, tibia, fibula, and femurs. Patient underwent CT cervical spine was also found to be unremarkable. Patient did have labs that were remarkable for creatinine of 1.5 (baseline unknown) and creatine kinase of 4534. Patient was medically managed with IV diuresis and monitoring of his electrolytes. The patient also developed acute hypoxic respiratory failure and fevers that were found to be secondary to COVID-19 infection. The patient has since been weaned to room air. The patient is hemodynamically stable. The patient is medically clear for discharge. Case management has assisted with discharge planning and processed personal health home placement. Patient is being discharged today Follow up with: PRIMARY CARE, [Primary Care Provider] - 3-5 Days RADHA PUENTE MD [Staff Physician] - 14 Days FRANCISCO GILMORE MD [Staff Physician] - 7 Days Prescriptions: Spironolactone [Aldactone] 25 mg PO QDAY #30 tablet Losartan [Cozaar] 50 mg PO QDAY #30 tablet Aspirin EC [Halfprin EC] 81 mg PO QDAY #30 tablet. Loperamide [Imodium] 2 mg PO Q2H PRN #20 capsule PRN Reason: Diarrhea Metoprolol [Lopressor TAB] 50 mg PO BID #60 tablet NIFEdipine XL [Procardia Xl] 30 mg PO QDAY #30 tablet Simvastatin 20 mg PO DAILY #30 tablet
[2022-05-27 14:34] VITALS: BP 119/80
[2022-05-27] MEDS ORDERED: FUROSEMIDE 40 MG/4 ML INJ IV SCH (14:38)
== END 2022-05-27 16:40 | disposition home health service (06) | DRG 682 ==
LOC: ED 18:42 → 3A 23:28
PROVIDERS: ADMIT Internal Medicine Geriatric Medicine; ATTEND Internal Medicine
DX: N17.0 Acute kidney failure with tubular necrosis (principal); U07.1 COVID-19; J96.01 Acute respiratory failure with hypoxia; J12.82 Pneumonia due to coronavirus disease 2019; M62.82 Rhabdomyolysis; E87.2 Acidosis; E87.6 Hypokalemia; W18.39XA Other fall on same level, initial encounter; Y93.89 Activity, other specified; Y92.89 Other specified places as the place of occurrence of the external cause; Y99.8 Other external cause status; I10 Essential (primary) hypertension; E86.0 Dehydration; E83.51 Hypocalcemia; N40.1 Benign prostatic hyperplasia with lower urinary tract symptoms; R33.8 Other retention of urine; F03.90 Unspecified dementia, unspecified severity, without behavioral disturbance, psychotic disturbance, mood disturbance, and anxiety; Z79.82 Long term (current) use of aspirin; Z79.899 Other long term (current) drug therapy
CPT/HCPCS: 36415; 70450; 71275; 72125; 73521; 80048; 82550; 82553; 82962; 83735; 84145; 84439; 84443; 84484; 85025; 85379; 85610; 87040; 93005; 93970; G0378; J0692; J1644; J1940; J3370; J7030; Q9967; U0003

== ENCOUNTER 2022-06-03 08:14 | Inpatient (IN) | payer SELFPAY ==
--- NOTE | 2022-06-03 10:52 | XRay Report ---
CHEST 1 VIEW 06/03/2022 10:27 AM INDICATION / CLINICAL INFORMATION: sob. COMPARISON: 05/30/[address] scan dated 04/23/2022 FINDINGS: SUPPORT DEVICES: None. HEART / MEDIASTINUM: The thoracic aorta appears tortuous. The aorta was noted to be dilated on the CT scan from April. LUNGS / PLEURA: No significant pulmonary or pleural abnormality. No pneumothorax. ADDITIONAL FINDINGS: No significant additional findings. IMPRESSION: 1. No acute findings. Signer Name: Dmitriy Goldstein MD Signed: 06/03/2022 10:48 AM Workstation Name: [id number]
[2022-06-03 11:32] LABS: Hematocrit 40.2 % (35.5-45.6); Hemoglobin 13.6 gm/dl (11.8-15.2); Mean Corpuscular HGB Conc 34 % (32-34); Mean Corpuscular Volume 92 fl (84-94); Platelet Count 292 K/mm3 (140-440); Red Blood Count 4.38 M/mm3 (3.65-5.03); Red Cell Distribution Width 14.7 % (13.2-15.2)
[2022-06-03 11:46] LABS: Albumin 3.5 g/dL (3.9-5); Calcium 9.3 mg/dL (8.4-10.2)
[2022-06-03] MEDS ORDERED: SODIUM CHLORIDE 0.9% 1000 ML 1,000 ML IV ONE (11:55)
[2022-06-03] MEDS ORDERED: cefTRIAXone/NS 1 GM/50 ML 1 GM/50 ML BAG IV ONE (12:11)
[2022-06-03] MEDS ORDERED: SODIUM CHLORIDE 0.9% 1000 ML IV SOLN IV ONE (12:12)
--- NOTE | 2022-06-03 12:43 | Emergency Department Report ---
ED General Adult HPI - General Chief complaint: Urogenital-Male Stated complaint: PELVIC PAIN/BLOOD IN CATHETER Time Seen by Provider: 06/03/22 10:10 Source: patient, EMS Mode of arrival: Stretcher Limitations: No Limitations - History of Present Illness Initial comments: d - Related Data Previous Rx's Medication Instructions Recorded Last Taken Type Aspirin EC [Halfprin EC] 81 mg PO QDAY #30 tablet. 04/25/22 Unknown Rx Simvastatin 20 mg PO DAILY #30 tablet 04/25/22 Unknown Rx Loperamide [Imodium] 2 mg PO Q2H PRN #20 capsule 05/27/22 Unknown Rx Losartan [Cozaar] 50 mg PO QDAY #30 tablet 05/27/22 Unknown Rx Metoprolol [Lopressor TAB] 50 mg PO BID #60 tablet 05/27/22 Unknown Rx NIFEdipine XL [Procardia Xl] 30 mg PO QDAY #30 tablet 05/27/22 Unknown Rx Spironolactone [Aldactone] 25 mg PO QDAY #30 tablet 05/27/22 Unknown Rx Allergies Allergy/AdvReac Type Severity Reaction Status Date / Time No Known Allergies Allergy Verified 06/03/22 08:19 ED Review of Systems ROS: Stated complaint: PELVIC PAIN/BLOOD IN CATHETER Other details as noted in HPI ED Past Medical Hx - Past Medical History Hx Hypertension: Yes Hx Congestive Heart Failure: No Hx Diabetes: No Hx Sickle Cell Disease: No Hx Asthma: No Hx COPD: No Hx Dementia: Yes Hx HIV: No - Social History Smoking Status: Never Smoker - Medications Home Medications: Home Medications Medication Instructions Recorded Confirmed Last Taken Type Aspirin EC [Halfprin EC] 81 mg PO QDAY #30 tablet. 04/25/22 Unknown Rx Simvastatin 20 mg PO DAILY #30 tablet 04/25/22 Unknown Rx Loperamide [Imodium] 2 mg PO Q2H PRN #20 capsule 05/27/22 Unknown Rx Losartan [Cozaar] 50 mg PO QDAY #30 tablet 05/27/22 Unknown Rx Metoprolol [Lopressor TAB] 50 mg PO BID #60 tablet 05/27/22 Unknown Rx NIFEdipine XL [Procardia Xl] 30 mg PO QDAY #30 tablet 05/27/22 Unknown Rx Spironolactone [Aldactone] 25 mg PO QDAY #30 tablet 05/27/22 Unknown Rx ED Physical Exam - General Limitations: No Limitations ED Course Vital Signs 06/03/22 06/03/22 08:15 12:22 Temperature 98.1 F 99.3 F Pulse Rate 130 H 94 H Respiratory 20 32 H Rate Blood Pressure 180/120 81/79 [Left] O2 Sat by Pulse 98 97 Oximetry - Reevaluation(s) Reevaluation #1: 06/03/22 14:[address] REED WHO KINDLY ACCEPTED THE PATIENT. ED Medical Decision Making - Lab Data Result diagrams: 06/03/22 10:24 06/03/22 10:24 Critical care attestation.: If time is entered above; I have spent that time in minutes in the direct care of this critically ill patient, excluding procedure time. ED Disposition Clinical Impression: UTI (urinary tract infection), POP (acute kidney injury), Hematuria Disposition: ADMITTED INPATIENT Is pt being admited?: Yes Does the pt Need Aspirin: No Condition: Stable Referrals: CARLOS WARREN MD [Primary Care Provider] - 3-5 Days Time of Disposition: 14:59
[2022-06-03 13:37] LABS: Bilirubin,Urine Color Interference (Negative); Blood,Urine Color Interference (Negative); Color,Urine Red (Yellow); Protein,Urine Color Interference mg/dL (Negative)
[2022-06-03 13:48] LABS: RBC,Urine > 182.0 /HPF (0.0-6.0)
--- NOTE | 2022-06-03 14:17 | Cat Scan Report ---
CT BRAIN: 06/03/2022 INDICATION / CLINICAL INFORMATION: AMS. COMPARISON: CT brain 04/16/2022 FINDINGS: BRAIN/INTRACRANIAL STRUCTURES: Unenhanced CT images of the brain were obtained and compared to the re cent prior exam from 04/16/2022. There is been no change. Ventricles and sulci are prominent in size, consistent with pronounced diffuse cerebral atrophy. Exte nsive chronic white matter hypoattenuation is present throughout the cerebral hemispheric white matte r. There is no CT evidence of acute large vessel territory ischemic injury, hemorrhage, or mass. There a re no abnormal extra-axial fluid collections. Mucosal thickening is present in ethmoid sinuses. Right frontal sinus is opacified There is an air-fl uid level in the right maxillary sinus, unchanged. EXTRACRANIAL STRUCTURES: Unremarkable. IMPRESSION: 1. No evidence of acute intracranial abnormality. Chronic and age-related changes. 2. Stable paranasal sinus disease. All CT scans at this location are performed using dose reduction to ALARA by means of automated expos ure control. Signer Name: Domingo Naranjo MD Signed: 06/03/2022 2:12 PM Workstation Name: [id number]
--- NOTE | 2022-06-03 21:19 | History and Physical Report ---
History of Present Illness Date of examination: 06/03/22 Date of admission: 06/03/2022 Chief complaint: Blood in urine History of present illness: 72-year-old male recently discharged on 05/27/2022 from after being treated for many multiple medical problems including POP, rhabdomyolysis, hypokalemia, hypertension: COVID infection, hypocalcemia and urinary retention was sent home with Ma catheter in place and to follow-up with urology. Patient comes in because of blood in the urine. Also feeling weak. No fever or chills. No chest pain. - Past Medical History Hx Hypertension: Yes Hx Congestive Hx Dementia: Yes Past surgical history not available Family history Htn - Social History Smoking Status: Never Smoker - Medications Home Medications: Home Medications Medication Instructions Recorded Confirmed Last Taken Type Aspirin EC [Halfprin EC] 81 mg PO QDAY #30 tablet. 04/25/22 Unknown Rx Simvastatin 20 mg PO DAILY #30 tablet 04/25/22 Unknown Rx Loperamide [Imodium] 2 mg PO Q2H PRN #20 capsule 05/27/22 Unknown Rx Losartan [Cozaar] 50 mg PO QDAY #30 tablet 05/27/22 Unknown Rx Metoprolol [Lopressor TAB] 50 mg PO BID #60 tablet 05/27/22 Unknown Rx NIFEdipine XL [Procardia Xl] 30 mg PO QDAY #30 tablet 05/27/22 Unknown Rx Spironolactone [Aldactone] 25 mg PO QDAY #30 tablet 05/27/22 Unknown Rx Review of Systems ROS: Constitutional generalized weakness HEENT no sore throat no post nasal drip no diplopia Neck no neck stiffness no lymph gland enlargement Chest and lungs no shortness of breath cough or wheezing CVS no chest pain no diaphoresis no palpitations GI no nausea no vomiting no diarrhea Genitourinary system hematuria Musculoskeletal system no muscle pains no joint pains [employer] no syncope no seizures Skin no rash no itching Psychiatric no depression no homicidal or suicidal tendencies Hematologic no lymphedema or bruising Endocrine no polydipsia no polyuria no cold intolerance no heat intolerance Medications and Allergies Allergies Allergy/AdvReac Type Severity Reaction Status Date / Time No Known Allergies Allergy Verified 06/03/22 08:19 Home Medications Medication Instructions Recorded Confirmed Last Taken Type Aspirin EC [Halfprin EC] 81 mg PO QDAY #30 tablet. 04/25/22 Unknown Rx Simvastatin 20 mg PO DAILY #30 tablet 04/25/22 Unknown Rx Loperamide [Imodium] 2 mg PO Q2H PRN #20 capsule 05/27/22 Unknown Rx Losartan [Cozaar] 50 mg PO QDAY #30 tablet 05/27/22 Unknown Rx Metoprolol [Lopressor TAB] 50 mg PO BID #60 tablet 05/27/22 Unknown Rx NIFEdipine XL [Procardia Xl] 30 mg PO QDAY #30 tablet 05/27/22 Unknown Rx Spironolactone [Aldactone] 25 mg PO QDAY #30 tablet 05/27/22 Unknown Rx Exam - Constitutional Vitals: Temp Pulse Resp BP Pulse Ox 99.3 F 94 H 32 H 81/79 97 06/03/22 12:22 06/03/22 12:22 06/03/22 12:22 06/03/22 12:22 06/03/22 12:22 General appearance: Present: no acute distress, well-nourished - EENT Eyes: Present: PERRL ENT: hearing intact, clear oral mucosa - Neck Neck: Present: supple, normal ROM - Respiratory Respiratory effort: normal Respiratory: bilateral: CTA - Cardiovascular Heart rate: 78 Heart Sounds: Present: S1 & S2. Absent: rub, click - Extremities Extremities: pulses symmetrical, No edema Peripheral Pulses: within normal limits - Abdominal General gastrointestinal: Present: soft, non-tender, non-distended, normal bowel sounds Male genitourinary: Present: normal - Integumentary Integumentary: Present: clear, warm, dry - Musculoskeletal Musculoskeletal: gait normal, strength equal bilaterally - Psychiatric Psychiatric: appropriate mood/affect, intact judgment & insight - Neurologic Neurologic: CNII-XII intact, moves all extremities Results - Labs CBC & Chem 7: 06/03/22 10:24 06/03/22 10:24 Labs: Laboratory Last Values WBC 7.5 K/mm3 (4.5-11.0) 06/03/22 10:24 RBC 4.38 M/mm3 (3.65-5.03) 06/03/22 10:24 Hgb 13.6 gm/dl (11.8-15.2) 06/03/22 10:24 Hct 40.2 % (35.5-45.6) 06/03/22 10:24 MCV 92 fl (84-94) 06/03/22 10:24 MCH 31 pg (28-32) 06/03/22 10:24 MCHC 34 % (32-34) 06/03/22 10:24 RDW 14.7 % (13.2-15.2) 06/03/22 10:24 Plt Count 292 K/mm3 (140-440) 06/03/22 10:24 Sodium 139 mmol/L (137-145) 06/03/22 10:24 Potassium 4.2 mmol/L (3.6-5.0) 06/03/22 10:24 Chloride 104.6 mmol/L (98-107) 06/03/22 10:24 Carbon Dioxide 14 mmol/L (22-30) L 06/03/22 10:24 Anion Gap 25 mmol/L 06/03/22 10:24 BUN 43 mg/dL (9-20) H 06/03/22 10:24 Creatinine 2.5 mg/dL (0.8-1.3) H 06/03/22 10:24 Estimated GFR 31 ml/min 06/03/22 10:24 BUN/Creatinine Ratio 17 % 06/03/22 10:24 Glucose 132 mg/dL (75-100) H 06/03/22 10:24 Lactic Acid 3.20 mmol/L (0.7-2.0) H* 06/03/22 11:42 Calcium 9.3 mg/dL (8.4-10.2) 06/03/22 10:24 Magnesium 1.90 mg/dL (1.7-2.3) 06/03/22 10:24 Total Bilirubin 0.80 mg/dL (0.1-1.2) 06/03/22 10:24 AST 16 units/L (5-40) 06/03/22 10:24 ALT 13 units/L (7-56) 06/03/22 10:24 Alkaline Phosphatase 95 units/L (35-129) 06/03/22 10:24 Total Protein 8.6 g/dL (6.3-8.2) H 06/03/22 10:24 Albumin 3.5 g/dL (3.9-5) L 06/03/22 10:24 Albumin/Globulin Ratio 0.7 % 06/03/22 10:24 Urine Color Red (Yellow) 06/03/22 Unknown Urine Turbidity Turbid (Clear) 06/03/22 Unknown Urine Protein Color interference mg/dL (Negative) 06/03/22 Unknown Urine Glucose (UA) Color interference mg/dL (Negative) 06/03/22 Unknown Urine Ketones Color interference mg/dL (Negative) 06/03/22 Unknown Urine Blood Color interference (Negative) 06/03/22 Unknown Urine Nitrite Color interference (Negative) 06/03/22 Unknown Urine Bilirubin Color interference (Negative) 06/03/22 Unknown Urine Ictotest Not Reportable 06/03/22 Unknown Urine Urobilinogen mg/dL (<2.0) 06/03/22 Unknown Ur Leukocyte Esterase Color interference (Negative) 06/03/22 Unknown Urine WBC (Auto) 103.0 /HPF (0.0-6.0) H 06/03/22 Unknown Urine RBC (Auto) > 182.0 /HPF (0.0-6.0) 06/03/22 Unknown Short CBC 06/03/22 06/03/22 06/03/22 Range/Units 10:24 10:24 10:24 WBC 7.5 (4.5-11.0) K/mm3 RBC 4.38 (3.65-5.03) M/mm3 Hgb 13.6 (11.8-15.2) gm/dl Hct 40.2 (35.5-45.6) % MCV 92 (84-94) fl MCH 31 (28-32) pg MCHC 34 (32-34) % RDW 14.7 (13.2-15.2) % Plt Count 292 (140-440) K/mm3 Sodium 139 (137-145) mmol/L Potassium 4.2 (3.6-5.0) mmol/L Chloride 104.6 (98-107) mmol/L Carbon Dioxide 14 L (22-30) mmol/L Anion Gap 25 mmol/L BUN 43 H (9-20) mg/dL Creatinine 2.5 H (0.8-1.3) mg/dL Estimated GFR 31 ml/min BUN/Creatinine Ratio 17 % Glucose 132 H (75-100) mg/dL Lactic Acid 4.30 H* (0.7-2.0) mmol/L Calcium 9.3 (8.4-10.2) mg/dL Magnesium 1.90 (1.7-2.3) mg/dL Total Bilirubin 0.80 (0.1-1.2) mg/dL AST 16 (5-40) units/L ALT 13 (7-56) units/L Alkaline Phosphatase 95 (35-129) units/L Total Protein 8.6 H (6.3-8.2) g/dL Albumin 3.5 L (3.9-5) g/dL Albumin/Globulin Ratio 0.7 % Urine Color (Yellow) Urine Turbidity (Clear) Urine Protein (Negative) mg/dL Urine Glucose (UA) (Negative) mg/dL Urine Ketones (Negative) mg/dL Urine Blood (Negative) Urine Nitrite (Negative) Urine Bilirubin (Negative) Urine Ictotest Urine Urobilinogen (<2.0) mg/dL Ur Leukocyte Esterase (Negative) Urine WBC (Auto) (0.0-6.0) /HPF Urine RBC (Auto) (0.0-6.0) /HPF 06/03/22 06/03/22 Range/Units 11:42 Unknown WBC (4.5-11.0) K/mm3 RBC (3.65-5.03) M/mm3 Hgb (11.8-15.2) gm/dl Hct (35.5-45.6) % MCV (84-94) fl MCH (28-32) pg MCHC (32-34) % RDW (13.2-15.2) % Plt Count (140-440) K/mm3 Sodium (137-145) mmol/L Potassium (3.6-5.0) mmol/L Chloride (98-107) mmol/L Carbon Dioxide (22-30) mmol/L Anion Gap mmol/L BUN (9-20) mg/dL Creatinine (0.8-1.3) mg/dL Estimated GFR ml/min BUN/Creatinine Ratio % Glucose (75-100) mg/dL Lactic Acid 3.20 H* (0.7-2.0) mmol/L Calcium (8.4-10.2) mg/dL Magnesium (1.7-2.3) mg/dL Total Bilirubin (0.1-1.2) mg/dL AST (5-40) units/L ALT (7-56) units/L Alkaline Phosphatase (35-129) units/L Total Protein (6.3-8.2) g/dL Albumin (3.9-5) g/dL Albumin/Globulin Ratio % Urine Color Red (Yellow) Urine Turbidity Turbid (Clear) Urine Protein Color interference (Negative) mg/dL Urine Glucose (UA) Color interference (Negative) mg/dL Urine Ketones Color interference (Negative) mg/dL Urine Blood Color interference (Negative) Urine Nitrite Color interference (Negative) Urine Bilirubin Color interference (Negative) Urine Ictotest Not Reportable Urine Urobilinogen (<2.0) mg/dL Ur Leukocyte Esterase Color interference (Negative) Urine WBC (Auto) 103.0 H (0.0-6.0) /HPF Urine RBC (Auto) > 182.0 (0.0-6.0) /HPF BMP 06/03/22 10:24 Sodium 139 Potassium 4.2 Chloride 104.6 Carbon Dioxide 14 L BUN 43 H Creatinine 2.5 H Glucose 132 H Calcium 9.3 Liver Function 06/03/22 Range/Units 10:24 Total Bilirubin 0.80 (0.1-1.2) mg/dL AST 16 (5-40) units/L ALT 13 (7-56) units/L Alkaline Phosphatase 95 (35-129) units/L Albumin 3.5 L (3.9-5) g/dL Urine 06/03/22 Range/Units Unknown Urine Color Red (Yellow) Urine Protein Color interference (Negative) mg/dL Urine Glucose (UA) Color interference (Negative) mg/dL Microbiology: Microbiology 06/03/22 10:24 Peripheral/Venous Blood Culture - Preliminary Culture in Progress 06/03/22 10:24 Peripheral/Venous Blood Culture - Preliminary Culture in Progress - Imaging and Cardiology Imaging and Cardiology: Head CT No acute findings Chest x-ray No acute findings Assessment and Plan Advance Directives: Yes (Full code) VTE prophylaxis?: Chemical Plan of care discussed with patient/family: Yes - Patient Problems (1) Acute kidney injury Current Visit: Yes Status: Acute Plan to address problem: IV fluids for now Baseline creatinine is 1.1 on the day of discharge recently Vasomotor nephropathy (2) UTI (urinary tract infection) Current Visit: Yes Status: Acute Qualifiers: Urinary tract infection type: acute cystitis Plan to address problem: IV fluids and IV Rocephin (3) Hypertension Current Visit: Yes Status: Chronic Qualifiers: Hypertension type: primary hypertension Qualified Code(s): I10 - Essential (primary) hypertension Plan to address problem: Continue antihypertensives (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 Patient acknowledges understanding with care plan +30 minutes..
[2022-06-03] MEDS ORDERED: oxyCODONE /ACETAMINOPHEN 5-325MG TAB PO PRN (21:27)
[2022-06-03] MEDS ORDERED: ONDANSETRON 4 MG/2 ML INJ IV PRN (21:27)
[2022-06-03] MEDS ORDERED: ACETAMINOPHEN 325 MG TAB PO PRN (21:27)
[2022-06-03] MEDS ORDERED: METOCLOPRAMIDE 10 MG/2 ML INJ IV PRN (21:27)
[2022-06-03] MEDS ORDERED: MORPHINE 2 MG/1 ML INJ IV PRN (21:27)
[2022-06-04] MEDS: SODIUM CHLORIDE 0.9% 1000 ML 1,000 ML IV SCH (01:28)
[2022-06-04] MEDS: METOPROLOL TARTRATE 50 MG TAB PO SCH ×3 (01:28→20:31)
[2022-06-04] MEDS: HEPARIN 5,000 UNIT/1 ML VIAL SUB-Q SCH ×3 (01:28→21:56)
[2022-06-04] MEDS: SPIRONOLACTONE 25 MG TAB PO SCH ×2 (01:28→12:57)
[2022-06-04] MEDS: LOSARTAN 50 MG TAB PO SCH ×2 (01:28→12:56)
[2022-06-04] MEDS: FAMOTIDINE 20 MG TAB PO SCH ×2 (01:28→12:56)
[2022-06-04 08:22] LABS: Hematocrit 36.3 % (35.5-45.6); Hemoglobin 11.8 gm/dl (11.8-15.2); Mean Corpuscular HGB Conc 33 % (32-34); Mean Corpuscular Volume 92 fl (84-94); Platelet Count 221 K/mm3 (140-440); Red Blood Count 3.93 M/mm3 (3.65-5.03); Red Cell Distribution Width 15.2 % (13.2-15.2)
[2022-06-04 08:50] LABS: Albumin 2.9 g/dL (3.9-5)
--- NOTE | 2022-06-04 09:06 | Electrocardiograph Report ---
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
[2022-06-04 09:32] LABS: Band Neutrophils # (Manual) 0.8 K/mm3; Eosinophils % (Manual) 0 % (0.0-4.3); Total Cells Counted 100
[2022-06-04 09:33] LABS: Basophils % (Manual) 0 % (0.0-1.8)
[2022-06-04 09:34] LABS: Large Platelets Rare; Platelet Estimate Consistent w Auto; Poikilocytosis Rare; Spherocytes Rare
[2022-06-04] MEDS ORDERED: cefTRIAXone/NS 2 GM/100 ML 2 GM/100 ML BAG IV SCH (10:00)
[2022-06-04] MEDS: CEFEPIME/NS 2 GM/100 ML 2 GM/100 ML BAG IV SCH (12:41)
[2022-06-04] MEDS: NIFEdipine XL 30 MG TAB PO SCH (12:57)
[2022-06-04] MEDS: ASPIRIN EC 81 MG TAB PO SCH (13:02)
--- NOTE | 2022-06-04 15:02 | Consultation ---
History of Present Illness - Reason for Consult Consult date: 06/04/22 acute renal failure - History of Present Illness HPI: 72 year old M admitted with hematuria. Pt was recently dced from hospital with gee for urinary retention to f/u OP with Urology. He had POP, rhadbo and hypokalemia during that admission. He denies CP, fever, chills. He has had weakness. ROS: As in HPI otherwise 12 point review of systems -ve - Past Medical History Hx Hypertension: Yes Hx Congestive Hx Dementia: Yes Past surgical history not available Family history Htn - Social History Smoking Status: Never Smoker Medications and Allergies Allergies Allergy/AdvReac Type Severity Reaction Status Date / Time No Known Allergies Allergy Verified 06/03/22 08:19 Home Medications Medication Instructions Recorded Confirmed Last Taken Type Aspirin EC [Halfprin EC] 81 mg PO QDAY #30 tablet. 04/25/22 Unknown Rx Simvastatin 20 mg PO DAILY #30 tablet 04/25/22 Unknown Rx Loperamide [Imodium] 2 mg PO Q2H PRN #20 capsule 05/27/22 Unknown Rx Losartan [Cozaar] 50 mg PO QDAY #30 tablet 05/27/22 Unknown Rx Metoprolol [Lopressor TAB] 50 mg PO BID #60 tablet 05/27/22 Unknown Rx NIFEdipine XL [Procardia Xl] 30 mg PO QDAY #30 tablet 05/27/22 Unknown Rx Spironolactone [Aldactone] 25 mg PO QDAY #30 tablet 05/27/22 Unknown Rx Active Meds: Active Medications Acetaminophen (Acetaminophen 325 Mg Tab) 650 mg PO Q4H PRN PRN Reason: Pain MILD(1-3)/Fever >100.5/CRUZ Aspirin (Aspirin Ec 81 Mg Tab) 81 mg PO QDAY [facility] Last Admin: 06/04/22 13:02 Dose: 81 mg Famotidine (Famotidine 20 Mg Tab) 20 mg PO QAM [facility] Last Admin: 06/04/22 12:56 Dose: 20 mg Heparin Sodium (Porcine) (Heparin 5,000 Unit/1 Ml Vial) 5,000 unit SUB-Q Q12HR [facility] Last Admin: 06/04/22 13:02 Dose: 5,000 unit Sodium Chloride (Nacl 0.9% 1000 Ml) 1,000 mls @ 75 mls/hr IV DIRECT [facility] Last Admin: 06/04/22 01:28 Dose: 75 mls/hr Cefepime HCl (Cefepime/Ns 2 Gm/100 Ml) 2 gm in 100 mls @ 200 mls/hr IV Q24H [facility]; Protocol Last Admin: 06/04/22 12:41 Dose: 200 mls/hr Losartan Potassium (Losartan 50 Mg Tab) 50 mg PO QDAY [facility] Last Admin: 06/04/22 12:56 Dose: Not Given Metoclopramide HCl (Metoclopramide 10 Mg/2 Ml Inj) 5 mg IV Q6H PRN PRN Reason: Nausea And Vomiting Metoprolol Tartrate (Metoprolol Tartrate 50 Mg Tab) 50 mg PO BID@0800,1700 [facility] Last Admin: 06/04/22 12:00 Dose: 50 mg Morphine Sulfate (Morphine 2 Mg/1 Ml Inj) 2 mg IV Q4H PRN PRN Reason: Pain, Moderate (4-6) Nifedipine (Nifedipine Xl 30 Mg Tab) 30 mg PO QDAY@0600 [facility] Last Admin: 06/04/22 12:57 Dose: Not Given Ondansetron HCl (Ondansetron 4 Mg/2 Ml Inj) 4 mg IV Q8H PRN PRN Reason: Nausea And Vomiting Oxycodone/Acetaminophen (Oxycodone /Acetaminophen 5-325mg Tab) 1 tab PO Q6H PRN PRN Reason: Pain, Moderate (4-6) Sodium Chloride (Sodium Chloride 0.9% 10 Ml Flush Syringe) 10 ml IV BID [facility] Last Admin: 06/04/22 13:02 Dose: 10 ml Sodium Chloride (Sodium Chloride 0.9% 10 Ml Flush Syringe) 10 ml IV PRN PRN PRN Reason: LINE FLUSH Spironolactone (Spironolactone 25 Mg Tab) 25 mg PO QDAY [facility] Last Admin: 06/04/22 12:57 Dose: Not Given Exam - Vital Signs Vital signs: Vital Signs Temp Pulse Resp BP Pulse Ox 98.1 F 130 H 20 180/120 98 06/03/22 08:15 06/03/22 08:15 06/03/22 08:15 06/03/22 08:15 06/03/22 08:15 - Physical Exam Narrative exam: General appearance: Present: no acute distress, well-nourished - EENT Eyes: Present: PERRL ENT: hearing intact, clear oral mucosa - Neck Neck: Present: supple, normal ROM - Respiratory Respiratory effort: normal Respiratory: bilateral: CTA - Cardiovascular Heart rate: 78 Heart Sounds: Present: S1 & S2. Absent: rub, click - Extremities Extremities: pulses symmetrical, No edema Peripheral Pulses: within normal limits - Abdominal General gastrointestinal: Present: soft, non-tender, non-distended, normal bowel sounds Male genitourinary: Present: normal - Integumentary Integumentary: Present: clear, warm, dry - Musculoskeletal Musculoskeletal: gait normal, strength equal bilaterally - Psychiatric Psychiatric: appropriate mood/affect, intact judgment & insight - Neurologic Neurologic: CNII-XII intact, moves all extremities Results - Lab Results 06/04/22 07:18 06/04/22 07:18 Most recent lab results Calcium 9.0 mg/dL (8.4-10.2) 06/04/22 07:18 Magnesium 1.90 mg/dL (1.7-2.3) 06/03/22 10:24 Assessment and Plan (1) Acute kidney injury (2) UTI (urinary tract infection) (3) Hypertension (4) BPH with urinary obstruction (5) Hematuria (6) Acidosis -Check urine studies, CK level -Follow Urine Cx for Possible UTI -Has had urinary retention s/p gee during last admission, check Renal US, start flomax -Hold Losartan and Aldactone -Inc NS to 100 mls/hr. -Renally dose all meds -Avoid Nephrotoxic meds -Strict I/Os -Check CK level -Monitor acidosis, improving Logan White MD [phone] -
--- NOTE | 2022-06-04 18:28 | Ultrasound Report ---
ULTRASOUND RENAL INDICATION / CLINICAL INFORMATION: van. COMPARISON: CT abdomen/pelvis from 05/16/2019 FINDINGS: RIGHT KIDNEY: Length = 10.6 cm. - Echogenicity: Normal. - Parenchymal Thickness: Normal. - Hydronephrosis: None. - Cyst / Mass: Tiny simple cyst measuring up to 1 cm. - Stones: None seen. LEFT KIDNEY: Length = 9.3 cm. - Echogenicity: Normal. - Parenchymal Thickness: Normal. - Hydronephrosis: None. - Cyst / Mass: None. - Stones: None seen. URINARY BLADDER: No significant abnormality. FREE FLUID: None. ADDITIONAL FINDINGS: Simple hepatic cyst measuring 2.7 cm in maximal dimension in the right lobe. IMPRESSION: 1. No acute abnormality. 2. Simple right renal and hepatic cysts. Signer Name: Francisco Cedillo MD Signed: 06/04/2022 6:24 PM Workstation Name: [id number]
[2022-06-04] MEDS: TAMSULOSIN 0.4 MG CAP PO SCH (21:56)
[2022-06-05] MEDS: SODIUM CHLORIDE 0.9% 1000 ML 1,000 ML IV SCH ×2 (02:10→17:30)
[2022-06-05] MEDS: NIFEdipine XL 30 MG TAB PO SCH (05:31)
--- NOTE | 2022-06-05 07:29 | Progress Note ---
Assessment and Plan - Patient Problems (1) Acute kidney injury Current Visit: Yes Status: Acute Plan to address problem: IV fluids for now Baseline creatinine is 1.1 on the day of discharge recently Vasomotor nephropathy Hematuria resolved BUN/creatinine is improved from 43/2.5 to 50/2.4 (2) UTI (urinary tract infection) Current Visit: Yes Status: Acute Qualifiers: Urinary tract infection type: acute cystitis Plan to address problem: IV fluids and IV Rocephin (3) Hypertension Current Visit: Yes Status: Chronic Qualifiers: Hypertension type: primary hypertension Qualified Code(s): I10 - Essential (primary) hypertension Plan to address problem: Continue antihypertensives (4) BPH with urinary obstruction Current Visit: No Status: Chronic Plan to address problem: Ma in place (5) Hematuria Current Visit: Yes Status: Acute Plan to address problem: Trauma from the Ma catheter Urology consult if necessary (6) DVT prophylaxis Current Visit: Yes Status: Acute Plan to address problem: On SCDs and GI prophylaxis (7) Advance care planning Current Visit: Yes Status: Acute Plan to address problem: And disease education conducted: Care plan discussed, diagnosis discussed, pr ognosis discussed. Patient acknowledges understanding with care plan +30 minutes.. Subjective Date of service: 06/04/22 Principal diagnosis: POP, hematuria Interval history: 72-year-old male recently discharged on 05/27/2022 from after being treated for many multiple medical problems including POP, rhabdomyolysis, hypokalemia, hypertension: COVID infection, hypocalcemia and urinary retention was sent home with Ma catheter in place and to follow-up with urology. Patient comes in because of blood in the urine. Also feeling weak. No fever or chills. No chest pain. 06/04/2022 Hematuria resolved BUN/creatinine is improved from 43/2.5 t5o 50/2.4 Objective - Constitutional Vitals: Vital Signs - 12hr 06/04/22 06/04/22 06/04/22 19:38 20:31 22:00 Temperature 98.0 F Pulse Rate 96 H 115 H 95 H Respiratory 18 Rate Blood Pressure 93/54 O2 Sat by Pulse 99 Oximetry 06/04/22 06/04/22 06/05/22 23:22 23:51 03:43 Temperature 98.5 F 98.4 F Pulse Rate 94 H 93 H Respiratory 21 20 Rate Blood Pressure 104/70 92/64 O2 Sat by Pulse 99 100 99 Oximetry 06/05/22 06:00 Temperature Pulse Rate 93 H Respiratory Rate Blood Pressure O2 Sat by Pulse Oximetry General appearance: Present: no acute distress, well-nourished - EENT Eyes: PERRL, EOM intact ENT: hearing intact, clear oral mucosa Ears: bilateral: normal - Neck Neck: supple, normal ROM - Respiratory Respiratory effort: normal Respiratory: bilateral: CTA - Breasts Breasts: normal - Cardiovascular Heart rate: 78 Rhythm: regular Heart Sounds: Present: S1 & S2. Absent: gallop, rub Extremities: pulses intact, No edema, normal color, Full ROM - Gastrointestinal General gastrointestinal: Present: soft, non-tender, non-distended, normal bowel sounds - Genitourinary Male genitourinary: normal - Integumentary Integumentary: clear, warm, dry - Musculoskeletal Musculoskeletal: 1, strength equal bilaterally - Neurologic Neurologic: moves all extremities - Psychiatric Psychiatric: memory intact, appropriate mood/affect, intact judgment & insight - Labs CBC & Chem 7: 06/08/22 16:20 06/08/22 16:20 Labs: Abnormal lab results 06/04/22 06/04/22 06/04/22 Range/Units 07:18 07:18 22:47 WBC 21.2 H (4.5-11.0) K/mm3 Seg Neuts % (Manual) 85.0 H (40.0-70.0) % Lymphocytes % (Manual) 7.0 L (13.4-35.0) % Seg Neutrophils # Man 18.0 H (1.8-7.7) K/mm3 Chloride 111.3 H (98-107) mmol/L Carbon Dioxide 20 L (22-30) mmol/L BUN 50 H (9-20) mg/dL Creatinine 2.4 H (0.8-1.3) mg/dL Total Creatine Kinase 541 H (55-170) units/L Albumin 2.9 L (3.9-5) g/dL
--- NOTE | 2022-06-05 07:30 | Progress Note ---
Assessment and Plan - Patient Problems (1) Acute kidney injury Current Visit: Yes Status: Acute Plan to address problem: IV fluids for now Baseline creatinine is 1.1 on the day of discharge recently Vasomotor nephropathy Hematuria resolved BUN and creatinine have improved from 43/2.5----50/2.4--- 45/1.7 today (2) UTI (urinary tract infection) Current Visit: Yes Status: Acute Qualifiers: Urinary tract infection type: acute cystitis Plan to address problem: IV fluids and IV Rocephin (3) Hypertension Current Visit: Yes Status: Chronic Qualifiers: Hypertension type: primary hypertension Qualified Code(s): I10 - Essential (primary) hypertension Plan to address problem: Continue antihypertensives (4) BPH with urinary obstruction Current Visit: No Status: Chronic Plan to address problem: Ma in place (5) Hematuria Current Visit: Yes Status: Acute Plan to address problem: Resolved (6) DVT prophylaxis Current Visit: Yes Status: Acute Plan to address problem: On SCDs and GI prophylaxis (7) Advance care planning Current Visit: Yes Status: Acute Subjective Date of service: 06/05/22 Principal diagnosis: POP, hematuria Interval history: 72-year-old male recently discharged on 05/27/2022 from after being treated for many multiple medical problems including POP, rhabdomyolysis, hypokalemia, hypertension: COVID infection, hypocalcemia and urinary retention was sent home with Ma catheter in place and to follow-up with urology. Patient comes in because of blood in the urine. Also feeling weak. No fever or chills. No chest pain. 06/04/2022 Hematuria resolved BUN/creatinine is improved from 43/2.5 t5o 50/2.4 06/05/2022 BUN and creatinine have improved from 43/2.5----50/2.4--- 45/1.7 today Objective - Constitutional Vitals: Vital Signs - 12hr 06/04/22 06/04/22 06/04/22 19:38 20:31 22:00 Temperature 98.0 F Pulse Rate 96 H 115 H 95 H Respiratory 18 Rate Blood Pressure 93/54 O2 Sat by Pulse 99 Oximetry 06/04/22 06/04/22 06/05/22 23:22 23:51 03:43 Temperature 98.5 F 98.4 F Pulse Rate 94 H 93 H Respiratory 21 20 Rate Blood Pressure 104/70 92/64 O2 Sat by Pulse 99 100 99 Oximetry 06/05/22 06:00 Temperature Pulse Rate 93 H Respiratory Rate Blood Pressure O2 Sat by Pulse Oximetry General appearance: Present: no acute distress, well-nourished - EENT Eyes: PERRL, EOM intact ENT: hearing intact, clear oral mucosa Ears: bilateral: normal - Neck Neck: supple, normal ROM - Respiratory Respiratory effort: normal Respiratory: bilateral: CTA - Breasts Breasts: normal - Cardiovascular Heart rate: 78 Rhythm: regular Heart Sounds: Present: S1 & S2. Absent: gallop, rub Extremities: pulses intact, No edema, normal color, Full ROM - Gastrointestinal General gastrointestinal: Present: soft, non-tender, non-distended, normal bowel sounds - Genitourinary Male genitourinary: normal - Integumentary Integumentary: clear, warm, dry - Musculoskeletal Musculoskeletal: 1, strength equal bilaterally - Neurologic Neurologic: moves all extremities - Psychiatric Psychiatric: memory intact, appropriate mood/affect, intact judgment & insight - Labs CBC & Chem 7: 06/08/22 16:20 06/08/22 16:20 Labs: Abnormal lab results 06/04/22 06/04/22 06/04/22 Range/Units 07:18 07:18 22:47 WBC 21.2 H (4.5-11.0) K/mm3 Seg Neuts % (Manual) 85.0 H (40.0-70.0) % Lymphocytes % (Manual) 7.0 L (13.4-35.0) % Seg Neutrophils # Man 18.0 H (1.8-7.7) K/mm3 Chloride 111.3 H (98-107) mmol/L Carbon Dioxide 20 L (22-30) mmol/L BUN 50 H (9-20) mg/dL Creatinine 2.4 H (0.8-1.3) mg/dL Total Creatine Kinase 541 H (55-170) units/L Albumin 2.9 L (3.9-5) g/dL
[2022-06-05] MEDS: TAMSULOSIN 0.4 MG CAP PO SCH (10:13)
[2022-06-05] MEDS: METOPROLOL TARTRATE 50 MG TAB PO SCH ×2 (10:13→18:37)
[2022-06-05] MEDS: FAMOTIDINE 20 MG TAB PO SCH (10:13)
[2022-06-05] MEDS: HEPARIN 5,000 UNIT/1 ML VIAL SUB-Q SCH ×2 (10:13→23:03)
[2022-06-05] MEDS: ASPIRIN EC 81 MG TAB PO SCH (10:13)
[2022-06-05 13:00] LABS: Calcium 8.7 mg/dL (8.4-10.2)
[2022-06-05] MEDS: CEFEPIME/NS 2 GM/100 ML 2 GM/100 ML BAG IV SCH (13:46)
--- NOTE | 2022-06-05 18:52 | Progress Note ---
Assessment and Plan (1) Acute kidney injury (2) UTI (urinary tract infection) (3) Hypertension (4) BPH with urinary obstruction (5) Hematuria (6) Acidosis -Cr slightly down. -Check urine studies, CK level -Follow Urine Cx for Possible UTI -Has had urinary retention s/p gee during last admission, check Renal US, sta rted flomax -Hold Losartan and Aldactone -Continue NS at 100 mls/hr. -Renally dose all meds -Avoid Nephrotoxic meds -Strict I/Os -Monitor acidosis, improving Logan White MD [phone] - Subjective Date of service: 06/05/22 Interval history: making urine. Objective - Exam Narrative Exam: General appearance: Present: no acute distress, well-nourished - EENT Eyes: Present: PERRL ENT: hearing intact, clear oral mucosa - Neck Neck: Present: supple, normal ROM - Respiratory Respiratory effort: normal Respiratory: bilateral: CTA - Cardiovascular Heart rate: 78 Heart Sounds: Present: S1 & S2. Absent: rub, click - Extremities Extremities: pulses symmetrical, No edema Peripheral Pulses: within normal limits - Abdominal General gastrointestinal: Present: soft, non-tender, non-distended, normal bowel sounds Male genitourinary: Present: normal - Integumentary Integumentary: Present: clear, warm, dry - Musculoskeletal Musculoskeletal: gait normal, strength equal bilaterally - Psychiatric Psychiatric: appropriate mood/affect, intact judgment & insight - Neurologic Neurologic: CNII-XII intact, moves all extremities - Vital Signs Vital signs: Vital Signs - 12hr 06/05/22 06/05/22 06/05/22 08:08 10:13 12:08 Temperature 98.4 F 98.7 F Pulse Rate 89 89 80 Respiratory 18 18 Rate Blood Pressure 107/66 107/66 113/74 O2 Sat by Pulse 98 98 Oximetry 06/05/22 06/05/22 13:10 16:37 Temperature 98.4 F Pulse Rate 87 Respiratory 22 18 Rate Blood Pressure 108/74 O2 Sat by Pulse 99 98 Oximetry - Lab 06/04/22 07:18 06/05/22 11:52 Most recent lab results Calcium 8.7 mg/dL (8.4-10.2) 06/05/22 11:52 Magnesium 1.90 mg/dL (1.7-2.3) 06/03/22 10:24 Medications & Allergies - Medications Allergies/Adverse Reactions: Allergies No Known Allergies Allergy (Verified 06/03/22 08:19) Home Medications: Home Medications Medication Instructions Recorded Confirmed Last Taken Type Aspirin EC [Halfprin EC] 81 mg PO QDAY #30 tablet. 04/25/22 Unknown Rx Simvastatin 20 mg PO DAILY #30 tablet 04/25/22 Unknown Rx Loperamide [Imodium] 2 mg PO Q2H PRN #20 capsule 05/27/22 Unknown Rx Losartan [Cozaar] 50 mg PO QDAY #30 tablet 05/27/22 Unknown Rx Metoprolol [Lopressor TAB] 50 mg PO BID #60 tablet 05/27/22 Unknown Rx NIFEdipine XL [Procardia Xl] 30 mg PO QDAY #30 tablet 05/27/22 Unknown Rx Spironolactone [Aldactone] 25 mg PO QDAY #30 tablet 05/27/22 Unknown Rx Active Medications: Generic Name Dose Route Start Last Admin Trade Name Freq PRN Reason Stop Dose Admin Acetaminophen 650 mg 06/03/22 21:27 Acetaminophen 325 Mg Tab PO Q4H PRN Pain MILD(1-3)/Fever >100.5/CRUZ Aspirin 81 mg 06/04/22 10:00 06/05/22 10:13 Aspirin Ec 81 Mg Tab PO 81 mg QDAY [facility] Administration Famotidine 20 mg 06/03/22 22:00 06/05/22 10:13 Famotidine 20 Mg Tab PO 20 mg QAM [facility] Administration Heparin Sodium (Porcine) 5,000 unit 06/03/22 22:00 06/05/22 10:13 Heparin 5,000 Unit/1 Ml Vial SUB-Q 5,000 unit Q12HR [facility] Administration Sodium Chloride 1,000 mls @ 100 mls/hr 06/03/22 21:30 06/05/22 17:30 Nacl 0.9% 1000 Ml IV 75 mls/hr DIRECT [facility] Administration Cefepime HCl 2 gm in 100 mls @ 200 mls/hr 06/04/22 12:00 06/05/22 13:46 Cefepime/Ns 2 Gm/100 Ml IV 200 mls/hr Q24H [facility] Administration Protocol Metoclopramide HCl 5 mg 06/03/22 21:27 Metoclopramide 10 Mg/2 Ml Inj IV Q6H PRN Nausea And Vomiting Metoprolol Tartrate 50 mg 06/03/22 22:00 06/05/22 18:37 Metoprolol Tartrate 50 Mg Tab PO 50 mg BID@0800,1700 [facility] Administration Morphine Sulfate 2 mg 06/03/22 21:27 Morphine 2 Mg/1 Ml Inj IV Q4H PRN Pain, Moderate (4-6) Nifedipine 30 mg 06/04/22 06:00 06/05/22 05:31 Nifedipine Xl 30 Mg Tab PO Not Given QDAY@0600 [facility] Ondansetron HCl 4 mg 06/03/22 21:27 Ondansetron 4 Mg/2 Ml Inj IV Q8H PRN Nausea And Vomiting Oxycodone/Acetaminophen 1 tab 06/03/22 21:27 Oxycodone /Acetaminophen 5-325mg Tab PO Q6H PRN Pain, Moderate (4-6) Sodium Chloride 10 ml 06/03/22 22:00 06/04/22 21:58 Sodium Chloride 0.9% 10 Ml Flush Syringe IV 10 ml BID [facility] Administration Sodium Chloride 10 ml 06/03/22 21:27 Sodium Chloride 0.9% 10 Ml Flush Syringe IV PRN PRN LINE FLUSH Tamsulosin HCl 0.4 mg 06/04/22 21:00 06/05/22 10:13 Tamsulosin 0.4 Mg Cap PO 0.4 mg QDAY [facility] Administration
[2022-06-06] MEDS: NIFEdipine XL 30 MG TAB PO SCH (06:00)
--- NOTE | 2022-06-06 09:35 | Progress Note ---
Assessment and Plan Acute kidney injury UTI (urinary tract infection) Hypertension BPH with urinary obstruction Hematuria Acidosis Plan: -Labs pending today -Most recent SCr level in [facility] prior to this admission was 1.2 on 05/17/22 -On 0.9% NS infusion at 100 ml/hr -CK level was slightly elevated at 541 on 06/05/22 -Check urine lytes/protein, eosinophil -Follow Urine culture for possible UTI -Pt had urinary retention s/p gee during last admission, started flomax -Renal US showed simple right renal and hepatic cyst, no hydronephrosis -Holding Losartan and Aldactone -Renally dose all meds -Strict I/Os -Gee Catheter: Yes -Renal plan reviewed by Dr White Subjective Date of service: 06/06/22 Interval history: Pt seen in bed, awake, oriented to self only, 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 No acute distress, no family at bedside Objective - Vital Signs Vital signs: Vital Signs - 12hr 06/05/22 06/06/22 06/06/22 23:13 03:44 08:23 Temperature 98.2 F 98.4 F Pulse Rate 80 91 H Respiratory 19 18 16 Rate Blood Pressure 111/66 137/81 O2 Sat by Pulse 99 98 99 Oximetry - General Appearance General appearance: other (awake) EENT: ATNC Neck: no JVD Respiratory: Present: Decreased Breath Sounds Cardiology: S1S2 Gastrointestinal: normoactive bowel sounds Integumentary: warm and dry Neurologic: other (awake, oriented to self only) Musculoskeletal: other (trace edema to BLE) - Lab 06/04/22 07:18 06/05/22 11:52 Most recent lab results Calcium 8.7 mg/dL (8.4-10.2) 06/05/22 11:52 Magnesium 1.90 mg/dL (1.7-2.3) 06/03/22 10:24 Medications & Allergies - Medications Allergies/Adverse Reactions: Allergies No Known Allergies Allergy (Verified 06/03/22 08:19) Home Medications: Home Medications Medication Instructions Recorded Confirmed Last Taken Type Aspirin EC [Halfprin EC] 81 mg PO QDAY #30 tablet. 04/25/22 Unknown Rx Simvastatin 20 mg PO DAILY #30 tablet 04/25/22 Unknown Rx Loperamide [Imodium] 2 mg PO Q2H PRN #20 capsule 05/27/22 Unknown Rx Losartan [Cozaar] 50 mg PO QDAY #30 tablet 05/27/22 Unknown Rx Metoprolol [Lopressor TAB] 50 mg PO BID #60 tablet 05/27/22 Unknown Rx NIFEdipine XL [Procardia Xl] 30 mg PO QDAY #30 tablet 05/27/22 Unknown Rx Spironolactone [Aldactone] 25 mg PO QDAY #30 tablet 05/27/22 Unknown Rx Active Medications: Generic Name Dose Route Start Last Admin Trade Name Freq PRN Reason Stop Dose Admin Acetaminophen 650 mg 06/03/22 21:27 Acetaminophen 325 Mg Tab PO Q4H PRN Pain MILD(1-3)/Fever >100.5/CRUZ Aspirin 81 mg 06/04/22 10:00 06/05/22 10:13 Aspirin Ec 81 Mg Tab PO 81 mg QDAY [facility] Administration Famotidine 20 mg 06/03/22 22:00 06/05/22 10:13 Famotidine 20 Mg Tab PO 20 mg QAM [facility] Administration Heparin Sodium (Porcine) 5,000 unit 06/03/22 22:00 06/05/22 23:03 Heparin 5,000 Unit/1 Ml Vial SUB-Q 5,000 unit Q12HR [facility] Administration Sodium Chloride 1,000 mls @ 100 mls/hr 06/03/22 21:30 06/05/22 17:30 Nacl 0.9% 1000 Ml IV 75 mls/hr DIRECT [facility] Administration Cefepime HCl 2 gm in 100 mls @ 200 mls/hr 06/04/22 12:00 06/05/22 13:46 Cefepime/Ns 2 Gm/100 Ml IV 200 mls/hr Q24H [facility] Administration Protocol Metoclopramide HCl 5 mg 06/03/22 21:27 Metoclopramide 10 Mg/2 Ml Inj IV Q6H PRN Nausea And Vomiting Metoprolol Tartrate 50 mg 06/03/22 22:00 06/05/22 18:37 Metoprolol Tartrate 50 Mg Tab PO 50 mg BID@0800,1700 ED[facility] Administration Morphine Sulfate 2 mg 06/03/22 21:27 Morphine 2 Mg/1 Ml Inj IV Q4H PRN Pain, Moderate (4-6) Nifedipine 30 mg 06/04/22 06:00 06/06/22 06:00 Nifedipine Xl 30 Mg Tab PO 30 mg QDAY@0600 [facility] Administration Ondansetron HCl 4 mg 06/03/22 21:27 Ondansetron 4 Mg/2 Ml Inj IV Q8H PRN Nausea And Vomiting Oxycodone/Acetaminophen 1 tab 06/03/22 21:27 Oxycodone /Acetaminophen 5-325mg Tab PO Q6H PRN Pain, Moderate (4-6) Sodium Chloride 10 ml 06/03/22 22:00 06/05/22 22:00 Sodium Chloride 0.9% 10 Ml Flush Syringe IV 10 ml BID [facility]GAR Administration Sodium Chloride 10 ml 06/03/22 21:27 Sodium Chloride 0.9% 10 Ml Flush Syringe IV PRN PRN LINE FLUSH Tamsulosin HCl 0.4 mg 06/04/22 21:00 06/05/22 10:13 Tamsulosin 0.4 Mg Cap PO 0.4 mg QDAY [facility] Administration
[2022-06-06] MEDS: METOPROLOL TARTRATE 50 MG TAB PO SCH ×3 (10:08→17:35)
[2022-06-06] MEDS: TAMSULOSIN 0.4 MG CAP PO SCH (10:08)
[2022-06-06] MEDS: ASPIRIN EC 81 MG TAB PO SCH (10:08)
[2022-06-06] MEDS: HEPARIN 5,000 UNIT/1 ML VIAL SUB-Q SCH ×2 (10:08→21:23)
[2022-06-06] MEDS: FAMOTIDINE 20 MG TAB PO SCH (10:08)
[2022-06-06 10:36] LABS: Hematocrit 31.4 % (35.5-45.6); Hemoglobin 10.4 gm/dl (11.8-15.2); Mean Corpuscular HGB Conc 33 % (32-34); Mean Corpuscular Volume 92 fl (84-94); Platelet Count 172 K/mm3 (140-440); Red Blood Count 3.42 M/mm3 (3.65-5.03); Red Cell Distribution Width 15.1 % (13.2-15.2)
[2022-06-06 11:00] LABS: BUN/Creatinine Ratio 21; Blood Urea Nitrogen 29 mg/dL (9-20); Calcium 8.6 mg/dL (8.4-10.2); Hemolysis Index 0
[2022-06-06] MEDS: CEFEPIME/NS 2 GM/100 ML 2 GM/100 ML BAG IV SCH (12:20)
[2022-06-06] MEDS: SODIUM CHLORIDE 0.9% 1000 ML 1,000 ML IV SCH (14:53)
[2022-06-07] MEDS: CEFEPIME/NS 2 GM/100 ML 2 GM/100 ML BAG IV SCH ×3 (00:14→23:46)
[2022-06-07] MEDS: SODIUM CHLORIDE 0.9% 1000 ML 1,000 ML IV SCH ×3 (00:16→23:44)
[2022-06-07 05:42] LABS: Hematocrit 29.5 % (35.5-45.6); Hemoglobin 9.9 gm/dl (11.8-15.2); Mean Corpuscular HGB Conc 34 % (32-34); Mean Corpuscular Volume 91 fl (84-94); Platelet Count 165 K/mm3 (140-440); Red Blood Count 3.24 M/mm3 (3.65-5.03)
[2022-06-07] MEDS: NIFEdipine XL 30 MG TAB PO SCH (05:53)
[2022-06-07 05:58] LABS: BUN/Creatinine Ratio 16; Blood Urea Nitrogen 19 mg/dL (9-20); Calcium 8.8 mg/dL (8.4-10.2); Hemolysis Index 0
--- NOTE | 2022-06-07 07:56 | Progress Note ---
Assessment and Plan - Patient Problems (1) Acute kidney injury Current Visit: Yes Status: Acute Plan to address problem: POP improving Vasomotor nephropathy BUN and creatinine have improved from 43/2.5----50/2.4--- 45/1.7--29/1.4 on 06/06/2022 (2) UTI (urinary tract infection) Current Visit: Yes Status: Acute Qualifiers: Urinary tract infection type: acute cystitis Plan to address problem: IV fluids and IV Rocephin (3) Hypertension Current Visit: Yes Status: Chronic Qualifiers: Hypertension type: primary hypertension Qualified Code(s): I10 - Essential (primary) hypertension Plan to address problem: Continue antihypertensives (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 Patient acknowledges understanding with care plan +30 minutes.. Subjective Date of service: 06/06/22 Principal diagnosis: POP, hematuria Interval history: 72-year-old male recently discharged on 05/27/2022 from after being treated for many multiple medical problems including POP, rhabdomyolysis, hypokalemia, hyper tension: COVID infection, hypocalcemia and urinary retention was sent home with Ma catheter in place and to follow-up with urology. Patient comes in because of blood in the urine. Also feeling weak. No fever or chills. No chest pain. 06/04/2022 Hematuria resolved BUN/creatinine is improved from 43/2.5 t5o 50/2.4 06/05/2022 BUN and creatinine have improved from 43/2.5----50/2.4--- 45/1.7 06/06/2022 BUN and creatinine have improved from 43/2.5----50/2.4--- 45/1.7--29/1.4 Objective - Constitutional Vitals: Vital Signs - 12hr 06/06/22 06/06/22 06/06/22 20:45 22:00 23:55 Temperature 98.2 F Pulse Rate 87 81 Pulse Rate [ 87 From Monitor] Respiratory 18 16 Rate Blood Pressure 114/78 [Left] O2 Sat by Pulse 98 100 Oximetry 06/07/22 04:00 Temperature 98.4 F Pulse Rate 70 Pulse Rate [ From Monitor] Respiratory 16 Rate Blood Pressure 122/80 [Left] O2 Sat by Pulse 100 Oximetry General appearance: Present: no acute distress, well-nourished - EENT Eyes: PERRL, EOM intact ENT: hearing intact, clear oral mucosa Ears: bilateral: normal - Neck Neck: supple, normal ROM - Respiratory Respiratory effort: normal Respiratory: bilateral: CTA - Breasts Breasts: normal - Cardiovascular Heart rate: 78 Rhythm: regular Heart Sounds: Present: S1 & S2. Absent: gallop, rub Extremities: pulses intact, No edema, normal color, Full ROM - Gastrointestinal General gastrointestinal: Present: soft, non-tender, non-distended, normal bowel sounds - Genitourinary Male genitourinary: normal - Integumentary Integumentary: clear, warm, dry - Musculoskeletal Musculoskeletal: 1, strength equal bilaterally - Neurologic Neurologic: moves all extremities - Psychiatric Psychiatric: memory intact, appropriate mood/affect, intact judgment & insight - Labs CBC & Chem 7: 06/08/22 16:20 06/08/22 16:20 Labs: Abnormal lab results 06/06/22 06/06/22 06/07/22 Range/Units 09:42 09:42 04:40 WBC 12.3 H (4.5-11.0) K/mm3 RBC 3.42 L 3.24 L (3.65-5.03) M/mm3 Hgb 10.4 L 9.9 L (11.8-15.2) gm/dl Hct 31.4 L 29.5 L (35.5-45.6) % Chloride 113.0 H (98-107) mmol/L Carbon Dioxide (22-30) mmol/L BUN 29 H (9-20) mg/dL Creatinine 1.4 H (0.8-1.3) mg/dL Glucose 101 H (75-100) mg/dL 06/07/22 Range/Units 04:40 WBC (4.5-11.0) K/mm3 RBC (3.65-5.03) M/mm3 Hgb (11.8-15.2) gm/dl Hct (35.5-45.6) % Chloride 113.0 H (98-107) mmol/L Carbon Dioxide 21 L (22-30) mmol/L BUN (9-20) mg/dL Creatinine (0.8-1.3) mg/dL Glucose (75-100) mg/dL
[2022-06-07] MEDS: METOPROLOL TARTRATE 50 MG TAB PO SCH ×2 (09:00→17:46)
[2022-06-07] MEDS: HEPARIN 5,000 UNIT/1 ML VIAL SUB-Q SCH ×2 (09:45→21:19)
[2022-06-07] MEDS: TAMSULOSIN 0.4 MG CAP PO SCH (09:46)
[2022-06-07] MEDS: ASPIRIN EC 81 MG TAB PO SCH (09:46)
[2022-06-07] MEDS: FAMOTIDINE 20 MG TAB PO SCH (09:46)
--- NOTE | 2022-06-07 11:44 | Progress Note ---
Assessment and Plan (1) Acute kidney injury (2) UTI (urinary tract infection) (3) Hypertension (4) BPH with urinary obstruction (5) Hematuria (6) Acidosis -Cr trending down -Most recent SCr level in [facility] prior to this admission was 1.2 on 05/17/22 -On 0.9% NS infusion at 100 ml/hr -CK level was slightly elevated at 541 on 06/05/22 -Check urine lytes/protein, eosinophil -Follow Urine culture for possible UTI -Pt had urinary retention s/p gee during last admission, started flomax -Renal US showed simple right renal and hepatic cyst, no hydronephrosis -Holding Losartan and Aldactone -Renally dose all meds -Strict I/Os -Gee Catheter: Yes Will sign off at this time. Logan White MD [phone] - Subjective Date of service: 06/07/22 Interval history: making urine. Objective - Exam Narrative Exam: General appearance: Present: no acute distress, well-nourished - EENT Eyes: Present: PERRL ENT: hearing intact, clear oral mucosa - Neck Neck: Present: supple, normal ROM - Respiratory Respiratory effort: normal Respiratory: bilateral: CTA - Cardiovascular Heart rate: 78 Heart Sounds: Present: S1 & S2. Absent: rub, click - Extremities Extremities: pulses symmetrical, No edema Peripheral Pulses: within normal limits - Abdominal General gastrointestinal: Present: soft, non-tender, non-distended, normal bowel sounds Male genitourinary: Present: normal - Integumentary Integumentary: Present: clear, warm, dry - Musculoskeletal Musculoskeletal: gait normal, strength equal bilaterally - Psychiatric Psychiatric: appropriate mood/affect, intact judgment & insight - Neurologic Neurologic: CNII-XII intact, moves all extremities - Vital Signs Vital signs: Vital Signs - 12hr 06/06/22 06/07/22 06/07/22 23:55 04:00 07:51 Temperature 98.2 F 98.4 F 98.0 F Pulse Rate 81 70 73 Pulse Rate [ From Monitor] Respiratory 16 16 18 Rate Blood Pressure 120/79 Blood Pressure 114/78 122/80 [Left] O2 Sat by Pulse 100 100 100 Oximetry 06/07/22 11:10 Temperature Pulse Rate Pulse Rate [ 87 From Monitor] Respiratory 18 Rate Blood Pressure Blood Pressure [Left] O2 Sat by Pulse 98 Oximetry - Lab 06/07/22 04:40 06/07/22 04:40 Most recent lab results Calcium 8.8 mg/dL (8.4-10.2) 06/07/22 04:40 Magnesium 1.90 mg/dL (1.7-2.3) 06/03/22 10:24 Medications & Allergies - Medications Allergies/Adverse Reactions: Allergies No Known Allergies Allergy (Verified 06/03/22 08:19) Home Medications: Home Medications Medication Instructions Recorded Confirmed Last Taken Type Aspirin EC [Halfprin EC] 81 mg PO QDAY #30 tablet.dr 04/25/22 Unknown Rx Simvastatin 20 mg PO DAILY #30 tablet 04/25/22 Unknown Rx Loperamide [Imodium] 2 mg PO Q2H PRN #20 capsule 05/27/22 Unknown Rx Losartan [Cozaar] 50 mg PO QDAY #30 tablet 05/27/22 Unknown Rx Metoprolol [Lopressor TAB] 50 mg PO BID #60 tablet 05/27/22 Unknown Rx NIFEdipine XL [Procardia Xl] 30 mg PO QDAY #30 tablet 05/27/22 Unknown Rx Spironolactone [Aldactone] 25 mg PO QDAY #30 tablet 05/27/22 Unknown Rx Active Medications: Generic Name Dose Route Start Last Admin Trade Name Freq PRN Reason Stop Dose Admin Acetaminophen 650 mg 06/03/22 21:27 Acetaminophen 325 Mg Tab PO Q4H PRN Pain MILD(1-3)/Fever >100.5/CRUZ Aspirin 81 mg 06/04/22 10:00 06/07/22 09:46 Aspirin Ec 81 Mg Tab PO 81 mg QDAY EDGAR Administration Famotidine 20 mg 06/03/22 22:00 06/07/22 09:46 Famotidine 20 Mg Tab PO 20 mg QAM EDGAR Administration Heparin Sodium (Porcine) 5,000 unit 06/03/22 22:00 06/07/22 09:45 Heparin 5,000 Unit/1 Ml Vial SUB-Q 5,000 unit Q12HR EDGAR Administration Sodium Chloride 1,000 mls @ 100 mls/hr 06/03/22 21:30 06/07/22 00:16 Nacl 0.9% 1000 Ml IV 100 mls/hr DIRECT EDGAR Administration Cefepime HCl 2 gm in 100 mls @ 200 mls/hr 06/07/22 00:00 06/07/22 00:14 Cefepime/Ns 2 Gm/100 Ml IV 200 mls/hr Q12H EDGAR Administration Protocol Metoclopramide HCl 5 mg 06/03/22 21:27 Metoclopramide 10 Mg/2 Ml Inj IV Q6H PRN Nausea And Vomiting Metoprolol Tartrate 50 mg 06/03/22 22:00 06/07/22 09:00 Metoprolol Tartrate 50 Mg Tab PO 50 mg BID@0800,1700 EDGAR Administration Morphine Sulfate 2 mg 06/03/22 21:27 Morphine 2 Mg/1 Ml Inj IV Q4H PRN Pain, Moderate (4-6) Nifedipine 30 mg 06/04/22 06:00 06/07/22 05:53 Nifedipine Xl 30 Mg Tab PO 30 mg QDAY@0600 EDGAR Administration Ondansetron HCl 4 mg 06/03/22 21:27 Ondansetron 4 Mg/2 Ml Inj IV Q8H PRN Nausea And Vomiting Oxycodone/Acetaminophen 1 tab 06/03/22 21:27 Oxycodone /Acetaminophen 5-325mg Tab PO Q6H PRN Pain, Moderate (4-6) Sodium Chloride 10 ml 06/03/22 22:00 06/07/22 09:46 Sodium Chloride 0.9% 10 Ml Flush Syringe IV 10 ml BID EDGAR Administration Sodium Chloride 10 ml 06/03/22 21:27 Sodium Chloride 0.9% 10 Ml Flush Syringe IV PRN PRN LINE FLUSH Tamsulosin HCl 0.4 mg 06/04/22 21:00 06/07/22 09:46 Tamsulosin 0.4 Mg Cap PO 0.4 mg QDAY EDGAR Administration
--- NOTE | 2022-06-07 22:38 | Progress Note ---
Assessment and Plan - Patient Problems (1) Acute kidney injury Current Visit: Yes Status: Acute Plan to address problem: BUN and creatinine have improved from 43/2.5----50/2.4--- 45/1.7--29/1.4--- improved to 19 and 1.2 today (2) UTI (urinary tract infection) Current Visit: Yes Status: Acute Qualifiers: Urinary tract infection type: acute cystitis Plan to address problem: IV fluids and IV Rocephin (3) Hypertension Current Visit: Yes Status: Chronic Qualifiers: Hypertension type: primary hypertension Qualified Code(s): I10 - Essential (primary) hypertension Plan to address problem: Continue antihypertensives (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 Patient acknowledges understanding with care plan +30 minutes.. Subjective Date of service: 06/07/22 Principal diagnosis: POP, hematuria Interval history: 72-year-old male recently discharged on 05/27/2022 from after being treated for many multiple medical problems including POP, rhabdomyolysis, hypokalemia, hypertension: COVID infection, hypocalcemia and urinary retention was sent home with Ma catheter in place and to follow-up with urology. Patient comes in because of blood in the urine. Also feeling weak. No fever or chills. No chest pain. 06/04/2022 Hematuria resolved BUN/creatinine is improved from 43/2.5 t5o 50/2.4 06/05/2022 BUN and creatinine have improved from 43/2.5----50/2.4--- 45/1.7 06/06/2022 BUN and creatinine have improved from 43/2.5----50/2.4--- 45/1.7--29/1.4 06/07/2022 BUN and creatinine have improved from 43/2.5----50/2.4--- 45/1.7--29/1.4--improved to 19/1.2 on 06/07/2022 Objective - Constitutional Vitals: Vital Signs - 12hr 06/07/22 06/07/22 06/07/22 11:10 11:55 16:24 Temperature 98.4 F 97.8 F Pulse Rate 84 75 Pulse Rate [ 87 From Monitor] Respiratory 18 18 18 Rate Blood Pressure 109/76 109/76 O2 Sat by Pulse 98 97 100 Oximetry 06/07/22 19:37 Temperature 97.8 F Pulse Rate 78 Pulse Rate [ From Monitor] Respiratory 18 Rate Blood Pressure 129/79 O2 Sat by Pulse 98 Oximetry General appearance: Present: no acute distress, well-nourished - EENT Eyes: PERRL, EOM intact ENT: hearing intact, clear oral mucosa Ears: bilateral: normal - Neck Neck: supple, normal ROM - Respiratory Respiratory effort: normal Respiratory: bilateral: CTA - Breasts Breasts: normal - Cardiovascular Heart rate: 78 Rhythm: regular Heart Sounds: Present: S1 & S2. Absent: gallop, rub Extremities: pulses intact, No edema, normal color, Full ROM - Gastrointestinal General gastrointestinal: Present: soft, non-tender, non-distended, normal bowel sounds - Genitourinary Male genitourinary: normal - Integumentary Integumentary: clear, warm, dry - Musculoskeletal Musculoskeletal: 1, strength equal bilaterally - Neurologic Neurologic: moves all extremities - Psychiatric Psychiatric: memory intact, appropriate mood/affect, intact judgment & insight - Labs CBC & Chem 7: 06/08/22 16:20 06/08/22 16:20 Labs: Abnormal lab results 06/07/22 06/07/22 Range/Units 04:40 04:40 RBC 3.24 L (3.65-5.03) M/mm3 Hgb 9.9 L (11.8-15.2) gm/dl Hct 29.5 L (35.5-45.6) % Chloride 113.0 H (98-107) mmol/L Carbon Dioxide 21 L (22-30) mmol/L
[2022-06-08] MEDS: NIFEdipine XL 30 MG TAB PO SCH (05:52)
[2022-06-08] MEDS: TAMSULOSIN 0.4 MG CAP PO SCH (09:09)
[2022-06-08] MEDS: METOPROLOL TARTRATE 50 MG TAB PO SCH ×2 (09:09→17:55)
[2022-06-08] MEDS: ASPIRIN EC 81 MG TAB PO SCH (09:09)
[2022-06-08] MEDS: FAMOTIDINE 20 MG TAB PO SCH (09:09)
[2022-06-08] MEDS: HEPARIN 5,000 UNIT/1 ML VIAL SUB-Q SCH (09:12)
[2022-06-08] MEDS: SODIUM CHLORIDE 0.9% 1000 ML 1,000 ML IV SCH (09:12)
[2022-06-08] MEDS: CEFEPIME/NS 2 GM/100 ML 2 GM/100 ML BAG IV SCH (13:06)
--- NOTE | 2022-06-08 14:08 | Discharge Summary ---
Providers - Providers Date of Admission: 06/03/22 21:27 Date of discharge: 06/08/22 Attending physician: SRINATH REED 06/03/22 21:27 Consult to Physician [CONS] Routine Comment: Consulting Provider: SANDY AUGUSTIN Physician Instructions: Reason For Exam: POP 06/04/22 06:50 Consult to Wound/ET Nurse [CONS] Urgent Reason For Exam: wound eval Primary care physician: CARLOS WARREN Hospitalization Condition: Stable Hospital course: Subjective Date of service: 06/08/22 Principal diagnosis: POP, hematuria Interval history: 72-year-old male recently discharged on 05/27/2022 from after being treated for many multiple medical problems including POP, rhabdomyolysis, hypokalemia, hypertension: COVID infection, hypocalcemia and urinary retention was sent home with Ma catheter in place and to follow-up with urology. Patient comes in because of blood in the urine. Also feeling weak. No fever or chills. No chest pain. 06/04/2022 Hematuria resolved BUN/creatinine is improved from 43/2.5 t5o 50/2.4 06/05/2022 BUN and creatinine have improved from 43/2.5----50/2.4--- 45/1.7 06/06/2022 BUN and creatinine have improved from 43/2.5----50/2.4--- 45/1.7--29/1.4 06/07/2022 BUN and creatinine have improved from 43/2.5----50/2.4--- 45/1.7--29/1.4-- improved to 19/1.2 on 06/07/2022 06/08/2022 BUN and creatinine 19 and 1.2--back to baseline Discharge today Patient has hematuria and POP which is resolved Patient to follow-up with urology for BPH and urinary retention Patient to go home with the urinary catheter Assessment and Plan - Patient Problems (1) Acute kidney injury Current Visit: Yes Status: Acute Plan to address problem: BUN and creatinine have improved from 43/2.5----50/2.4--- 45/1.7--29/1.4--- impr artemio to 19 and 1.2 today BUN and creatinine improved to baseline Patient to follow-up with nephrology as outpatient (2) UTI (urinary tract infection) Current Visit: Yes Status: Acute Qualifiers: Urinary tract infection type: acute cystitis Plan to address problem: Antibiotic course finished (3) Hypertension Current Visit: Yes Status: Chronic Qualifiers: Hypertension type: primary hypertension Qualified Code(s): I10 - Essential (primary) hypertension Plan to address problem: Continue antihypertensives (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 Patient acknowledges understanding with care plan +30 minutes.. Disposition: 01 HOME / SELF CARE / HOMELESS Final Discharge Diagnosis (Prints w/discharge instructions): POP. Hematuria. Hypertension. BPH. Urinary tract infection. SIRS Time spent for discharge: 35 minutes - Discharge Diagnoses (1) Acute kidney injury Status: Acute (2) UTI (urinary tract infection) Status: Acute Qualifiers: Urinary tract infection type: acute cystitis (3) Hypertension Status: Chronic Qualifiers: Hypertension type: primary hypertension Qualified Code(s): I10 - Essential (primary) hypertension (4) BPH with urinary obstruction Status: Chronic (5) Hematuria Status: Acute (6) DVT prophylaxis Status: Acute (7) Advance care planning Status: Acute Core Measure Documentation - Palliative Care Palliative Care/ Comfort Measures: Not Applicable - Core Measures Any of the following diagnoses?: none Exam - Constitutional Vitals: Temp Pulse Resp BP Pulse Ox 98.6 F 85 18 103/69 100 06/08/22 11:19 06/08/22 11:19 06/08/22 11:19 06/08/22 11:19 06/08/22 11:19 General appearance: Present: no acute distress, well-nourished - EENT Eyes: Present: PERRL ENT: hearing intact, clear oral mucosa - Neck Neck: Present: supple, normal ROM - Respiratory Respiratory effort: normal Respiratory: bilateral: CTA - Cardiovascular Heart rate: 78 Rhythm: regular Heart Sounds: Present: S1 & S2. Absent: rub, click - Extremities Extremities: pulses symmetrical, No edema Peripheral Pulses: within normal limits - Abdominal General gastrointestinal: Present: soft, non-tender, non-distended, normal bowel sounds Male genitourinary: Present: normal - Integumentary Integumentary: Present: clear, warm, dry - Musculoskeletal Musculoskeletal: gait normal, strength equal bilaterally - Psychiatric Psychiatric: appropriate mood/affect, intact judgment & insight - Neurologic Neurologic: CNII-XII intact, moves all extremities - Allied Health Allied health notes reviewed: nursing, case management Plan Follow up with: CARLOS WARREN MD [Primary Care Provider] - 3-5 Days Prescriptions: Spironolactone [Aldactone] 25 mg PO QDAY 30 Days #30 tablet Losartan [Cozaar] 50 mg PO QDAY 30 Days #30 tablet Tamsulosin [Flomax] 0.4 mg PO QDAY 30 Days #30 capsule Aspirin EC [Halfprin EC] 81 mg PO QDAY #30 tablet Metoprolol [Lopressor TAB] 50 mg PO BID@0800,1700 #60 tablet NIFEdipine XL [Procardia Xl] 30 mg PO QDAY@0600 #30 tablet Simvastatin 20 mg PO DAILY 30 Days #30 tablet
[2022-06-08 16:37] VITALS: BP 121/78
[2022-06-08 16:52] LABS: Hematocrit 30.1 % (35.5-45.6); Hemoglobin 10.1 gm/dl (11.8-15.2); Mean Corpuscular HGB Conc 34 % (32-34); Mean Corpuscular Volume 91 fl (84-94); Platelet Count 174 K/mm3 (140-440); Red Blood Count 3.32 M/mm3 (3.65-5.03); Red Cell Distribution Width 15.2 % (13.2-15.2)
[2022-06-08 17:04] LABS: BUN/Creatinine Ratio 12; Blood Urea Nitrogen 11 mg/dL (9-20); Calcium 8.1 mg/dL (8.4-10.2); Hemolysis Index 0
== END 2022-06-08 19:12 | disposition home or self-care (01) | DRG 689 ==
LOC: ED 08:14 → 4A 21:27
PROVIDERS: ADMIT Internal Medicine; ATTEND Internal Medicine
DX: N30.00 Acute cystitis without hematuria (principal); N17.0 Acute kidney failure with tubular necrosis; E87.2 Acidosis; R65.10 Systemic inflammatory response syndrome (SIRS) of non-infectious origin without acute organ dysfunction; R31.9 Hematuria, unspecified; I10 Essential (primary) hypertension; F03.90 Unspecified dementia, unspecified severity, without behavioral disturbance, psychotic disturbance, mood disturbance, and anxiety; N40.1 Benign prostatic hyperplasia with lower urinary tract symptoms; N13.8 Other obstructive and reflux uropathy; Z79.899 Other long term (current) drug therapy; Z79.82 Long term (current) use of aspirin; Z82.49 Family history of ischemic heart disease and other diseases of the circulatory system
CPT/HCPCS: 36415; 70450; 71045; 76770; 80048; 80053; 81001; 82140; 82550; 83735; 85007; 85025; 85027; 87040; 87076; 87186; 93005; G0378; J0692; J0696; J1644; J7030

== ENCOUNTER 2022-06-28 01:52 | Emergency (ER) | payer SELFPAY ==
[2022-06-28] MEDS ORDERED: HYDROcodone/ACETAMINOPHEN 5-325 MG TAB PO ONE (05:32)
--- NOTE | 2022-06-28 05:38 | Emergency Department Report ---
- General Chief Complaint: Urogenital-Male Stated Complaint: PENILE PAIN Time Seen by Provider: 06/28/22 02:38 Source: patient Mode of arrival: Stretcher Limitations: No Limitations - History of Present Illness Initial Comments: Patient is a 72-year-old male sent from [facility] for penile pain. He has a chronic indwelling Ma. Patient denies any penile pain or dysuria however complains of pain in his gluteal/sacral region. - Related Data Previous Rx's Medication Instructions Recorded Last Taken Type Loperamide [Imodium] 2 mg PO Q2H PRN #20 capsule 05/27/22 Unknown Rx Aspirin EC [Halfprin EC] 81 mg PO QDAY #30 tablet 06/08/22 Unknown Rx Losartan [Cozaar] 50 mg PO QDAY 30 Days #30 tablet 06/08/22 Unknown Rx Metoprolol [Lopressor TAB] 50 mg PO BID@0800,1700 #60 tablet 06/08/22 Unknown Rx NIFEdipine XL [Procardia Xl] 30 mg PO QDAY@0600 #30 tablet 06/08/22 Unknown Rx Simvastatin 20 mg PO DAILY 30 Days #30 tablet 06/08/22 Unknown Rx Spironolactone [Aldactone] 25 mg PO QDAY 30 Days #30 tablet 06/08/22 Unknown Rx Tamsulosin [Flomax] 0.4 mg PO QDAY 30 Days #30 capsule 06/08/22 Unknown Rx Allergies Allergy/AdvReac Type Severity Reaction Status Date / Time No Known Allergies Allergy Verified 06/03/22 08:19 ED Review of Systems ROS: Stated complaint: PENILE PAIN Other details as noted in HPI Constitutional: denies: chills, fever Respiratory: denies: cough, shortness of breath, wheezing Cardiovascular: denies: chest pain, palpitations Gastrointestinal: denies: abdominal pain, nausea, diarrhea Genitourinary: denies: urgency, dysuria Musculoskeletal: denies: back pain, joint swelling, arthralgia Skin: denies: rash, lesions Neurological: denies: headache, weakness, paresthesias Psychiatric: denies: anxiety, depression ED Past Medical Hx - Past Medical History Previous Medical History?: Yes Hx Hypertension: Yes Hx Congestive Heart Failure: No Hx Diabetes: No Hx Sickle Cell Disease: No Hx Asthma: No Hx COPD: No Hx Dementia: Yes Hx HIV: No - Surgical History Past Surgical History?: No - Social History Smoking Status: Never Smoker Substance Use Type: None - Medications Home Medications: Home Medications Medication Instructions Recorded Confirmed Last Taken Type Loperamide [Imodium] 2 mg PO Q2H PRN #20 capsule 05/27/22 Unknown Rx Aspirin EC [Halfprin EC] 81 mg PO QDAY #30 tablet 06/08/22 Unknown Rx Losartan [Cozaar] 50 mg PO QDAY 30 Days #30 tablet 06/08/22 Unknown Rx Metoprolol [Lopressor TAB] 50 mg PO BID@0800,1700 #60 tablet 06/08/22 Unknown Rx NIFEdipine XL [Procardia Xl] 30 mg PO QDAY@0600 #30 tablet 06/08/22 Unknown Rx Simvastatin 20 mg PO DAILY 30 Days #30 tablet 06/08/22 Unknown Rx Spironolactone [Aldactone] 25 mg PO QDAY 30 Days #30 tablet 06/08/22 Unknown Rx Tamsulosin [Flomax] 0.4 mg PO QDAY 30 Days #30 capsule 06/08/22 Unknown Rx ED Physical Exam - General Limitations: No Limitations General appearance: alert, in no apparent distress - Head Head exam: Present: atraumatic, normocephalic - Respiratory Respiratory exam: Present: normal lung sounds bilaterally. Absent: respiratory distress - Cardiovascular Cardiovascular Exam: Present: regular rate, normal rhythm, normal heart sounds - GI/Abdominal GI/Abdominal exam: Present: soft. Absent: distended, tenderness - exam: Present: other (Ma catheter in place. Normal-appearing penis. No lesions noted) - Back Exam Back exam: Present: other (Sacral decubitus ulcer present with dressing in place) - Neurological Exam Neurological exam: Present: alert, oriented X3 - Psychiatric Psychiatric exam: Present: normal affect, normal mood - Skin Skin exam: Present: warm, dry, intact, normal color ED Course Vital Signs 06/28/22 01:54 Temperature 98 F Pulse Rate 85 Respiratory 18 Rate Blood Pressure 122/86 O2 Sat by Pulse 98 Oximetry Critical care attestation.: If time is entered above; I have spent that time in minutes in the direct care of this critically ill patient, excluding procedure time. ED Disposition Clinical Impression: Sacral decubitus ulcer Disposition: 03 NURSING HOME FACILITY Is pt being admited?: No Condition: Stable Instructions: Pressure Injury, Preventing Pressure Injuries Additional Instructions: Please follow-up with your primary doctor as needed. You may return if your symptoms worsen. Time of Disposition: 05:38
[2022-06-28 05:40] LABS: Bacteria,Urine 2+ /HPF (Negative); Mucus,Urine FEW /HPF
[2022-06-28 05:45] LABS: Color,Urine Yellow (Yellow); WBC,Urine > 182.0 /HPF (0.0-6.0)
[2022-06-28 08:59] VITALS: BP 110/74
== END 2022-06-28 13:12 ==
LOC: ED 01:52
DX: L89.159 Pressure ulcer of sacral region, unspecified stage (principal); I10 Essential (primary) hypertension; F03.90 Unspecified dementia, unspecified severity, without behavioral disturbance, psychotic disturbance, mood disturbance, and anxiety; Z79.899 Other long term (current) drug therapy
CPT/HCPCS: 81001; 99284